=== PATIENT | female | born 1945 | race Caucasian/White ===

== ENCOUNTER 2020-07-30 07:53 | Outpatient (REF) | payer MEDICARE, SELFPAY ==
[2020-07-30 10:57] LABS: Alanine Aminotransferase 9 U/L (0-31); Anion Gap 10 (12-20); Aspartate Amino Transferase 19 U/L (5-31); Blood Urea Nitrogen 11 mg/dL (9-16); Calcium 9.3 mg/dL (8.4-10.2); Carbon Dioxide 31 mmol/L (22-29); Chloride 102 mmol/L (96-108); Cholesterol 159 mg/dL; Estimated Glomerular Filt Rate > 60; Glucose Fasting 93 mg/dL (60-99); HDL Cholesterol 47 mg/dL; LDL Cholesterol Calculated 91 mg/dl; Potassium 4.5 mmol/l (3.3-5.1); Sodium 138 mmol/L (135-145); Triglycerides 109 mg/dL
[2020-07-30 11:09] LABS: Vitamin D 25-OH Total 40.2 ng/mL (>30)
[2020-08-06 06:02] LABS: N-Telopeptide 32 (see note); NTXCreaRU 104 mg/dL (20-275)
== END 2020-07-30 07:54 | disposition home or self-care (01) ==
LOC: HO.10HDL 07:53
PROVIDERS: PCP Internal Medicine; Visit Provider Internal Medicine Endocrinology, Diabetes & Metabolism
DX: E78.5 Hyperlipidemia, unspecified (principal); M81.0 Age-related osteoporosis without current pathological fracture
CPT/HCPCS: 80048; 80061; 82306; 82523; 84450; 84460

== ENCOUNTER 2020-09-22 08:04 | Outpatient (REF) | payer MEDICARE, SELFPAY ==
--- NOTE | 2020-09-22 08:08 | MM_ITS ---
EXAMINATION: BONE DENSITOMETRY CLINICAL INDICATION: Age-related osteoporosis without current pathological fracture. COMPARISON: Previous BD dated 09/20/2018 and baseline BD dated 07/30/2004. TECHNIQUE: Using a [employer] DXA System (software version: 13.1) manufactured by [employer], dual-energy x-ray absorptiometry was performed of the lumbar spine and left hip. The images are of good technical quality. Summary results are attached. FINDINGS: AP SPINE L1-L4: Current: BMD 0.883 g/cm2, Z-score -0.4, T-score -2.5, osteopenia, 4.8% decrease from previous, 4.6% decrease from baseline (<5% change is not significant). Prior: BMD 0.928 g/cm2. Baseline: BMD 0.926 g/cm2. LEFT FEMUR, NECK: Current: BMD 0.608 g/cm2, Z-score -0.9, T-score -3.1, osteoporosis. Prior: BMD 0.617 g/cm2. Baseline: BMD 0.655 g/cm2. LEFT FEMUR, TOTAL: Current: BMD 0.764 g/cm2, Z-score 0.1, T-score -1.9, osteopenia, 0.4% decrease from previous, 3.4% decrease from baseline (<5% change is not significant). Prior: BMD 0.767 g/cm2. Baseline: BMD 0.791 g/cm2. IDENTIFIED RISK FACTORS: Osteoporosis. Menopause. HISTORY OF FRACTURE: None listed. MEDICATIONS: Calcium supplement and/or multivitamin. Vitamin D. Bisphosphonates. MM/XR DEXA axial skeleton IMPRESSION: 1. DIAGNOSIS: Osteoporosis based on the lowest T-score value of -3.1 in the femoral neck applying World Health Organization criteria. 2. 10-YEAR FRACTURE RISK PREDICTION, FRAX: Major osteoporotic fracture (clinical spine, forearm, hip or shoulder) 20.8%. Hip fracture 8.8%. 3. Treatment Recommendations: NOF guidelines recommend consideration for treatment in postmenopausal women and men age 50 and older presenting with the following: -A hip or vertebral (clinical or morphometric) fracture. -T-score less than or equal to -2.5 at the femoral neck or spine after appropriate evaluation to exclude secondary causes. -Low bone mass at the hip or spine and a 10-year fracture probability by FRAX of greater than or equal to 3% for hip fracture or greater than or equal to 20% for major osteoporotic fracture based on the [place] adapted WHO algorithm. 4. Other Recommendations: All treatment decisions require clinical judgment and consideration of individual patient factors, including patient preferences, comorbidities, previous drug use, risk factors not captured in the FRAX model (e.g. frailty, falls, vitamin D deficiency, increased bone turnover, interval significant decline in bone density) and possible under or overestimation of fracture risk by FRAX. Additional medical evaluation for secondary cause of low bone mineral density may be appropriate. FUTURE SCAN RECOMMENDATION: People with diagnosed cases of osteoporosis or at high risk for fracture should have regular bone mineral density tests. For patients eligible for Medicare, routine testing is allowed once every 2 years. The testing frequency can be increased to one year for patients who have rapidly progressing disease, those who are receiving or discontinuing medical therapy to restore bone mass, or have additional risk factors.
== END 2020-09-22 08:05 | disposition home or self-care (01) ==
LOC: HO.MAMMO 08:04
PROVIDERS: PCP Internal Medicine; Visit Provider Internal Medicine Endocrinology, Diabetes & Metabolism
DX: M81.0 Age-related osteoporosis without current pathological fracture (principal); Z78.0 Asymptomatic menopausal state
CPT/HCPCS: 77080

== ENCOUNTER → 2020-09-29 07:50 | Outpatient (BNVA) | payer MEDICARE, SELFPAY | PROVIDERS: PCP Internal Medicine; Visit Provider Internal Medicine Endocrinology, Diabetes & Metabolism | DX: M81.0 Age-related osteoporosis without current pathological fracture (principal); E78.5 Hyperlipidemia, unspecified; E55.9 Vitamin D deficiency, unspecified; Z87.891 Personal history of nicotine dependence; Z79.83 Long term (current) use of bisphosphonates | CPT/HCPCS: 99212 ==

== ENCOUNTER 2020-12-05 08:09 | Outpatient (REF) | payer MEDICARE, SELFPAY ==
--- NOTE | ~2020-12-05 | MM_ITS ---
EXAMINATION: MM SCREENING DIGITAL BREAST TOMOSYNTHESIS, BILATERAL CLINICAL INFORMATION: Screening. Asymptomatic. The lifetime risk of breast cancer based on the Tyrer-Cuzick Model is 2%. COMPARISON: Mammography: 11/08/2019, 09/20/2018, 09/18/2017 TECHNIQUE: Digital breast tomosynthesis is performed in both the craniocaudal and mediolateral oblique views along with computer-aided detection (CAD). Synthesized 2D images are generated from the tomosynthesis. FINDINGS: The breasts are heterogeneously dense, which may obscure small masses (ACR BI-RADS breast composition Category c). There are no significant masses, abnormal calcifications, or other abnormalities. Parenchymal pattern is similar to prior studies. No developing density. The axilla and skin contours are unremarkable. MM/MM tomosynthesis screening BI IMPRESSION: No mammographic evidence of malignancy. ASSESSMENT: BI-RADS 1: Negative RECOMMENDATION: Routine annual mammography screening. This patient's information was entered into a reminder system with a target due date for their next mammogram.
== END 2020-12-05 08:10 | disposition home or self-care (01) ==
LOC: HO.MAMMO 08:09
PROVIDERS: Visit Provider Internal Medicine
DX: Z12.31 Encounter for screening mammogram for malignant neoplasm of breast (principal)
CPT/HCPCS: 77063; 77067

== ENCOUNTER 2021-03-02 07:01 | Outpatient (REF) | payer MEDICARE, SELFPAY ==
[2021-03-02 11:51] LABS: Alanine Aminotransferase 8 U/L (0-31); Anion Gap 13 (12-20); Aspartate Amino Transferase 16 U/L (5-31); Blood Urea Nitrogen 14 mg/dL (9-16); Calcium 9.1 mg/dL (8.4-10.2); Carbon Dioxide 28 mmol/L (22-29); Chloride 104 mmol/L (96-108); Cholesterol 186 mg/dL; Estimated Glomerular Filt Rate > 60; Glucose Fasting 94 mg/dL (60-99); HDL Cholesterol 63 mg/dL; LDL Cholesterol Calculated 102 mg/dl; Potassium 4.2 mmol/L (3.3-5.1); Sodium 141 mmol/L (135-145); Triglycerides 109 mg/dL
== END 2021-03-02 07:02 | disposition home or self-care (01) ==
LOC: HO.HMGCLDS 07:01
PROVIDERS: PCP Internal Medicine; Visit Provider Internal Medicine
DX: I10 Essential (primary) hypertension (principal); E78.5 Hyperlipidemia, unspecified
CPT/HCPCS: 36415; 80048; 80061; 84450; 84460

== ENCOUNTER 2021-03-18 08:53 | Outpatient (REF) | payer MEDICARE, SELFPAY ==
[2021-03-18 11:00] LABS: Alanine Aminotransferase 9 U/L (0-31); Albumin Level 4.1 g/dL (3.5-5.0); Alkaline Phosphatase 66 U/L (39-117); Anion Gap 11 (12-20); Aspartate Amino Transferase 14 U/L (5-31); Bilirubin Total 0.8 mg/dL (0.0-1.0); Blood Urea Nitrogen 14 mg/dL (9-16); Calcium 9.5 mg/dL (8.4-10.2); Carbon Dioxide 31 mmol/L (22-29); Chloride 103 mmol/L (96-108); Estimated Glomerular Filt Rate > 60; Glucose Fasting 92 mg/dL (60-99); Potassium 4.2 mmol/L (3.3-5.1); Sodium 141 mmol/L (135-145); Total Protein 6.4 g/dL (6.5-8.0)
[2021-03-18 11:20] LABS: Vitamin D 25-OH Total 39.9 ng/mL (>30)
[2021-03-24 06:47] LABS: N-Telopeptide 22 (see note); NTXCreaRU 106 mg/dL (20-275)
== END 2021-03-18 08:54 | disposition home or self-care (01) ==
LOC: HO.10HDL 08:53
PROVIDERS: Visit Provider Internal Medicine Endocrinology, Diabetes & Metabolism
DX: M81.0 Age-related osteoporosis without current pathological fracture (principal)
CPT/HCPCS: 36415; 80053; 82306; 82523

== ENCOUNTER → 2021-03-30 07:17 | Outpatient (BNVA) | payer MEDICARE, SELFPAY | PROVIDERS: PCP Internal Medicine; Visit Provider Internal Medicine Endocrinology, Diabetes & Metabolism | DX: M81.0 Age-related osteoporosis without current pathological fracture (principal); E55.9 Vitamin D deficiency, unspecified | CPT/HCPCS: 99212 ==

== ENCOUNTER 2021-09-13 07:41 | Outpatient (REF) | payer MEDICARE, SELFPAY ==
[2021-09-13 11:04] LABS: Cholesterol 185 mg/dL; HDL Cholesterol 50 mg/dL; LDL Cholesterol Calculated 114 mg/dl; Triglycerides 106 mg/dL
== END 2021-09-13 07:42 | disposition home or self-care (01) ==
LOC: HO.10HDL 07:41
PROVIDERS: Visit Provider Internal Medicine
DX: E78.5 Hyperlipidemia, unspecified (principal); I10 Essential (primary) hypertension
CPT/HCPCS: 36415; 80061

== ENCOUNTER 2021-12-31 08:56 | Outpatient (REF) | payer MEDICARE, SELFPAY ==
--- NOTE | ~2021-12-31 | MM_ITS ---
EXAMINATION: MM SCREENING DIGITAL BREAST TOMOSYNTHESIS, BILATERAL CLINICAL INFORMATION: Screening. Asymptomatic. The lifetime risk of breast cancer based on the Tyrer-Cuzick Model is 2.0%. COMPARISON: Mammography: December 05, 2020 and studies dating back to September 09, 2014 TECHNIQUE: Digital breast tomosynthesis is performed in both the craniocaudal and mediolateral oblique views along with computer-aided detection (CAD). Synthesized 2D images are generated from the tomosynthesis. FINDINGS: The breasts are heterogeneously dense, which may obscure small masses (ACR BI-RADS breast composition Category c). There are no significant masses, abnormal calcifications, or other abnormalities. MM/MM tomosynthesis screening BI IMPRESSION: There are no significant changes from prior study. ASSESSMENT: BI-RADS 1: Negative RECOMMENDATION: Routine annual mammography screening. This patient's information was entered into a reminder system with a target due date for their next mammogram.
== END 2021-12-31 08:57 | disposition home or self-care (01) ==
LOC: HO.MAMMO 08:56
PROVIDERS: PCP Internal Medicine; Visit Provider Internal Medicine
DX: Z12.31 Encounter for screening mammogram for malignant neoplasm of breast (principal)
CPT/HCPCS: 77063; 77067

== ENCOUNTER 2022-03-22 07:44 | Outpatient (REF) | payer MEDICARE, SELFPAY ==
[2022-03-22 12:04] LABS: Alanine Aminotransferase 8 U/L (0-31); Anion Gap 13 (12-20); Aspartate Amino Transferase 17 U/L (5-31); Blood Urea Nitrogen 14 mg/dL (9-16); Calcium 9.6 mg/dL (8.4-10.2); Carbon Dioxide 29 mmol/L (22-29); Chloride 103 mmol/L (96-108); Cholesterol 198 mg/dL; Estimated Glomerular Filt Rate > 60; Glucose Fasting 99 mg/dL (60-99); HDL Cholesterol 65 mg/dL; LDL Cholesterol Calculated 116 mg/dl; Potassium 4.6 mmol/L (3.3-5.1); Sodium 140 mmol/L (135-145); Triglycerides 85 mg/dL
[2022-03-22 12:11] LABS: Vitamin D 25-OH Total 60.6 ng/mL (>30)
== END 2022-03-22 07:45 | disposition home or self-care (01) ==
LOC: HO.HMGCLDS 07:44
PROVIDERS: PCP Internal Medicine; Visit Provider Internal Medicine
DX: E78.5 Hyperlipidemia, unspecified (principal); I10 Essential (primary) hypertension; R73.01 Impaired fasting glucose; M81.0 Age-related osteoporosis without current pathological fracture; Z78.0 Asymptomatic menopausal state
CPT/HCPCS: 36415; 80048; 80061; 82306; 84450; 84460

== ENCOUNTER → 2022-04-12 08:32 | Outpatient (BNVA) | payer MEDICARE, SELFPAY | PROVIDERS: PCP Internal Medicine; Visit Provider Internal Medicine Endocrinology, Diabetes & Metabolism | DX: M81.0 Age-related osteoporosis without current pathological fracture (principal) | CPT/HCPCS: 99212 ==

== ENCOUNTER 2022-04-28 07:44 | Outpatient (REF) | payer MEDICARE, SELFPAY ==
[2022-04-30 11:21] LABS: Prot Elec - Albumin 3.9 g/dL (3.8-4.8); Prot Elec - Alpha1 0.3 g/dL (0.2-0.3); Prot Elec - Alpha2 0.8 g/dL (0.5-0.9); Prot Elec - Beta 1 0.4 g/dL (0.4-0.6); Prot Elec - Beta 2 0.3 g/dL (0.2-0.5); Prot Elec - Gamma 0.7 g/dL (0.8-1.7); Prot Elec - Total Protein 6.3 g/dL (6.1-8.1)
== END 2022-04-28 07:45 | disposition home or self-care (01) ==
LOC: HO.10HDL 07:44
PROVIDERS: Visit Provider Internal Medicine Endocrinology, Diabetes & Metabolism
DX: M81.0 Age-related osteoporosis without current pathological fracture (principal)
CPT/HCPCS: 84165; 86335

== ENCOUNTER 2022-05-02 08:23 | Outpatient (REF) | payer MEDICARE, SELFPAY ==
[2022-05-02 11:50] LABS: Total Volume 24 Hour Urine 1025 mL
[2022-05-02 12:18] LABS: Creatinine, 24Hr Urine 0.6 G/Day (1.0-2.0); Creatinine, mg/dL 62.39
[2022-05-04 20:47] LABS: Calcium, 24 Hr Urine 116 mg/24 h; Calcium/Creatinine Ratio 182 mg/g creat (30-275); Creatinine 24Hr Urine 0.64 g/24 h (0.50-2.15)
== END 2022-05-02 08:24 | disposition home or self-care (01) ==
LOC: HO.10HDLNP 08:23
PROVIDERS: Visit Provider Internal Medicine Endocrinology, Diabetes & Metabolism
DX: M81.0 Age-related osteoporosis without current pathological fracture (principal)
CPT/HCPCS: 82340; 82570

== ENCOUNTER 2022-09-21 07:54 | Outpatient (REF) | payer OTHER, SELFPAY ==
[2022-09-21 11:21] LABS: Alanine Aminotransferase 10 U/L (0-31); Anion Gap 11 (12-20); Aspartate Amino Transferase 16 U/L (5-31); Blood Urea Nitrogen 14 mg/dL (9-16); Calcium 9.7 mg/dL (8.4-10.2); Carbon Dioxide 31 mmol/L (22-29); Chloride 102 mmol/L (96-108); Cholesterol 192 mg/dL; Estimated Glomerular Filt Rate > 60; Glucose Fasting 92 mg/dL (60-99); HDL Cholesterol 58 mg/dL; LDL Cholesterol Calculated 112 mg/dl; Potassium 4.3 mmol/L (3.3-5.1); Sodium 140 mmol/L (135-145); Triglycerides 112 mg/dL
[2022-09-21 11:41] LABS: Vitamin D 25-OH Total 73.8 ng/mL (>30)
== END 2022-09-21 07:55 | disposition home or self-care (01) ==
LOC: HO.10HDL 07:54
PROVIDERS: Visit Provider Internal Medicine
DX: M81.0 Age-related osteoporosis without current pathological fracture (principal); E78.5 Hyperlipidemia, unspecified; R73.01 Impaired fasting glucose; N95.9 Unspecified menopausal and perimenopausal disorder
CPT/HCPCS: 36415; 80048; 80061; 82306; 84450; 84460

== ENCOUNTER 2022-09-28 09:57 | Outpatient (REF) | payer OTHER, SELFPAY ==
--- NOTE | ~2022-09-28 | MM_ITS ---
EXAMINATION: BONE DENSITOMETRY CLINICAL INDICATION: Age-related osteoporosis without current pathological fracture. COMPARISON: Previous BD dated 09/22/2020 and baseline BD dated 07/30/2004. TECHNIQUE: Using a [employer] DXA System (software version: 13.1) manufactured by [employer], dual-energy x-ray absorptiometry was performed of the lumbar spine and left hip. The images are of good technical quality. Summary results are attached. FINDINGS: AP SPINE L1-L4: Current: BMD 0.929 g/cm2, Z-score 0.1, T-score -2.1, osteopenia, 5.2% increase from previous, 0.3% increase from baseline (<5% change is not significant). Prior: BMD 0.883 g/cm2. Baseline: BMD 0.926 g/cm2. LEFT FEMUR, NECK: Current: BMD 0.623 g/cm2, Z-score -0.7, T-score -3.0, osteoporosis. Prior: BMD 0.608 g/cm2. Baseline: BMD 0.655 g/cm2. LEFT FEMUR, TOTAL: Current: BMD 0.735 g/cm2, Z-score 0.0, T-score -2.2, osteopenia, 3.8% decrease from previous, 7.1% decrease from baseline (<5% change is not significant). Prior: BMD 0.764 g/cm2. Baseline: BMD 0.791 g/cm2. IDENTIFIED RISK FACTORS: Osteoporosis, history of fracture (adult), menopause. HISTORY OF FRACTURE: Humerus. MEDICATIONS: Calcium supplements or multivitamin, vitamin D, bisphosphonates. MM/XR DEXA axial skeleton IMPRESSION: 1. DIAGNOSIS: Osteoporosis based on the lowest T-score value of -3.0 in the femoral neck applying World Health Organization criteria. 2. 10-YEAR FRACTURE RISK PREDICTION, FRAX: According to the guidelines, FRAX calculation should only be performed on patients in the osteopenia bone density category. Therefore, FRAX was not performed on this patient. 3. Treatment Recommendations: NOF guidelines recommend consideration for treatment in postmenopausal women and men age 50 and older presenting with the following: -A hip or vertebral (clinical or morphometric) fracture. -T-score less than or equal to -2.5 at the femoral neck or spine after appropriate evaluation to exclude secondary causes. -Low bone mass at the hip or spine and a 10-year fracture probability by FRAX of greater than or equal to 3% for hip fracture or greater than or equal to 20% for major osteoporotic fracture based on the [place] adapted WHO algorithm. 4. Other Recommendations: All treatment decisions require clinical judgment and consideration of individual patient factors, including patient preferences, comorbidities, previous drug use, risk factors not captured in the FRAX model (e.g. frailty, falls, vitamin D deficiency, increased bone turnover, interval significant decline in bone density) and possible under or overestimation of fracture risk by FRAX. Additional medical evaluation for secondary cause of low bone mineral density may be appropriate. FUTURE SCAN RECOMMENDATION: People with diagnosed cases of osteoporosis or at high risk for fracture should have regular bone mineral density tests. For patients eligible for Medicare, routine testing is allowed once every 2 years. The testing frequency can be increased to one year for patients who have rapidly progressing disease, those who are receiving or discontinuing medical therapy to restore bone mass, or have additional risk factors.
== END 2022-09-28 09:58 | disposition home or self-care (01) ==
LOC: HO.MAMMO 09:57
PROVIDERS: PCP Internal Medicine; Visit Provider Internal Medicine Endocrinology, Diabetes & Metabolism
DX: Z13.820 Encounter for screening for osteoporosis (principal); M81.0 Age-related osteoporosis without current pathological fracture; Z78.0 Asymptomatic menopausal state
CPT/HCPCS: 77080

== ENCOUNTER 2022-10-06 09:06 | Outpatient (REF) | payer OTHER, SELFPAY ==
--- NOTE | ~2022-10-06 | MM_ITS ---
EXAMINATION: DXA VERTEBRAL FRACTURE ASSESSMENT CLINICAL INFORMATION: Age-related osteoporosis COMPARISON: Bone densitometry 09/28/2022. TECHNIQUE: Your patient completed a vertebral fracture assessment using the [employer] DXA system (software version: 14.10) manufactured by [employer]. The following summarizes the results of our evaluation. LVA MORPHOMETRY RESULTS: Evaluation of the thoracolumbar spine from T4 through L4 was performed. Image quality is good. There is no focal vertebral compression. Borderline loss of height T7 likely present. There is mild accentuated endplate concavity at T11. The lowest Z scores are -1.2, at both T9 and T10. The highest Z score is +0.7 at T4 MM/XR DEXA vertrebral fracture IMPRESSION: -No focal gross vertebral compression. -Borderline loss of height T7. Mild accentuated endplate concavity T11. -Lowest Z-scores -1.2 at both T9 and T10. RECOMMENDATIONS: All patients should ensure an adequate intake of dietary calcium (1200 mg/d) and vitamin D (400-800 IU/d). Effective therapies are now available in the form of bisphosphonates, (alendronate, ibandronate, risedronate, zoledronic acid), antiresorptive agents (calcitonin, estrogen+progesterone and raloxifene) and anabolic agent (teriparatide). These therapies may reduce vertebral, hip and other fractures by up to 50%. FOLLOW-UP: People with diagnosed cases of osteoporosis, high risk for fracture, or current vertebral fractures should have regular bone mineral density tests. The frequency of follow-up vertebral fracture assessment tests should be determined based on clinical circumstances. Often times, testing frequency will be based on rapidly progressing disease, or the addition or elimination of therapy to treat the disease.
== END 2022-10-06 09:07 | disposition home or self-care (01) ==
LOC: HO.MAMMO 09:06
PROVIDERS: PCP Internal Medicine; Visit Provider Internal Medicine Endocrinology, Diabetes & Metabolism
DX: Z13.820 Encounter for screening for osteoporosis (principal); M81.0 Age-related osteoporosis without current pathological fracture; Z78.0 Asymptomatic menopausal state; S22.009D Unspecified fracture of unspecified thoracic vertebra, subsequent encounter for fracture with routine healing
CPT/HCPCS: 77086

== ENCOUNTER → 2022-11-08 07:48 | Outpatient (BNVA) | payer MEDICARE, SELFPAY | PROVIDERS: PCP Internal Medicine; Visit Provider Internal Medicine Endocrinology, Diabetes & Metabolism | DX: M81.0 Age-related osteoporosis without current pathological fracture (principal) | CPT/HCPCS: 99212 ==

== ENCOUNTER 2023-01-06 07:17 | Outpatient (REF) | payer MEDICARE, SELFPAY ==
--- NOTE | ~2023-01-06 | MM_ITS ---
EXAMINATION: MM SCREENING DIGITAL BREAST TOMOSYNTHESIS, BILATERAL CLINICAL INFORMATION: Screening. Asymptomatic. The lifetime risk of breast cancer based on the Tyrer-Cuzick Model is 2%. COMPARISON: Mammography: 12/31/2021, 12/05/2020, 11/08/2019 TECHNIQUE: Digital breast tomosynthesis is performed in both the craniocaudal and mediolateral oblique views along with computer-aided detection (CAD). Synthesized 2D images are generated from the tomosynthesis. FINDINGS: The breasts are heterogeneously dense, which may obscure small masses (ACR BI-RADS breast composition Category c). There are no significant masses, abnormal calcifications, or other abnormalities. Parenchymal pattern is similar to prior studies. There is no developing density or architectural abnormality. The axilla and skin contours are unremarkable. No significant changes. MM/MM tomosynthesis screening BI IMPRESSION: No mammographic evidence of malignancy. ASSESSMENT: BI-RADS 1: Negative RECOMMENDATION: Routine annual mammography screening. This patient's information was entered into a reminder system with a target due date for their next mammogram.
== END 2023-01-06 07:18 | disposition home or self-care (01) ==
LOC: HO.MAMMO 07:17
PROVIDERS: PCP Internal Medicine; Visit Provider Internal Medicine
DX: Z12.31 Encounter for screening mammogram for malignant neoplasm of breast (principal)
CPT/HCPCS: 77063; 77067

== ENCOUNTER 2023-01-25 07:42 | Outpatient (REF) | payer MEDICARE, SELFPAY ==
[2023-01-31 07:09] LABS: N-Telopeptide 23 (see note); NTXCreaRU 49 mg/dL (20-275)
== END 2023-01-25 07:43 | disposition home or self-care (01) ==
LOC: HO.10HDL 07:42
PROVIDERS: Visit Provider Internal Medicine Endocrinology, Diabetes & Metabolism
DX: M81.0 Age-related osteoporosis without current pathological fracture (principal)
CPT/HCPCS: 82523

== ENCOUNTER 2023-03-09 07:30 | Outpatient (REF) | payer MEDICARE, SELFPAY ==
[2023-03-09 11:18] LABS: Alanine Aminotransferase 7 U/L (0-31); Anion Gap 12 (12-20); Aspartate Amino Transferase 16 U/L (5-31); Blood Urea Nitrogen 15 mg/dL (9-16); Calcium 9.6 mg/dL (8.4-10.2); Carbon Dioxide 30 mmol/L (22-29); Chloride 105 mmol/L (96-108); Cholesterol 172 mg/dL; Estimated Glomerular Filt Rate > 60; Glucose Fasting 92 mg/dL (60-99); HDL Cholesterol 60 mg/dL; LDL Cholesterol Calculated 96 mg/dl; Potassium 4.3 mmol/L (3.3-5.1); Sodium 143 mmol/L (135-145); Triglycerides 80 mg/dL
== END 2023-03-09 07:31 | disposition home or self-care (01) ==
LOC: HO.10HDL 07:30
PROVIDERS: Visit Provider Internal Medicine
DX: I10 Essential (primary) hypertension (principal); E78.5 Hyperlipidemia, unspecified; R73.01 Impaired fasting glucose
CPT/HCPCS: 36415; 80048; 80061; 84450; 84460

== ENCOUNTER 2023-05-03 07:32 | Outpatient (AMB) | payer MEDICARE, SELFPAY ==
--- NOTE | 2023-05-03 07:34 | A.OFFVIS_ITS ---
Intake Vital Signs 05/03/23 07:36 Height 5 ft 4.49 in Weight 119 lb 0.794 oz BMI 20.1 BP 138/76 Blood Pressure Location Rt brachial Position Sitting Pulse 83 Pulse Source Pulse Oximeter Intake Visit Reasons: f/u Osteoporosis Intake Note: Patient present today for Osteoporosis follow up visit. 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 She is off Fosamax 70 mg weekly, she has a good method of administration. She is 100 % adherent. She has osteoporosis diagnosed on 2003, she was on Evista from 2003 to 10/2013 when was stopped by DR Ko because she had worsening BMD, she was started on Fosamax on 10/2013. She has PMH of hyperlipidemia, vitamin D deficiency. She had a fragility fracture Right shoulder on 02/2017 while she was on Fosamax . She denies GERD, negative FH of fractures or osteoporosis, no nephrolithiasis, no steroids used, ex smoker quit 7 years ago, no anti seizures medications, no SSRI, no PPI. He has negative History of head or neck irradiation. Calcium Citrate 500 mg BID Vitamin D: 1000 IU daily Herbal medications. none. 09/22/2020 DEXA FINDINGS: AP SPINE L1-L4: Current: BMD 0.883 g/cm2, Z-score -0.4, T-score -2.5, osteopenia, 4.8% decrease from previous, 4.6% decrease from baseline (<5% change is not significant). Prior: BMD 0.928 g/cm2. Baseline: BMD 0.926 g/cm2. LEFT FEMUR, NECK: Current: BMD 0.608 g/cm2, Z-score -0.9, T-score -3.1, osteoporosis. Prior: BMD 0.617 g/cm2. Baseline: BMD 0.655 g/cm2. LEFT FEMUR, TOTAL: Current: BMD 0.764 g/cm2, Z-score 0.1, T-score -1.9, osteopenia, 0.4% decrease from previous, 3.4% decrease from baseline (<5% change is not significant). Prior: BMD 0.767 g/cm2. Baseline: BMD 0.791 g/cm2. Complete secondary workup was negative Laboratory Tests FINDINGS: AP SPINE L1-L4: Current: BMD 0.929 g/cm2, Z-score 0.1, T-score -2.1, osteopenia, 5.2% increase from previous, 0.3% increase from baseline (<5% change is not significant). Prior: BMD 0.883 g/cm2. Baseline: BMD 0.926 g/cm2. LEFT FEMUR, NECK: Current: BMD 0.623 g/cm2, Z-score -0.7, T-score -3.0, osteoporosis. Prior: BMD 0.608 g/cm2. Baseline: BMD 0.655 g/cm2. LEFT FEMUR, TOTAL: Current: BMD 0.735 g/cm2, Z-score 0.0, T-score -2.2, osteopenia, 3.8% decrease from previous, 7.1% decrease from baseline (<5% change is not significant). Prior: BMD 0.764 g/cm2. Baseline: BMD 0.791 g/cm2. IDENTIFIED RISK FACTORS: Osteoporosis, history of fracture (adult), menopause. 03/18/21 03/18/21 08:59 08:59 Creatinine 0.75 Estimated GFR > 60 Calcium 9.5 Alkaline Phosphata se 66 Albumin 4.1 N-Telopeptide X-li nked 22 25-OH Vitamin D To terese 39.9 Urine Creatinine 106 Laboratory Tests 06/03/19 07/30/20 07/30/20 06:14 08:01 08:05 Creatinine 0.76 Estimated GFR > 60 Calcium 9.3 Albumin 4.3 N-Telopeptide X-li nked 32 25-OH Vitamin D To terese 40.2 Urine NTX was suppressed [facility] Medical History Dyslipidemia Impaired fasting glucose Osteoporosis White coat syndrome with hypertension Surgical History H/O colonoscopy No pertinent past surgical history Family History Father No problems noted. Mother Diabetes mellitus Sister No problems noted. Son No problems noted. Social History Household Members: Spouse Household Members Other:: Housing: House Alcohol intake: current Alcohol intake frequency: holidays/special occasions only Alcohol type: beer Patient Tobacco Use Status: Former Tobacco user e-Cigarette/Vaping Use: Never Used Second Hand Smoke Exposure: Yes Advance Directives Date on File: 07/30/20 service: No Current occupational status: disabled Cognitive needs: No Hearing needs: No Vision needs: Yes Physical Exam Vital Signs: BMI result Body Mass Index 20.1 Assessment & Plan Assessment & Plan (1) Osteoporosis: Code(s): M81.0 - Age-related osteoporosis without current pathological fracture Qualifiers: Osteoporosis type: age-related Presence of current pathological fracture: without current pathological fracture Qualified Code(s): M81.0 - Age- related osteoporosis without current pathological fracture Plan: This 77-year-old white female with a history of osteoporosis and fragility fracture of the right shoulder in 2017. Secondary workup was negative. She has been on alendronate for 8 years and Evista prior. Urine NTX was suppressed. Plan is to continue calcium and vitamin-D. Repeat bone density was stable. Will have patient hold alendronate. Will follow serial NTX Coding Level of Care Code Est Pt Level 3 (51466) Diagnoses Osteoporosis M81.0 Osteoporosis type: age-related Presence of current pathological fracture: without current pathological fracture
[2023-05-03 07:36] VITALS: BP 138/76; PULSE 83; BMI 20.1
== END 2023-05-03 07:47 | disposition home or self-care (01) ==
PROVIDERS: PCP Internal Medicine; Referring Provider Internal Medicine; Visit Provider Internal Medicine Endocrinology, Diabetes & Metabolism
DX: M81.0 Age-related osteoporosis without current pathological fracture (principal)
CPT/HCPCS: 99213

== ENCOUNTER → 2023-05-03 07:32 | Outpatient (BNVA) | payer MEDICARE, SELFPAY | PROVIDERS: Visit Provider Internal Medicine Endocrinology, Diabetes & Metabolism | DX: M81.0 Age-related osteoporosis without current pathological fracture (principal) | CPT/HCPCS: 99212 ==

== ENCOUNTER 2023-09-12 07:24 | Outpatient (REF) | payer MEDICARE, SELFPAY ==
[2023-09-12 11:08] LABS: Alanine Aminotransferase 10 U/L (0-31); Anion Gap 10 (12-20); Aspartate Amino Transferase 18 U/L (5-31); Blood Urea Nitrogen 16 mg/dL (9-16); Calcium 9.3 mg/dL (8.4-10.2); Carbon Dioxide 32 mmol/L (22-29); Chloride 102 mmol/L (96-108); Cholesterol 200 mg/dL (<200); Estimated Glomerular Filt Rate > 60; Glucose Fasting 91 mg/dL (60-99); HDL Cholesterol 70 mg/dL (>40); LDL Cholesterol Calculated 112 mg/dL (<100); Potassium 4.4 mmol/L (3.3-5.1); Sodium 140 mmol/L (135-145); Triglycerides 94 mg/dL (<150)
== END 2023-09-12 07:25 | disposition home or self-care (01) ==
LOC: HO.10HDL 07:24
PROVIDERS: Visit Provider Internal Medicine
DX: E78.5 Hyperlipidemia, unspecified (principal); R73.01 Impaired fasting glucose
CPT/HCPCS: 36415; 80048; 80061; 84450; 84460

== ENCOUNTER 2023-09-21 08:07 | Outpatient (AMB) | payer MEDICARE, SELFPAY ==
--- NOTE | 2023-09-21 08:24 | A.OFFPC_ITS ---
Vital Signs 09/21/23 08:25 Height 5 ft 4.9 in Weight 125 lb 8 oz BMI 20.9 BP 132/86 Blood Pressure Location Rt brachial Position Sitting Pulse 82 Pulse Source Pulse Oximeter Pulse Oximetry (%) 100 Oxygen Delivery Method Room Air Intake Visit Reasons: Annual PE Intake Note: Pt is here for her Annual PE Allergies No Known Allergies [No Known Allergies*] Allergy (Verified 09/21/23 08:58) Medication List - Last Reconciled 09/21/23 by Juanita Lakhani MD atorvastatin (Lipitor) 10 mg PO DAILY calcium carbonate 500 mg PO DAILY cholecalciferol (vitamin D3) (Vitamin D3) 25 mcg PO DAILY Tobacco use date assessed: 09/21/23 Fall risk assessment: No Falls in past year Last assessed Fall Risk: 09/21/23 Dental Screening Dental Screen Date: 09/21/23 Did you have a dental visit in the last 12 months?: No Did you have a dental problem in the last 6 months where you did not have access to dental care?: No Was dental information given to patient?: No HPI Annual PE HPI Details 78-year-old lady here today for her phys ical exam. She has dyslipidemia currently on atorvastatin. She is up-to-date with her screening mammogram, and had a colonoscopy in 2019 which did not show any polyps only sigmoid diverticulosis, no further colonoscopy is indicated per Dr. Alejo. Currently followed by Dr. Wilde her narcotics agent for her osteoporosis. Plan is to continue calcium and vitamin-D. Repeat bone density was stable, alendronate currently on hold. FORMERLY [facility], 1928–1983 Medical History White coat syndrome with hypertension Dyslipidemia Impaired fasting glucose Osteoporosis Surgical History H/O colonoscopy No pertinent past surgical history Family History Father No problems noted. Mother Diabetes mellitus Sister No problems noted. Son No problems noted. Social History Household Members: Spouse Household Members Other:: Housing: House Alcohol intake: current Alcohol intake frequency: holidays/special occasions only Alcohol type: beer Patient Tobacco Use Status: Former Tobacco user e-Cigarette/Vaping Use: Never Used Second Hand Smoke Exposure: Yes Advance Directives Date on File: 07/30/20 service: No Current occupational status: disabled Cognitive needs: No Hearing needs: No Vision needs: Yes Questionnaire PHQ-9 Over the last 2 weeks, how often have you been bothered by any of the following problems? 1. Little interest or pleasure in doing things: not at all 2. Feeling down, depressed, or hopeless: not at all 3. Trouble falling or staying asleep, or sleeping too much: not at all 4. Feeling tired or having little energy: not at all 5. Poor appetite or overeating: not at all 6. Feeling bad about yourself - or that you are a failure or have let yourself or your family down: not at all 7. Trouble concentrating on things, such as reading the newspaper or watching television: not at all 8. Moving or speaking so slowly that other people could have noticed. Or the opposite - being so fidgety or restless that you have been moving around a lot more than usual: not at all 9. Thoughts that you would be better off or of hurting yourself in some way: not at all Total score: 0 Depression Screening Interpretation: Negative Depression Screening Done: Yes 57670 - PHQ-9 Billing: Yes Source: Developed by Drs. Cisco Tierney, Vivi Benites, Mir Daniels and colleagues, with an educational tay from [employer]. Thrive Questionnaire Date Thrive assessed: 09/21/23 I am a: Patient What is your living situation today?: I have a steady place to live Within the past 12 months, did the food you bought not last and you didn't have the money to get more?: Never true Within the past 12 months, did you worry whether your food would run out before you got money to buy more?: Never true Do you have trouble paying for medicines?: No Do you have trouble getting transportation to medical appointments?: No Do you have trouble paying your heating and electricity bill?: No Do you have trouble taking care of your child, family member or friend?: No Do you have trouble with day-to-day activities such as bathing, preparing meals, shopping, managing finances, etc.?: No Are you currently unemployed and looking for a job?: No Are you interested in more education?: No AUDIT C Alcohol Use Questionnaire (AUDIT-C) 1. How often do you have a drink containing alcohol?: Monthly or less 2. How many drinks containing alcohol do you have on a typical day when you are drinking?: 1 or 2 3. How often do you have six or more drinks on one occasion?: Never Total Score: 1 MYA-7 AMB Questionnaire MYA-7 Date MYA - 7 assessed: 09/21/23 Feeling nervous, anxious, or on edge: 0 = Not at all Not being able to stop or control worryin = Not at all Worrying too much about different things: 0 = Not at all Trouble relaxin = Not at all Being so restless that it is hard to sit still: 0 = Not at all Becoming easily annoyed or irritable: 0 = Not at all Feeling afraid as if something awful might happen: 0 = Not at all Total MYA-7 score (0-4 normal; 5-9 mild; 10-14 moderate; 15-21 severe): 0 Source: Developed by Drs. Cisco Tierney, Vivi Benites, Mir Daniels and colleagues, with an educational tay from [employer]. MYA-7 Assessment Billing MYA-7 Assessment Tool: MYA-7 Assessment 79054 Review of Systems Const Denies excessive sweating, Denies fatigue, Denies frequent falls, Denies headache(s), Denies increased appetite and Denies weakness Eyes Reports blurry vision (sees Dr Celeste ), Denies diplopia, Denies dry eyes and Denies loss of peripheral vision ENT Reports Normal hearing present, Denies dysphagia and Denies headache(s) Card Denies leg edema, Denies palpitations and Denies dyspnea Resp Denies dyspnea GI Denies abdominal pain, Denies bloating, Denies change in bowel habits, Denies constipation, Denies dysphagia, Denies early satiety, Denies diarrhea, Denies nausea and Denies vomiting Denies urinary frequency Musc Denies back pain, Denies muscle cramps, Denies numbness and Denies tingling Skin/Breast Denies alopecia and Denies rash Neuro Reports Normal hearing present, Denies frequent falls, Denies headache(s), Denies memory loss, Denies numbness, Denies Sensory deficit (Neuro), Denies tingling and Denies weakness Psych Denies anxiety, Denies depression, Denies irritability and Denies memory loss Endo Denies cold intolerance, Denies deepening of the voice, Denies excessive sweatin g, Denies fatigue, Denies heat intolerance, Denies polyphagia, Denies polydipsia, Denies polyuria and Denies palpitations Benjamín/Lymph Denies easy bruising Aller/Immun Reports no additional complaints Physical exam (Primary Care) Vital Signs: Last Vital Signs Pulse 82 09/21/23 08:25 BP 132/86 09/21/23 08:25 Pulse Ox 100 09/21/23 08:25 Oxygen Delivery Method Room Air 09/21/23 08:25 BMI result Body Mass Index 20.9 Tobacco/Smoking Status: Tobacco use Status Tobacco use date assessed 09/21/23 09/21/23 08:29 Patient Tobacco Use Status Former Tobacco user 09/21/23 08:25 e-Cigarette/Vaping Use Never Used 09/21/23 08:25 PHQ-9: PHQ-9 Score PHQ-9: Total score 0 09/21/23 08:51 Depression Screening Interpretation: Negative Thrive Assessment: Date of Thrive Assessment Date Thrive assessed 09/21/23 09/21/23 08:51 Const General: cooperative, healthy appearing, no acute distress and alert Orientation/consciousness: patient oriented x3 Limitations: no limitations and No altered mental status [facility] Head: Yes normal to inspection, Yes normocephalic and Yes atraumatic Ears: hearing grossly normal bilaterally, external ears normal, TM's normal bilaterally and EAC's normal General nose exam: Normal external nose present and No nasal discharge present Face and sinus: Yes normal facial exam, Yes sinuses nontender and Yes face symmetric Mouth: oropharynx normal and moist mucous membranes Eyes Conjunctivae: conjunctivae normal Sclerae: sclerae normal Pupils: Equal, round and reactive pupils present EOM: EOMs intact bilaterally Neck Neck: Yes full ROM and Yes no lymphadenopathy Thyroid: Thyroid normal Carotids: normal carotid upstroke Lymphatic: no lymphadenopathy noted Chest Chest palpation & inspection: normal inspection of the chest Breast/axilla palpation: normal palpation of the breasts Resp Effort & Inspection: normal respiratory effort and able to speak in complete sentences Auscultation: clear to auscultation bilaterally Cardio Jugular venous distension: no JVD Rate: regular rate Rhythm: regular rhythm Heart sounds: S1 normal heart sound present and S2 normal heart sound present Bruits: no abdominal aortic bruits and no carotid bruits GI Inspection: Yes normal to inspection Palpation (GI): No Abdominal aortic bruit present, Soft to palpation, nontender, no guarding and no masses Auscultation: normal bowel sounds General: Yes no CVA tenderness Back/Spine/Pelvis Back: no CVA tenderness Skin General skin exam: no rashes or lesions noted Neuro General: patient oriented x3, gait normal, moves all extremities, no focal motor deficits and CN's II-XI intact bilaterally Cranial nerves: Yes Equal, round and reactive pupils present and Yes Normal hearing present Cognition (Neuro): normal cognition Gait exam (Neuro): Normal gait present Motor exam (neuro): 5/5 motor strength present throughout Sensory Exam: No Sensory deficit (Neuro) Extrem General: Yes normal to inspection, Yes full ROM, Yes no pedal edema and Yes normal gait Psych Appearance: grossly normal and well kempt Mental Status: mental status grossly normal Speech and movement: Normal speech and movement present Affect: normal affect Attitude: cooperative Thought process: Normal thought process present Results Reviewed Results Reviewed: ENTERED: 09/12/[address]: ORDERED: Met Prof Fast, AST, ALT, Lipid Panel Test Result Flag Reference Site Sodium 140 135-145 mmol/L Potassium 4.4 3.3-5.1 mmol/L CL 102 96-108 mmol/L CO2 32 H 22-29 mmol/L Gap 10 L 12-20 BUN 16 9-16 mg/dL Creat 0.76 0.5-1.4 mg/dL EGFR > 60 NOTE: For -[place] individuals, multiply the result by 1.210. Chronic Kidney Disease: Estimated GFR < 60 m L/min/1.73m2 Severe Kidney Disease: Estimated GFR < 15 mL/min/1.73m2 FBS 91 60-99 mg/dL CA 9.3 8.4-10.2 mg/dL AST (GOT) 18 5-31 U/L ALT (GPT) 10 0-31 U/L Triglyceride 94 <150 mg/dL Desirable Triglyceride: less than 150 mg/dL Borderline High Triglyceride 150-199 mg/dL High Triglyceride: 200-499 mg/dL Very High Triglyceride: greater than or equal to 5OO mg/dL Cholesterol 200 H <200 mg/dL Desirable Cholesterol: less than 200 mg/dL Borderline High Cholesterol: 200-239 mg/dL High Cholesterol: greater than 239 mg/dL LDL Calculated 112 H <100 mg/dL Desirable LDL: less than 100 mg/dL Near Optimal/Above Optimal LDL: 110-129 mg/dL Borderline High LDL: 130-159 mg/dL High LDL: 160-189 mg/dL Very High LDL: greater than or equal to 190 mg/dL HDL 70 >40 mg/dL Desirable HDL: greater than 40 mg/dL Laboratory Tests 09/21/22 01/25/23 08:01 07:45 N-Telopeptide X-linked 23 25-OH Vitamin D Total 73.8 Assessment and Plan Assessment & Plan (1) Annual visit for general adult medical examination with abnormal findings: Code(s): Z00.01 - Encounter for general adult medical examination with abnormal findings Plan: Reviewed recent fasting lab results with patient.. Continue with regular dental visit every 6 months and regular eye exams, at least every 2 years, sees Dr. Luong. Take adequate calcium in diet and vitamin-D 3 at 2000 IU per cap once a day, in addition to weight-bearing exercises to help maintain good muscle tone and weight control. Instructed to do self-breast exam, and continue to get yearly mammogram. She is currently up-to-date with all her vaccinations. No longer needs to get screening colonoscopies per Dr. Alejo (2) White coat syndrome with hypertension: Code(s): I10 - Essential (primary) hypertension Plan: Blood pressure within normal limit (3) Dyslipidemia: Code(s): E78.5 - Hyperlipidemia, unspecified Plan: Reviewed recent fasting lipid profile with patient with levels within normal limits but higher than last check . Continue with atorvastatin 10 mg daily , in addition to adherence to low-cholesterol diet and regular exercise, at leas t 30 minutes 3 to 4 times a week. Advised patient to make healthy food choices, eat more fruits, vegetables, whole grains, wild caught fish and low-fat dairy. Limit amount of meat and fried or fatty food products, as well as processed foods and fast foods. Follow-up scheduled with repeat fasting lipid panel in 6 months. (4) Impaired fasting glucose: Code(s): R73.01 - Impaired fasting glucose Plan: Your fasting blood sugars in the past or elevated above 100 mg/dL. Impaired glucose metabolism O2 at risk for developing diabetes mellitus type 2, as well as heart attack and stroke later on. Lifestyle changes at just weight loss, healthy eating habits, and regular exercise are important, and can prevent the progression to diabetes (5) Osteoporosis: Code(s): M81.0 - Age-related osteoporosis without current pathological fracture Qualifiers: Osteoporosis type: age-related Presence of current pathological fracture: without current pathological fracture Qualified Code(s): M81.0 - Age- related osteoporosis without current pathological fracture Plan: Patient has her alendronate currently on hold by her narcotics agent, to have another repeat bone density scan next year. In the meantime advised to continue with regular weight-bearing exercise continue taking vitamin-D 3 and calcium supplements as directed. Orders: Orders Lipid Panel 02/14/24 E78.5 - Hyperlipidemia, unspecified, M81.0 - Age-related osteoporosis without current pathological fracture, R73.01 - Impaired fasting glucose Alanine Aminotransferase 02/14/24 E78.5 - Hyperlipidemia, unspecified, M81.0 - Age-related osteoporosis without current pathological fracture, R73.01 - Impaired fasting glucose Aspartate Amino Transferase 02/14/24 E78.5 - Hyperlipidemia, unspecified, M81.0 - Age-related osteoporosis without current pathological fracture, R73.01 - Impaired fasting glucose Basic Metabolic Panel Fasting 02/14/24 E78.5 - Hyperlipidemia, unspecified, M81.0 - Age-related osteoporosis without current pathological fracture, R73.01 - Impaired fasting glucose Hemoglobin and Hematocrit 02/14/24 E78.5 - Hyperlipidemia, unspecified, M81.0 - Age-related osteoporosis without current pathological fracture, R73.01 - Impaired fasting glucose Vitamin D 25-OH Total 02/14/24 E78.5 - Hyperlipidemia, unspecified, M81.0 - Age- related osteoporosis without current pathological fracture, R73.01 - Impaired fasting glucose Medications: Refilled atorvastatin (Lipitor) 10 mg PO DAILY 90 caps 4RF Coding Level of Care Code Est Pt Prev Care >65y(72860) Diagnoses Annual visit for general adult medical examination with abnormal findings Z00.01 White coat syndrome with hypertension I10 Dyslipidemia E78.5 Impaired fasting glucose R73.01 Age-related osteoporosis without current pathological fracture M81.0 Osteoporosis type: age-related Presence of current pathological fracture: without current pathological fracture Additional Codes MYA-7 Assessment Billing - MYA-7 Assessment Tool: MYA-7 Assessment 19637 ([id number])
[2023-09-21 08:25] VITALS: BP 132/86; PULSE 82; O2SAT 100; BMI 20.9
== END 2023-09-21 09:32 | disposition home or self-care (01) ==
PROVIDERS: PCP Internal Medicine; Visit Provider Internal Medicine
DX: Z00.00 Encounter for general adult medical examination without abnormal findings (principal); I10 Essential (primary) hypertension; E78.5 Hyperlipidemia, unspecified; R73.01 Impaired fasting glucose; M81.0 Age-related osteoporosis without current pathological fracture
CPT/HCPCS: 99397

== ENCOUNTER 2024-01-10 07:08 | Outpatient (REF) | payer MEDICARE, SELFPAY | END 2024-01-10 07:09 | disposition home or self-care (01) | LOC: HO.MAMMO 07:08 | PROVIDERS: PCP Internal Medicine; Visit Provider Internal Medicine | DX: Z12.31 Encounter for screening mammogram for malignant neoplasm of breast (principal) | CPT/HCPCS: 77063; 77067 ==

== ENCOUNTER → 2024-01-10 07:30 | Outpatient (BNV) | payer MEDICARE, SELFPAY | PROVIDERS: PCP Internal Medicine; Visit Provider Radiology Diagnostic Radiology | DX: Z12.31 Encounter for screening mammogram for malignant neoplasm of breast (principal) | CPT/HCPCS: 77063; 77067 ==

== ENCOUNTER 2024-03-18 07:31 | Outpatient (REF) | payer MEDICARE, SELFPAY ==
[2024-03-18 09:54] LABS: Hematocrit 39.5 % (37.0-47.0); Hemoglobin 13.2 g/dl (12.0-16.0)
[2024-03-18 10:20] LABS: Alanine Aminotransferase 11 U/L (0-31); Anion Gap 11 (12-20); Aspartate Amino Transferase 18 U/L (5-31); Blood Urea Nitrogen 20 mg/dL (9-16); Calcium 9.6 mg/dL (8.4-10.2); Carbon Dioxide 29 mmol/L (22-29); Chloride 104 mmol/L (96-108); Cholesterol 188 mg/dL (<200); Estimated Glomerular Filt Rate > 60; Glucose Fasting 112 mg/dL (60-99); HDL Cholesterol 59 mg/dL (>40); LDL Cholesterol Calculated 107 mg/dL (<100); Potassium 4.1 mmol/L (3.3-5.1); Sodium 140 mmol/L (135-145); Triglycerides 113 mg/dL (<150)
[2024-03-18 10:38] LABS: Vitamin D 25-OH Total 83.5 ng/mL (>30)
== END 2024-03-18 07:32 | disposition home or self-care (01) ==
LOC: HO.10HDL 07:31
PROVIDERS: Visit Provider Internal Medicine
DX: Z00.01 Encounter for general adult medical examination with abnormal findings (principal); M81.0 Age-related osteoporosis without current pathological fracture; E78.5 Hyperlipidemia, unspecified; R73.01 Impaired fasting glucose
CPT/HCPCS: 36415; 80048; 80061; 82306; 84450; 84460; 85014; 85018

== ENCOUNTER 2024-03-26 10:29 | Outpatient (AMB) | payer MEDICARE, SELFPAY ==
--- NOTE | 2024-03-26 11:03 | MHC.PC.OV ---
Vital Signs 03/26/24 11:04 Height 5 ft 4.9 in Weight 121 lb BMI 20.2 BP 136/80 Blood Pressure Location Lt brachial Position Sitting Pulse 88 Pulse Source Pulse Oximeter Pulse Oximetry (%) 95 Oxygen Delivery Method Room Air Intake Visit Reasons: 6 Month follow up Intake Note: Pt is here today for 6 months follow up visit on labs. Allergies No Known Allergies [No Known Allergies*] Allergy (Verified 06/18/24 15:35) Medication List - Last Reconciled 03/26/24 by Juanita Lakhani MD atorvastatin (Lipitor) 10 mg PO DAILY calcium carbonate 500 mg PO DAILY cholecalciferol (vitamin D3) (Vitamin D3) 25 mcg PO DAILY Tobacco use date assessed: 03/26/24 Fall risk assessment: No Falls in past year Last assessed Fall Risk: 03/26/24 Dental Screening Dental Screen Date: 03/26/24 Did you have a dental visit in the last 12 months?: Yes Did you have a dental problem in the last 6 months where you did not have access to dental care?: No Was dental information given to patient?: Patient has dentist HPI 6 Month follow up HPI Details 79 year-old lady sit PMx for impaired fasting glucose, dyslipidemia currently on atorvastatin, osteoporosis, here today for her follow up. She had recent fasting labs done which showed normal electrolytes, fasting lipids, and fasting glucose however in the prediabetic range. She is a former heavy cigarette smoker, quit 4 years ago, interested in getting screening for lung cancer. Has been having intermittent episodes of shortness of breaths vision but denies any chest pain, no lightheadedness reported. Reports increasing hoarseness, which has been present now for the last 3 months. She denies any accompanying sore throat, or change in swallowing [facility] Medical History (Updated 03/26/24 @ 11:48 by Juanita Lakhani MD) Former heavy cigarette smoker (20-39 per day) Hoarseness or changing voice Shortness of breath on exertion White coat syndrome with hypertension Dyslipidemia Impaired fasting glucose Osteoporosis Surgical History H/O colonoscopy No pertinent past surgical history Family History Father No problems noted. Mother Diabetes mellitus Sister No problems noted. Son No problems noted. Social History Household Members: Spouse Household Members Other:: Housing: House Alcohol intake: current Alcohol intake frequency: holidays/special occasions only Alcohol type: beer Patient Tobacco Use Status: Former Tobacco user e-Cigarette/Vaping Use: Never Used Second Hand Smoke Exposure: Yes Advance Directives Date on File: 07/30/20 service: No Current occupational status: disabled Cognitive needs: No Hearing needs: No Vision needs: Yes Questionnaire PHQ-9 Over the last 2 weeks, how often have you been bothered by any of the following problems? 1. Little interest or pleasure in doing things: not at all 2. Feeling down, depressed, or hopeless: not at all 3. Trouble falling or staying asleep, or sleeping too much: not at all 4. Feeling tired or having little energy: not at all 5. Poor appetite or overeating: not at all 6. Feeling bad about yourself - or that you are a failure or have let yourself or your family down: not at all 7. Trouble concentrating on things, such as reading the newspaper or watching television: not at all 8. Moving or speaking so slowly that other people could have noticed. Or the opposite - being so fidgety or restless that you have been moving around a lot more than usual: not at all 9. Thoughts that you would be better off or of hurting yourself in some way: not at all Total score: 0 Depression Screening Interpretation: Negative Depression Screening Done: Yes Source: Developed by Drs. Cisco Tierney, Vivi Benites, Mir Daniels and colleagues, with an educational tay from [employer]. Thrive Questionnaire Date Thrive assessed: 03/26/24 I am a: Patient What is your living situation today?: I have a steady place to live Within the past 12 months, did the food you bought not last and you didn't have the money to get more?: Never true Within the past 12 months, did you worry whether your food would run out before you got money to buy more?: Never true Do you have trouble paying for medicines?: No Do you have trouble getting transportation to medical appointments?: No Do you have trouble paying your heating and electricity bill?: No Do you have trouble taking care of your child, family member or friend?: No Do you have trouble with day-to-day activities such as bathing, preparing meals, shopping, managing finances, etc.?: No Are you currently unemployed and looking for a job?: No Are you interested in more education?: No Please select the resources that you would like help with: None THRIVE Score: 0 AUDIT C Alcohol Use Questionnaire (AUDIT-C) 1. How often do you have a drink containing alcohol?: Monthly or less 2. How many drinks containing alcohol do you have on a typical day when you are drinking?: 1 or 2 3. How often do you have six or more drinks on one occasion?: Never Total Score: 1 MYA-7 AMB Questionnaire MYA-7 Date MYA - 7 assessed: 03/26/24 Feeling nervous, anxious, or on edge: 0 = Not at all Not being able to stop or control worryin = Not at all Worrying too much about different things: 0 = Not at all Trouble relaxin = Not at all Being so restless that it is hard to sit still: 0 = Not at all Becoming easily annoyed or irritable: 0 = Not at all Feeling afraid as if something awful might happen: 0 = Not at all Total MYA-7 score (0-4 normal; 5-9 mild; 10-14 moderate; 15-21 severe): 0 Source: Developed by Drs. Cisco Tierney, Vivi Benites, Mir Daniels and colleagues, with an educational tay from [employer]. Review of Systems Const Denies excessive sweating, Denies fatigue, Denies headache(s) and Denies weakness Eyes Reports blurry vision (sees Dr Celeste ) ENT Reports as per HPI, Denies dysphagia and Denies headache(s) Card Denies leg edema and Denies palpitations Resp Reports as per HPI GI Denies abdominal pain, Denies bloating, Denies change in bowel habits, Denies constipation, Denies dysphagia, Denies early satiety, Denies diarrhea, Denies nausea and Denies vomiting Denies urinary frequency Musc Denies back pain, Denies muscle cramps, Denies numbness and Denies tingling Skin/Breast Denies alopecia and Denies rash Neuro Denies headache(s), Denies numbness, Denies Sensory deficit (Neuro), Denies tingling and Denies weakness Psych Denies anxiety, Denies depression and Denies irritability Endo Denies cold intolerance, Denies deepening of the voice, Denies excessive sweating, Denies fatigue, Denies heat intolerance, Denies polyphagia, Denies polydipsia, Denies polyuria and Denies palpitations Benjamín/Lymph Denies easy bruising Aller/Immun Reports no additional complaints Physical exam (Primary Care) Vital Signs: Last Vital Signs Pulse 88 03/26/24 11:04 BP 136/80 03/26/24 11:04 Pulse Ox 95 03/26/24 11:04 Oxygen Delivery Method Room Air 03/26/24 11:04 BMI result Body Mass Index 20.2 Tobacco/Smoking Status: Tobacco use Status Tobacco use date assessed 03/26/24 03/26/24 11:04 Patient Tobacco Use Status Former Tobacco user 03/26/24 11:03 e-Cigarette/Vaping Use Never Used 03/26/24 11:03 PHQ-9: PHQ-9 Score PHQ-9: Total score 0 03/26/24 11:45 Depression Screening Interpretation: Negative Thrive Assessment: Date of Thrive Assessment Date Thrive assessed 03/26/24 03/26/24 11:14 Const General: cooperative, healthy appearing, no acute distress and alert Orientation/consciousness: patient oriented x3 HENMT Head: Yes normal to inspection and Yes normocephalic Ears: hearing grossly normal bilaterally, external ears normal, TM's normal bilaterally and EAC's normal General nose exam: Normal external nose present and No nasal discharge present Face and sinus: Yes normal facial exam, Yes sinuses nontender and Yes face symmetric Mouth: oropharynx normal and moist mucous membranes Eyes Conjunctivae: conjunctivae normal Sclerae: sclerae normal Pupils: Equal, round and reactive pupils present EOM: EOMs intact bilaterally Neck Neck: Yes full ROM and Yes no lymphadenopathy Thyroid: Thyroid normal Resp Effort & Inspection: normal respiratory effort and able to speak in complete sentences Auscultation: clear to auscultation bilaterally Cardio Jugular venous distension: no JVD Rate: regular rate Rhythm: regular rhythm Heart sounds: S1 normal heart sound present and S2 normal heart sound present Bruits: no abdominal aortic bruits and no carotid bruits GI Inspection: Yes normal to inspection Palpation (GI): No Abdominal aortic bruit present, Soft to palpation, nontender, no guarding and no masses Auscultation: normal bowel sounds General: Yes no CVA tenderness Back/Spine/Pelvis Back: no CVA tenderness Skin General skin exam: no rashes or lesions noted Neuro General: patient oriented x3, gait normal, moves all extremities, no focal motor deficits and CN's II-XI intact bilaterally Cranial nerves: Yes Equal, round and reactive pupils present Cognition (Neuro): normal cognition Gait exam (Neuro): Normal gait present Motor exam (neuro): 5/5 motor strength present throughout Sensory Exam: No Sensory deficit (Neuro) Extrem General: Yes normal to inspection, Yes full ROM, Yes no pedal edema and Yes normal gait Psych Appearance: grossly normal and well kempt Mental Status: mental status grossly normal Speech and movement: Normal speech and movement present Affect: normal affect Attitude: cooperative Thought process: Normal thought process present Results Reviewed Results Reviewed: Name: Argenis Fong Age/Sex: 79/F : 1945 Unit#: [id number] Attend Dr: Juanita Lakhani MD Re03/18/24 Status: DEP REF Location: [address] Disch: SPEC : [id number] [place]: 03/18/24 STATUS: COMP REQ : [id number] RECD: 03/18/[address]: Juanita Lakhani MD COMP: 03/18/24 ENTERED: 03/18/[address]: ORDERED: Met Prof Fast, AST, ALT, Lipid Panel, Vitamin D 25-OH Test Result Flag Reference Sodium 140 135-145 mmol/L Potassium 4.1 3.3-5.1 mmol/L CL 104 96-108 mmol/L CO2 29 22-29 mmol/L Gap 11 L 12-20 BUN 20 H 9-16 mg/dL Creat 0.80 0.5-1.4 mg/dL EGFR > 60 NOTE: For -Citizen Of [place] individuals, multiply the result by 1.210. Chronic Kidney Disease: Estimated GFR < 60 mL/min/1.73m2 Severe Kidney Disease: Estimated GFR < 15 mL/min/1.73m2 FBS 112 H 60-99 mg/dL A fasting glucose from 100-125 mg/dl is considered impaired (pre-diabetes). CA 9.6 8.4-10.2 mg/dL AST (GOT) 18 5-31 U/L ALT (GPT) 11 0-31 U/L Triglyceride 113 <150 mg/dL Desirable Triglyceride: less than 150 mg/dL Borderline High Triglyceride 150-199 mg/dL High Triglyceride: 200-499 mg/dL Very High Triglyceride: greater than or equal to 5OO mg/dL Cholesterol 188 <200 mg/dL Desirable Cholesterol: less than 200 mg/dL Borderline High Cholesterol: 200-239 mg/dL High Cholesterol: greater than 239 mg/dL LDL Calculated 107 H <100 mg/dL Desirable LDL: less than 100 mg/dL Near Optimal/Above Optimal LDL: 110-129 mg/dL Borderline High LDL: 130-159 mg/dL High LDL: 160-189 mg/dL Very High LDL: greater than or equal to 190 mg/dL HDL 59 >40 mg/dL Desirable HDL: greater than 40 mg/dL Note: This HDL assay may give artificially low results in patients with liver disease. Vit D 25-OH Tot 83.5 >30 ng/mL Health Based Reference Values* < 20 ng/mL Deficient 20-30 ng/mL Insufficient > 30 ng/mL Sufficient Assessment and Plan Assessment & Plan (1) Hoarseness or changing voice: Comment: started a month ago Code(s): R49.9 - Unspecified voice and resonance disorder Plan: Referred to ENT (2) Shortness of breath on exertion: Code(s): R06.02 - Shortness of breath Plan: Pulmonary function test ordered, ambulatory EKG done here showed normal sinus rhythm with biatrial enlargement, referred for complete transthoracic echocardiogram, referral to pulmonary clinic ordered (3) Former heavy cigarette smoker (20-39 per day): Comment: quit 4 years ago Code(s): Z87.891 - Personal history of nicotine dependence Plan: Will refer for lung cancer screening (4) Dyslipidemia: Code(s): E78.5 - Hyperlipidemia, unspecified Plan: Reviewed recent fasting lipid profile with patient with levels within normal limit . Continue atorvastatin 10 mg daily , in addition to adherence to low-cholesterol diet and regular exercise, at least 30 minutes 3 to 4 times a week. Advised patient to make healthy food choices, eat more fruits, vegetables, whole grains, wild caught fish and low-fat dairy. Limit amount of meat and fried or fatty food products, as well as processed foods and fast foods. (5) Impaired fasting glucose: Code(s): R73.01 - Impaired fasting glucose Plan: Your previous fasting blood sugars were elevated above 100 mg/dL. Impaired glucose metabolism increases the risk for developing diabetes mellitus type 2, as well as heart attack and stroke later on. Lifestyle changes that promotes weight loss, healthy eating habits, and regular exercise are important, and can prevent the progression to diabetes Orders: Orders PFT pulmonary function test 03/26/24 R06.02 - Shortness of breath, R49.9 - Unspecified voice and resonance disorder RT pft w methacholine 03/26/24 R06.02 - Shortness of breath, R49.9 - Unspecified voice and resonance disorder AMB EKG-In Office 03/26/24 R06.02 - Shortness of breath CA echo transthoracic complete 03/26/24 R06.02 - Shortness of breath CT lung screening 03/27/24 Z87.891 - Personal history of nicotine dependence Referrals Ear/Nose/Throat Referral R49.9 - Unspecified voice and resonance disorder Coding Level of Care Code Est Pt Level 4 (49638) Complex EM visit Add On G2211 Diagnoses Hoarseness or changing voice R49.9 Shortness of breath on exertion R06.02 Former heavy cigarette smoker (20-39 per day) Z87.891 Dyslipidemia E78.5 Impaired fasting glucose R73.01
[2024-03-26 11:04] VITALS: BP 136/80; PULSE 88; O2SAT 95; BMI 20.2
== END 2024-03-26 12:06 | disposition home or self-care (01) ==
PROVIDERS: PCP Internal Medicine; Visit Provider Internal Medicine
DX: R49.9 Unspecified voice and resonance disorder (principal); R06.02 Shortness of breath; Z87.891 Personal history of nicotine dependence; E78.5 Hyperlipidemia, unspecified; R73.01 Impaired fasting glucose
CPT/HCPCS: 99214; G2211

== ENCOUNTER → 2024-04-23 07:45 | Outpatient (REF) | payer MEDICARE, SELFPAY ==
--- NOTE | 2024-04-23 07:48 | CA_ITS ---
Transthoracic Echocardiogram Patient (Last, First, Middle): Argenis Fong W Gender: Female Date of : 1945 Age: 79 Procedure Date: 04/23/2024 Procedure Type: Transthoracic Echocardiogram Location: OP Height: 162.56 cm Weight: 54.89 kg BSA: 1.58 m2 Heart Rate: bpm BP: 128 / 80 mmHg Appliance Counselor: TO Referring MD: Juanita Lakhani MD Symptoms: R06.02 - Shortness of breath Study Quality: Fair/Contrast ECG Rhythm: Sinus Conclusions: - The left ventricular systolic function is normal. The calculated ejection fraction is 62% by biplane method. - The basal inferior and basal inferolateral segments are hypokinetic. - No obvious valvular pathology seen on this study. Findings Procedure Information Contrast agent, definity, is being given per protocol without apparent complications. Left Ventricle Normal left ventricular cavity size. There is normal left ventricular wall thickness. The left ventricular systolic function is normal. The calculated ejection fraction is 62% by biplane method. Evidence suggests grade I (mild) diastolic dysfunction. Wall Motion Rest Echo Findings The basal inferior and basal inferolateral segments are hypokinetic. Right Ventricle Normal right ventricular cavity size and systolic function. Atria Both atria are normal in size. Aortic Valve There is a normal trileaflet aortic valve. There is no aortic valve stenosis. There is no aortic valve regurgitation. Mitral Valve The mitral valve appears normal. There is trace mitral valve regurgitation. There is no mitral valve stenosis. Pulmonic Valve The pulmonic valve is likely normal. Tricuspid Valve Normal tricuspid valve structure. There is mild tricuspid valve regurgitation. There is no evidence of pulmonary hypertension. Great Vessels The asc aorta is normal in size. Venous The inferior vena cava is normal in size and collapses greater than 50% with inspiration. Pericardium/Pleural There is no evidence of pericardial effusion. Prior Study Comparison No prior study available for comparison. Recommendations, Care & Conclusions No obvious valvular pathology seen on this study. Measurements 2D Linear Measurements IVSd: 0.92 0.6-0.9/0.6-1.0 cm LVIDd: 3.74 3.9-5.3/4.2-5.9 cm LVIDd Index: 2.37 2.4-3.2/2.2-3.1 cm/m2 LVIDs: 2.84 2.0-3.6 cm LVPWd: 0.68 0.7-1.1 cm LA Diam: 2.00 2.7-3.8/3.0-4.0 cm LAIDs Index: 1.27 1.5-2.3 cm/m2 LV Mass: 103.60 67-162/88-224 g LV Mass Index: 65.57 43-95/49-115 g/m2 LVOT Diam: 2.00 3.0+(-)1.3 cm 2D Systolic Function EF 4C: 66.10 >55% EF 2C: 60.40 >55% EF BiP: 62.10 >55% Mitral Valve MV Pk E: 0.51 MV PK A: 0.74 MV Decel Time: 173.00 E/A: 0.70 E'Lateral: 8.81 E'Medial: 5.44 E/E' Med: 9.40 E/E' Lat: 5.80 PHT: 51.00 MVA PHT: 4.31 Decel [place]: 2.98 Aortic Valve AoV Pk Wu: 1.02 AoV Mn Wu: 0.63 AoV VTI: 0.17 AoV Pk Grad: 4.00 Aov Mn Grad: 2.00 YI Cont.VTI: 2.66 LVOT LVOT Pk Wu: 0.80 LVOT Mn Wu: 0.45 LVOT VTI: 0.14 LVOT Pk Grad: 3.00 LVOT Mn Grad: 1.00 LVOT Diam: 2.00 LVOT Area: 3.14 Diastolic Function MV Pk E: 0.51 MV Pk A: 0.74 E/A: 0.70 E'Medial: 5.44 E/E' Med: 9.40 E' Laterial: 8.81 E/E' Lat: 5.80 Right Ventricle TAPSE (mm): 21.00 TVS' Wu: 9.52 Tricuspid Valve TR Pk Wu: 2.29 TR Pk Grad: 21.00 RA Press: 3.00 RVSP: 24.00 Great Vessels Aorta Sinus of Valsalva: 3.35 2.0-3.5 cm Ao Asc: 2.80 2.1-3.4 cm Updated in Other Vendor System with Status of Final Adarsh Stoner MD electronically signed on 04/23/2024 12:32:16 PM with status of Final
== END ==
LOC: HO.CARD 07:45
PROVIDERS: PCP Internal Medicine; Visit Provider Internal Medicine
DX: R06.02 Shortness of breath (principal)
CPT/HCPCS: 93306; Q9957

== ENCOUNTER → 2024-04-23 07:48 | Outpatient (BNV) | payer MEDICARE, SELFPAY | PROVIDERS: PCP Internal Medicine; Visit Provider Internal Medicine | DX: I36.1 Nonrheumatic tricuspid (valve) insufficiency (principal) | CPT/HCPCS: 93306 ==

== ENCOUNTER 2024-04-25 07:27 | Outpatient (REF) | payer MEDICARE, SELFPAY ==
[2024-05-02 09:33] LABS: N-Telopeptide 19 (see note); NTXCreaRU 61 mg/dL (20-275)
== END 2024-04-25 07:28 | disposition home or self-care (01) ==
LOC: HO.10HDLNP 07:27
PROVIDERS: Visit Provider Internal Medicine Endocrinology, Diabetes & Metabolism
DX: M81.0 Age-related osteoporosis without current pathological fracture (principal)
CPT/HCPCS: 82523

== ENCOUNTER 2024-05-07 07:39 | Outpatient (AMB) | payer MEDICARE, SELFPAY ==
--- NOTE | 2024-05-07 07:45 | A.OFFVIS_ITS ---
Vital Signs 05/07/24 07:46 Height 5 ft 4.9 in Weight 120 lb 2.431 oz BMI 20.1 BP 166/88 H Blood Pressure Location Lt brachial Position Sitting Pulse 76 Pulse Source Pulse Oximeter Intake Visit Reasons: f/u osteoporosis-confirmed Intake Note: Patient present today for Osteoporosis follow up visit. Mri Technologist Required: No Accompanied by: Self / Same As Patient Allergies No Known Allergies [No Known Allergies*] Allergy (Verified 05/07/24 07:50) HPI Comments Details: 78 yo female today for fup visit, for osteoporosis She feels well, no complaints today. She is off Fosamax 70 mg weekly, she has a good method of administration. She is 100 % adherent. She has osteoporosis diagnosed on 2003, she was on Evista from 2003 to 10/2013 when was stopped by DR Ko because she had worsening BMD, she was started on Fosamax on 10/2013. She has PMH of hyperlipidemia, vitamin D deficiency. She had a fragility fracture Right shoulder on 02/2017 while she was on Fosamax . She denies GERD, negative FH of fractures or osteoporosis, no nephrolithiasis, no steroids used, ex smoker quit 7 years ago, no anti seizures medications, no SSRI, no PPI. He has negative History of head or neck irradiation. Calcium Citrate 500 mg BID Vitamin D: 1000 IU daily Herbal medications. none. 09/22/2020 DEXA FINDINGS: AP SPINE L1-L4: Current: BMD 0.883 g/cm2, Z-score -0.4, T-score -2.5, osteopenia, 4.8% decrease from previous, 4.6% decrease from baseline (<5% change is not significant). Prior: BMD 0.928 g/cm2. Baseline: BMD 0.926 g/cm2. LEFT FEMUR, NECK: Current: BMD 0.608 g/cm2, Z-score -0.9, T-score -3.1, osteoporosis. Prior: BMD 0.617 g/cm2. Baseline: BMD 0.655 g/cm2. LEFT FEMUR, TOTAL: Current: BMD 0.764 g/cm2, Z-score 0.1, T-score -1.9, osteopenia, 0.4% decrease from previous, 3.4% decrease from baseline (<5% change is not significant). Prior: BMD 0.767 g/cm2. Baseline: BMD 0.791 g/cm2. Complete secondary workup was negative Laboratory Tests FINDINGS: AP SPINE L1-L4: Current: BMD 0.929 g/cm2, Z-score 0.1, T-score -2.1, osteopenia, 5.2% increase from previous, 0.3% increase from baseline (<5% change is not significant). Prior: BMD 0.883 g/cm2. Baseline: BMD 0.926 g/cm2. LEFT FEMUR, NECK: Current: BMD 0.623 g/cm2, Z-score -0.7, T-score -3.0, osteoporosis. Prior: BMD 0.608 g/cm2. Baseline: BMD 0.655 g/cm2. LEFT FEMUR, TOTAL: Current: BMD 0.735 g/cm2, Z-score 0.0, T-score -2.2, osteopenia, 3.8% decrease from previous, 7.1% decrease from baseline (<5% change is not significant). Prior: BMD 0.764 g/cm2. Baseline: BMD 0.791 g/cm2. IDENTIFIED RISK FACTORS: Osteoporosis, history of fracture (adult), menopause. 03/18/21 03/18/21 08:59 08:59 Creatinine 0.75 Estimated GFR > 60 Calcium 9.5 Alkaline Phosphatase 66 Albumin 4.1 N-Telopeptide X-linked 22 25-OH Vitamin D Total 39.9 Urine Creatinine 106 Laboratory Tests 06/03/19 07/30/20 07/30/20 06:14 08:01 08:05 Creatinine 0.76 Estimated GFR > 60 Calcium 9.3 Albumin 4.3 N-Telopeptide X-linked 32 25-OH Vitamin D Total 40.2 Urine NTX was suppressed [facility] Medical History (Updated 03/26/24 @ 11:48 by Juanita Lakhani MD) Former heavy cigarette smoker (20-39 per day) Hoarseness or changing voice Shortness of breath on exertion White coat syndrome with hypertension Dyslipidemia Impaired fasting glucose Osteoporosis Surgical History H/O colonoscopy No pertinent past surgical history Family History Father No problems noted. Mother Diabetes mellitus Sister No problems noted. Son No problems noted. Social History Household Members: Spouse Household Members Other:: Housing: House Alcohol intake: current Alcohol intake frequency: holidays/special occasions only Alcohol type: beer Patient Tobacco Use Status: Former Tobacco user e-Cigarette/Vaping Use: Never Used Second Hand Smoke Exposure: Yes Advance Directives Date on File: 07/30/20 service: No Current occupational status: disabled Cognitive needs: No Hearing needs: No Vision needs: Yes Physical Exam Vital Signs: Last Vital Signs Pulse 76 05/07/24 07:46 BP 166/88 H 05/07/24 07:46 BMI result Body Mass Index 20.1 Assessment & Plan Assessment & Plan (1) Osteoporosis: Code(s): M81.0 - Age-related osteoporosis without current pathological fracture Category: Medical Qualifiers: Osteoporosis type: age-related Presence of current pathological fracture: without current pathological fracture Qualified Code(s): M81.0 - Age- related osteoporosis without current pathological fracture Plan: This 77-year-old white female with a history of osteoporosis and fragility fracture of the right shoulder in 2017. Secondary workup was negative. She has been on alendronate for 8 years and Evista prior. Urine NTX was suppressed. Plan is to continue calcium and vitamin-D. . Will have patient hold alendronate. Will follow serial NTX . Will recheck DEXA bone density in 6 months. Depending upon above may continue drug holiday or reinitiate pharmacologic therapy in the form of anti resorptive therapy or anabolic therapy if necessary Orders: Orders Collagen Crosslinks NTX 6 Months M81.0 - Age-related osteoporosis without current pathological fracture XR DEXA axial skeleton 6 Months M81.0 - Age-related osteoporosis without current pathological fracture Coding Level of Care Code Est Pt Level 3 (45073) Diagnoses Age-related osteoporosis without current pathological fracture M81.0 Osteoporosis type: age-related Presence of current pathological fracture: without current pathological fracture
[2024-05-07 07:46] VITALS: BP 166/88; PULSE 76; BMI 20.1
== END 2024-05-07 08:06 | disposition home or self-care (01) ==
PROVIDERS: PCP Internal Medicine; Visit Provider Internal Medicine Endocrinology, Diabetes & Metabolism
DX: M81.0 Age-related osteoporosis without current pathological fracture (principal)
CPT/HCPCS: 99213

== ENCOUNTER → 2024-05-07 07:39 | Outpatient (BNVA) | payer MEDICARE, SELFPAY | PROVIDERS: PCP Internal Medicine; Visit Provider Internal Medicine Endocrinology, Diabetes & Metabolism | DX: M81.0 Age-related osteoporosis without current pathological fracture (principal) | CPT/HCPCS: 99212 ==

== ENCOUNTER 2024-07-08 15:10 | Outpatient (AMB) | payer MEDICARE, SELFPAY ==
--- NOTE | 2024-07-08 15:13 | A.OFFVIS_ITS ---
Vital Signs 07/08/24 15:14 Height 5 ft 4.9 in Weight 116 lb 13.52 oz BMI 19.5 BP 160/102 H Blood Pressure Location Rt brachial Position Sitting Pulse 97 Pulse Source Pulse Oximeter Pulse Oximetry (%) 95 Oxygen Delivery Method Room Air Intake Visit Reasons: SOB/ Nicotine dependance Allergies No Known Allergies [No Known Allergies*] Allergy (Verified 07/08/24 15:17) HPI HPI SOB/ Nicotine dependance: Details: Argenis is a pleasant 79 year old female, former smoker, 60 pack year history, with underlying COPD and osteoporosis. She was referred by PCP for pulmonary evaluation. She reports worsening dyspnea on exertion since February. She denies any cough, chest tightness or wheezing. She reports diagnosis of moderate COPD in the past, however has not been maintained on any inhalers. Prior PFT from 2013. She denies any prior imaging or being part of any lung screening program. She denies any recent treatment for COPD exacerbation. She denies any prior history of asthma. She denies any seasonal allergies. She denies any occupational exposures. She denies any pertinent family history. She denies any cardiac history. [facility] Medical History (Updated 07/08/24 @ 19:51 by Kanika Gu NP) Former heavy cigarette smoker (20-39 per day) Hoarseness or changing voice Shortness of breath on exertion White coat syndrome with hypertension Dyslipidemia Impaired fasting glucose Osteoporosis Surgical History H/O colonoscopy No pertinent past surgical history Family History Father No problems noted. Mother Diabetes mellitus Sister No problems noted. Son No problems noted. Social History Household Members: Spouse Household Members Other:: Housing: House Alcohol intake: current Alcohol intake frequency: holidays/special occasions only Alcohol type: beer Patient Tobacco Use Status: Former Tobacco user e-Cigarette/Vaping Use: Never Used Second Hand Smoke Exposure: Yes Advance Directives Date on File: 07/30/20 service: No Current occupational status: disabled Cognitive needs: No Hearing needs: No Vision needs: Yes Review of Systems Const Denies chills, Denies excessive sweating, Denies fever(s), Denies headache(s) and Denies night sweats Eyes Denies dry eyes, Denies irritation and Denies itchy eyes ENT Reports Normal hearing present, Denies headache(s), Denies nasal congestion, Denies nasal discharge, Denies post nasal drip and Denies sore throat Card Denies chest pain, Denies chest pain at rest, Denies chest pain with activity, Denies claudication, Denies leg edema, Denies orthopnea and Denies paroxysmal nocturnal dyspnea Resp Denies chest congestion, Denies cough, Denies excessive phlegm production, Denies pain on inspiration, Denies pain with cough, Denies stridor and Denies wheezing Musc Denies myalgias Neuro Reports Normal hearing present and Denies headache(s) Endo Denies excessive sweating Benjamín/Lymph Denies lymphadenopathy Aller/Immun Denies itchy eyes, Denies seasonal rhinorrhea and Denies wheezing Physical Exam Vital Signs: Last Vital Signs Pulse 97 07/08/24 15:14 BP 160/102 H 07/08/24 15:14 Pulse Ox 95 07/08/24 15:14 Oxygen Delivery Method Room Air 07/08/24 15:14 BMI result Body Mass Index 19.5 Const General: cooperative, healthy appearing, comfortable, no acute distress, well developed and alert Orientation/consciousness: patient oriented x3 Limitations: no limitations HEENT Head: Yes normal to inspection, Yes normocephalic and Yes atraumatic Ears: hearing grossly normal bilaterally and external ears normal Eyes General: appearance normal, both eyes and all related structures Eyelids: Yes eyelids normal Sclerae: sclerae normal EOM: EOMs intact bilaterally Neck Neck: Yes normal visual inspection and Yes no lymphadenopathy Lymphatic: no lymphadenopathy noted Chest Chest palpation & inspection: normal inspection of the chest Resp Effort & Inspection: normal respiratory effort, able to speak in complete sentences, no audible wheezes, no cough, no stridor, not tachypneic, no tripod positioning and no use of accessory muscles Auscultation: diminished lung sounds Cardio Jugular venous distension: no JVD Rate: regular rate Rhythm: regular rhythm Skin Other: warm, dry General skin exam: no rashes or lesions noted Neuro General: patient oriented x3 Cranial nerves: Yes Normal hearing present Cognition (Neuro): normal cognition Gait exam (Neuro): Normal gait present Extrem General: Yes normal to inspection, Yes capillary refill normal, Yes no clubbing, cyanosis or edema and Yes no pedal edema Psych Appearance: grossly normal and well kempt Speech and movement: Normal speech and movement present and Clear speech present Affect: normal affect Attitude: cooperative Thought process: Normal thought process present Thought content: Normal thought content present Insight: Good insight present (Psych) Judgement: Good judgement present (Psych) Assessment & Plan Assessment & Plan (1) COPD (chronic obstructive pulmonary disease): Code(s): J44.9 - Chronic obstructive pulmonary disease, unspecified Category: Medical (2) Shortness of breath on exertion: Code(s): R06.02 - Shortness of breath Category: Medical (3) Former heavy cigarette smoker (20-39 per day): Comment: quit 4 years ago Code(s): Z87.891 - Personal history of nicotine dependence Category: Social Hx Plan Argenis's symptoms are likely related to underlying COPD. Will send for PFT to assess severity. Will also empirically trial ICS/LABA. Discussed importance of good oral hygiene to prevent thrush. Given significant smoking history will also send for a chest CT. All questions were answered and patient is in agreem ent of plan. Will follow-up to review response to inhaler and results of PFT/CT. Orders: Orders CT chest wo IV con Today J44.9 - Chronic obstructive pulmonary disease, unspecified, Z87.891 - Personal history of nicotine dependence PFT pulmonary function test Today J44.9 - Chronic obstructive pulmonary disease, unspecified Medications: New fluticasone propion-salmeterol 115-21 mcg/actuation (Advair HFA) 2 puffs inhalation Q12H 12 grams 6RF Coding Level of Care Code New Pt Level 4 (89248) Diagnoses COPD (chronic obstructive pulmonary disease) J44.9 Shortness of breath on exertion R06.02 Former heavy cigarette smoker (20-39 per day) Z87.891
[2024-07-08 15:14] VITALS: BP 160/102; PULSE 97; O2SAT 95; BMI 19.5
== END 2024-07-08 19:47 | disposition home or self-care (01) ==
PROVIDERS: PCP Internal Medicine; Referring Provider Internal Medicine; Visit Provider Nurse Practitioner Family
DX: J44.9 Chronic obstructive pulmonary disease, unspecified (principal); R06.02 Shortness of breath; Z87.891 Personal history of nicotine dependence
CPT/HCPCS: 99204

== ENCOUNTER → 2024-07-08 15:10 | Outpatient (BNVA) | payer MEDICARE, SELFPAY | PROVIDERS: PCP Internal Medicine; Referring Provider Internal Medicine; Visit Provider Nurse Practitioner Family | DX: J44.9 Chronic obstructive pulmonary disease, unspecified (principal); R06.02 Shortness of breath; Z87.891 Personal history of nicotine dependence | CPT/HCPCS: 99202 ==

== ENCOUNTER 2024-08-07 09:32 | Outpatient (REF) | payer MEDICARE, SELFPAY ==
--- NOTE | 2024-08-07 09:30 | PFT_ITS ---
Flows: FEV1: 47 % of predicted at 0.91 L FVC: 98 % of predicted at 2.50 L FEV1/FVC: 36 % Bronchodilator response: Absent Volumes: Total lung capacity: 105 % of predicted at 5.13 L Residual volume: 127 % of predicted at 2.76 L Slow vital capacity: 91 % of predicted at 2.37 L Expiratory reserve volume: 134 % of predicted at 0.86 L Diffusion capacity: Moderately decreased Impression: Severe obstructive ventilatory defect with no bronchodilator response. Increased residual volume suggests air trapping. Decreased diffusion capacity suggests emphysema. MTDD
[2024-08-07 11:06] VITALS: PULSE 96; RESP 16; O2SAT 96
== END 2024-08-07 09:33 | disposition home or self-care (01) ==
LOC: HO.RESP 09:32
PROVIDERS: PCP Internal Medicine; Visit Provider Nurse Practitioner Family
DX: J44.9 Chronic obstructive pulmonary disease, unspecified (principal)
CPT/HCPCS: 94010; 94640; 94727; 94729

== ENCOUNTER → 2024-08-07 10:38 | Outpatient (BNV) | payer MEDICARE, SELFPAY | PROVIDERS: PCP Internal Medicine; Visit Provider Internal Medicine Pulmonary Disease | DX: J44.9 Chronic obstructive pulmonary disease, unspecified (principal) | CPT/HCPCS: 94060; 94727; 94729 ==

== ENCOUNTER 2024-08-19 08:55 | Outpatient (AMB) | payer MEDICARE, SELFPAY ==
[2024-08-19 09:35] VITALS: BP 150/88; PULSE 82; O2SAT 95; BMI 19.7
--- NOTE | 2024-08-19 09:35 | A.OFFVIS_ITS ---
Vital Signs 08/19/24 09:35 Height 5 ft 4.9 in Weight 117 lb 15.157 oz BMI 19.7 BP 150/88 H Blood Pressure Location Rt brachial Position Sitting Pulse 82 Pulse Source Pulse Oximeter Pulse Oximetry (%) 95 Oxygen Delivery Method Room Air Intake Visit Reasons: Shortness of breath Allergies No Known Allergies [No Known Allergies*] Allergy (Verified 08/19/24 09:38) HPI HPI Shortness of breath: Details: Argenis is a pleasant 79 year old female, former smoker, 60 pack year history, with underlying COPD and osteoporosis. She reports worsening dyspnea on exertion since February without any associated cough, chest tightness or wheezing. She reports diagnosis of moderate COPD in the past, however has not been maintained on any inhalers. Her PCP attempted to send in Advair however not financially feasible. She reports using albuterol frequently. Today she presents to review PFT results. She has upcoming chest CT later this week. She denies any visits to urgent care or hospitalizations related to respiratory distress since the last visit. [facility] Medical History (Updated 07/08/24 @ 19:51 by Kanika Gu NP) Former heavy cigarette smoker (20-39 per day) Hoarseness or changing voice Shortness of breath on exertion White coat syndrome with hypertension Dyslipidemia Impaired fasting glucose Osteoporosis Surgical History H/O colonoscopy No pertinent past surgical history Family History Father No problems noted. Mother Diabetes mellitus Sister No problems noted. Son No problems noted. Social History Household Members: Spouse Household Members Other:: Housing: House Alcohol intake: current Alcohol intake frequency: holidays/special occasions only Alcohol type: beer Patient Tobacco Use Status: Former Tobacco user e-Cigarette/Vaping Use: Never Used Second Hand Smoke Exposure: Yes Advance Directives Date on File: 07/30/20 service: No Current occupational status: disabled Cognitive needs: No Hearing needs: No Vision needs: Yes Review of Systems Const Denies chills, Denies excessive sweating, Denies fever(s), Denies headache(s) and Denies night sweats Eyes Denies dry eyes, Denies irritation and Denies itchy eyes ENT Reports Normal hearing present, Denies headache(s), Denies nasal congestion, Denies nasal discharge, Denies post nasal drip and Denies sore throat Card Denies chest pain, Denies chest pain at rest, Denies chest pain with activity, Denies claudication, Denies leg edema, Denies orthopnea and Denies paroxysmal nocturnal dyspnea Resp Denies chest congestion, Denies cough, Denies excessive phlegm production, Denies pain on inspiration, Denies pain with cough, Denies stridor and Denies wheezing Musc Denies myalgias Neuro Reports Normal hearing present and Denies headache(s) Endo Denies excessive sweating Benjamín/Lymph Denies lymphadenopathy Aller/Immun Denies itchy eyes, Denies seasonal rhinorrhea and Denies wheezing Physical Exam Vital Signs: Last Vital Signs Pulse 82 08/19/24 09:35 BP 150/88 H 08/19/24 09:35 Pulse Ox 95 08/19/24 09:35 Oxygen Delivery Method Room Air 08/19/24 09:35 BMI result Body Mass Index 19.7 Const General: cooperative, healthy appearing, comfortable, no acute distress, well developed and alert Orientation/consciousness: patient oriented x3 Limitations: no limitations HEENT Head: Yes normal to inspection, Yes normocephalic and Yes atraumatic Ears: hearing grossly normal bilaterally and external ears normal Eyes General: appearance normal, both eyes and all related structures Eyelids: Yes eyelids normal Sclerae: sclerae normal EOM: EOMs intact bilaterally Neck Neck: Yes normal visual inspection and Yes no lymphadenopathy Lymphatic: no lymphadenopathy noted Chest Chest palpation & inspection: normal inspection of the chest Resp Effort & Inspection: normal respiratory effort, able to speak in complete sentences, no audible wheezes, no cough, no stridor, not tachypneic, no tripod positioning and no use of accessory muscles Auscultation: diminished lung sounds Cardio Jugular venous distension: no JVD Rate: regular rate Rhythm: regular rhythm Skin Other: warm, dry General skin exam: no rashes or lesions noted Neuro General: patient oriented x3 Cranial nerves: Yes Normal hearing present Cognition (Neuro): normal cognition Gait exam (Neuro): Normal gait present Extrem General: Yes normal to inspection, Yes capillary refill normal, Yes no clubbing, cyanosis or edema and Yes no pedal edema Psych Appearance: grossly normal and well kempt Speech and movement: Normal speech and movement present and Clear speech present Affect: normal affect Attitude: cooperative Thought process: Normal thought process present Thought content: Normal thought content present Insight: Good insight present (Psych) Judgement: Good judgement present (Psych) Assessment & Plan Assessment & Plan (1) COPD (chronic obstructive pulmonary disease): Code(s): J44.9 - Chronic obstructive pulmonary disease, unspecified Category: Medical (2) Shortness of breath on exertion: Code(s): R06.02 - Shortness of breath Category: Medical (3) Former heavy cigarette smoker (20-39 per day): Comment: quit 4 years ago Code(s): Z87.891 - Personal history of nicotine dependence Category: Social Hx Plan Reviewed PFT which revealed a severe obstructive ventilatory defect with no bronchodilator response. Increased residual volume suggests air trapping. Decreased diffusion capacity suggests emphysema. She has chest CT later this week to assess degree of emphysema. At this time she would like to hold off on any inhalers, agreeable to nebulizer. Will send order for nebulizer and DuoNeb to use QD-BID. All questions were answered and patient is in agreement of plan. Will follow-up to review response to nebulizer and CT. results. Medications: New ipratropium-albuterol 0.5 mg-3 mg(2.5 mg base)/3 mL 3 mL inhalation BID PRN 180 mL 3RF wheezing Coding Level of Care Code Est Pt Level 4 (59641) Diagnoses COPD (chronic obstructive pulmonary disease) J44.9 Shortness of breath on exertion R06.02 Former heavy cigarette smoker (20-39 per day) Z87.894
== END 2024-08-19 09:58 | disposition home or self-care (01) ==
LOC: HO.HPS 08:55
PROVIDERS: PCP Internal Medicine; Visit Provider Nurse Practitioner Family
DX: J44.9 Chronic obstructive pulmonary disease, unspecified (principal); R06.02 Shortness of breath; Z87.891 Personal history of nicotine dependence
CPT/HCPCS: 99214

== ENCOUNTER → 2024-08-19 08:55 | Outpatient (BNVA) | payer MEDICARE, SELFPAY | PROVIDERS: PCP Internal Medicine; Visit Provider Nurse Practitioner Family | DX: J44.9 Chronic obstructive pulmonary disease, unspecified (principal); R06.02 Shortness of breath; Z87.891 Personal history of nicotine dependence | CPT/HCPCS: 99212 ==

== ENCOUNTER 2024-08-23 08:34 | Outpatient (REF) | payer MEDICARE, SELFPAY ==
--- NOTE | ~2024-08-23 | CT_ITS ---
EXAMINATION: CT CHEST WITHOUT CONTRAST CLINICAL INFORMATION: Nicotine dependence. COMPARISON: None available. TECHNIQUE: Multidetector volumetric CT imaging of the chest was done. Axial MIP volume rendering provided. Sagittal and coronal reformatted images were obtained. This CT examination was performed using dose optimization techniques as appropriate, variously including the following: *Automated exposure control *Adjustment of mA and/or kV according to patient size (this includes techniques or standardized protocols for targeted exams where dose is matched to indication/reason for exam; i.e. extremities or head) *Use of iterative reconstruction technique DLP: 69 mGy-cm FINDINGS: Submitted for interpretation on September 16, 2024. LUNGS: There is a cluster of spiculated nodular lesion, right upper lung lobe with a 1.6 cm and a 1.4 cm components. There is a 2 mm noncalcified pulmonary nodule, left lower lung lobe. Nonspecific less than 1 cm lymph nodes in the mediastinum. No lymphadenopathy in the axilla. There is centrilobular emphysematous changes both lungs more conspicuous in the upper lung lobes. No bronchiectasis. No honeycombing. Respiratory airways patent. No pleural effusion. No pneumothorax. Calcified plaques throughout the thoracic aorta wall and the origin of the 2 main branches. Calcified plaques in the coronary arteries. No pericardial effusion. Multilevel thoracolumbar spondylosis without acute fracture. Grade 1 retrolisthesis, T12-L1. Osteopenia versus osteoporosis. No lytic or blastic lesions. CT/CT chest wo IV con IMPRESSION: Concerning malignancy, right upper lung lobe. Recommend PET/CT. Emphysema. Coronary artery disease and atherosclerosis disease. Fleischner guidelines were followed. Electronically signed by: Vikram Warner MD 09/16/2024 11:46 AM EST
== END 2024-08-23 08:35 | disposition home or self-care (01) ==
LOC: HO.CT 08:34
PROVIDERS: PCP Internal Medicine; Visit Provider Nurse Practitioner Family
DX: J44.9 Chronic obstructive pulmonary disease, unspecified (principal); Z87.891 Personal history of nicotine dependence
CPT/HCPCS: 71250

== ENCOUNTER → 2024-08-23 08:37 | Outpatient (BNV) | payer MEDICARE, SELFPAY | PROVIDERS: PCP Internal Medicine; Visit Provider Radiology Diagnostic Radiology | DX: J44.9 Chronic obstructive pulmonary disease, unspecified (principal) | CPT/HCPCS: 71250 ==

== ENCOUNTER 2024-09-16 08:57 | Outpatient (AMB) | payer MEDICARE, SELFPAY ==
--- NOTE | 2024-09-16 08:49 | A.OFFVIS_ITS ---
Vital Signs 09/16/24 09:04 Height 5 ft 4.9 in Weight 115 lb 11.883 oz BMI 19.3 BP 154/86 H Blood Pressure Location Rt brachial Position Sitting Pulse 89 Pulse Source Pulse Oximeter Pulse Oximetry (%) 93 Oxygen Delivery Method Room Air Intake Visit Reasons: Shortness of breath Allergies No Known Allergies [No Known Allergies*] Allergy (Verified 09/16/24 09:06) HPI HPI Shortness of breath: Details: Argenis is a pleasant 79 year old female, former smoker, 60 pack year history, with underlying severe COPD and osteoporosis. She has been suboptimally controlled on Duoneb, previously PCP attempted to send in Advair however not financially feasible. Over the last few weeks she has noticed a productive cough, unable to expectorate with chest congestion dyspnea and wheezing. She denies sick contacts, fevers or chills. Today she presents to review chest CT results. [facility] Medical History (Updated 09/16/24 @ 16:08 by Kanika Gu NP) Former heavy cigarette smoker (20-39 per day) Hoarseness or changing voice Shortness of breath on exertion White coat syndrome with hypertension Dyslipidemia Impaired fasting glucose Osteoporosis Surgical History H/O colonoscopy No pertinent past surgical history Family History Father No problems noted. Mother Diabetes mellitus Sister No problems noted. Son No problems noted. Social History Household Members: Spouse Household Members Other:: Housing: House Alcohol intake: current Alcohol intake frequency: holidays/special occasions only Alcohol type: beer Patient Tobacco Use Status: Former Tobacco user e-Cigarette/Vaping Use: Never Used Second Hand Smoke Exposure: Yes Advance Directives Date on File: 07/30/20 service: No Current occupational status: disabled Cognitive needs: No Hearing needs: No Vision needs: Yes Review of Systems Const Denies chills, Denies excessive sweating, Denies fever(s), Denies headache(s) and Denies night sweats Eyes Denies dry eyes, Denies irritation and Denies itchy eyes ENT Reports Normal hearing present, Denies headache(s), Denies nasal congestion, Denies nasal discharge, Denies post nasal drip and Denies sore throat Card Denies chest pain, Denies chest pain at rest, Denies chest pain with activity, Denies claudication, Denies leg edema, Reports dyspnea on exertion, Denies orthopnea and Denies paroxysmal nocturnal dyspnea Resp Reports chest congestion, Reports cough, Denies excessive phlegm production, Denies pain on inspiration, Reports dyspnea on exertion, Denies stridor and Reports wheezing Musc Denies myalgias Neuro Reports Normal hearing present and Denies headache(s) Endo Denies excessive sweating Benjamín/Lymph Denies lymphadenopathy Aller/Immun Denies itchy eyes, Denies seasonal rhinorrhea and Reports wheezing Physical Exam Vital Signs: Last Vital Signs Pulse 89 09/16/24 09:04 BP 154/86 H 09/16/24 09:04 Pulse Ox 93 09/16/24 09:04 Oxygen Delivery Method Room Air 09/16/24 09:04 BMI result Body Mass Index 19.3 Const General: cooperative, healthy appearing, comfortable, no acute distress, well developed and alert Orientation/consciousness: patient oriented x3 Limitations: no limitations HEENT Head: Yes normal to inspection, Yes normocephalic and Yes atraumatic Ears: hearing grossly normal bilaterally and external ears normal Eyes General: appearance normal, both eyes and all related structures Eyelids: Yes eyelids normal Sclerae: sclerae normal EOM: EOMs intact bilaterally Neck Neck: Yes normal visual inspection and Yes no lymphadenopathy Lymphatic: no lymphadenopathy noted Chest Chest palpation & inspection: normal inspection of the chest Resp Other: wet cough throughout visit Effort & Inspection: normal respiratory effort, able to speak in complete sentences, no audible wheezes, no stridor, not tachypneic, no tripod positioning and no use of accessory muscles Auscultation: diminished lung sounds Cardio Jugular venous distension: no JVD Rate: regular rate Rhythm: regular rhythm Skin Other: warm, dry General skin exam: no rashes or lesions noted Neuro General: patient oriented x3 Cranial nerves: Yes Normal hearing present Cognition (Neuro): normal cognition Gait exam (Neuro): Normal gait present Extrem General: Yes normal to inspection, Yes capillary refill normal, Yes no clubbing, cyanosis or edema and Yes no pedal edema Psych Appearance: grossly normal and well kempt Speech and movement: Normal speech and movement present and Clear speech present Affect: normal affect Attitude: cooperative Thought process: Normal thought process present Thought content: Normal thought content present Insight: Good insight present (Psych) Judgement: Good judgement present (Psych) Results Reviewed Results Reviewed: [address] [address] [address] Scan Report Signed Patient: Argenis Fong MR#: [id number] : 1945 Acct:[id number] Age/Sex: 79 / F ADM Date: 08/23/24 Loc: HO.CT Attending Dr: Kanika Gu NP Ordering Physician: Kanika Gu NP Date of Service: 08/23/24 Procedure(s): CT chest wo IV con Accession Number(s): [id number] cc: Juanita Lakhani MD; Kanika Gu NP~ EXAMINATION: CT CHEST WITHOUT CONTRAST CLINICAL INFORMATION: Nicotine dependence. COMPARISON: None available. TECHNIQUE: Multidetector volumetric CT imaging of the chest was done. Axial MIP volume rendering provided. Sagittal and coronal reformatted images were obtained. This CT examination was performed using dose optimization techniques as appropriate, variously including the following: *Automated exposure control *Adjustment of mA and/or kV according to patient size (this includes techniques or standardized protocols for targeted exams where dose is matched to indication/reason for exam; i.e. extremities or head) *Use of iterative reconstruction technique DLP: 69 mGy-cm FINDINGS: Submitted for interpretation on September 16, 2024. LUNGS: There is a cluster of spiculated nodular lesion, right upper lung lobe with a 1.6 cm and a 1.4 cm components. There is a 2 mm noncalcified pulmonary nodule, left lower lung lobe. Nonspecific less than 1 cm lymph nodes in the mediastinum. No lymphadenopathy in the axilla. There is centrilobular emphysematous changes both lungs more conspicuous in the upper lung lobes. No bronchiectasis. No honeycombing. Respiratory airways patent. No pleural effusion. No pneumothorax. Calcified plaques throughout the thoracic aorta wall and the origin of the 2 main branches. Calcified plaques in the coronary arteries. No pericardial effusion. Multilevel thoracolumbar spondylosis without acute fracture. Grade 1 retrolisthesis, T12-L1. Osteopenia versus osteoporosis. No lytic or blastic lesions. CT/CT chest wo IV con IMPRESSION: Concerning malignancy, right upper lung lobe. Recommend PET/CT. Emphysema. Coronary artery disease and atherosclerosis disease. Fleischner guidelines were followed. Electronically signed by: Vikram Warner MD 09/16/2024 11:46 AM EST Dictated By: Vikram Dwyer MD Signed By: <Electronically signed by Vikram Moncada MD in OV> 09/16/24 1146 DD/ TD/TT: 08/23/24 0902 Machine Sewer: Assessment & Plan Assessment & Plan (1) Pulmonary nodule 1 cm or greater in diameter: Code(s): R91.1 - Solitary pulmonary nodule Category: Medical (2) COPD (chronic obstructive pulmonary disease): Code(s): J44.9 - Chronic obstructive pulmonary disease, unspecified Category: Medical (3) Shortness of breath on exertion: Code(s): R06.02 - Shortness of breath Category: Medical (4) Former heavy cigarette smoker (20-39 per day): Comment: quit 4 years ago Code(s): Z87.891 - Personal history of nicotine dependence Category: Social Hx Plan Will treat bronchitic symptoms with doxycyline and trial symbicort with DuoNeb PRN. She is aware to call if unable to obtain inhaler and if symptoms unchanged with abx. Reviewed chest CT which revealed concerning 1.4 cm and 1.6 cm nodules of the RUL. Discussed the possibility of this being a malignant process and need for further evaluation. Will discuss at multidisciplinary conference on Monday and call patient with recommendations. All questions were answered and patient is in agreement of plan. Will follow-up in 4-6 weeks or sooner if needed. Medications: New doxycycline hyclate 100 mg PO BID 14 caps 0RF budesonide-formoterol 160-4.5 mcg/actuation (Symbicort) 2 puffs inhalation Q12H 10.2 grams 6RF Discontinued Advair HFA 115-21 mcg/actuation (fluticasone propion-salmeterol) Discontinued Reason: Insurance Denied 2 puffs inhalation Q12H 12 grams 6RF NS Coding Level of Care Code Est Pt Level 4 (80786) Complex EM visit Add On G2211 Diagnoses Pulmonary nodule 1 cm or greater in diameter R91.1 COPD (chronic obstructive pulmonary disease) J44.9 Shortness of breath on exertion R06.02 Former heavy cigarette smoker (20-39 per day) Z87.894
[2024-09-16 09:04] VITALS: BP 154/86; PULSE 89; O2SAT 93; BMI 19.3
== END 2024-09-16 10:22 | disposition home or self-care (01) ==
PROVIDERS: PCP Internal Medicine; Visit Provider Nurse Practitioner Family
DX: R91.1 Solitary pulmonary nodule (principal); J44.9 Chronic obstructive pulmonary disease, unspecified; R06.02 Shortness of breath; Z87.891 Personal history of nicotine dependence
CPT/HCPCS: 99214; G2211

== ENCOUNTER → 2024-09-16 08:57 | Outpatient (BNVA) | payer MEDICARE, SELFPAY | PROVIDERS: PCP Internal Medicine; Visit Provider Nurse Practitioner Family | DX: R06.02 Shortness of breath (principal); J43.9 Emphysema, unspecified; J44.9 Chronic obstructive pulmonary disease, unspecified; I25.10 Atherosclerotic heart disease of native coronary artery without angina pectoris; R91.1 Solitary pulmonary nodule; Z87.891 Personal history of nicotine dependence | CPT/HCPCS: 99212 ==

== ENCOUNTER 2024-09-23 08:37 | Outpatient (AMB) | payer MEDICARE, SELFPAY ==
--- NOTE | 2024-09-23 08:28 | A.OFFVIS_ITS ---
Vital Signs 09/23/24 08:43 Height 5 ft 4.9 in Weight 114 lb 10.246 oz BMI 19.1 BP 150/82 H Blood Pressure Location Rt brachial Position Sitting Pulse 102 H Pulse Source Pulse Oximeter Pulse Oximetry (%) 94 Oxygen Delivery Method Room Air Intake Visit Reasons: shortness of breath Allergies No Known Allergies [No Known Allergies*] Allergy (Verified 09/23/24 08:45) HPI HPI shortness of breath: Details: Argenis is a pleasant 79 year old female, former smoker, 60 pack year history, with underlying severe COPD and osteoporosis. She has been suboptimally controlled on Duoneb, previously PCP attempted to send in Advair however not financially feasible. At the last visit, symbicort was sent as well as doxycycline for bronchitic symptoms. 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 She continues to report difficulty expectorating with chest congestion dyspnea and wheezing. She denies sick contacts, fevers or chills. Of note, we reviewed chest CT results last week which were concerning for m alignancy and will be discussing at conference this coming Monday. [facility] Medical History (Updated 09/16/24 @ 16:08 by Kanika Gu NP) Former heavy cigarette smoker (20-39 per day) Hoarseness or changing voice Shortness of breath on exertion White coat syndrome with hypertension Dyslipidemia Impaired fasting glucose Osteoporosis Surgical History H/O colonoscopy No pertinent past surgical history Family History Father No problems noted. Mother Diabetes mellitus Sister No problems noted. Son No problems noted. Social History Household Members: Spouse Household Members Other:: Housing: House Alcohol intake: current Alcohol intake frequency: holidays/special occasions only Alcohol type: beer Patient Tobacco Use Status: Former Tobacco user e-Cigarette/Vaping Use: Never Used Second Hand Smoke Exposure: Yes Advance Directives Date on File: 07/30/20 service: No Current occupational status: disabled Cognitive needs: No Hearing needs: No Vision needs: Yes Review of Systems Const Denies chills, Denies excessive sweating, Denies fever(s), Denies headache(s) and Denies night sweats Eyes Denies dry eyes, Denies irritation and Denies itchy eyes ENT Reports Normal hearing present, Denies headache(s), Denies nasal congestion, Denies nasal discharge, Denies post nasal drip and Denies sore throat Card Denies chest pain, Denies chest pain at rest, Denies chest pain with activity, Denies claudication, Denies leg edema, Reports dyspnea on exertion, Denies orthopnea and Denies paroxysmal nocturnal dyspnea Resp Reports chest congestion, Reports cough, Denies excessive phlegm production, Denies pain on inspiration, Reports dyspnea on exertion, Denies stridor and Reports wheezing Musc Denies myalgias Neuro Reports Normal hearing present and Denies headache(s) Endo Denies excessive sweating Benjamín/Lymph Denies lymphadenopathy Aller/Immun Denies itchy eyes, Denies seasonal rhinorrhea and Reports wheezing Physical Exam Vital Signs: Last Vital Signs Pulse 102 H 09/23/24 08:43 BP 150/82 H 09/23/24 08:43 Pulse Ox 94 09/23/24 08:43 Oxygen Delivery Method Room Air 09/23/24 08:43 BMI result Body Mass Index 19.1 Const General: cooperative, healthy appearing, comfortable, no acute distress, well developed and alert Orientation/consciousness: patient oriented x3 Limitations: no limitations HEENT Head: Yes normal to inspection, Yes normocephalic and Yes atraumatic Ears: hearing grossly normal bilaterally and external ears normal Eyes General: appearance normal, both eyes and all related structures Eyelids: Yes eyelids normal Sclerae: sclerae normal EOM: EOMs intact bilaterally Neck Neck: Yes normal visual inspection and Yes no lymphadenopathy Lymphatic: no lymphadenopathy noted Chest Chest palpation & inspection: normal inspection of the chest Resp Other: wet cough throughout visit Effort & Inspection: normal respiratory effort, able to speak in complete sentences, no audible wheezes, no stridor, not tachypneic, no tripod positioning and no use of accessory muscles Auscultation: diminished lung sounds Cardio Jugular venous distension: no JVD Rate: regular rate Rhythm: regular rhythm Skin Other: warm, dry General skin exam: no rashes or lesions noted Neuro General: patient oriented x3 Cranial nerves: Yes Normal hearing present Cognition (Neuro): normal cognition Gait exam (Neuro): Normal gait present Extrem General: Yes normal to inspection, Yes capillary refill normal, Yes no clubbing, cyanosis or edema and Yes no pedal edema Psych Appearance: grossly normal and well kempt Speech and movement: Normal speech and movement present and Clear speech present Affect: normal affect Attitude: cooperative Thought process: Normal thought process present Thought content: Normal thought content present Insight: Good insight present (Psych) Judgement: Good judgement present (Psych) Assessment & Plan Assessment & Plan (1) Pulmonary nodule 1 cm or greater in diameter: Code(s): R91.1 - Solitary pulmonary nodule Category: Medical (2) COPD (chronic obstructive pulmonary disease): Code(s): J44.9 - Chronic obstructive pulmonary disease, unspecified Category: Medical (3) Shortness of breath on exertion: Code(s): R06.02 - Shortness of breath Category: Medical (4) Former heavy cigarette smoker (20-39 per day): Comment: quit 4 years ago Code(s): Z87.891 - Personal history of nicotine dependence Category: Social Hx Plan Will treat bronchitic symptoms with Vantin and prednisone as no improvement with doxycyline. Side effects reviewed of prednisone and abx. 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 If not able to pickling drum operator patient aware to call. If symptoms do not improve will call office and if worsen will seek emergent care. Again reviewed chest CT which revealed concerning 1.4 cm and 1.6 cm nodules of the RUL. Discussed the possibility of this being a malignant process and need for further evaluation. Will discuss at multidisciplinary conference on this Monday and call patient with recommendations. All questions were answered and patient is in agreement of plan. Will follow-up in 2 weeks or sooner if needed. Medications: New prednisone 20 mg PO BID 10 tabs 0RF cefpodoxime must administer with a meal/food 200 mg PO BID 20 tabs 0RF Discontinued doxycycline hyclate Discontinued Reason: Patient Completed Course 100 mg PO BID 14 caps 0RF Coding Level of Care Code Est Pt Level 4 (39210) Diagnoses Pulmonary nodule 1 cm or greater in diameter R91.1 COPD (chronic obstructive pulmonary disease) J44.9 Shortness of breath on exertion R06.02 Former heavy cigarette smoker (20-39 per day) Z87.895
[2024-09-23 08:43] VITALS: BP 150/82; PULSE 102; O2SAT 94; BMI 19.1
== END 2024-09-23 09:13 | disposition home or self-care (01) ==
PROVIDERS: PCP Internal Medicine; Visit Provider Nurse Practitioner Family
DX: R91.1 Solitary pulmonary nodule (principal); J44.9 Chronic obstructive pulmonary disease, unspecified; R06.02 Shortness of breath; Z87.891 Personal history of nicotine dependence
CPT/HCPCS: 99214

== ENCOUNTER → 2024-09-23 08:37 | Outpatient (BNVA) | payer MEDICARE, SELFPAY | PROVIDERS: PCP Internal Medicine; Visit Provider Nurse Practitioner Family | DX: R91.1 Solitary pulmonary nodule (principal); R06.02 Shortness of breath; J44.9 Chronic obstructive pulmonary disease, unspecified; Z87.891 Personal history of nicotine dependence | CPT/HCPCS: 99212 ==

== ENCOUNTER 2024-10-08 09:04 | Outpatient (AMB) | payer MEDICARE, SELFPAY ==
[2024-10-08 09:31] VITALS: BP 128/80; PULSE 85; O2SAT 98; BMI 19.2
--- NOTE | 2024-10-08 09:31 | A.OFFPC_ITS ---
Vital Signs 10/08/24 09:31 Height 5 ft 4.9 in Weight 115 lb BMI 19.2 BP 128/80 Blood Pressure Location Rt brachial Position Sitting Pulse 85 Pulse Source Pulse Oximeter Pulse Oximetry (%) 98 Oxygen Delivery Method Room Air Intake Visit Reasons: Annual PE Intake Note: Pt is here today for her PE: Last mammogram 01/10/24, bone density scan 10/06/22, colonoscopy 05/08/19 Allergies prednisone Adverse Reaction (Verified 10/08/24 09:54) Back Pain Medication List - Last Reconciled 10/08/24 by Juanita Lakhani MD atorvastatin (Lipitor) 10 mg PO DAILY calcium carbonate 500 mg PO DAILY cefpodoxime 200 mg PO BID cholecalciferol (vitamin D3) (Vitamin D3) 25 mcg PO DAILY fluticasone propion-salmeterol 500-50 mcg/dose (Wixela Inhub) 1 inh inhalation Q12H ipratropium-albuterol 0.5 mg-3 mg(2.5 mg base)/3 mL 3 mL inhalation BID PRN Tobacco use date assessed: 10/08/24 Fall risk assessment: No Falls in past year Last assessed Fall Risk: 10/08/24 Dental Screening Dental Screen Date: 10/08/24 Did you have a dental visit in the last 12 months?: No Did you have a dental problem in the last 6 months where you did not have access to dental care?: No Was dental information given to patient?: Patient has dentist HPI Annual PE HPI Details - The patient is a 79-year-old female pr esenting today for her physical exam. - Currently followed by Dr. Wilde for her osteoporosis, currently not on any medication except for calcium and vitamin-D 3 supplements, has an appointment already scheduled for repeat bone density scan next year - COPD followed by [facility] Pulmonary,: had r ecent PET scanning yesterday for evaluation of pulmonary nodules 1.6 cm and 1.4 cm on right upper lung. denies any shortness of breath, no cough, but has persistent hoarseness. Evaluated by Dr. Kwan with indirect laryngoscopy done twicewith no abnormality seen -Cataracts: Identified but not currently requiring surgery; no glaucoma. followed by Dr. Celeste - Diverticulosis: Last colonoscopy in showed diverticulosis, no polyps done by Dr. Alejo, no further colonoscopy screenings indicates. - Hyperlipidemia: Managed with atorvasta tin, one refill remaining. - Vaccinations: Up to date with all vacc debra, recommended to get her RSV vaccination - up-to-date with her screening mammogra [facility] Medical History Former heavy cigarette smoker (20-39 per day) Hoarseness or changing voice Shortness of breath on exertion White coat syndrome with hypertension Dyslipidemia Impaired fasting glucose Osteoporosis Surgical History H/O colonoscopy No pertinent past surgical history Family History Father No problems noted. Mother Diabetes mellitus Sister No problems noted. Son No problems noted. Social History Household Members: Spouse Household Members Other:: Housing: House Alcohol intake: current Alcohol intake frequency: holidays/special occasions only Alcohol type: beer Patient Tobacco Use Status: Former Tobacco user e-Cigarette/Vaping Use: Never Used Second Hand Smoke Exposure: Yes Advance Directives Date on File: 07/30/20 service: No Current occupational status: disabled Cognitive needs: No Hearing needs: No Vision needs: Yes Questionnaire PHQ-9 Over the last 2 weeks, how often have you been bothered by any of the following problems? 1. Little interest or pleasure in doing things: not at all 2. Feeling down, depressed, or hopeless: not at all 3. Trouble falling or staying asleep, or sleeping too much: not at all 4. Feeling tired or having little energy: not at all 5. Poor appetite or overeating: not at all 6. Feeling bad about yourself - or that you are a failure or have let yourself or your family down: not at all 7. Trouble concentrating on things, such as reading the newspaper or watching television: not at all 8. Moving or speaking so slowly that other people could have noticed. Or the opposite - being so fidgety or restless that you have been moving around a lot more than usual: not at all 9. Thoughts that you would be better off or of hurting yourself in some way: not at all Total score: 0 Depression Screening Interpretation: Negative Depression Screening Done: Yes 47155 - PHQ-9 Billing: Yes Source: Developed by Drs. Cisco Tierney, Vivi Benites, Mir Daniels and colleagues, with an educational tay from [employer]. Thrive Questionnaire Date Thrive assessed: 10/08/24 I am a: Patient What is your living situation today?: I have a steady place to live Within the past 12 months, did the food you bought not last and you didn't have the money to get more?: I choose not to answer this question Within the past 12 months, did you worry whether your food would run out before you got money to buy more?: I choose not to answer this question Do you have trouble paying for medicines?: No Do you have trouble getting transportation to medical appointments?: No Do you have trouble paying your heating and electricity bill?: No Do you have trouble taking care of your child, family member or friend?: No Do you have trouble with day-to-day activities such as bathing, preparing meals, shopping, managing finances, etc.?: No THRIVE Score: 0 MYA-7 AMB Questionnaire MYA-7 Date MYA - 7 assessed: 03/26/24 Source: Developed by Drs. Cisco Tierney, Vivi Benites, Mir Daniels and colleagues, with an educational tay from [employer]. Review of Systems Const Denies chills, Denies excessive sweating, Denies fever(s), Denies headache(s), Denies night sweats, Denies poor appetite, Denies snoring, Denies weakness, Denies weight gain and Denies weight loss Eyes Details: Followed by Dr. Celeste Denies dry eyes, Denies irritation and Denies itchy eyes ENT Reports Normal hearing present, Denies headache(s), Denies nasal congestion, Denies nasal discharge, Denies post nasal drip and Denies sore throat Card Denies chest pain, Denies chest pain at rest, Denies chest pain with activity, Denies claudication, Denies leg edema, Denies dyspnea, Denies orthopnea and Denies paroxysmal nocturnal dyspnea Resp Denies chest congestion, Denies cough, Denies excessive phlegm production, Denies pain on inspiration, Denies dyspnea, Denies snoring, Denies stridor and Reports wheezing GI Reports no additional complaints Reports no additional complaints Musc Denies myalgias Skin/Breast Denies breast pain, Denies breast mass, Denies change in breast shape and Denies rash Neuro Reports Normal hearing present, Denies headache(s), Denies Sensory deficit (Neuro) and Denies weakness Psych Reports no additional complaints Endo Denies excessive sweating Benjamín/Lymph Denies lymphadenopathy Aller/Immun Denies itchy eyes, Denies seasonal rhinorrhea and Reports wheezing Physical exam (Primary Care) Vital Signs: Last Vital Signs Pulse 85 10/08/24 09:31 BP 128/80 10/08/24 09:31 Pulse Ox 98 10/08/24 09:31 Oxygen Delivery Method Room Air 10/08/24 09:31 BMI result Body Mass Index 19.2 Tobacco/Smoking Status: Tobacco use Status Tobacco use date assessed 10/08/24 10/08/24 09:33 Patient Tobacco Use Status Former Tobacco user 10/08/24 09:33 e-Cigarette/Vaping Use Never Used 10/08/24 09:33 PHQ-9: PHQ-9 Score PHQ-9: Total score 0 10/08/24 09:54 Depression Screening Interpretation: Negative Thrive Assessment: Date of Thrive Assessment Date Thrive assessed 10/08/24 10/08/24 09:33 Const General: cooperative, healthy appearing, no acute distress and alert Orientation/consciousness: patient oriented x3 HENMT Head: Yes normal to inspection and Yes normocephalic Ears: hearing grossly normal bilaterally, external ears normal, TM's normal bilaterally and EAC's normal General nose exam: Normal external nose present and No nasal discharge present Face and sinus: Yes normal facial exam, Yes sinuses nontender and Yes face symme tric Mouth: oropharynx normal and moist mucous membranes Eyes Conjunctivae: conjunctivae normal Sclerae: sclerae normal Pupils: Equal, round and reactive pupils present EOM: EOMs intact bilaterally Neck Neck: Yes full ROM and Yes no lymphadenopathy Thyroid: Thyroid normal Resp Effort & Inspection: normal respiratory effort and able to speak in complete sentences Auscultation: clear to auscultation bilaterally Cardio Jugular venous distension: no JVD Rate: regular rate Rhythm: regular rhythm Heart sounds: S1 normal heart sound present and S2 normal heart sound present Bruits: no abdominal aortic bruits and no carotid bruits GI Inspection: Yes normal to inspection Palpation (GI): No Abdominal aortic bruit present, Soft to palpation, nontender, no guarding and no masses Auscultation: normal bowel sounds General: Yes no CVA tenderness Back/Spine/Pelvis Back: no CVA tenderness Skin General skin exam: no rashes or lesions noted Neuro General: patient oriented x3, gait normal, moves all extremities, no focal motor deficits and CN's II-XI intact bilaterally Cranial nerves: Yes Equal, round and reactive pupils present and Yes Normal hearing present Cognition (Neuro): normal cognition Gait exam (Neuro): Normal gait present Motor exam (neuro): 5/5 motor strength present throughout Sensory Exam: No Sensory deficit (Neuro) Extrem General: Yes normal to inspection, Yes full ROM, Yes no pedal edema and Yes normal gait Psych Appearance: grossly normal and well kempt Mental Status: mental status grossly normal Speech and movement: Normal speech and movement present Affect: normal affect Attitude: cooperative Thought process: Normal thought process present Results Reviewed Results Reviewed: Laboratory Tests 03/18/24 07:35 Hgb 13.2 Hct 39.5 Name: Argenis Fong Age/Sex: 79/F : 1945 Unit#: [id number] Attend Dr: Juanita Lakhani MD Re03/18/24 Status: DEP REF Location: [address] Disch: SPEC : [id number] ROBSON: 03/18/24 STATUS: COMP REQ : [id number] RECD: 03/18/[address]: Juanita Lakhani MD COMP: 03/18/24-1037 ENTERED: 03/18/24-[address]: ORDERED: Met Prof Fast, AST, ALT, Lipid Panel, Vitamin D 25-OH Test Result Flag Reference Sodium 140 135-145 mmol/L Potassium 4.1 3.3-5.1 mmol/L CL 104 96-108 mmol/L CO2 29 22-29 mmol/L Gap 11 L 12-20 BUN 20 H 9-16 mg/dL Creat 0.80 0.5-1.4 mg/dL EGFR > 60 NOTE: For -Dutch individuals, multiply the result by 1.210. Chronic Kidney Disease: Estimated GFR < 60 mL/min/1.73m2 Severe Kidney Disease: Estimated GFR < 15 mL/min/1.73m2 FBS 112 H 60-99 mg/dL A fasting glucose from 100-125 mg/dl is considered impa ired (pre-diabetes). CA 9.6 8.4-10.2 mg/dL AST (GOT) 18 5-31 U/L ALT (GPT) 11 0-31 U/L Triglyceride 113 <150 mg/dL Desirable Triglyceride: less than 150 mg/dL Borderline High Triglyceride 150-199 mg/dL High Triglyceride: 200-499 mg/dL Very High Triglyceride: greater than or equal to 5OO mg/dL Cholesterol 188 <200 mg/dL Desirable Cholesterol: less than 200 mg/dL Borderline High Cholesterol: 200-239 mg/dL High Cholesterol: greater than 239 mg/dL LDL Calculated 107 H <100 mg/dL Desirable LDL: less than 100 mg/dL Near Optimal/Above Optimal LDL: 110-129 mg/dL Borderline High LDL: 130-159 mg/dL High LDL: 160-189 mg/dL Very High LDL: greater than or equal to 190 mg/dL HDL 59 >40 mg/dL Desirable HDL: greater than 40 mg/dL Note: This HDL assay may give artificially low results in patients with liver disease. Vit D 25-OH Tot 83.5 >30 ng/mL Health Based Reference Values* < 20 ng/mL Deficient 20-30 ng/mL Insufficient > 30 ng/mL Sufficient Coding Level of Care Code Est Pt Prev Care >65y(21956) Diagnoses Annual visit for general adult medical examination with abnormal findings Z00. Age-related osteoporosis without current pathological fracture M81.0 Osteoporosis type: age-related Presence of current pathological fracture: without current pathological fracture Impaired fasting glucose R73.01 Dyslipidemia E78.5 Hoarseness or changing voice R49.9 Pulmonary nodule 1 cm or greater in diameter R91.1 COPD (chronic obstructive pulmonary disease) J44.9 Additional Codes PHQ-9 - 77669 - PHQ-9 Billing: Yes ([id number]) Assessment & Plan Assessment & Plan (1) Annual visit for general adult medical examination with abnormal findings: Code(s): Z00.01 - Encounter for general adult medical examination with abnormal findings (2) Osteoporosis: Code(s): M81.0 - Age-related osteoporosis without current pathological fracture Category: Medical Qualifiers: Osteoporosis type: age-related Presence of current pathological fracture: without current pathological fracture Qualified Code(s): M81.0 - Age- related osteoporosis without current pathological fracture (3) Impaired fasting glucose: Code(s): R73.01 - Impaired fasting glucose Category: Medical (4) Dyslipidemia: Code(s): E78.5 - Hyperlipidemia, unspecified Category: Medical (5) Hoarseness or changing voice: Comment: started a month ago Code(s): R49.9 - Unspecified voice and resonance disorder Category: Medical (6) Pulmonary nodule 1 cm or greater in diameter: Code(s): R91.1 - Solitary pulmonary nodule Category: Medical (7) COPD (chronic obstructive pulmonary disease): Code(s): J44.9 - Chronic obstructive pulmonary disease, unspecified Category: Medical Plan COPD followed by Pulmonary Clinic. Has right upper lobe pulmonary nodules seen on CT scan, with recent PET scan done yesterday for further evaluation.. --0steoporosis followed by Dr. Wilde, currently taking only vitamin D supplementation and calcium, has appointment for her repeat bone density scan scheduled next year - Continue hyperlipidemia treatment with atorvastatin, refill sent. Fasting labs ordered today to check lipids liver enzymes . Update vaccinations, recommended to get RSV vaccine . - Persistent hoarseness evaluated by Dr. Kwan with indirect laryngoscopy with no abnormalities seen no current therapeutic changes advised due to the absence of anatomical findings upon examination. -no longer getting colonoscopy screenings, up-to-date with her screening mammogram Patient was informed and verbally consented to the use of an ambient scribe for clinic note documentation during this visit. Orders: Orders Basic Metabolic Panel Fasting Today E78.5 - Hyperlipidemia, unspecified, M81.0 - Age-related osteoporosis without current pathological fracture, R49.9 - Unspecified voice and resonance disorder, R73.01 - Impaired fasting glucose, Z00.01 - Encounter for general adult medical examination with abnormal findings Aspartate Amino Transferase Today E78.5 - Hyperlipidemia, unspecified, M81.0 - Age-related osteoporosis without current pathological fracture, R49.9 - Unspecified voice and resonance disorder, R73.01 - Impaired fasting glucose, Z00.01 - Encounter for general adult medical examination with abnormal findings Lipid Panel Today E78.5 - Hyperlipidemia, unspecified, M81.0 - Age-related osteoporosis without current pathological fracture, R49.9 - Unspecified voice and resonance disorder, R73.01 - Impaired fasting glucose, Z00.01 - Encounter for general adult medical examination with abnormal findings Vitamin D 25-OH Total Today E78.5 - Hyperlipidemia, unspecified, M81.0 - Age- related osteoporosis without current pathological fracture, R49.9 - Unspecified voice and resonance disorder, R73.01 - Impaired fasting glucose, Z00.01 - Encounter for general adult medical examination with abnormal findings Hemoglobin A1c Today E78.5 - Hyperlipidemia, unspecified, M81.0 - Age-related osteoporosis without current pathological fracture, R49.9 - Unspecified voice and resonance disorder, R73.01 - Impaired fasting glucose, Z00.01 - Encounter for general adult medical examination with abnormal findings Alanine Aminotransferase Today E78.5 - Hyperlipidemia, unspecified, M81.0 - Age-related osteoporosis without current pathological fracture, R49.9 - Unspecified voice and resonance disorder, R73.01 - Impaired fasting glucose, Z00.01 - Encounter for general adult medical examination with abnormal findings Medications: Refilled cefpodoxime must administer with a meal/food 200 mg PO BID 20 tabs 0RF atorvastatin (Lipitor) 10 mg PO DAILY 90 caps 3RF
== END 2024-10-08 10:13 | disposition home or self-care (01) ==
PROVIDERS: PCP Internal Medicine; Visit Provider Internal Medicine
DX: Z00.00 Encounter for general adult medical examination without abnormal findings (principal); J44.9 Chronic obstructive pulmonary disease, unspecified; M81.0 Age-related osteoporosis without current pathological fracture; R73.01 Impaired fasting glucose; E78.5 Hyperlipidemia, unspecified; R49.9 Unspecified voice and resonance disorder; R91.1 Solitary pulmonary nodule

== ENCOUNTER → 2024-10-08 09:04 | Outpatient (BNVA) | payer MEDICARE, SELFPAY | PROVIDERS: PCP Internal Medicine; Visit Provider Internal Medicine | DX: Z00.01 Encounter for general adult medical examination with abnormal findings (principal); M81.0 Age-related osteoporosis without current pathological fracture; J44.9 Chronic obstructive pulmonary disease, unspecified; K57.90 Diverticulosis of intestine, part unspecified, without perforation or abscess without bleeding; E78.00 Pure hypercholesterolemia, unspecified; R73.01 Impaired fasting glucose; Z79.899 Other long term (current) drug therapy | CPT/HCPCS: 96127; 99397 ==

== ENCOUNTER 2024-10-15 07:55 | Outpatient (REF) | payer MEDICARE, SELFPAY ==
--- NOTE | ~2024-10-15 | MM_ITS ---
EXAMINATION: Dual-Energy X-ray Absorptiometry - Bone Density Study HISTORY: Estrogen deficiency TECHNIQUE: [facility] Dual energy absorptiometry (DEXA) of the lumbar spine, total left hip, and femoral neck was performed. COMPARISON: Comparison is made with the prior examination dated 09/28/2022. FINDINGS: The bone mineral density of the lumbar spine is 0.909 with a T-score of -2.3, and a Z-score of 0.0. This represents a BMD change of -2.2% compared to the prior exam. This is not statistically significant. The bone mineral density of the left total hip is 0.734 with a T-score of -2.2, and a Z-score of 0.1. This represents BMD change of -0.1% compared to the prior exam. This is not statistically significant. The bone mineral density of the left femoral neck is 0.572 with a T-score of -3.4, and a Z-score of 1.0. This represents BMD change of -8.2% compared to the prior exam. FRACTURE RISK: The FRAX index suggests a ten year probability of major osteoporotic fracture of 24.7%, and of hip fracture 11.7%. MM/XR DEXA axial skeleton IMPRESSION: Based on bone mineral density, and according to World Health Organization (WHO) criteria, the diagnosis is consistent with osteoporosis. All bone density values are in grams per centimeter squared. At this facility, the least significant change in BMD with 95% confidence is 0.022 at the lumbar spine, 0.027 at the hip, and 0.023 at the distal 1/3 radius. Electronically signed by: Cisco Gonzales MD 10/22/2024 02:24 PM [facility]
== END 2024-10-15 07:56 | disposition home or self-care (01) ==
LOC: HO.MAMMO 07:55
PROVIDERS: PCP Internal Medicine; Visit Provider Internal Medicine Endocrinology, Diabetes & Metabolism
DX: M81.0 Age-related osteoporosis without current pathological fracture (principal)
CPT/HCPCS: 77080

== ENCOUNTER → 2024-10-15 08:15 | Outpatient (BNV) | payer MEDICARE, SELFPAY | PROVIDERS: PCP Internal Medicine; Visit Provider Radiology Diagnostic Radiology | DX: E28.39 Other primary ovarian failure (principal) | CPT/HCPCS: 77080 ==

== ENCOUNTER 2024-10-15 08:24 | Outpatient (REF) | payer MEDICARE, SELFPAY ==
[2024-10-15 11:16] LABS: Estimated Average Glucose 108 mg/dL; Hemoglobin A1c % 5.4 % (<6.0)
[2024-10-15 11:22] LABS: Alanine Aminotransferase 16 U/L (0-31); Anion Gap 12 (12-20); Aspartate Amino Transferase 27 U/L (5-31); Blood Urea Nitrogen 19 mg/dL (9-16); Calcium 9.4 mg/dL (8.4-10.2); Carbon Dioxide 30 mmol/L (22-29); Chloride 104 mmol/L (96-108); Cholesterol 172 mg/dL (<200); Estimated Glomerular Filt Rate > 60; Glucose Fasting 95 mg/dL (60-99); HDL Cholesterol 69 mg/dL (>40); LDL Cholesterol Calculated 88 mg/dL (<100); Potassium 3.9 mmol/L (3.3-5.1); Sodium 142 mmol/L (135-145); Triglycerides 78 mg/dL (<150)
[2024-10-15 11:27] LABS: Vitamin D 25-OH Total 95.4 ng/mL (>30)
== END 2024-10-15 08:25 | disposition home or self-care (01) ==
LOC: HO.10HDL 08:24
PROVIDERS: Visit Provider Internal Medicine
DX: Z00.01 Encounter for general adult medical examination with abnormal findings (principal); R49.9 Unspecified voice and resonance disorder; E78.5 Hyperlipidemia, unspecified; R73.01 Impaired fasting glucose; M81.0 Age-related osteoporosis without current pathological fracture
CPT/HCPCS: 36415; 77080; 80048; 80061; 82306; 83036; 84450; 84460

== ENCOUNTER → 2024-11-21 12:30 | Outpatient (BNV) | payer MEDICARE, SELFPAY | PROVIDERS: Admitting Provider Student in an Organized Health Care Education/Training Program; PCP Internal Medicine; Visit Provider Radiology Diagnostic Radiology | DX: Z45.02 Encounter for adjustment and management of automatic implantable cardiac defibrillator (principal) | CPT/HCPCS: 71045 ==

== ENCOUNTER 2024-11-21 12:35 | Outpatient (BNV) | payer MEDICARE, SELFPAY | END 2024-11-22 06:00 | PROVIDERS: Admitting Provider Student in an Organized Health Care Education/Training Program; PCP Internal Medicine; Visit Provider Radiology Diagnostic Radiology | DX: J93.9 Pneumothorax, unspecified (principal) | CPT/HCPCS: 71045 ==

== ENCOUNTER 2024-11-21 12:35 | Outpatient (BNV) | payer MEDICARE, SELFPAY | END 2024-11-28 10:52 | PROVIDERS: Admitting Provider Student in an Organized Health Care Education/Training Program; PCP Internal Medicine | DX: R06.02 Shortness of breath (principal); I49.1 Atrial premature depolarization; Z01.810 Encounter for preprocedural cardiovascular examination | CPT/HCPCS: 78452; 93016; 93018 ==

== ENCOUNTER 2024-11-21 12:35 | Outpatient (BNV) | payer MEDICARE, SELFPAY | END 2024-11-24 10:42 | PROVIDERS: Admitting Provider Student in an Organized Health Care Education/Training Program; PCP Internal Medicine; Visit Provider Radiology Diagnostic Radiology | DX: J93.9 Pneumothorax, unspecified (principal) | CPT/HCPCS: 71045 ==

== ENCOUNTER 2024-11-21 12:35 | Outpatient (BNV) | payer MEDICARE, SELFPAY | END 2024-12-02 06:00 | PROVIDERS: Admitting Provider Student in an Organized Health Care Education/Training Program; PCP Internal Medicine; Visit Provider Radiology Diagnostic Radiology | DX: C34.11 Malignant neoplasm of upper lobe, right bronchus or lung (principal); Z97.8 Presence of other specified devices | CPT/HCPCS: 71045 ==

== ENCOUNTER 2024-11-21 12:35 | Outpatient (BNV) | payer MEDICARE, SELFPAY | END 2024-11-26 09:00 | PROVIDERS: Admitting Provider Student in an Organized Health Care Education/Training Program; PCP Internal Medicine; Visit Provider Radiology Diagnostic Radiology | DX: J93.9 Pneumothorax, unspecified (principal) | CPT/HCPCS: 71045 ==

== ENCOUNTER 2024-11-21 12:35 | Outpatient (BNV) | payer MEDICARE, SELFPAY | END 2024-11-29 06:00 | PROVIDERS: Admitting Provider Student in an Organized Health Care Education/Training Program; PCP Internal Medicine; Visit Provider Specialist | DX: J93.9 Pneumothorax, unspecified (principal) | CPT/HCPCS: 71045 ==

== ENCOUNTER 2024-11-21 12:35 | Outpatient (BNV) | payer MEDICARE, SELFPAY | END 2024-11-27 10:04 | PROVIDERS: Admitting Provider Student in an Organized Health Care Education/Training Program; PCP Internal Medicine; Visit Provider Internal Medicine Cardiovascular Disease | DX: I35.8 Other nonrheumatic aortic valve disorders (principal); I51.89 Other ill-defined heart diseases | CPT/HCPCS: 93306 ==

== ENCOUNTER 2024-11-21 12:35 | Outpatient (BNV) | payer MEDICARE, SELFPAY | END 2024-11-23 07:23 | PROVIDERS: Admitting Provider Student in an Organized Health Care Education/Training Program; PCP Internal Medicine; Visit Provider Specialist | DX: J93.9 Pneumothorax, unspecified (principal) | CPT/HCPCS: 71045 ==

== ENCOUNTER 2024-11-21 12:35 | Outpatient (BNV) | payer MEDICARE, SELFPAY | END 2024-11-25 09:10 | PROVIDERS: Admitting Provider Student in an Organized Health Care Education/Training Program; PCP Internal Medicine; Visit Provider Radiology Diagnostic Radiology | DX: J93.9 Pneumothorax, unspecified (principal) | CPT/HCPCS: 71045 ==

== ENCOUNTER 2024-11-21 12:35 | Outpatient (BNV) | payer MEDICARE, SELFPAY | END 2024-12-01 15:40 | PROVIDERS: Admitting Provider Student in an Organized Health Care Education/Training Program; PCP Internal Medicine; Visit Provider Radiology Diagnostic Radiology | DX: C34.11 Malignant neoplasm of upper lobe, right bronchus or lung (principal); Z97.8 Presence of other specified devices | CPT/HCPCS: 71045 ==

== ENCOUNTER 2024-11-21 12:35 | Inpatient (IN) | payer MEDICARE, SELFPAY ==
[2024-11-21] VITALS (34 sets, daily range): BP systolic 113–179; BP diastolic 57–83; PULSE 60–85; RESP 12–25; TEMP 36.1–36.7; O2SAT 94–100; BMI 19.2
--- NOTE | ~2024-11-21 | XR_ITS ---
EXAMINATION: XR CHEST CLINICAL INFORMATION: f/u R pneumo COMPARISON: November 22, 2024 at 6:11 AM. TECHNIQUE: Frontal view of the chest was obtained. FINDINGS: A right apical pneumothorax, moderate volume. A right-sided pigtail catheter placed from the right lower hemithorax tip ends in the right upper hemithorax. Bilateral pulmonary reticular pattern. Left lung is aerated. No gross pleural effusion. Subcutaneous emphysema within the right axillary and right lower hemithorax region. Cardiomediastinal silhouette size is normal with calcified plaque thoracic aorta. XR/XR chest 1V IMPRESSION: Positive exam. Right-sided pneumothorax, moderate volume. Larger since prior earlier exam. Electronically signed by: Vikram Warner MD 11/22/2024 12:54 PM [facility]
--- NOTE | ~2024-11-21 | XR_ITS ---
CLINICAL HISTORY: F U Pneumothorax 1 view chest x-ray Comparison: CR - XR CHEST 1V - 11/23/24 07:23 EST CR/SR - XR CHEST 1V - 11/22/24 12:32 EST CR - XR CHEST 1V - 11/22/24 06:11 EST CR/MN/SR - XR CHEST 1V - 11/21/24 12:22 EST Findings: Stable small bore right chest tube. Resolution of previous right pneumothorax. Similar overinflation and ill-defined parenchymal opacity in the right upper lung. No consolidation or effusion. Normal heart size and mediastinal contour. Old fracture deformity right humerus. Upper abdomen unremarkable. Similar subcutaneous emphysema right chest wall. Impression: Resolution of small right pneumothorax. This document has been electronically signed by: Andrea Choudhury MD on 11/24/2024 11:31:10
--- NOTE | ~2024-11-21 | CT_ITS ---
Right upper lobe lung nodule PROCEDURES: 1. Limited preprocedure CT of the chest. Permanent images saved in PACS. 2. CT-guided biopsy and fine-needle aspiration of the right upper lobe lung nodule. 3. CT-guided placement of right chest tube. 3. Limited postprocedure CT of the chest. Permanent images saved in PACS. CLINICIANS: Prieto Romero PA-C MEDICATIONS: -Versed 1.5 mg, Fentanyl 75 mcg, and lidocaine 1% 10 mL SQ -Antibiotics: None -For additional details, please see nursing flowsheet. COMPLICATIONS: None ESTIMATED BLOOD LOSS: < 5 ml CONTRAST: None SPECIMENS: 4 x 20 g cores were sent for pathology. 22-gauge aspiration sent for cytology. MODERATE SEDATION TIME: 71 min PROCEDURE NOTE: The procedure, risks, benefits, and alternatives were carefully explained to the patient and written informed consent was obtained. The patient was placed supine on the CT table. A timeout was performed. A limited CT of the chest was performed to localize the right upper lobe lung nodule and choose appropriate needle entry and trajectory. The patient was prepped and draped in usual sterile fashion. The skin and deeper soft tissues were anesthetized with lidocaine. Under CT guidance, a19 gauge trocar needle was advanced to the right upper lobe lung nodule. A 20 gauge biopsy device was inserted through the trocar needle and advanced into the lesion. A total of 4 cores were performed. The specimens were placed in formalin and sent to pathology. Next, a 22-gauge Chiba needle was inserted through the trocar needle and advanced into the lesion. An aspiration was performed and sent for cytology. A total of 10 mL of nonclotted blood was obtained from the patient's IV by the nursing staff. A blood patch was then administered through the trocar needle. The needle was removed. A dry dressing was applied and secured with Tegaderm. A limited postprocedure CT of the chest demonstrated a small, but evolving right pneumothorax. Under CT guidance, a trocar needle was advanced anteriorly into the right pleural space. A 0.035 J wire was inserted through the the trocar needle and coiled in the right pleural space. The trocar needle was then removed over the wire. The tract was then serially dilated. Over the wire, an 8 fr all-purpose drainage catheter was advanced and coiled into the right pleural space under CT guidance. The wire was then removed. The catheter was secured to the skin with a 2-0 nylon suture. The catheter was then connected to a closed drainage system. A limited postprocedure CT was then obtained, which demonstrated the drain well-positioned in the right apex of the right pleural cavity. The patient was stable after the procedure and was transferred to the post anesthesia care unit. The procedure was done under moderate sedation with a dedicated nurse for monitoring of vital signs. CT/CT chest tube placement Impression: 1. CT-guided biopsy and fine-needle aspiration of the right upper lobe lung nodule. 2. CT-guided placement of a right chest tube for pneumothorax. This procedure was performed by Prieto Romero PA-C and supervised by Dr. Murphy. Electronically signed by: Devin Murphy MD 12/09/2024 04:15 PM [facility]
--- NOTE | ~2024-11-21 | XR_ITS ---
CLINICAL HISTORY: Follow-up right pneumothorax 1 view chest x-ray Comparison: CR/KS/SR - XR CHEST 1V - 11/21/24 12:22 EST Findings: No consolidation or effusion. Right-sided chest tube in place. No visible pneumothorax. Heart size is normal. No acute fracture. IMPRESSION: 1. No visible pneumothorax. Right chest tube in place. This document has been electronically signed by: Gem Harrington MD on 11/22/2024 06:50:36
--- NOTE | ~2024-11-21 | XR_ITS ---
CLINICAL HISTORY: Follow-up right pneumothorax status post lung biop 1 view chest x-ray Comparison: CR - XR CHEST 1V - 12/01/24 15:39 EST Findings: Heart size is stable. Lungs are clear. Right-sided chest tube in place without visible pneumothorax. IMPRESSION: 1. Right-sided chest tube remains in good position. No pneumothorax appreciated. This document has been electronically signed by: Gem Harrington MD on 12/02/2024 06:35:23
--- NOTE | ~2024-11-21 | XR_ITS ---
CLINICAL HISTORY: Chest tube on water seal. Right ptx from lung bx 1 view chest x-ray Comparison: CR - XR CHEST 1V - 11/29/24 06:18 EST Findings: The lungs are well-aerated. No pneumothorax is identified. No consolidation or pleural effusion. Normal size heart. Age-indeterminate 8th and 9th left rib fractures. IMPRESSION: Redemonstration of a right chest tube. No pneumothorax identified. This document has been electronically signed by: Samantha Andre DO on 12/01/2024 16:58:43
--- NOTE | ~2024-11-21 | XR_ITS ---
EXAMINATION: XR CHEST 1 VIEW HISTORY: f/u right pneumothorax, on water seal COMPARISON: Comparison is made with the prior examination performed earlier in the day at 8:37 AM. FINDINGS: A single AP portable view of the chest performed at 10:51 AM is submitted. A right-sided chest tube is again noted. There is a new small pneumothorax. The lungs are clear. There is no pleural effusion, pneumothorax, or pulmonary vascular congestion. The heart is normal in size. The bones are intact. XR/XR chest 1V IMPRESSION: Right chest tube in place. New small pneumothorax. Electronically signed by: Cisco Gonzales MD 11/25/2024 11:27 AM [facility] [place]
--- NOTE | ~2024-11-21 | XR_ITS ---
EXAMINATION: XR CHEST CLINICAL INFORMATION: s/p right chest tube for pneumothorax after biopsy COMPARISON: CT right lung biopsy earlier same day. CT chest 08/23/2024. TECHNIQUE: Frontal view of the chest was obtained. FINDINGS: There is a pigtail catheter in the right apical lateral pleural space. There is a trace right apical pneumothorax. There is approximately 2 mm of pleural separation. Right upper lobe pulmonary nodule again noted, with probable postbiopsy mild hemorrhage. Emphysema. Lungs otherwise clear. There are no effusions. Cardiac, hilar, mediastinal contours are normal. There is calcification with mild tortuosity of the aorta. Old fracture deformity proximal right humerus. There are spinal degenerative changes. XR/XR chest 1V IMPRESSION: 1. Pigtail catheter positioned in the right apical lateral pleural space. 2. Trace right pneumothorax. 3. Nodule with small amount of postbiopsy hemorrhage right upper lobe. 4. Emphysema. Electronically signed by: Beltran Dominguez MD 11/21/2024 12:53 PM [facility] [place]
--- NOTE | ~2024-11-21 | XR_ITS ---
EXAMINATION: XR CHEST 1 VIEW HISTORY: Follow-up right pneumothorax COMPARISON: Comparison is made with the prior examination dated 11/24/2024. FINDINGS: A single AP portable view of the chest performed at 8:37 AM is submitted. A right-sided chest tube is unchanged in position. No pneumothorax. The lungs are clear. There is no pleural effusion or pulmonary vascular congestion. The heart is normal in size. The bones are intact. XR/XR chest 1V IMPRESSION: Right-sided chest tube in place. No pneumothorax. Electronically signed by: Cisco Gonzales MD 11/25/2024 09:33 AM [facility] [place]
--- NOTE | ~2024-11-21 | XR_ITS ---
CLINICAL HISTORY: follow up post chest tube removal 1 view chest x-ray Comparison: CR - XR CHEST 1V - 12/02/24 06:12 EST CR - XR CHEST 1V - 12/01/24 15:39 EST CR - XR CHEST 1V - 11/29/24 06:18 EST CR/SR - XR CHEST 1V - 11/26/24 08:37 EST Findings: Removal of the small bore right pigtail chest tube. No apparent pneumothorax. Stellate opacity in the right upper lobe more focal and/or conspicuous compared to priors. Could be small scar although appearance concerning, and if not recently performed, follow-up chest CT suggested. Overinflation similar to prior with similar mild asymmetric interstitial prominence right lung compared to left. No consolidation. No edema, or pleural effusion. Normal heart size and mediastinal contour. Old fracture deformity right humerus. Upper abdomen unremarkable. Impression: Removal of small bore right pigtail chest tube. No appreciable pneumothorax. Concerning stellate opacity in the right upper lobe. If not recently performed, follow-up chest CT suggested. Similar overinflation and asymmetric interstitial prominence right lung greater than left. No consolidation. This document has been electronically signed by: Andrea Choudhury MD on 12/02/2024 10:30:28
--- NOTE | ~2024-11-21 | XR_ITS ---
CLINICAL HISTORY: Iatrogenic pneumo from lung biopsy 1 view chest x-ray Comparison: 11/26/2024 Findings: Portions of the exam are obscured by overlying material. Right chest tube remains in position with slight increased size of the right apical pneumothorax. The exam is otherwise unchanged. IMPRESSION: 1. Slight increased size of right apical pneumothorax with right chest tube remaining in position. This document has been electronically signed by: Andrea Wilburn MD on 11/29/2024 07:18:47
--- NOTE | ~2024-11-21 | NM_ITS ---
Lexiscan Myocardial perfusion study Indication: Preoperative cardiovascular stratification Technique: The patient was brought in for a Lexiscan perfusion study on November 29, 2024 and was injected 0.4 mg of Lexiscan intravenously. Within a minute of this injection 25 mCi of sestamibi was given intravenously. Images were obtained using the SPECT gamma camera interlaced with the gating device. Images were obtained in supine position. Resting perfusion study was performed on November 28, 2024. Patient was administered 25 mCi of sestamibi intravenously at rest. Images were then obtained in supine position. Images of evident without CT attenuation. Total DLP 76 mGy-cm. Images were processed with the software and compared side to side in short axis, horizontal long axis and vertical long axis views. Findings: The stress perfusion study showed nonattenuated images show normal uptake of radiotracer in all segments of the LV myocardium. Attenuation corrected images show mildly reduced uptake in the basal and mid lateral wall of the LV myocardium.. The gated study shows normal LV systolic function with calculated LVEF of 55%. LV cavity is normal in size. The gated study shows normal systolic wall thickening and contraction of segments. Resting study shows nonattenuated images show normal uptake of radiotracer in all segments of the LV myocardium. Gating at rest reveals normal systolic wall motion with ejection fraction at greater than 55%. The findings are consistent with likely normal myocardial perfusion. NM/NM josé perf SPECT rest & str Impression: 1. Myocardial perfusion imaging study shows likely normal myocardial perfusion 2. Gated LVEF is 55% 3. Transient ischemic dilatation not present Nondiagnostic changes on EKG. Electronically signed by: Davon Long MD 11/29/2024 02:16 PM [facility]
--- NOTE | ~2024-11-21 | XR_ITS ---
EXAMINATION: XR CHEST CLINICAL INFORMATION: F U PNX COMPARISON: Chest 11/25/2024 at 10:51 AM TECHNIQUE: Frontal view of the chest was obtained. FINDINGS: Lungs are hyperinflated but clear. There is a right apical chest tube. The pneumothorax has resolved. The heart size and pulmonary vascularity is normal. No gross bony abnormality seen XR/XR chest 1V IMPRESSION: No change in the right apical chest tube. Right apical pneumothorax is resolved. Hyperinflated lungs but clear. Electronically signed by: Ward Corcoran MD 11/26/2024 09:51 AM EST
--- NOTE | ~2024-11-21 | XR_ITS ---
CLINICAL HISTORY: Pneumothorax follow up 1 view chest x-ray Comparison: 11/22/2024 Findings: Portions of the exam are obscured by overlying material. Right chest tube remains in position with marked decreased volume of right pneumothorax. The chest is otherwise unchanged. IMPRESSION: 1. Improved appearance of the chest. This document has been electronically signed by: Andrea Wilburn MD on 11/23/2024 07:52:16
[2024-11-21 08:06] LABS: MANUAL DIFF FLAG NO
[2024-11-21 08:08] LABS: Basophils Absolute Auto 0.1 X10*3/uL (0.0-0.2); Basophils Percent Auto 0.7 % (0-2); Eosinophils Absolute Auto 0.2 X10*3/uL (0.0-0.4); Eosinophils Percent Auto 2.3 % (0-4); Hemoglobin 12.5 g/dl (12.0-16.0); Imm Gran Abs Auto 0.03 X10*3/uL (0.00-0.03); Imm Gran Pct Auto 0.4 % (0.0-0.4); Lymphocytes Absolute Auto 1.7 X10*3/uL (1.2-4.9); Lymphocytes Percent Auto 24.4 % (20-40); Mean Corpuscular HGB Conc 33.8 g/dl (31.0-35.0); Mean Corpuscular Hemoglobin 29.9 pg (27.0-33.0); Mean Corpuscular Volume 88.5 fL (80.0-98.0); Mean Platelet Volume 10.1 fL (9.4-12.3); Monocytes Absolute Auto 0.5 X10*3/uL (0.1-1.2); Monocytes Percent Auto 7.5 % (2-11); Neutrophils Absolute Auto 4.4 x10*3/uL (2.0-8.3); Neutrophils Percent Auto 64.7 % (45-73); Platelet Count 259 X10*3/uL (160-400); Red Blood Count 4.18 X10*6/uL (4.20-5.50); Red Cell Distribution Width 14.1 % (11.0-16.0); White Blood Count 6.8 X10*3/uL (4.8-10.8)
[2024-11-21 08:15] LABS: Prothrombin Time 11.1 SEC (10.9-12.4)
[2024-11-21 08:17] LABS: Partial Thromboplastin Time 28.8 SEC (26.0-36.8)
--- NOTE | 2024-11-21 08:26 | MHC.SHP ---
Pre-Procedural Eval Section A - 24 Hr Update-Section A only Date of Service: 11/21/24 Section B - Complete if H&P > 30 days Chief Complaint: Lung Right-Pulmonary nodule 1cm or greater in diam Details of Present Illness: 79 y/o female with multiple RUL PET avid lung nodules Relevant Family History (Specify if Yes): No Relevant Social History: Tobacco Use (quit 5 years ago) Present Medications: see Short Stay Collaborative assessment Medical History: Significant History History of Previous Operations: No relevant previous surgery Allergies: Allergies Allergy/AdvReac Type Severity Reaction Status Date / Time prednisone AdvReac Back Pain Verified 10/08/24 09:54 Review of Systems Sugical H&P ROS: Negative: Constitution, Cardiovascular and Respiratory Exam Surgical H&P Exam: Normal: Heart, Normal: Lungs, Normal: Skin and Normal: Neurological Plan 79 y/o female with PET avid RUL lung nodules -CT right lung biopsy Time Spent With Patient Time: Total time managing care of this patient today ____ minutes.
[2024-11-21] MEDS: Midazolam HCl 5 MG/ML VIAL IVPUSH ×3 (08:54→09:36)
[2024-11-21] MEDS: fentaNYL citrate/PF 100 MCG/2 ML VIAL 25 MCG IVPUSH ×4 (08:54→09:56)
[2024-11-21] MEDS: Acetaminophen 325 MG TABLET 650 MG PO (11:47)
--- NOTE | 2024-11-21 11:48 | P.HPHOSP_ITS ---
History of Present Illness Date of Service: 11/21/24 Attending physician on admission: David Grimes Chief Complaint: Penumothorax Pt is a 79-year-old female with a PMH significant for COPD, HLD,?and osteoporosis who initially presented to short-stay surgery for elective outpatient lung nodule biopsy. Procedure was complicated by pneumothorax and small chest tube was inserted into lung biopsy site, and pt was placed on chest wall suction. Pt seen and evaluated in the PACU where she is resting comfortably in bed. Pt reports has expiratory pain at biopsy and chest tube site, otherwise has been no acute medical complaints. Denies shortness or breath or difficulty breathing. No cough. No chest pain/pressure, palpitations. No nausea, vomiting, abdominal pain. Pt will be admitted to the hospital for treatment and further evaluation of right lung pneumothorax. Review of Systems 2 Review of Systems: Negative except for that is stated in the [facility] Medical History Former heavy cigarette smoker (20-39 per day) Hoarseness or changing voice Shortness of breath on exertion White coat syndrome with hypertension Dyslipidemia Impaired fasting glucose Osteoporosis Family History Father No problems noted. Mother Diabetes mellitus Sister No problems noted. Son No problems noted. Surgical History H/O colonoscopy No pertinent past surgical history Social History Household Members: Spouse Household Members Other:: Housing: House Are you a primary animal care worker to a significant other at home: No Do you presently have visiting nurse or other home services: No Alcohol intake: current Alcohol intake frequency: holidays/special occasions only Alcohol type: beer Patient Tobacco Use Status: Former Tobacco user e-Cigarette/Vaping Use: Never Used Second Hand Smoke Exposure: Yes Have you been hit, kicked, punched, or otherwise hurt by someone within the past year? If so, by whom?: No Are you DNR?: No Advance Directives: No Advance Directives Information Provided: Yes Advance Directives Date on File: 07/30/20 Recently lost weight without trying: No Nutrition Risks: No Nutritional Risk service: No Current occupational status: disabled Cognitive needs: No Hearing needs: No Vision needs: Yes Meds Allergies Allergy/AdvReac Type Severity Reaction Status Date / Time prednisone AdvReac Back Pain Verified 11/21/24 08:39 Active Medications: Current Medications Acetaminophen (Acetaminophen 325 Mg Tablet) 650 mg PO Q6H PRN PRN Reason: Pain, Moderate(Pain Scale 4-6) Oxycodone HCl (Oxycodone Hcl Immed Release 5 Mg Tablet) 5 mg PO Q4H PRN PRN Reason: Pain, Severe (Pain Scale 7-10) Home Medications ?Medication ?Instructions ?Recorded ?Confirmed ?Last Taken ?Type calcium carbonate 500 mg PO DAILY 03/24/23 11/21/24 Unknown History Physical Exam 2 Vital Signs and Narrative: Vital Signs: Last Vital Signs Temp 97.7 F 11/21/24 10:20 Pulse 74 11/21/24 11:05 Resp 17 11/21/24 11:05 BP 154/70 H 11/21/24 11:05 Pulse Ox 95 11/21/24 11:05 O2 Del Method Room Air 11/21/24 11:05 O2 Flow Rate 2 11/21/24 10:50 BMI result Body Mass Index 19.2 General: AOx3, no acute distress Resp: CTA but diminished bilaterally. Chest tube in place on upper right anterior chest wall. CVS: S1, S2, RRR GI: +BS, NT, no distention Skin: Warm, dry Neuro: Cranial nerves II-XII grossly intact bilaterally. Motor grossly intact bilaterally Extremities: No edema Psych: Appropriate affect Results Labs 11/21/24 08:00 Labs: Laboratory Results - last 24 hr 11/21/24 08:00 MCV 88.5 MCH 29.9 MCHC 33.8 RDW 14.1 Plt Count 259 MPV 10.1 Immature Gran % (Auto) 0.4 Neut % (Auto) 64.7 Lymph % (Auto) 24.4 [place] % (Auto) 7.5 Eos % (Auto) 2.3 Baso % (Auto) 0.7 Lymph # (Auto) 1.7 [place] # (Auto) 0.5 Eos # (Auto) 0.2 Baso # (Auto) 0.1 Abs Immat Gran (auto) 0.03 Absolute Neuts (auto) 4.4 Absolute Nucleated RBC 0.000 Nucleated RBC % (auto) 0.0 PT 11.1 INR 1.0 APTT 28.8 Assessment and Plan (1) Pneumothorax of right lung after biopsy: Status: Acute Plan Pt is a 79-year-old female with a PMH significant for COPD, HLD,?and osteoporosis who initially presented to short-stay surgery for elective outpatient lung nodule biopsy. Procedure was complicated by pneumothorax and small chest tube was inserted into lung biopsy site, and pt was placed on chest wall suction. Pt will be admitted to the hospital for treatment and further evaluation of right lung pneumothorax. Right lung pneumothorax Complication of elective right lung biopsy 1.6 cm nodule Chest tube placed by IR at biopsy site, pt on lung wall suctioning Pt without SOB, difficulty breathing, cough, or hypoxia Analgesics for pain management Thoracic surgery consult COPD Not in acute exacerbation Continue home inhalers Hyperlipidemia Continue statin Full Code Attending:?Dr. Grimes DVT Prophylaxis: Pneumatic compression Pt will require a hospitalization of at least two nights for treatment of right lung pneumothorax secondary to elective lung biopsy requiring chest tube and long wall suctioning. Quality Stroke Does the patient have a stroke diagnosis?: No VTE Prior VTE?: No VTE Risk Level:: Medical - moderate - high VTE Device Contraindication: N/A - Device Ordered VTE Drug Contraindication: Treatment Not Indicated
--- NOTE | 2024-11-21 13:09 | HO.THORCON_ITS ---
History of Present Illness Consult details Consult date: 11/21/24 Narrative: Patient was a pleasant 79-year-old female who had an incidental finding of a right upper lobe lung mass and workup for her COPD. She underwent IR biopsy earlier today and developed an iatrogenic right pneumothorax. Chest tube was placed with minimal residual right pneumothorax. Patient was otherwise stable. She has no acute respiratory issues or complaints. Chest x-ray as noted above. Pleur-evac demonstrates no output with very small air leak. Chart was reviewed and patient evaluated PMF Past Medical History Medical History Former heavy cigarette smoker (20-39 per day) Hoarseness or changing voice Shortness of breath on exertion White coat syndrome with hypertension Dyslipidemia Impaired fasting glucose Osteoporosis Family History Family History Father No problems noted. Mother Diabetes mellitus Sister No problems noted. Son No problems noted. Surgical History Surgical History H/O colonoscopy No pertinent past surgical history Social History Social History Household Members: Spouse Household Members Other:: Housing: House Are you a primary career guidance technician to a significant other at home: No Do you presently have visiting nurse or other home services: No Alcohol intake: current Alcohol intake frequency: holidays/special occasions only Alcohol type: beer Patient Tobacco Use Status: Former Tobacco user e-Cigarette/Vaping Use: Never Used Second Hand Smoke Exposure: Yes Have you been hit, kicked, punched, or otherwise hurt by someone within the past year? If so, by whom?: No Are you DNR?: No Advance Directives: No Advance Directives Information Provided: Yes Advance Directives Date on File: 07/30/20 Recently lost weight without trying: No Nutrition Risks: No Nutritional Risk service: No Current occupational status: disabled Cognitive needs: No Hearing needs: No Vision needs: Yes Meds Allergies Allergy/AdvReac Type Severity Reaction Status Date / Time prednisone AdvReac Back Pain Verified 11/21/24 08:39 Active Medications: Current Medications Acetaminophen (Acetaminophen 325 Mg Tablet) 650 mg PO Q6H PRN PRN Reason: Pain, Moderate(Pain Scale 4-6) Last Admin: 11/21/24 11:47 Dose: 650 mg Calcium Carbonate (Calcium Carbonate 750 Mg Tab.Chew) 750 mg PO Q4H PRN PRN Reason: Heartburn Magnesium Hydroxide (Milk Of Magnesia 30 Ml Oral.Susp) 30 ml PO DAILY PRN PRN Reason: Constipation Melatonin (Melatonin 3 Mg Tablet) 6 mg PO BEDTIME PRN PRN Reason: Insomnia Morphine Sulfate (Morphine Sulfate 4 Mg/Ml Cartridge) 2 mg IVPUSH Q4H PRN; Protocol PRN Reason: Pain, Severe (Pain Scale 7-10) Ondansetron HCl (Ondansetron Hcl 4 Mg/2 Ml Vial) 4 mg IVPUSH Q8H PRN PRN Reason: Nausea and Vomiting Oxycodone HCl (Oxycodone Hcl Immed Release 5 Mg Tablet) 5 mg PO Q4H PRN PRN Reason: Pain, Severe (Pain Scale 7-10) Oxycodone HCl (Oxycodone Hcl Immed Release 5 Mg Tablet) 5 mg PO Q6H PRN PRN Reason: Pain, Moderate(Pain Scale 4-6) Sodium Chloride (0.9 % Sodium Chloride Flush 3 Ml Syringe) [facility] Medications ?Medication ?Instructions ?Recorded ?Confirmed ?Last Taken ?Type calcium carbonate 500 mg PO DAILY 03/24/23 11/21/24 Unknown History Physical Exam 2 Vital Signs: Vital Signs: Last Vital Signs Temp 98 F 11/21/24 13:05 Pulse 75 11/21/24 13:05 Resp 18 11/21/24 13:05 BP 135/79 11/21/24 13:05 Pulse Ox 98 11/21/24 13:05 O2 Del Method Nasal Cannula wit h Capnography 11/21/24 13:05 O2 Flow Rate 2 11/21/24 13:05 BMI result Body Mass Index 19.2 Chest: Other: Chest tube in place anterior mid chest. Dressing clean dry and intact. Results Labs 11/21/24 08:00 Labs: Abnormal lab results 11/21/24 Range/Units 08:00 RBC 4.18 L (4.20-5.50) X10*6/uL Short CBC 11/21/24 Range/Units 08:00 WBC 6.8 (4.8-10.8) X10*3/uL Hgb 12.5 (12.0-16.0) g/dl Hct 37.0 (37.0-47.0) % Plt Count 259 (160-400) X10*3/uL All other labs normal. Assessment and Plan (1) Pneumothorax of right lung after biopsy: Status: Acute (2) COPD (chronic obstructive pulmonary disease): Status: Acute (3) Pulmonary nodule 1 cm or greater in diameter: Status: Acute Plan Current plan is to keep chest tube to wall suction. Repeat x-ray in a.m. and consider water seal if x-ray looks good and no air leak. To follow with you. Procedures Date of Service Date of Service: 11/21/24
--- NOTE | 2024-11-21 13:32 | PM.PROC ---
Brief Operative Note Date of procedure: 11/21/24 Pre-op diagnosis: Right lung nodule Post-op diagnosis: same Procedure: CT right lung biopsy and placement of chest tube 5 x 20 g cores and 22 g fna performed. Patient developed a small pneumothorax. A 6 fr right chest tube was placed. Will arrange for admission. Order placed for suction.
--- NOTE | 2024-11-21 14:27 | PHA.MEDREC ---
Pharmacy Consult ? Medication Reconciliation Pharmacy has completed the medication reconciliation. Spoke with patient at bedside, she was able to confirm her home meds. Stopped taking cefpodoxime in September.
[2024-11-21] MEDS: oxyCODONE HCl Immed Release 5 MG TABLET PO ×2 (14:48→19:33)
[2024-11-21] MEDS: 0.9 % Sodium Chloride Flush 3 ML SYRINGE IVFLUSH (19:34)
[2024-11-22] VITALS (7 sets, daily range): BP systolic 129–160; BP diastolic 60–71; PULSE 68–88; RESP 14–18; TEMP 36.3–36.9; O2SAT 92–97
[2024-11-22] MEDS: oxyCODONE HCl Immed Release 5 MG TABLET PO ×3 (01:34→23:37)
[2024-11-22 06:11] LABS: MANUAL DIFF FLAG NO
[2024-11-22 06:16] LABS: Basophils Absolute Auto 0.1 X10*3/uL (0.0-0.2); Basophils Percent Auto 0.8 % (0-2); Eosinophils Absolute Auto 0.2 X10*3/uL (0.0-0.4); Eosinophils Percent Auto 3.1 % (0-4); Hematocrit 35.2 % (37.0-47.0); Hemoglobin 11.6 g/dl (12.0-16.0); Imm Gran Abs Auto 0.03 X10*3/uL (0.00-0.03); Imm Gran Pct Auto 0.4 % (0.0-0.4); Lymphocytes Absolute Auto 1.9 X10*3/uL (1.2-4.9); Mean Corpuscular Hemoglobin 29.6 pg (27.0-33.0); Mean Corpuscular Volume 89.8 fL (80.0-98.0); Mean Platelet Volume 10.4 fL (9.4-12.3); Monocytes Absolute Auto 0.7 X10*3/uL (0.1-1.2); Monocytes Percent Auto 8.5 % (2-11); Neutrophils Absolute Auto 4.9 x10*3/uL (2.0-8.3); Neutrophils Percent Auto 63.2 % (45-73); Platelet Count 243 X10*3/uL (160-400); Red Blood Count 3.92 X10*6/uL (4.20-5.50); White Blood Count 7.8 X10*3/uL (4.8-10.8)
[2024-11-22 06:42] LABS: Anion Gap 9 (12-20); Blood Urea Nitrogen 12 mg/dL (9-16); Carbon Dioxide 29 mmol/L (22-29); Chloride 104 mmol/L (96-108); Creatinine Clr Calc Pharmacy 59.6; Estimated Glomerular Filt Rate > 60; Glucose Random 96 mg/dL (60-115); Potassium 4.1 mmol/L (3.3-5.1); Sodium 138 mmol/L (135-145)
[2024-11-22] MEDS: Fluticasone/Vilanterol 200/25 BLST.W.DEV 1 PUFF INHALE (08:04)
--- NOTE | 2024-11-22 08:34 | PM.PNTS ---
Subjective Subjective Date of Service: 11/22/24 Interval history: Feels improved this morning. Denies shortness of breath. Remains on supplemental oxygen with sats in high 90s. Has not been OOB yet. Physical Exam Vital Signs: Vital Signs: Last Vital Signs Temp 98.0 F 11/22/24 07:46 Pulse 79 11/22/24 08:07 Resp 18 11/22/24 08:07 BP 160/70 H 11/22/24 07:46 Pulse Ox 97 11/22/24 07:46 O2 Del Method Nasal Cannula 11/22/24 07:46 O2 Flow Rate 1.0 11/22/24 07:46 BMI result Body Mass Index 19.2 Const: General: comfortable, no acute distress and alert Orientation/consciousness: patient oriented x3 Chest: Other: chest tube in place anterior right chest, mild surrounding crepitus pleurvac no significant output, no air leak Resp: Effort & Inspection: normal respiratory effort, able to speak in complete sentences, not tachypneic and no use of accessory muscles Skin: General skin exam: no rashes or lesions noted Neuro: General: patient oriented x3 Procedures Date of Service Date of Service: 11/22/24 Progress Note: A&P Assessment and plan (1) Pneumothorax of right lung after biopsy: Status: Acute (2) Pulmonary nodule 1 cm or greater in diameter: Status: Acute Plan CXR improved this AM, no residual PNA. Will place to water seal and repeat CXR later this afternoon. If lung remains up, will remove chest tube. Wean O2. Encouraged OOB/ambulation and incentive spirometer use. Patient comfortable with plan. Time Spent With Patient Time: Total time managing care of this patient today ____ minutes. Quality Stroke Does the patient have a stroke diagnosis?: No VTE Prior VTE?: No VTE Risk Level:: Medical - moderate - high VTE Device Contraindication: N/A - Device Ordered VTE Drug Contraindication: Treatment Not Indicated
--- NOTE | 2024-11-22 09:08 | MHC.CM.PN ---
IMM 11/22/24 S/P R Lung biopsy with R Chest Tube to water seal. Patient lives with her spouse. HCP on file. She is independent with all functional activity. NO DME NO SERVICES. [facility] HOME self-care. Patient's spouse will provide transportation home at discharge.
[2024-11-22] MEDS: 0.9 % Sodium Chloride Flush 3 ML SYRINGE IVFLUSH ×3 (09:09→19:34)
[2024-11-22] MEDS: ondansetron HCL 4 MG/2 ML VIAL IVPUSH (09:09)
--- NOTE | 2024-11-22 09:55 | P.PNIM_ITS ---
Subjective Subjective Date of Service: 11/22/24 Interval History: Seen and evaluated this morning denies any SOB or dyspnea Chest tube switched to water seal no other events Review of Systems Review of Systems: Yes all other systems are reviewed and are negative Physical Exam 2 Vital Signs: Vital Signs: Last Vital Signs Temp 98.0 F 11/22/24 07:46 Pulse 79 11/22/24 08:07 Resp 18 11/22/24 08:07 BP 160/70 H 11/22/24 07:46 Pulse Ox 97 11/22/24 07:46 O2 Del Method Nasal Cannula 11/22/24 07:46 O2 Flow Rate 1.0 11/22/24 07:46 BMI result Body Mass Index 19.2 Const: Other: Constitutional : Awake, interactive, not in distress Neck : Normal inspection, Supple Cardiovascular : RRR, no JVP, no lower extremity edema Respiratory : good bilateral air entry, no crackles, wheezes or rhonchi, chest tube in place right chest anteriorly , less crepitus, no significant output, no air leak Gastrointestinal: soft, lax, Normal bowel sounds, Non tender Skin : Warm, Dry Neurological : Alert & oriented x3, No focal deficit Objective Data Active Medications Acetaminophen (Acetaminophen 325 Mg Tablet) 650 mg PO Q6H PRN PRN Reason: Pain, Moderate(Pain Scale 4-6) Last Admin: 11/21/24 11:47 Dose: 650 mg Documented By: MIO Albuterol/Ipratropium (Albuterol/Iprat 2.5/0.5mg 3 Ml Ampul.Neb) 3 ml INHALE BID PRN PRN Reason: wheezing Atorvastatin Calcium (Atorvastatin Calcium 10 Mg Tablet) 10 mg PO DAILY [facility] Calcium Carbonate (Calcium Carbonate 750 Mg Tab.Chew) 750 mg PO Q4H PRN PRN Reason: Heartburn Fluticasone/Vilanterol (Fluticasone/Vilanterol 200/25 Blst.W.Dev) 1 puff INHALE RDAILY [facility] Last Admin: 11/22/24 08:04 Dose: 1 puff Documented By: SHELBY Magnesium Hydroxide (Milk Of Magnesia 30 Ml Oral.Susp) 30 ml PO DAILY PRN PRN Reason: Constipation Melatonin (Melatonin 3 Mg Tablet) 6 mg PO BEDTIME PRN PRN Reason: Insomnia Morphine Sulfate (Morphine Sulfate 4 Mg/Ml Cartridge) 2 mg IVPUSH Q4H PRN; Protocol PRN Reason: Pain, Severe (Pain Scale 7-10) Ondansetron HCl (Ondansetron Hcl 4 Mg/2 Ml Vial) 4 mg IVPUSH Q8H PRN PRN Reason: Nausea and Vomiting Last Admin: 11/22/24 09:09 Dose: 4 mg Documented By: JUAN A Oxycodone HCl (Oxycodone Hcl Immed Release 5 Mg Tablet) 5 mg PO Q4H PRN PRN Reason: Pain, Severe (Pain Scale 7-10) Last Admin: 11/22/24 01:34 Dose: 5 mg Documented By: LUCA Oxycodone HCl (Oxycodone Hcl Immed Release 5 Mg Tablet) 5 mg PO Q6H PRN PRN Reason: Pain, Moderate(Pain Scale 4-6) Sodium Chloride (0.9 % Sodium Chloride Flush 3 Ml Syringe) [facility] Last Admin: 11/22/24 09:09 Dose: 3 ml Documented By: JUAN A Vitamin D (Cholecalciferol (Vitamin D3) 25 Mcg Tablet) 25 mcg PO DAILY [facility] Labs 11/22/24 05:29 11/22/24 05:29 Labs: Laboratory Results - last 24 hr 11/22/24 05:29 MCV 89.8 MCH 29.6 MCHC 33.0 RDW 14.0 Plt Count 243 MPV 10.4 Immature Gran % (Auto) 0.4 Neut % (Auto) 63.2 Lymph % (Auto) 24.0 [place] % (Auto) 8.5 Eos % (Auto) 3.1 Baso % (Auto) 0.8 Lymph # (Auto) 1.9 [place] # (Auto) 0.7 Eos # (Auto) 0.2 Baso # (Auto) 0.1 Abs Immat Gran (auto) 0.03 Absolute Neuts (auto) 4.9 Absolute Nucleated RBC 0.000 Nucleated RBC % (auto) 0.0 Anion Gap 9 L Estim Creat Clear Calc 59.6 Estimated GFR > 60 Random Glucose 96 Calcium 9.0 Assessment and Plan (1) Pneumothorax of right lung after biopsy: Status: Acute Plan Pt is a 79-year-old female with a PMH significant for COPD, HLD,?and osteoporosis who initially presented to short-stay surgery for elective outpatient lung nodule biopsy. Procedure was complicated by pneumothorax and small chest tube was inserted into lung biopsy site, and pt was placed on chest wall suction. Pt will be admitted to the hospital for treatment and further evaluation of right lung pneumothorax. Right lung pneumothorax CXR this morning showing resolution of PNX Chest tube on Rt upper chest switched to under waterseal repeat CXR this afternoon Analgesics for pain management Thoracic surgery following Monitor COPD Not in acute exacerbation Continue home inhalers Hyperlipidemia Continue statin Full Code DVT Prophylaxis: Pneumatic compression Pt will require a hospitalization overnight for treatment of right lung pneumothorax secondary to elective lung biopsy requiring chest tube and long wall suctioning. Quality Stroke Does the patient have a stroke diagnosis?: No VTE Prior VTE?: No VTE Risk Level:: Medical - moderate - high VTE Device Contraindication: N/A - Device Ordered VTE Drug Contraindication: Treatment Not Indicated
[2024-11-22] MEDS: Atorvastatin Calcium 10 MG TABLET PO (10:42)
[2024-11-22] MEDS: Cholecalciferol (Vitamin D3) 25 MCG TABLET PO (10:42)
[2024-11-22] MEDS: Acetaminophen 325 MG TABLET 650 MG PO (14:49)
[2024-11-23] VITALS (9 sets, daily range): BP systolic 119–155; BP diastolic 59–76; PULSE 73–100; RESP 16–19; TEMP 36.4–36.9; O2SAT 90–97
[2024-11-23 06:27] LABS: MANUAL DIFF FLAG NO
[2024-11-23 06:31] LABS: Basophils Percent Auto 0.5 % (0-2); Eosinophils Absolute Auto 0.2 X10*3/uL (0.0-0.4); Eosinophils Percent Auto 2.3 % (0-4); Hematocrit 36.8 % (37.0-47.0); Hemoglobin 12.4 g/dl (12.0-16.0); Imm Gran Abs Auto 0.04 X10*3/uL (0.00-0.03); Imm Gran Pct Auto 0.5 % (0.0-0.4); Lymphocytes Absolute Auto 1.2 X10*3/uL (1.2-4.9); Lymphocytes Percent Auto 14.6 % (20-40); Mean Corpuscular HGB Conc 33.7 g/dl (31.0-35.0); Mean Corpuscular Volume 88.9 fL (80.0-98.0); Mean Platelet Volume 10.7 fL (9.4-12.3); Monocytes Absolute Auto 0.6 X10*3/uL (0.1-1.2); Monocytes Percent Auto 6.6 % (2-11); Neutrophils Absolute Auto 6.3 x10*3/uL (2.0-8.3); Neutrophils Percent Auto 75.5 % (45-73); Platelet Count 246 X10*3/uL (160-400); Red Blood Count 4.14 X10*6/uL (4.20-5.50); Red Cell Distribution Width 13.9 % (11.0-16.0); White Blood Count 8.3 X10*3/uL (4.8-10.8)
[2024-11-23 06:50] LABS: Anion Gap 12 (12-20); Blood Urea Nitrogen 11 mg/dL (9-16); Calcium 9.3 mg/dL (8.4-10.2); Carbon Dioxide 30 mmol/L (22-29); Chloride 102 mmol/L (96-108); Creatinine Clr Calc Pharmacy 56.9; Estimated Glomerular Filt Rate > 60; Glucose Random 91 mg/dL (60-115); Sodium 140 mmol/L (135-145)
--- NOTE | 2024-11-23 07:41 | PC.NURSE ---
Patient chest tube found to be to suction this am. Chest x ray done while on suction.
[2024-11-23] MEDS: Fluticasone/Vilanterol 200/25 BLST.W.DEV 1 PUFF INHALE (08:18)
[2024-11-23] MEDS: Cholecalciferol (Vitamin D3) 25 MCG TABLET PO (08:29)
[2024-11-23] MEDS: oxyCODONE HCl Immed Release 5 MG TABLET PO (08:29)
[2024-11-23] MEDS: Atorvastatin Calcium 10 MG TABLET PO (08:29)
[2024-11-23] MEDS: 0.9 % Sodium Chloride Flush 3 ML SYRINGE IVFLUSH ×2 (08:31→15:20)
[2024-11-23] MEDS: Morphine Sulfate 4 MG/ML CARTRIDGE 2 MG IVPUSH (11:04)
[2024-11-23] MEDS: Calcium Carbonate 750 MG TAB.CHEW PO (11:05)
--- NOTE | 2024-11-23 12:02 | HO.PM.IMPN ---
Subjective Subjective Date of Service: 11/23/24 Interval History: Seen and evaluated this morning denies any SOB or dyspnea Chest tube on suction LLQ pain no other events Review of Systems Review of Systems: Yes all other systems are reviewed and are negative Physical Exam Vital Signs: Vital Signs: Last Vital Signs Temp 97.9 F 11/23/24 11:49 Pulse 86 11/23/24 11:49 Resp 16 11/23/24 11:49 BP 119/73 11/23/24 11:49 Pulse Ox 93 11/23/24 11:49 O2 Del Method Room Air 11/23/24 11:49 O2 Flow Rate 1 11/23/24 07:04 BMI result Body Mass Index 19.2 Const: Other: Constitutional : Awake, interactive, not in distress Neck : Normal inspection, Supple Cardiovascular : RRR, no JVP, no lower extremity edema Respiratory : good bilateral air entry, no crackles, wheezes or rhonchi, chest tube in place right chest anteriorly , less crepitus, no significant output, no air leak Gastrointestinal: soft, lax, Normal bowel sounds, Non tender or surgical signs Skin : Warm, Dry Neurological : Alert & oriented x3, No focal deficit Objective Data Active Medications Acetaminophen (Acetaminophen 325 Mg Tablet) 650 mg PO Q6H PRN PRN Reason: Pain, Moderate(Pain Scale 4-6) Last Admin: 11/22/24 14:49 Dose: 650 mg Documented By: JUAN A Albuterol/Ipratropium (Albuterol/Iprat 2.5/0.5mg 3 Ml Ampul.Neb) 3 ml INHALE BID PRN PRN Reason: wheezing Atorvastatin Calcium (Atorvastatin Calcium 10 Mg Tablet) 10 mg PO DAILY [facility] Last Admin: 11/23/24 08:29 Dose: 10 mg Documented By: CELINA Calcium Carbonate (Calcium Carbonate 750 Mg Tab.Chew) 750 mg PO Q4H PRN PRN Reason: Heartburn Last Admin: 11/23/24 11:05 Dose: 750 mg Documented By: CELINA Fluticasone/Vilanterol (Fluticasone/Vilanterol 200/25 Blst.W.Dev) 1 puff INHALE RDAILY [facility] Last Admin: 11/23/24 08:18 Dose: 1 puff Documented By: SHELBY Magnesium Hydroxide (Milk Of Magnesia 30 Ml Oral.Susp) 30 ml PO DAILY PRN PRN Reason: Constipation Melatonin (Melatonin 3 Mg Tablet) 6 mg PO BEDTIME PRN PRN Reason: Insomnia Morphine Sulfate (Morphine Sulfate 4 Mg/Ml Cartridge) 2 mg IVPUSH Q4H PRN; Protocol PRN Reason: Pain, Severe (Pain Scale 7-10) Last Admin: 11/23/24 11:04 Dose: 2 mg Documented By: CELINA Ondansetron HCl (Ondansetron Hcl 4 Mg/2 Ml Vial) 4 mg IVPUSH Q8H PRN PRN Reason: Nausea and Vomiting Last Admin: 11/22/24 09:09 Dose: 4 mg Documented By: JUAN A Oxycodone HCl (Oxycodone Hcl Immed Release 5 Mg Tablet) 5 mg PO Q4H PRN PRN Reason: Pain, Severe (Pain Scale 7-10) Last Admin: 11/23/24 08:29 Dose: 5 mg Documented By: CELINA Oxycodone HCl (Oxycodone Hcl Immed Release 5 Mg Tablet) 5 mg PO Q6H PRN PRN Reason: Pain, Moderate(Pain Scale 4-6) Polyethylene Glycol (Polyethylene Glycol 3350 17 Gm Powd.Pack) 17 gm PO DAILY [facility] Simethicone (Simethicone 80 Mg Tab.Chew) 80 mg PO QIDWMHS PRN PRN Reason: Gas Sodium Chloride (0.9 % Sodium Chloride Flush 3 Ml Syringe) 3 ml IVFLUSH QSHIFT [facility] Last Admin: 11/23/24 08:31 Dose: 3 ml Documented By: CELINA Vitamin D (Cholecalciferol (Vitamin D3) 25 Mcg Tablet) 25 mcg PO DAILY [facility] Last Admin: 11/23/24 08:29 Dose: 25 mcg Documented By: CELINA Labs 11/23/24 05:13 11/23/24 05:13 Labs: Laboratory Results - last 24 hr 11/23/24 05:13 MCV 88.9 MCH 30.0 MCHC 33.7 RDW 13.9 Plt Count 246 MPV 10.7 Immature Gran % (Auto) 0.5 H Neut % (Auto) 75.5 H Lymph % (Auto) 14.6 L [place] % (Auto) 6.6 Eos % (Auto) 2.3 Baso % (Auto) 0.5 Lymph # (Auto) 1.2 [place] # (Auto) 0.6 Eos # (Auto) 0.2 Baso # (Auto) 0.0 Abs Immat Gran (auto) 0.04 H Absolute Neuts (auto) 6.3 Absolute Nucleated RBC 0.000 Nucleated RBC % (auto) 0.0 Anion Gap 12 Estim Creat Clear Calc 56.9 Estimated GFR > 60 Random Glucose 91 Calcium 9.3 Assessment and Plan (1) Pneumothorax of right lung after biopsy: Status: Acute Plan Pt is a 79-year-old female with a PMH significant for COPD, HLD,?and osteoporosis who initially presented to short-stay surgery for elective outpatient lung nodule biopsy. Procedure was complicated by pneumothorax and small chest tube was inserted into lung biopsy site, and pt was placed on chest wall suction. Pt will be admitted to the hospital for treatment and further evaluation of right lung pneumothorax. Right lung pneumothorax failed trial of Waterseal 2/7 CXR this morning showing improvement of PNX keep Chest tube on Rt upper chest on suction switched to under waterseal after surgical eval if ok repeat CXR this afternoon Analgesics for pain management surgery following Monitor LLQ pain constipation or gas Simethicone PRN, Laxatives monitor COPD Not in acute exacerbation Continue home inhalers Hyperlipidemia Continue statin Full Code DVT Prophylaxis: Pneumatic compression Pt will require a hospitalization overnight for treatment of right lung pneumothorax secondary to elective lung biopsy requiring chest tube and long wall suctioning. Quality Stroke Does the patient have a stroke diagnosis?: No VTE Prior VTE?: No VTE Risk Level:: Medical - moderate - high VTE Device Contraindication: N/A - Device Ordered VTE Drug Contraindication: Treatment Not Indicated
[2024-11-23] MEDS: polyethylene glycoL 3350 17 GM POWD.PACK PO (12:05)
[2024-11-23] MEDS: ondansetron HCL 4 MG/2 ML VIAL IVPUSH (12:40)
--- NOTE | 2024-11-23 14:25 | P.PNGS_ITS ---
Subjective Subjective Date of Service: 11/23/24 Interval history: pt feeling ok sats good on room air Physical Exam 2 Vital Signs: Vital Signs: Last Vital Signs Temp 97.9 F 11/23/24 11:49 Pulse 86 11/23/24 11:49 Resp 16 11/23/24 11:49 BP 119/73 11/23/24 11:49 Pulse Ox 93 11/23/24 11:49 O2 Del Method Room Air 11/23/24 11:49 O2 Flow Rate 1 11/23/24 07:04 BMI result Body Mass Index 19.2 Resp: Other: lungs clear to ausculatation good breath sounds bilaterally -- pt with small air leak with cough and deep respiration Objective Data Active Medications Acetaminophen (Acetaminophen 325 Mg Tablet) 650 mg PO Q6H PRN PRN Reason: Pain, Moderate(Pain Scale 4-6) Last Admin: 11/22/24 14:49 Dose: 650 mg Documented By: JUAN A Albuterol/Ipratropium (Albuterol/Iprat 2.5/0.5mg 3 Ml Ampul.Neb) 3 ml INHALE BID PRN PRN Reason: wheezing Atorvastatin Calcium (Atorvastatin Calcium 10 Mg Tablet) 10 mg PO DAILY [facility] Last Admin: 11/23/24 08:29 Dose: 10 mg Documented By: CELINA Calcium Carbonate (Calcium Carbonate 750 Mg Tab.Chew) 750 mg PO Q4H PRN PRN Reason: Heartburn Last Admin: 11/23/24 11:05 Dose: 750 mg Documented By: CELINA Fluticasone/Vilanterol (Fluticasone/Vilanterol 200/25 Blst.W.Dev) 1 puff INHALE RDAILY [facility] Last Admin: 11/23/24 08:18 Dose: 1 puff Documented By: SHELBY Magnesium Hydroxide (Milk Of Magnesia 30 Ml Oral.Susp) 30 ml PO DAILY PRN PRN Reason: Constipation Melatonin (Melatonin 3 Mg Tablet) 6 mg PO BEDTIME PRN PRN Reason: Insomnia Morphine Sulfate (Morphine Sulfate 4 Mg/Ml Cartridge) 2 mg IVPUSH Q4H PRN; Protocol PRN Reason: Pain, Severe (Pain Scale 7-10) Last Admin: 11/23/24 11:04 Dose: 2 mg Documented By: CELINA Ondansetron HCl (Ondansetron Hcl 4 Mg/2 Ml Vial) 4 mg IVPUSH Q8H PRN PRN Reason: Nausea and Vomiting Last Admin: 11/23/24 12:40 Dose: 4 mg Documented By: CELINA Oxycodone HCl (Oxycodone Hcl Immed Release 5 Mg Tablet) 5 mg PO Q4H PRN PRN Reason: Pain, Severe (Pain Scale 7-10) Last Admin: 11/23/24 08:29 Dose: 5 mg Documented By: CELINA Oxycodone HCl (Oxycodone Hcl Immed Release 5 Mg Tablet) 5 mg PO Q6H PRN PRN Reason: Pain, Moderate(Pain Scale 4-6) Polyethylene Glycol (Polyethylene Glycol 3350 17 Gm Powd.Pack) 17 gm PO DAILY [facility] Last Admin: 11/23/24 12:05 Dose: 17 gm Documented By: CELINA Simethicone (Simethicone 80 Mg Tab.Chew) 80 mg PO QIDWMHS PRN PRN Reason: Gas Sodium Chloride (0.9 % Sodium Chloride Flush 3 Ml Syringe) 3 ml IVFLUSH QSHIFT [facility] Last Admin: 11/23/24 08:31 Dose: 3 ml Documented By: CELINA Vitamin D (Cholecalciferol (Vitamin D3) 25 Mcg Tablet) 25 mcg PO DAILY [facility] Last Admin: 11/23/24 08:29 Dose: 25 mcg Documented By: CELINA Labs 11/23/24 05:13 11/23/24 05:13 Labs: Laboratory Results - last 24 hr 11/23/24 05:13 MCV 88.9 MCH 30.0 MCHC 33.7 RDW 13.9 Plt Count 246 MPV 10.7 Immature Gran % (Auto) 0.5 H Neut % (Auto) 75.5 H Lymph % (Auto) 14.6 L [place] % (Auto) 6.6 Eos % (Auto) 2.3 Baso % (Auto) 0.5 Lymph # (Auto) 1.2 [place] # (Auto) 0.6 Eos # (Auto) 0.2 Baso # (Auto) 0.0 Abs Immat Gran (auto) 0.04 H Absolute Neuts (auto) 6.3 Absolute Nucleated RBC 0.000 Nucleated RBC % (auto) 0.0 Anion Gap 12 Estim Creat Clear Calc 56.9 Estimated GFR > 60 Random Glucose 91 Calcium 9.3 Echocardiogram Interpretation: MR#: [id number] : 1945 Acct:[id number] Age/Sex: 79 / F ADM Date: 11/21/24 Loc: .S3 367-[address]: David Grimes MD Ordering Physician: David Grimes MD Date of Service: 11/23/24 Procedure(s): XR chest 1V Accession Number(s): [id number] cc: David Grimes MD; Juanita Lakhani MD~ CLINICAL HISTORY: Pneumothorax follow up 1 view chest x-ray Comparison: 11/22/2024 Findings: Portions of the exam are obscured by overlying material. Right chest tube remains in position with marked decreased volume of right pneumothorax. The chest is otherwise unchanged. IMPRESSION: 1. Improved appearance of the chest. This document has been electronically signed by: Andrea Wilburn MD on 11/23/2024 07:52:16 Dictated By: Andrea Wliburn MD Signed By: <Electronically signed by Andrea Wilburn MD in [place]> 11/23/24 075 DD/ 1 TD/TT: 11/23/24751 Tool Drawing Checker: Procedures Date of Service Date of Service: 11/23/24 Progress Note: A&P Assessment and plan (1) Pneumothorax of right lung after biopsy: Status: Acute Assessment and Plan: pt with persisting small air leak while on suction - xray shows lung up on suction this am - recommend keep suction going to try to keep lung up and seal injured area - no need to repeat cxr at this time - will check tomorrow to see if air leak - if no air leak with cough and deep breathing then take off suction and get cxr in one hr to look for ptx. pt and understand and agree with the plan Time Spent With Patient Time: Total time managing care of this patient today ____ minutes. Quality Stroke Does the patient have a stroke diagnosis?: No VTE Prior VTE?: No VTE Risk Level:: Medical - moderate - high VTE Device Contraindication: N/A - Device Ordered VTE Drug Contraindication: Treatment Not Indicated
[2024-11-24] VITALS (7 sets, daily range): BP systolic 122–158; BP diastolic 63–82; PULSE 78–107; RESP 14–23; TEMP 36.2–37.1; O2SAT 90–94
[2024-11-24] MEDS: 0.9 % Sodium Chloride Flush 3 ML SYRINGE IVFLUSH ×4 (00:21→23:41)
[2024-11-24 06:42] LABS: MANUAL DIFF FLAG NO
[2024-11-24 06:45] LABS: Basophils Absolute Auto 0.1 X10*3/uL (0.0-0.2); Basophils Percent Auto 0.7 % (0-2); Eosinophils Absolute Auto 0.3 X10*3/uL (0.0-0.4); Eosinophils Percent Auto 3.3 % (0-4); Hematocrit 37.2 % (37.0-47.0); Hemoglobin 12.4 g/dl (12.0-16.0); Imm Gran Abs Auto 0.04 X10*3/uL (0.00-0.03); Imm Gran Pct Auto 0.5 % (0.0-0.4); Lymphocytes Absolute Auto 1.6 X10*3/uL (1.2-4.9); Mean Corpuscular HGB Conc 33.3 g/dl (31.0-35.0); Mean Corpuscular Hemoglobin 29.7 pg (27.0-33.0); Mean Platelet Volume 10.5 fL (9.4-12.3); Monocytes Absolute Auto 0.7 X10*3/uL (0.1-1.2); Monocytes Percent Auto 8.8 % (2-11); Neutrophils Absolute Auto 5.6 x10*3/uL (2.0-8.3); Neutrophils Percent Auto 67.7 % (45-73); Platelet Count 243 X10*3/uL (160-400); Red Blood Count 4.18 X10*6/uL (4.20-5.50); Red Cell Distribution Width 13.7 % (11.0-16.0); White Blood Count 8.3 X10*3/uL (4.8-10.8)
[2024-11-24 07:06] LABS: Anion Gap 13 (12-20); Blood Urea Nitrogen 16 mg/dL (9-16); Calcium 9.5 mg/dL (8.4-10.2); Carbon Dioxide 27 mmol/L (22-29); Chloride 103 mmol/L (96-108); Creatinine Clr Calc Pharmacy 44.1; Estimated Glomerular Filt Rate > 60; Glucose Random 110 mg/dL (60-115); Potassium 4.4 mmol/L (3.3-5.1); Sodium 139 mmol/L (135-145)
[2024-11-24] MEDS: polyethylene glycoL 3350 17 GM POWD.PACK PO (07:36)
[2024-11-24] MEDS: Atorvastatin Calcium 10 MG TABLET PO (07:36)
[2024-11-24] MEDS: Cholecalciferol (Vitamin D3) 25 MCG TABLET PO (07:36)
[2024-11-24] MEDS: Fluticasone/Vilanterol 200/25 BLST.W.DEV 1 PUFF INHALE (08:10)
[2024-11-24] MEDS: Calcium Carbonate 750 MG TAB.CHEW PO (10:26)
--- NOTE | 2024-11-24 11:15 | P.PNIM_ITS ---
Subjective Subjective Date of Service: 11/24/24 Interval History: Seen and evaluated this morning denies any SOB or dyspnea Chest tube on suction, still having air leak on suction constipated no other events Review of Systems Review of Systems: Yes all other systems are reviewed and are negative Physical Exam 2 Vital Signs: Vital Signs: Last Vital Signs Temp 97.7 F 11/24/24 08:00 Pulse 86 11/24/24 08:11 Resp 16 11/24/24 08:11 BP 122/63 11/24/24 08:00 Pulse Ox 92 11/24/24 08:00 O2 Del Method Room Air 11/24/24 08:00 O2 Flow Rate 1 11/24/24 03:47 BMI result Body Mass Index 19.2 Const: Other: Constitutional : Awake, interactive, not in distress Neck : Normal inspection, Supple Cardiovascular : RRR, no JVP, no lower extremity edema Respiratory : good bilateral air entry, no crackles, wheezes or rhonchi, chest tube in place right chest anteriorly , less crepitus, has air leak Gastrointestinal: soft, lax, Normal bowel sounds, Non tender or surgical signs Skin : Warm, Dry Neurological : Alert & oriented x3, No focal deficit Objective Data Active Medications Acetaminophen (Acetaminophen 325 Mg Tablet) 650 mg PO Q6H PRN PRN Reason: Pain, Moderate(Pain Scale 4-6) Last Admin: 11/22/24 14:49 Dose: 650 mg Documented By: JUAN A Albuterol/Ipratropium (Albuterol/Iprat 2.5/0.5mg 3 Ml Ampul.Neb) 3 ml INHALE BID PRN PRN Reason: wheezing Atorvastatin Calcium (Atorvastatin Calcium 10 Mg Tablet) 10 mg PO DAILY [facility] Last Admin: 11/24/24 07:36 Dose: 10 mg Documented By: ARSLAN Calcium Carbonate (Calcium Carbonate 750 Mg Tab.Chew) 750 mg PO Q4H PRN PRN Reason: Heartburn Last Admin: 11/24/24 10:26 Dose: 750 mg Documented By: ARSLAN Fluticasone/Vilanterol (Fluticasone/Vilanterol 200/25 Blst.W.Dev) 1 puff INHALE RDAILY [facility] Last Admin: 11/24/24 08:10 Dose: 1 puff Documented By: SHELBY Magnesium Hydroxide (Milk Of Magnesia 30 Ml Oral.Susp) 30 ml PO DAILY PRN PRN Reason: Constipation Melatonin (Melatonin 3 Mg Tablet) 6 mg PO BEDTIME PRN PRN Reason: Insomnia Morphine Sulfate (Morphine Sulfate 4 Mg/Ml Cartridge) 2 mg IVPUSH Q4H PRN; Protocol PRN Reason: Pain, Severe (Pain Scale 7-10) Last Admin: 11/23/24 11:04 Dose: 2 mg Documented By: CELINA Ondansetron HCl (Ondansetron Hcl 4 Mg/2 Ml Vial) 4 mg IVPUSH Q8H PRN PRN Reason: Nausea and Vomiting Last Admin: 11/23/24 12:40 Dose: 4 mg Documented By: CELINA Oxycodone HCl (Oxycodone Hcl Immed Release 5 Mg Tablet) 5 mg PO Q4H PRN PRN Reason: Pain, Severe (Pain Scale 7-10) Last Admin: 11/23/24 08:29 Dose: 5 mg Documented By: CELINA Oxycodone HCl (Oxycodone Hcl Immed Release 5 Mg Tablet) 5 mg PO Q6H PRN PRN Reason: Pain, Moderate(Pain Scale 4-6) Polyethylene Glycol (Polyethylene Glycol 3350 17 Gm Powd.Pack) 17 gm PO DAILY [facility] Last Admin: 11/24/24 07:36 Dose: 17 gm Documented By: ARSLAN Simethicone (Simethicone 80 Mg Tab.Chew) 80 mg PO QIDWMHS PRN PRN Reason: Gas Sodium Chloride (0.9 % Sodium Chloride Flush 3 Ml Syringe) 3 ml IVFLUSH QSHIFT [facility] Last Admin: 11/24/24 07:36 Dose: 3 ml Documented By: ARSLAN Vitamin D (Cholecalciferol (Vitamin D3) 25 Mcg Tablet) 25 mcg PO DAILY [facility] Last Admin: 11/24/24 07:36 Dose: 25 mcg Documented By: ARSLAN Labs 11/24/24 06:13 11/24/24 06:13 Labs: Laboratory Results - last 24 hr 11/24/24 06:13 MCV 89.0 MCH 29.7 MCHC 33.3 RDW 13.7 Plt Count 243 MPV 10.5 Immature Gran % (Auto) 0.5 H Neut % (Auto) 67.7 Lymph % (Auto) 19.0 L [place] % (Auto) 8.8 Eos % (Auto) 3.3 Baso % (Auto) 0.7 Lymph # (Auto) 1.6 [place] # (Auto) 0.7 Eos # (Auto) 0.3 Baso # (Auto) 0.1 Abs Immat Gran (auto) 0.04 H Absolute Neuts (auto) 5.6 Absolute Nucleated RBC 0.000 Nucleated RBC % (auto) 0.0 Anion Gap 13 Estim Creat Clear Calc 44.1 Estimated GFR > 60 Random Glucose 110 Calcium 9.5 Assessment and Plan (1) Pneumothorax of right lung after biopsy: Status: Acute Plan Pt is a 79-year-old female with a PMH significant for COPD, HLD,?and osteoporosis who initially presented to short-stay surgery for elective outpatient lung nodule biopsy. Procedure was complicated by pneumothorax and small chest tube was inserted into lung biopsy site, and pt was placed on chest wall suction. Pt will be admitted to the hospital for treatment and further evaluation of right lung pneumothorax. Right lung pneumothorax failed trial of Waterseal 2/7 CXR this morning pending keep Chest tube on Rt upper chest on suction as she still has airleak switched to under waterseal when no air leak with cough and deep breath repeat CXR as need Analgesics for pain management surgery following Monitor LLQ pain constipation or gas Simethicone PRN, Laxatives monitor COPD Not in acute exacerbation Continue home inhalers Hyperlipidemia Continue statin Full Code DVT Prophylaxis: Pneumatic compression Pt will require a hospitalization overnight for treatment of right lung pneumothorax secondary to elective lung biopsy requiring chest tube and long wall suctioning. Quality Stroke Does the patient have a stroke diagnosis?: No VTE Prior VTE?: No VTE Risk Level:: Medical - moderate - high VTE Device Contraindication: N/A - Device Ordered VTE Drug Contraindication: Treatment Not Indicated
--- NOTE | 2024-11-24 15:28 | P.PNGS_ITS ---
Subjective Subjective Date of Service: 11/24/24 Interval history: Patient feels well no shortness a breath no chest pain. Chest x-ray shows lung to be up no pneumothorax but with coughing there is still small but present air leak noted Physical Exam 2 Vital Signs: Vital Signs: Last Vital Signs Temp 98.4 F 11/24/24 11:46 Pulse 83 11/24/24 11:46 Resp 16 11/24/24 11:46 BP 143/72 H 11/24/24 11:46 Pulse Ox 94 11/24/24 11:46 O2 Del Method Room Air 11/24/24 11:46 O2 Flow Rate 1 11/24/24 03:47 BMI result Body Mass Index 19.2 Const: General: cooperative, healthy appearing, comfortable and no acute distress Chest: Other: Good air entry bilaterally Objective Data Active Medications Acetaminophen (Acetaminophen 325 Mg Tablet) 650 mg PO Q6H PRN PRN Reason: Pain, Moderate(Pain Scale 4-6) Last Admin: 11/22/24 14:49 Dose: 650 mg Documented By: JUAN A Albuterol/Ipratropium (Albuterol/Iprat 2.5/0.5mg 3 Ml Ampul.Neb) 3 ml INHALE BID PRN PRN Reason: wheezing Atorvastatin Calcium (Atorvastatin Calcium 10 Mg Tablet) 10 mg PO DAILY [facility] Last Admin: 11/24/24 07:36 Dose: 10 mg Documented By: ARSLAN Calcium Carbonate (Calcium Carbonate 750 Mg Tab.Chew) 750 mg PO Q4H PRN PRN Reason: Heartburn Last Admin: 11/24/24 10:26 Dose: 750 mg Documented By: ARSLAN Fluticasone/Vilanterol (Fluticasone/Vilanterol 200/25 Blst.W.Dev) 1 puff INHALE RDAILY [facility] Last Admin: 11/24/24 08:10 Dose: 1 puff Documented By: SHELBY Magnesium Hydroxide (Milk Of Magnesia 30 Ml Oral.Susp) 30 ml PO DAILY PRN PRN Reason: Constipation Melatonin (Melatonin 3 Mg Tablet) 6 mg PO BEDTIME PRN PRN Reason: Insomnia Morphine Sulfate (Morphine Sulfate 4 Mg/Ml Cartridge) 2 mg IVPUSH Q4H PRN; Protocol PRN Reason: Pain, Severe (Pain Scale 7-10) Last Admin: 11/23/24 11:04 Dose: 2 mg Documented By: CELINA Ondansetron HCl (Ondansetron Hcl 4 Mg/2 Ml Vial) 4 mg IVPUSH Q8H PRN PRN Reason: Nausea and Vomiting Last Admin: 11/23/24 12:40 Dose: 4 mg Documented By: CELINA Oxycodone HCl (Oxycodone Hcl Immed Release 5 Mg Tablet) 5 mg PO Q4H PRN PRN Reason: Pain, Severe (Pain Scale 7-10) Last Admin: 11/23/24 08:29 Dose: 5 mg Documented By: CELINA Oxycodone HCl (Oxycodone Hcl Immed Release 5 Mg Tablet) 5 mg PO Q6H PRN PRN Reason: Pain, Moderate(Pain Scale 4-6) Polyethylene Glycol (Polyethylene Glycol 3350 17 Gm Powd.Pack) 17 gm PO DAILY [facility] Last Admin: 11/24/24 07:36 Dose: 17 gm Documented By: ARSLAN Simethicone (Simethicone 80 Mg Tab.Chew) 80 mg PO QIDWMHS PRN PRN Reason: Gas Sodium Chloride (0.9 % Sodium Chloride Flush 3 Ml Syringe) 3 ml IVFLUSH QSHIFT [facility] Last Admin: 11/24/24 07:36 Dose: 3 ml Documented By: ARSLAN Vitamin D (Cholecalciferol (Vitamin D3) 25 Mcg Tablet) 25 mcg PO DAILY [facility] Last Admin: 11/24/24 07:36 Dose: 25 mcg Documented By: ARSLAN Labs 11/24/24 06:13 11/24/24 06:13 Labs: Laboratory Results - last 24 hr 11/24/24 06:13 MCV 89.0 MCH 29.7 MCHC 33.3 RDW 13.7 Plt Count 243 MPV 10.5 Immature Gran % (Auto) 0.5 H Neut % (Auto) 67.7 Lymph % (Auto) 19.0 L [place] % (Auto) 8.8 Eos % (Auto) 3.3 Baso % (Auto) 0.7 Lymph # (Auto) 1.6 [place] # (Auto) 0.7 Eos # (Auto) 0.3 Baso # (Auto) 0.1 Abs Immat Gran (auto) 0.04 H Absolute Neuts (auto) 5.6 Absolute Nucleated RBC 0.000 Nucleated RBC % (auto) 0.0 Anion Gap 13 Estim Creat Clear Calc 44.1 Estimated GFR > 60 Random Glucose 110 Calcium 9.5 Procedures Date of Service Date of Service: 11/24/24 Progress Note: A&P Assessment and plan (1) Pneumothorax of right lung after biopsy: Status: Acute Assessment and Plan: 79-year-old female with right pneumothorax status post right lung biopsy 3 days ago pigtail catheter placed and long came back up but with persistent air leak. Plan to continue pigtail to suction and re-evaluate tomorrow. Time Spent With Patient Time: Total time managing care of this patient today ____ minutes. Quality Stroke Does the patient have a stroke diagnosis?: No VTE Prior VTE?: No VTE Risk Level:: Medical - moderate - high VTE Device Contraindication: N/A - Device Ordered VTE Drug Contraindication: Treatment Not Indicated
[2024-11-24] MEDS: bisacodyL 10 MG SUPP.RECT PR (16:47)
--- NOTE | 2024-11-24 17:19 | PC.NURSE ---
Pt right chest tube intact, connected to wall suction set at -20, gentle bubbling observed in air leak monitor. Minimal serosanguineous drainage noted. Dressing dry and intact.
[2024-11-24] MEDS: oxyCODONE HCl Immed Release 5 MG TABLET PO (22:06)
[2024-11-25] VITALS (7 sets, daily range): BP systolic 108–145; BP diastolic 54–80; PULSE 73–87; RESP 14–20; TEMP 36–36.8; O2SAT 92–100
[2024-11-25] MEDS: Fluticasone/Vilanterol 200/25 BLST.W.DEV 1 PUFF INHALE (08:32)
--- NOTE | 2024-11-25 08:52 | PM.PNTS ---
Subjective Subjective Date of Service: 11/25/24 Interval history: Denies SOB. Some mild pain at chest tube site. Physical Exam Vital Signs: Vital Signs: Last Vital Signs Temp 98.2 F 11/25/24 07:43 Pulse 83 11/25/24 08:33 Resp 16 11/25/24 08:33 BP 135/72 11/25/24 07:43 Pulse Ox 94 11/25/24 07:43 O2 Del Method Room Air 11/25/24 07:43 O2 Flow Rate 1 11/24/24 03:47 BMI result Body Mass Index 19.2 Const: General: comfortable, no acute distress and alert Chest: Other: chest tube in place anterior right chest pleurvac with small air leak Resp: Effort & Inspection: normal respiratory effort, not tachypneic and no use of accessory muscles Skin: General skin exam: no rashes or lesions noted Procedures Date of Service Date of Service: 11/25/24 Progress Note: A&P Assessment and plan (1) Pneumothorax of right lung after biopsy: Status: Acute (2) Pulmonary nodule 1 cm or greater in diameter: Status: Acute Plan Unfortunately has small persistent air leak. Await AM CXR. If lung up can reattempt placement to water seal today. Time Spent With Patient Time: Total time managing care of this patient today ____ minutes. Quality Stroke Does the patient have a stroke diagnosis?: No VTE Prior VTE?: No VTE Risk Level:: Medical - moderate - high VTE Device Contraindication: N/A - Device Ordered VTE Drug Contraindication: Treatment Not Indicated
[2024-11-25] MEDS: Atorvastatin Calcium 10 MG TABLET PO (09:00)
[2024-11-25] MEDS: polyethylene glycoL 3350 17 GM POWD.PACK PO (09:00)
[2024-11-25] MEDS: Cholecalciferol (Vitamin D3) 25 MCG TABLET PO (09:00)
[2024-11-25] MEDS: 0.9 % Sodium Chloride Flush 3 ML SYRINGE IVFLUSH ×2 (09:01→23:32)
--- NOTE | 2024-11-25 10:39 | P.PNIM_ITS ---
Subjective Subjective Date of Service: 11/25/24 Interval History: Seen and evaluated this morning denies any SOB or dyspnea Chest tube switched to Water-seal then she developed SOB with evolving Rt PNX so placed back on suction no other events Review of Systems Review of Systems: Yes all other systems are reviewed and are negative Physical Exam 2 Vital Signs: Vital Signs: Last Vital Signs Temp 98.2 F 11/25/24 07:43 Pulse 83 11/25/24 08:33 Resp 16 11/25/24 08:33 BP 135/72 11/25/24 07:43 Pulse Ox 94 11/25/24 07:43 O2 Del Method Room Air 11/25/24 07:43 O2 Flow Rate 1 11/24/24 03:47 BMI result Body Mass Index 19.2 Const: Other: Constitutional : Awake, interactive, not in distress Neck : Normal inspection, Supple Cardiovascular : RRR, no JVP, no lower extremity edema Respiratory : good bilateral air entry, no crackles, wheezes or rhonchi, chest tube in place right chest anteriorly , less crepitus, has air leak Gastrointestinal: soft, lax, Normal bowel sounds, Non tender or surgical signs Skin : Warm, Dry Neurological : Alert & oriented x3, No focal deficit Objective Data Active Medications Acetaminophen (Acetaminophen 325 Mg Tablet) 650 mg PO Q6H PRN PRN Reason: Pain, Moderate(Pain Scale 4-6) Last Admin: 11/22/24 14:49 Dose: 650 mg Documented By: JUAN A Albuterol/Ipratropium (Albuterol/Iprat 2.5/0.5mg 3 Ml Ampul.Neb) 3 ml INHALE BID PRN PRN Reason: wheezing Atorvastatin Calcium (Atorvastatin Calcium 10 Mg Tablet) 10 mg PO DAILY [facility] Last Admin: 11/25/24 09:00 Dose: 10 mg Documented By: RANDOLPH Calcium Carbonate (Calcium Carbonate 750 Mg Tab.Chew) 750 mg PO Q4H PRN PRN Reason: Heartburn Last Admin: 11/24/24 10:26 Dose: 750 mg Documented By: ARSLAN Fluticasone/Vilanterol (Fluticasone/Vilanterol 200/25 Blst.W.Dev) 1 puff INHALE RDAILY [facility] Last Admin: 11/25/24 08:32 Dose: 1 puff Documented By: ZO Magnesium Hydroxide (Milk Of Magnesia 30 Ml Oral.Susp) 30 ml PO DAILY PRN PRN Reason: Constipation Melatonin (Melatonin 3 Mg Tablet) 6 mg PO BEDTIME PRN PRN Reason: Insomnia Morphine Sulfate (Morphine Sulfate 4 Mg/Ml Cartridge) 2 mg IVPUSH Q4H PRN; Protocol PRN Reason: Pain, Severe (Pain Scale 7-10) Last Admin: 11/23/24 11:04 Dose: 2 mg Documented By: CELINA Ondansetron HCl (Ondansetron Hcl 4 Mg/2 Ml Vial) 4 mg IVPUSH Q8H PRN PRN Reason: Nausea and Vomiting Last Admin: 11/23/24 12:40 Dose: 4 mg Documented By: CELINA Oxycodone HCl (Oxycodone Hcl Immed Release 5 Mg Tablet) 5 mg PO Q4H PRN PRN Reason: Pain, Severe (Pain Scale 7-10) Last Admin: 11/24/24 22:06 Dose: 5 mg Documented By: LUIS Oxycodone HCl (Oxycodone Hcl Immed Release 5 Mg Tablet) 5 mg PO Q6H PRN PRN Reason: Pain, Moderate(Pain Scale 4-6) Polyethylene Glycol (Polyethylene Glycol 3350 17 Gm Powd.Pack) 17 gm PO DAILY [facility] Last Admin: 11/25/24 09:00 Dose: 17 gm Documented By: RANDOLPH Simethicone (Simethicone 80 Mg Tab.Chew) 80 mg PO QIDWMHS PRN PRN Reason: Gas Sodium Chloride (0.9 % Sodium Chloride Flush 3 Ml Syringe) 3 ml IVFLUSH QSHIFT [facility] Last Admin: 11/25/24 09:01 Dose: 3 ml Documented By: RANDOLPH Vitamin D (Cholecalciferol (Vitamin D3) 25 Mcg Tablet) 25 mcg PO DAILY [facility] Last Admin: 11/25/24 09:00 Dose: 25 mcg Documented By: RANDOLPH Labs 11/24/24 06:13 11/24/24 06:13 Assessment and Plan (1) Pneumothorax of right lung after biopsy: Status: Acute Plan Pt is a 79-year-old female with a PMH significant for COPD, HLD,?and osteoporosis who initially presented to short-stay surgery for elective outpatient lung nodule biopsy. Procedure was complicated by pneumothorax and small chest tube was inserted into lung biopsy site, and pt was placed on chest wall suction. Pt will be admitted to the hospital for treatment and further evaluation of right lung pneumothorax. Right lung pneumothorax failed trial of Waterseal 11/22 and 11/25 CXR this morning showing no evidence of PNX but repeat showed PNX switch Chest tube on Rt upper chest to water-seal this morning then back to suction repeat CXR as need Analgesics for pain management surgery following, if no PNX on repeat CXR can go home with heimlich valve and outpatient follow up Monitor LLQ pain constipation or gas, improved Simethicone PRN, Laxatives monitor COPD Not in acute exacerbation Continue home inhalers Hyperlipidemia Continue statin Full Code DVT Prophylaxis: Pneumatic compression Pt will require a hospitalization overnight for treatment of right lung pneumothorax secondary to elective lung biopsy requiring chest tube and long wall suctioning. Quality Stroke Does the patient have a stroke diagnosis?: No VTE Prior VTE?: No VTE Risk Level:: Medical - moderate - high VTE Device Contraindication: N/A - Device Ordered VTE Drug Contraindication: Treatment Not Indicated
--- NOTE | 2024-11-25 15:36 | MHC.CM.PN ---
Per MD rounds no discharge today. Patient continues with Chest tube. Air Leak is present. DP Home self care family transport.
[2024-11-26] VITALS (9 sets, daily range): BP systolic 120–156; BP diastolic 57–74; PULSE 77–107; RESP 14–20; TEMP 36–37.1; O2SAT 95–99
--- NOTE | 2024-11-26 07:56 | PM.PNTS ---
Subjective Subjective Date of Service: 11/26/24 Interval history: No acute respiratory issues or complaints last night. Chest tube demonstrates minimal output and no air leak this morning. A.m. chest x-ray pending Physical Exam Vital Signs: Vital Signs: Last Vital Signs Temp 97.1 F 11/26/24 07:30 Pulse 88 11/26/24 07:30 Resp 16 11/26/24 07:30 BP 141/70 H 11/26/24 07:30 Pulse Ox 96 11/26/24 07:30 O2 Del Method Nasal Cannula 11/26/24 07:30 O2 Flow Rate 2 11/26/24 07:30 BMI result Body Mass Index 19.2 Chest: Other: Breath sounds bilaterally. Chest tube as noted above Procedures Date of Service Date of Service: 11/26/24 Progress Note: A&P Assessment and plan (1) Pulmonary nodule 1 cm or greater in diameter: Status: Acute (2) COPD (chronic obstructive pulmonary disease): Status: Acute (3) Pneumothorax of right lung after biopsy: Status: Acute Plan Continue current plan; if chest x-ray is good, and no air leak, while on water seal can consider removing chest tube Time Spent With Patient Time: Total time managing care of this patient today ____ minutes. Quality Stroke Does the patient have a stroke diagnosis?: No VTE Prior VTE?: No VTE Risk Level:: Medical - moderate - high VTE Device Contraindication: N/A - Device Ordered VTE Drug Contraindication: Treatment Not Indicated
[2024-11-26] MEDS: Fluticasone/Vilanterol 200/25 BLST.W.DEV 1 PUFF INHALE (08:34)
[2024-11-26] MEDS: Cholecalciferol (Vitamin D3) 25 MCG TABLET PO (09:00)
[2024-11-26] MEDS: Atorvastatin Calcium 10 MG TABLET PO (09:00)
[2024-11-26] MEDS: polyethylene glycoL 3350 17 GM POWD.PACK PO (09:00)
[2024-11-26] MEDS: 0.9 % Sodium Chloride Flush 3 ML SYRINGE IVFLUSH ×2 (09:02→16:14)
--- NOTE | 2024-11-26 10:25 | HO.PM.IMPN ---
Subjective Subjective Date of Service: 11/26/24 Interval History: Seen and evaluated this morning denies any SOB or dyspnea still having leak on chest tube , on suction Pathology positive for Squamous cell carcinoma no other events Review of Systems Review of Systems: Yes all other systems are reviewed and are negative Physical Exam Vital Signs: Vital Signs: Last Vital Signs Temp 97.1 F 11/26/24 07:30 Pulse 99 11/26/24 08:35 Resp 16 11/26/24 08:35 BP 141/70 H 11/26/24 07:30 Pulse Ox 96 11/26/24 07:30 O2 Del Method Nasal Cannula 11/26/24 07:30 O2 Flow Rate 2 11/26/24 07:30 BMI result Body Mass Index 19.2 Const: Other: Constitutional : Awake, interactive, not in distress Neck : Normal inspection, Supple Cardiovascular : RRR, no JVP, no lower extremity edema Respiratory : good bilateral air entry, no crackles, wheezes or rhonchi, chest tube in place right chest anteriorly , less crepitus, has air leak Gastrointestinal: soft, lax, Normal bowel sounds, Non tender or surgical signs Skin : Warm, Dry Neurological : Alert & oriented x3, No focal deficit Objective Data Active Medications Acetaminophen (Acetaminophen 325 Mg Tablet) 650 mg PO Q6H PRN PRN Reason: Pain, Moderate(Pain Scale 4-6) Last Admin: 11/22/24 14:49 Dose: 650 mg Documented By: JUAN A Albuterol/Ipratropium (Albuterol/Iprat 2.5/0.5mg 3 Ml Ampul.Neb) 3 ml INHALE BID PRN PRN Reason: wheezing Atorvastatin Calcium (Atorvastatin Calcium 10 Mg Tablet) 10 mg PO DAILY [facility] Last Admin: 11/26/24 09:00 Dose: 10 mg Documented By: ISAIAS Calcium Carbonate (Calcium Carbonate 750 Mg Tab.Chew) 750 mg PO Q4H PRN PRN Reason: Heartburn Last Admin: 11/24/24 10:26 Dose: 750 mg Documented By: ARSLAN Fluticasone/Vilanterol (Fluticasone/Vilanterol 200/25 Blst.W.Dev) 1 puff INHALE RDAILY [facility] Last Admin: 11/26/24 08:34 Dose: 1 puff Documented By: ZO Magnesium Hydroxide (Milk Of Magnesia 30 Ml Oral.Susp) 30 ml PO DAILY PRN PRN Reason: Constipation Melatonin (Melatonin 3 Mg Tablet) 6 mg PO BEDTIME PRN PRN Reason: Insomnia Morphine Sulfate (Morphine Sulfate 4 Mg/Ml Cartridge) 2 mg IVPUSH Q4H PRN; Protocol PRN Reason: Pain, Severe (Pain Scale 7-10) Last Admin: 11/23/24 11:04 Dose: 2 mg Documented By: CELINA Ondansetron HCl (Ondansetron Hcl 4 Mg/2 Ml Vial) 4 mg IVPUSH Q8H PRN PRN Reason: Nausea and Vomiting Last Admin: 11/23/24 12:40 Dose: 4 mg Documented By: CELINA Oxycodone HCl (Oxycodone Hcl Immed Release 5 Mg Tablet) 5 mg PO Q4H PRN PRN Reason: Pain, Severe (Pain Scale 7-10) Last Admin: 11/24/24 22:06 Dose: 5 mg Documented By: LUIS Oxycodone HCl (Oxycodone Hcl Immed Release 5 Mg Tablet) 5 mg PO Q6H PRN PRN Reason: Pain, Moderate(Pain Scale 4-6) Polyethylene Glycol (Polyethylene Glycol 3350 17 Gm Powd.Pack) 17 gm PO DAILY [facility] Last Admin: 11/26/24 09:00 Dose: 17 gm Documented By: ISAIAS Simethicone (Simethicone 80 Mg Tab.Chew) 80 mg PO QIDWMHS PRN PRN Reason: Gas Sodium Chloride (0.9 % Sodium Chloride Flush 3 Ml Syringe) 3 ml IVFLUSH QSHIFT [facility] Last Admin: 11/26/24 09:02 Dose: 3 ml Documented By: ISAIAS Vitamin D (Cholecalciferol (Vitamin D3) 25 Mcg Tablet) 25 mcg PO DAILY [facility] Last Admin: 11/26/24 09:00 Dose: 25 mcg Documented By: ISAIAS Labs 11/24/24 06:13 11/24/24 06:13 Labs: Laboratory Results - last 24 hr 11/21/24 11/22/24 08:00 05:29 MCV 88.5 89.8 MCH 29.9 29.6 MCHC 33.8 33.0 RDW 14.1 14.0 Plt Count 259 243 MPV 10.1 10.4 Immature Gran % (Auto) 0.4 0.4 Neut % (Auto) 64.7 63.2 Lymph % (Auto) 24.4 24.0 [place] % (Auto) 7.5 8.5 Eos % (Auto) 2.3 3.1 Baso % (Auto) 0.7 0.8 Lymph # (Auto) 1.7 1.9 [place] # (Auto) 0.5 0.7 Eos # (Auto) 0.2 0.2 Baso # (Auto) 0.1 0.1 Abs Immat Gran (auto) 0.03 0.03 Absolute Neuts (auto) 4.4 4.9 Absolute Nucleated RBC 0.000 0.000 Nucleated RBC % (auto) 0.0 0.0 PT 11.1 INR 1.0 APTT 28.8 Anion Gap 9 L Estim Creat Clear Calc 59.6 Estimated GFR > 60 Random Glucose 96 Calcium 9.0 Assessment and Plan (1) Pneumothorax of right lung after biopsy: Status: Acute (2) Squamous cell lung cancer: Status: Acute Plan Pt is a 79-year-old female with a PMH significant for COPD, HLD,?and osteoporosis who initially presented to short-stay surgery for elective outpatient lung nodule biopsy. Procedure was complicated by pneumothorax and small chest tube was inserted into lung biopsy site, and pt was placed on chest wall suction. Pt will be admitted to the hospital for treatment and further evaluation of right lung pneumothorax. Right lung pneumothorax post lung biopsy positive for Squamous cell cancer failed trial of Waterseal / and 11/25 switch Chest tube on Rt upper chest to water-seal then back to suction as she became symptomatic CXR this morning showing no evidence of apical PNX after placing her back on suction again yesterday repeat CXR as need Analgesics for pain management Pathology report positive for squamous cell carcinoma Get Oncology eval surgery following, if no PNX on repeat CXR can go home with heimlich valve and outpatient follow up or consider lobectomy given +ve pathology (waiting Oncology rec.) Monitor LLQ pain, resolved constipation or gas Simethicone PRN, Laxatives monitor COPD Not in acute exacerbation Continue home inhalers Hyperlipidemia Continue statin Full Code DVT Prophylaxis: Pneumatic compression + Heparin SC given high risk of DVT pending any possible surgical intervention Pt will require a hospitalization overnight for treatment of right lung pneumothorax secondary to elective lung biopsy requiring chest tube and long wall suctioning. Quality Stroke Does the patient have a stroke diagnosis?: No VTE Prior VTE?: No VTE Risk Level:: Medical - moderate - high VTE Device Contraindication: N/A - Device Ordered VTE Drug Contraindication: Treatment Not Indicated
[2024-11-26] MEDS: oxyCODONE HCl Immed Release 5 MG TABLET PO (10:55)
[2024-11-26] MEDS: Heparin Sodium,Porcine 5,000 UNIT/ML VIAL 5000 UNIT SUBCUT ×2 (10:55→18:14)
--- NOTE | 2024-11-26 12:34 | PM.HEMONCCN ---
Subjective - Subjective Chief complaint: Consult for: Squamous-cell carcinoma of the lung. Patient: new to practice Consult date: 11/26/24 Requesting Physician: Dr. Grimes. Primary Care Provider: Juanita Lakhani MD Family Provider: Juanita Lakhani MD Medical Summary: DIAGNOSIS: SQUAMOUS CELL CARCINOMA OF THE LUNG. PNEUMOTHORAX. Certified Maintenance Welder Utilized?: No - [place] Speaking HPI - Consult Narrative Reason for consult: Consult for: Squamous cell carcinoma of the lung. Narrative: Argenis Fong is a 79 year old lady, with a PMH significant for COPD, HLD,?and osteoporosis who initially presented to short-stay surgery for elective outpatient lung nodule biopsy. Procedure was complicated by pneumothorax and small chest tube was inserted into lung biopsy site, and pt was placed on chest wall suction. Pt seen and evaluated in the PACU where she is resting comfortably in bed. Pt reports has expiratory pain at biopsy and chest tube site, otherwise has been no acute medical complaints. Denies shortness or breath or difficulty breathing. No cough. No chest pain/pressure, palpitations. No nausea, vomiting, abdominal pain. Pt will be admitted to the hospital for treatment and further evaluation of right lung pneumothorax. Review of Systems Review of Systems: Negative except for that is stated in the [facility] Medical History:) Former heavy cigarette smoker (20-39 per day) Hoarseness or changing voice Shortness of breath on exertion White coat syndrome with hypertension Dyslipidemia Impaired fasting glucose Osteoporosis. Surgical History:) H/O colonoscopy No pertinent past surgical history Family History: Sister of brain tumor. Father No problems noted. Mother Diabetes mellitus Sister No problems noted. Son No problems noted. 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 She is . Has 1 son. Household Members: Spouse Household Members Other:: Housing: House Are you a primary care team assistant to a significant other at home: No Do you presently have visiting nurse or other home services: No Alcohol intake: current Alcohol intake frequency: holidays/special occasions only Alcohol type: beer Patient Tobacco Use Status: Former Tobacco user. She smoked a pack good day, quit 6 years ago. e-Cigarette/Vaping Use: Never Used Second Hand Smoke Exposure: Yes Review of Systems Review of Systems: She does feel rather fatigued. No fever nor chills but she feels cold. Appetite is okay. Weight is stable. Denies headache. Sometimes feels dizzy. She denies cough. She has right upper chest pain and shortness of breath. She has pain across the belly. Bowels are working without any gross blood in it. Denies arthralgia myalgia. Denies depression. Negative except for that is stated in the HPI. Review of Systems - Constitutional Reports system reviewed and no additional complaints, except as documented, Reports difficulty sleeping, Reports weight loss - Eyes Reports system reviewed and no additional complaints, except as documented - ENT Reports system reviewed and no additional complaints, except as documented - Cardiovascular Reports system reviewed and no additional complaints, except as documented - Respiratory Reports no additional respiratory complaints - Gastrointestinal Reports system reviewed and no additional complaints, except as documented - Genitourinary Reports no additional female genitourinary complaints - Musculoskeletal Reports system reviewed and no additional complaints, except as documented - Integumentary/Breasts Skin/Breast: Reports no additional skin complaints - Neurologic Reports system reviewed and no additional complaints, except as documented - Psychiatric Reports system reviewed and no additional complaints, except as documented - Endocrine Reports no additional endocrine complaints - Hematologic/Lymphatic Reports system reviewed and no additional complaints, except as documented - Allergic/Immunologic Reports system reviewed and no additional complaints, except as documented Oncology Screenings - ECOG Performance Status ECOG Performance Status: 1 [facility] Medical History: Medical History (Last Reviewed 11/28/24 @ 11:32 by Davon Long MD) Dyslipidemia Former heavy cigarette smoker (20-39 per day) Hoarseness or changing voice Impaired fasting glucose Osteoporosis Pneumothorax of right lung after biopsy Shortness of breath on exertion White coat syndrome with hypertension Functional capacity: uses cane/walker Patient : No Family History: Family History (Last Reviewed 11/28/24 @ 11:32 by Davon Long MD) Father No problems noted. Mother Diabetes mellitus Sister No problems noted. Son No problems noted. Surgical History: Surgical History (Last Reviewed 11/28/24 @ 11:32 by Davon Long MD) H/O colonoscopy No pertinent past surgical history Social History: Social History (Last Reviewed 11/28/24 @ 11:32 by Davon Long MD) Living Situation History: Household Members: Spouse Household Members Other:: Housing: House Are you a primary care team assistant to a significant other at home: No Do you presently have visiting nurse or other home services: No Alcohol History Details: 1. How often do you have a drink containing alcohol?: a. Never AUDIT-C Alcohol total score: 0 Currently Displaying Signs/Symptoms of Alcohol Withdrawal: No Tobacco History: Patient Tobacco Use Status: Former Tobacco user e-Cigarette/Vaping Use: Never Used Second Hand Smoke Exposure: Yes Substance Use History: Use of substances other than those prescribed or required for medical reasons: No Currently Displaying Signs/Symptoms of Drug Intoxication Withdrawal: No Domestic Abuse History: Have you been hit, kicked, punched, or otherwise hurt by someone within the past year? If so, by whom?: No Do you feel safe in your current relationship?: Yes Is there a partner from a previous relationship who is making you feel unsafe now?: No Are you made to feel afraid or neglected: No Advance Directives: Advance Directives: No Advance Directives Information Provided: Yes Advance Directives Date on File: 07/30/20 Homicidal Assessment: Do you have a plan to hurt others: No Plan Nutrition Assessment: Recently lost weight without trying: No How much weight loss: Not applicable Eating poorly because of decreased appetite: No Nutrition screen score: 0 Nutrition Risks: No Nutritional Risk Patient : No : No Poor oral hygiene: No Occupation Assessmet: service: No Current occupational status: disabled Home Medications and Allergies Current Medications: Current Medications Acetaminophen (Acetaminophen 325 Mg Tablet) 650 mg PO Q6H PRN PRN Reason: Pain, Moderate(Pain Scale 4-6) Last Admin: 11/22/24 14:49 Dose: 650 mg Albuterol/Ipratropium (Albuterol/Iprat 2.5/0.5mg 3 Ml Ampul.Neb) 3 ml INHALE BID PRN PRN Reason: wheezing Atorvastatin Calcium (Atorvastatin Calcium 10 Mg Tablet) 10 mg PO DAILY [facility] Last Admin: 11/26/24 09:00 Dose: 10 mg Calcium Carbonate (Calcium Carbonate 750 Mg Tab.Chew) 750 mg PO Q4H PRN PRN Reason: Heartburn Last Admin: 11/24/24 10:26 Dose: 750 mg Fluticasone/Vilanterol (Fluticasone/Vilanterol 200/25 Blst.W.Dev) 1 puff INHALE RDAILY [facility] Last Admin: 11/26/24 08:34 Dose: 1 puff Heparin Sodium (Porcine) (Heparin Sodium,Porcine 5,000 Unit/Ml Vial) 5,000 unit SUBCUT Q8H [facility] Last Admin: 11/26/24 10:55 Dose: 5,000 unit Magnesium Hydroxide (Milk Of Magnesia 30 Ml Oral.Susp) 30 ml PO DAILY PRN PRN Reason: Constipation Melatonin (Melatonin 3 Mg Tablet) 6 mg PO BEDTIME PRN PRN Reason: Insomnia Morphine Sulfate (Morphine Sulfate 4 Mg/Ml Cartridge) 2 mg IVPUSH Q4H PRN; Protocol PRN Reason: Pain, Severe (Pain Scale 7-10) Last Admin: 11/23/24 11:04 Dose: 2 mg Ondansetron HCl (Ondansetron Hcl 4 Mg/2 Ml Vial) 4 mg IVPUSH Q8H PRN PRN Reason: Nausea and Vomiting Last Admin: 11/23/24 12:40 Dose: 4 mg Oxycodone HCl (Oxycodone Hcl Immed Release 5 Mg Tablet) 5 mg PO Q4H PRN PRN Reason: Pain, Severe (Pain Scale 7-10) Last Admin: 11/24/24 22:06 Dose: 5 mg Oxycodone HCl (Oxycodone Hcl Immed Release 5 Mg Tablet) 5 mg PO Q6H PRN PRN Reason: Pain, Moderate(Pain Scale 4-6) Last Admin: 11/26/24 10:55 Dose: 5 mg Polyethylene Glycol (Polyethylene Glycol 3350 17 Gm Powd.Pack) 17 gm PO DAILY [facility] Last Admin: 11/26/24 09:00 Dose: 17 gm Simethicone (Simethicone 80 Mg Tab.Chew) 80 mg PO QIDWMHS PRN PRN Reason: Gas Sodium Chloride (0.9 % Sodium Chloride Flush 3 Ml Syringe) 3 ml IVFLUSH QSHIFT [facility] Last Admin: 11/26/24 09:02 Dose: 3 ml Vitamin D (Cholecalciferol (Vitamin D3) 25 Mcg Tablet) 25 mcg PO DAILY [facility] Last Admin: 11/26/24 09:00 Dose: 25 mcg Home Medications ?Medication ?Instructions ?Recorded ?Confirmed ?Type calcium carbonate 1,000 mg PO DAILY 03/24/23 11/21/24 History Allergies Allergy/AdvReac Type Severity Reaction Status Date / Time prednisone AdvReac Back Pain Verified 11/21/24 08:39 Physical Exam Vital signs: Vital Signs Temp 97 F 11/26/24 11:44 Pulse 85 11/26/24 11:44 Resp 18 11/26/24 11:44 BP 136/63 11/26/24 11:44 Pulse Ox 96 11/26/24 11:44 O2 Del Method Nasal Cannula 11/26/24 11:44 O2 Flow Rate 2 11/26/24 11:44 Intake & Output 11/25/24 11/26/24 11/26/24 18:59 06:59 18:59 Intake Total 480 / 1560 1080 / 1560 Output Total 600 / 615 15 / 615 Balance -120 / 945 1065 / 945 Urine Output (Average ml/kg/hr) 0.96 0.96 Intake: Intake, Oral Amount 480 / 1560 1080 / 1560 Output: Output, Urine Amount 600 / 600 Output, Chest Tube Drainage Amount Right Anterior Chest Other: Meal Refused No NPO No Breakfast % Eaten 100% Lunch % Eaten 100% Dinner % Eaten 100% Eating (Feeding) Ability Independent Independent Number of Unmeasured Voids 1 Number of Bowel Movements 0 Urine Bedside Commode Bedside Commode Urine Color Tea Yellow Weight 52.163 kg - Constitutional Present: moderate distress - Routine HEENT Exam Head: Present: normocephalic Eye: Present: normal appearance ENT: Present: mucous membranes moist - Routine Neck Exam Present: supple - Routine Respiratory Exam Present: decreased breath sounds - Routine Cardiovascular Exam Cardiovascular: Present: RRR, S1, S2 - Routine Extremities Exam Present: nontender - Routine Skin Exam Present: intact, normal turgor Hem/Onc Consult Result - Labs CBC & Chem 7: 11/27/24 06:12 11/27/24 06:12 Labs: Short CBC 11/22/24 Range/Units 05:29 WBC 7.8 (4.8-10.8) X10*3/uL Hgb 11.6 L (12.0-16.0) g/dl Hct 35.2 L (37.0-47.0) % Plt Count 243 (160-400) X10*3/uL BMP 11/22/24 05:29 Sodium 138 Potassium 4.1 Chloride 104 Carbon Dioxide 29 BUN 12 Creatinine 0.63 Calcium 9.0 Assessment and Plan Patient Active problem list reviewed?: Yes (1) Squamous cell lung cancer Status: Acute Assessment and plan: 79-year-old lady with admitted with chest pain and shortness of breath. CT chest revealed: Concerning malignancy, right upper lung lobe. Recommend PET/CT. Emphysema. Coronary artery disease and atherosclerosis disease. 11/21/24: Core biopsy of the right lung nodule by IR revealed: Squamous cell carcinoma, moderate to poorly differentiated, involving fibrovascular tissue. She has a recent diagnosis of squamous cell carcinoma, moderate to poorly-differentiated, involving fibrovascular tissue. Volume of tumor is small, molecular and PD-L1 testing will be attempted. She had a chest tube placed. Hopefully that will come out once drainage is minimal. (thoracic surgery managing.) PLAN: A PET scan will be scheduled for initial staging as an outpatient. Will wait for the PD-L1 and other molecular testing to decide about the treatment plan. Meanwhile continue supportive care. Thank you for the consult, Will follow. CC: Dr. Aminata Lakhani. - Time Spent With Patient Time Spent with Patient (in minutes): 30
--- NOTE | 2024-11-26 12:54 | PC.NURSE ---
Approximately 1220- Dr. Rosales and Shira Mijares rounded on patient and changed chest tube to water seal, and removed supplemental oxygen. Rapid response called at 1230 due to patient complaining of difficulty breathing. Supplemental oxygen replaced. Shira Mijares and Dr. Grimes arrived to bedside. Chest tube reconnected to wall suction by Thoracic surgery team. Vital signs obtained- see flowsheet for documentation. SpO2 WNL on 2L via NC. Respiratory effort improved. Patient reports feeling relief. Chest tube dressing remains intact, tubing secured, no crepitus. Orders to be placed for transfer to [email or web address].
[2024-11-27] VITALS (8 sets, daily range): BP systolic 102–148; BP diastolic 64–77; PULSE 74–96; RESP 16–20; TEMP 36.2–36.8; O2SAT 94–98
--- NOTE | 2024-11-27 | ECG_ITS ---
Test Reason : hypokinesis on echo Blood Pressure : */* mmHG Vent. Rate : 95 BPM Atrial Rate : 95 BPM P-R Int : 150 ms QRS Dur : 88 ms QT Int : 368 ms P-R-T Axes : 81 9 69 degrees QTcB Int : 462 ms Normal sinus rhythm Normal ECG No previous ECGs available Referred By: Phi Pastrana Electronically Signed By: ERNESTO CAMERON MD
[2024-11-27] MEDS: 0.9 % Sodium Chloride Flush 3 ML SYRINGE IVFLUSH ×3 (01:14→16:37)
[2024-11-27] MEDS: Heparin Sodium,Porcine 5,000 UNIT/ML VIAL 5000 UNIT SUBCUT ×3 (01:14→17:46)
[2024-11-27 06:53] LABS: MANUAL DIFF FLAG NO
--- NOTE | 2024-11-27 07:00 | CA_ITS ---
Transthoracic Echocardiogram Patient (Last, First, Middle): Argenis Fong W Gender: Female Date of : 1945 Age: 79 Procedure Date: 11/27/2024 Procedure Type: Transthoracic Echocardiogram Location: [facility] [place] Height: 162.56 cm Weight: 52.16 kg BSA: 1.55 m2 Heart Rate: 90 bpm BP: 142 / 75 mmHg Scalper Operator: SB Referring MD: Phi Pastrana MD Hospital Administrative Assistant: Davon Long MD Symptoms: preop, previous hypokinesis Study Quality: Adequate ECG Rhythm: Sinus Conclusions: - 1. Normal LV ejection fraction of 60 65% with impaired relaxation filling pattern with underlying regional wall motion abnormality suggestive of coronary artery disease 2. Cardiac valvular Dopplers within normal limits 3. Normal RV systolic pressure 4. No gross pericardial effusion Findings Left Ventricle Normal left ventricular size, thickness, and systolic function. There is evidence of regional wall motion abnormalities. Spectral Doppler is indicative of an impaired relaxation filling pattern. E/E prime ratio is between 8 and 15 consistent with indeterminate filling pressures. Wall Motion Rest Echo Findings The inferoseptal wall, the basal inferior, and basal inferolateral segments are hypokinetic. All other scored wall segments showed normal motion. Right Ventricle Normal right ventricular cavity size and systolic function. Atria Both atria are normal in size. There is lipomatous hypertrophy of the interatrial septum. There is no evidence of interatrial shunt. Aortic Valve There is mild calcification of the aortic valve. There is no aortic valve stenosis. There is no aortic valve regurgitation. Mitral Valve Normal mitral valve structure and function. There is trace mitral valve regurgitation. There is no mitral valve stenosis. Pulmonic Valve The pulmonic valve was not well visualized. Tricuspid Valve Likely normal tricuspid valve structure and function. There is trace tricuspid valve regurgitation. The right ventricular systolic pressure is normal. The right ventricular systolic pressure is 20 mmHg. Normal right atrial pressure. There is no evidence of pulmonary hypertension. Great Vessels All visible segments of the aorta are normal in size. The pulmonary artery was not well visualized. Venous The inferior vena cava is normal in size and collapses greater than 50% with inspiration. Pericardium/Pleural Prominent epicardial adipose tissue noted. There is no evidence of pericardial effusion. Prior Study Comparison No significant change compared to prior study dated: 04/23/2024. Measurements 2D Linear Measurements IVSd: 0.87 0.6-0.9/0.6-1.0 cm LVIDd: 3.20 3.9-5.3/4.2-5.9 cm LVIDd Index: 2.06 2.4-3.2/2.2-3.1 cm/m2 LVIDs: 2.72 2.0-3.6 cm LVPWd: 0.49 0.7-1.1 cm LA Diam: 2.40 2.7-3.8/3.0-4.0 cm LAIDs Index: 1.55 1.5-2.3 cm/m2 LV Mass: 64.47 67-162/88-224 g LV Mass Index: 41.59 43-95/49-115 g/m2 LVOT Diam: 2.00 3.0+(-)1.3 cm 2D Systolic Function EF 4C: 49.10 >55% EF 2C: 70.60 >55% EF BiP: 63.20 >55% Mitral Valve MV Pk E: 0.49 MV PK A: 0.80 MV Decel Time: 263.00 E/A: 0.60 E'Lateral: 5.03 E'Medial: 5.26 E/E' Med: 9.30 E/E' Lat: 9.80 PHT: 77.00 MVA PHT: 2.86 Decel Harney: 1.87 Aortic Valve AoV Pk Wu: 0.87 AoV Pk Grad: 3.00 YI: 2.90 LVOT LVOT Pk Wu: 0.74 LVOT Mn Wu: 0.52 LVOT VTI: 0.12 LVOT Pk Grad: 2.00 LVOT Mn Grad: 1.00 LVOT Diam: 2.00 LVOT Area: 3.14 Diastolic Function MV Pk E: 0.49 MV Pk A: 0.80 E/A: 0.60 E'Medial: 5.26 E/E' Med: 9.30 E' Laterial: 5.03 E/E' Lat: 9.80 Right Ventricle TAPSE (mm): 15.70 TVS' Wu: 8.16 Tricuspid Valve TR Pk Wu: 2.05 TR Pk Grad: 17.00 RA Press: 3.00 RVSP: 20.00 Great Vessels Aorta Sinus of Valsalva: 3.20 2.0-3.5 cm Pulmonary Valve PV Pk Wu: 0.58 Peak PV Grad: 1.00 Updated in Other Vendor System with Status of Final Davon Long MD electronically signed on 11/27/2024 1:52:54 PM with status of Final
[2024-11-27 07:03] LABS: Basophils Absolute Auto 0.1 X10*3/uL (0.0-0.2); Basophils Percent Auto 0.9 % (0-2); Eosinophils Absolute Auto 0.3 X10*3/uL (0.0-0.4); Eosinophils Percent Auto 3.8 % (0-4); Hematocrit 36.8 % (37.0-47.0); Hemoglobin 12.1 g/dl (12.0-16.0); Imm Gran Abs Auto 0.04 X10*3/uL (0.00-0.03); Imm Gran Pct Auto 0.6 % (0.0-0.4); Lymphocytes Absolute Auto 1.6 X10*3/uL (1.2-4.9); Lymphocytes Percent Auto 23.5 % (20-40); Mean Corpuscular HGB Conc 32.9 g/dl (31.0-35.0); Mean Corpuscular Hemoglobin 29.4 pg (27.0-33.0); Mean Corpuscular Volume 89.3 fL (80.0-98.0); Mean Platelet Volume 10.8 fL (9.4-12.3); Monocytes Absolute Auto 0.5 X10*3/uL (0.1-1.2); Monocytes Percent Auto 7.9 % (2-11); Neutrophils Absolute Auto 4.4 x10*3/uL (2.0-8.3); Neutrophils Percent Auto 63.3 % (45-73); Platelet Count 262 X10*3/uL (160-400); Red Blood Count 4.12 X10*6/uL (4.20-5.50); Red Cell Distribution Width 13.6 % (11.0-16.0); White Blood Count 6.9 X10*3/uL (4.8-10.8)
[2024-11-27 07:16] LABS: Anion Gap 10 (12-20); Blood Urea Nitrogen 19 mg/dL (9-16); Calcium 9.3 mg/dL (8.4-10.2); Carbon Dioxide 31 mmol/L (22-29); Chloride 102 mmol/L (96-108); Creatinine Clr Calc Pharmacy 51.4; Estimated Glomerular Filt Rate > 60; Glucose Random 103 mg/dL (60-115); Sodium 139 mmol/L (135-145)
[2024-11-27] MEDS: Fluticasone/Vilanterol 200/25 BLST.W.DEV 1 PUFF INHALE (08:16)
--- NOTE | 2024-11-27 09:13 | PM.CNPUL ---
History of Present Illness History of Present Illness Consult date: 11/27/24 Chief complaint: Right lung Narrative: This is a pulmonary consultation for preoperative pulmonary evaluation. The patient is a 79 year woman with known extensive COPD and emphysema and a right upper lobe pulmonary nodule. She did undergo a PET scan demonstrating FDG activity isolated to the pulmonary nodule. She did undergo pulmonary function studies demonstrating severe COPD also with severe diffusion impairment. She is not oxygen dependent. She did come in for a biopsy in underwent a CT-guided biopsy on November 21 which gave a diagnosis of [id number] lung cancer and ended up with iatrogenic pneumothorax. She had a chest tube placement and is on suction. She can not tolerate any water seal because the lung collapses again. Therefore thoracic surgery has been contemplating different options. In view of her extensive emphysema in the right upper lobe where the nodules located the patient should be able to tolerate a resection of that nodule. It would be in an essence a lung volume reduction surgery. Review of Systems Constitutional: Constitutional: Denies fever(s) Eyes: Eyes: Denies change in vision ENT: Reports Normal hearing present and Denies epistaxis Cardiovascular: Cardiovascular: Denies chest pain and Reports dyspnea on exertion Respiratory: Respiratory: Reports cough, Denies hemoptysis, Reports dyspnea on exertion and Denies wheezing Gastrointestinal: Gastrointestinal: Reports no additional gastrointestinal complaints Musculoskeletal: Musculoskeletal: Reports no additional musculoskeletal complaints Neurologic: Reports Normal hearing present Psychiatric: Psychiatric: Reports no additional psychiatric complaints Hematologic/Lymphatic: Hematologic/Lymphatic: Denies easy bleeding, Denies easy bruising and Denies lymphadenopathy Allergic/Immunologic: Allergic/Immunologic: Denies wheezing PMF Past Medical History Medical History (Updated 11/27/24 @ 09:42 by Denny Gallego MD) Pneumothorax of right lung after biopsy Former heavy cigarette smoker (20-39 per day) Hoarseness or changing voice Shortness of breath on exertion White coat syndrome with hypertension Dyslipidemia Impaired fasting glucose Osteoporosis Family History Family History Father No problems noted. Mother Diabetes mellitus Sister No problems noted. Son No problems noted. Surgical History Surgical History (Updated 11/26/24 @ 12:44 by Nighat Curran MD) H/O colonoscopy No pertinent past surgical history Social History Social History Household Members: Spouse Household Members Other:: Housing: House Are you a primary medicare compliance auditor to a significant other at home: No Do you presently have visiting nurse or other home services: No Alcohol intake: current Alcohol intake frequency: holidays/special occasions only Alcohol type: beer Patient Tobacco Use Status: Former Tobacco user e-Cigarette/Vaping Use: Never Used Second Hand Smoke Exposure: Yes Use of substances other than those prescribed or required for medical reasons: No Currently Displaying Signs/Symptoms of Drug Intoxication Withdrawal: No Have you been hit, kicked, punched, or otherwise hurt by someone within the past year? If so, by whom?: No Do you feel safe in your current relationship?: Yes Is there a partner from a previous relationship who is making you feel unsafe now?: No Are you made to feel afraid or neglected: No Are you DNR?: No Advance Directives: No Advance Directives Information Provided: Yes Advance Directives Date on File: 07/30/20 Do you have a plan to hurt others: No Plan Recently lost weight without trying: No How much weight loss: Not applicable Eating poorly because of decreased appetite: No Nutrition screen score: 0 Nutrition Risks: No Nutritional Risk Patient : No : No Poor oral hygiene: No service: No Current occupational status: disabled Cognitive needs: No Hearing needs: No Vision needs: Yes Meds Allergies Allergy/AdvReac Type Severity Reaction Status Date / Time prednisone AdvReac Back Pain Verified 11/21/24 08:39 Active Medications: Current Medications Acetaminophen (Acetaminophen 325 Mg Tablet) 650 mg PO Q6H PRN PRN Reason: Pain, Moderate(Pain Scale 4-6) Last Admin: 11/22/24 14:49 Dose: 650 mg Albuterol/Ipratropium (Albuterol/Iprat 2.5/0.5mg 3 Ml Ampul.Neb) 3 ml INHALE BID PRN PRN Reason: wheezing Atorvastatin Calcium (Atorvastatin Calcium 10 Mg Tablet) 10 mg PO DAILY [facility] Last Admin: 11/26/24 09:00 Dose: 10 mg Calcium Carbonate (Calcium Carbonate 750 Mg Tab.Chew) 750 mg PO Q4H PRN PRN Reason: Heartburn Last Admin: 11/24/24 10:26 Dose: 750 mg Fluticasone/Vilanterol (Fluticasone/Vilanterol 200/25 Blst.W.Dev) 1 puff INHALE RDAILY COUNTS [facility]CLUDE 234 BEDS AT THE [facility] Last Admin: 11/27/24 08:16 Dose: 1 puff Heparin Sodium (Porcine) (Heparin Sodium,Porcine 5,000 Unit/Ml Vial) 5,000 unit SUBCUT Q8H COUNTS INCLUDE 234 BEDS AT THE [facility] Last Admin: 11/27/24 01:14 Dose: 5,000 unit Magnesium Hydroxide (Milk Of Magnesia 30 Ml Oral.Susp) 30 ml PO DAILY PRN PRN Reason: Constipation Melatonin (Melatonin 3 Mg Tablet) 6 mg PO BEDTIME PRN PRN Reason: Insomnia Morphine Sulfate (Morphine Sulfate 4 Mg/Ml Cartridge) 2 mg IVPUSH Q4H PRN; Protocol PRN Reason: Pain, Severe (Pain Scale 7-10) Last Admin: 11/23/24 11:04 Dose: 2 mg Ondansetron HCl (Ondansetron Hcl 4 Mg/2 Ml Vial) 4 mg IVPUSH Q8H PRN PRN Reason: Nausea and Vomiting Last Admin: 11/23/24 12:40 Dose: 4 mg Oxycodone HCl (Oxycodone Hcl Immed Release 5 Mg Tablet) 5 mg PO Q4H PRN PRN Reason: Pain, Severe (Pain Scale 7-10) Last Admin: 11/24/24 22:06 Dose: 5 mg Oxycodone HCl (Oxycodone Hcl Immed Release 5 Mg Tablet) 5 mg PO Q6H PRN PRN Reason: Pain, Moderate(Pain Scale 4-6) Last Admin: 11/26/24 10:55 Dose: 5 mg Polyethylene Glycol (Polyethylene Glycol 3350 17 Gm Powd.Pack) 17 gm PO DAILY COUNTS INCLUDE 234 BEDS AT THE [facility] Last Admin: 11/26/24 09:00 Dose: 17 gm Simethicone (Simethicone 80 Mg Tab.Chew) 80 mg PO QIDWMHS PRN PRN Reason: Gas Sodium Chloride (0.9 % Sodium Chloride Flush 3 Ml Syringe) 3 ml IVFLUSH QSHIFT COUNTS INCLUDE 234 BEDS AT THE [facility] Last Admin: 11/27/24 01:14 Dose: 3 ml Vitamin D (Cholecalciferol (Vitamin D3) 25 Mcg Tablet) 25 mcg PO DAILY COUNTS INCLUDE 234 BEDS AT THE [facility] Last Admin: 11/26/24 09:00 Dose: 25 mcg Home Medications ?Medication ?Instructions ?Recorded ?Confirmed ?Last Taken ?Type calcium carbonate 1,000 mg PO DAILY 03/24/23 11/21/24 11/20/24 History Physical Exam Vital Signs: Vital Signs: Last Vital Signs Temp 97.3 F 11/27/24 07:06 Pulse 74 11/27/24 08:19 Resp 16 11/27/24 08:19 BP 122/72 11/27/24 07:06 Pulse Ox 97 11/27/24 07:06 O2 Del Method Nasal Cannula 11/27/24 07:06 O2 Flow Rate 2 11/27/24 07:06 BMI result Body Mass Index 19.2 Const: General: cooperative, comfortable, no acute distress and alert Orientation/consciousness: patient oriented x3 HEENT: Head: Yes normocephalic Eyes: General: appearance normal, both eyes and all related structures Neck: Neck: Yes normal visual inspection and Yes no lymphadenopathy Chest: Chest palpation & inspection: normal inspection of the chest and other (chest tube in place, no crepitus, +air leak when coughing) Resp: Effort & Inspection: normal respiratory effort and able to speak in complete sentences Auscultation: diminished lung sounds Cardio: Rate: regular rate Rhythm: regular rhythm Skin: Other: warm, dry General skin exam: no rashes or lesions noted Neuro: General: patient oriented x3 Cranial nerves: Yes Normal hearing present Cognition (Neuro): normal cognition Extrem: General: Yes normal to inspection, Yes capillary refill normal and Yes no clubbing, cyanosis or edema Psych: Appearance: grossly normal Insight: Good insight present (Psych) Judgement: Good judgement present (Psych) Results Laboratory Findings 11/27/24 06:12 11/27/24 06:12 ABG, PT/INR, D-dimer: PT/INR, D-dimer PT 11.1 SEC (10.9-12.4) 11/21/24 08:00 INR 1.0 (0.9-1.1) 11/21/24 08:00 Abnormal lab findings: Abnormal Labs 11/21/24 11/22/24 11/23/24 08:00 05:29 05:13 RBC 4.18 L 3.92 L 4.14 L Hgb 11.6 L Hct 35.2 L 36.8 L Immature Gran % (Auto) 0.5 H Neut % (Auto) 75.5 H Lymph % (Auto) 14.6 L Abs Immat Gran (auto) 0.04 H Carbon Dioxide 30 H Anion Gap 9 L BUN 11/24/24 11/27/24 06:13 06:12 RBC 4.18 L 4.12 L Hgb Hct 36.8 L Immature Gran % (Auto) 0.5 H 0.6 H Neut % (Auto) Lymph % (Auto) 19.0 L Abs Immat Gran (auto) 0.04 H 0.04 H Carbon Dioxide 31 H Anion Gap 10 L BUN 19 H Assessment and Plan (1) Squamous cell lung cancer: Status: Acute (2) Pneumothorax of right lung after biopsy: Status: Acute (3) Pre-op chest exam: Status: Acute Plan ABG Continue oxygen to maintain a pulse ox between 90-95% Keep chest tube to suction in view of the persistent pneumothorax and persistent air leak. In view of the significant emphysema is unlikely to heal on its own and will likely need a surgical intervention. The patient does have severe COPD. Now being evaluated for a lung resection for lung cancer and persistent pneumothorax. The patient is high risk for perioperative pulmonary complications which include; atelectasis, hypoxia, pneumonia, prolonged mechanical ventilation. Based on the location of the nodule worse primarily in an area was significant emphysema removing this nodular density will not necessarily worsen the patient's lung capacity. Therefore, undergoing a segmentectomy for removal of the nodule or little broader area should be tolerated by the patient. As far as gas exchange will request a venous blood gas this time to assess the CO2 and she is aware that she will likely need oxygen upon postoperatively. From a pulmonary standpoint the patient is considered high risk but she is optimize and still will need a surgical intervention for the persistent pneumothorax anyway. This will provide a curative intent for the pneumothorax and a curative intent for the lung cancer. Procedures Date of Service Date of Service: 11/27/24
[2024-11-27] MEDS: Atorvastatin Calcium 10 MG TABLET PO (09:18)
[2024-11-27] MEDS: Cholecalciferol (Vitamin D3) 25 MCG TABLET PO (09:18)
[2024-11-27] MEDS: polyethylene glycoL 3350 17 GM POWD.PACK PO (09:18)
[2024-11-27 09:48] LABS: Venous Blood Gas Refer to POC result
[2024-11-27 09:49] LABS: VBG Base Excess 8.7 mmol/L; VBG HCO3 35 mmol/L (22-26); VBG pCO2 56 mmHg; VBG pO2 37 mmHg
--- NOTE | 2024-11-27 10:25 | PM.PNTS ---
Subjective Subjective Date of Service: 11/27/24 Interval history: Feels a little better this morning, denies SOB. Physical Exam Vital Signs: Vital Signs: Last Vital Signs Temp 97.3 F 11/27/24 07:06 Pulse 74 11/27/24 08:19 Resp 16 11/27/24 08:19 BP 122/72 11/27/24 07:06 Pulse Ox 97 11/27/24 07:06 O2 Del Method Nasal Cannula 11/27/24 07:06 O2 Flow Rate 2 11/27/24 07:06 BMI result Body Mass Index 19.2 Const: General: comfortable, no acute distress and alert Nutritional Appearance: thin Orientation/consciousness: patient oriented x3 Chest: Other: chest tube in place right anterior chest small air leak persists Resp: Effort & Inspection: normal respiratory effort, no respiratory distress, not tachypneic and no use of accessory muscles Skin: General skin exam: no rashes or lesions noted Neuro: General: patient oriented x3 Procedures Date of Service Date of Service: 11/27/24 Progress Note: A&P Assessment and plan (1) Squamous cell lung cancer: Status: Acute (2) Pneumothorax of right lung after biopsy: Status: Acute Plan Developed right pneumothorax following biopsy of right upper lobe lesion. She unfortunately has small persistent air leak and has been unable to tolerate placement to water seal without desaturating, developing dyspnea. Path does reveal non small cell lung CA. Options would be attempting large bore chest tube to see if more suction allows lung parenchyma and pleura to achieve symphysis or alternative would be to expedite possible RU lobectomy during the stay. Will ask pulm, oncology to input. Time Spent With Patient Time: Total time managing care of this patient today ____ minutes. Quality Stroke Does the patient have a stroke diagnosis?: No VTE Prior VTE?: No VTE Risk Level:: Medical - moderate - high VTE Device Contraindication: N/A - Device Ordered VTE Drug Contraindication: Treatment Not Indicated
--- NOTE | 2024-11-27 11:05 | P.PNIM_ITS ---
Subjective Subjective Date of Service: 11/27/24 Interval History: no complaints Physical Exam 2 Vital Signs: Vital Signs: Last Vital Signs Temp 97.3 F 11/27/24 07:06 Pulse 74 11/27/24 08:19 Resp 16 11/27/24 08:19 BP 122/72 11/27/24 07:06 Pulse Ox 98 11/27/24 11:01 O2 Del Method Room Air 11/27/24 11:01 O2 Flow Rate 1 11/27/24 08:30 BMI result Body Mass Index 19.2 Const: General: comfortable, no acute distress and alert Nutritional Appearance: thin Orientation/consciousness: patient oriented x3 Chest: Other: chest tube in place right anterior chest small air leak persists Resp: Effort & Inspection: normal respiratory effort, no respiratory distress, not tachypneic and no use of accessory muscles Skin: General skin exam: no rashes or lesions noted Neuro: General: patient oriented x3 Objective Data Active Medications Acetaminophen (Acetaminophen 325 Mg Tablet) 650 mg PO Q6H PRN PRN Reason: Pain, Moderate(Pain Scale 4-6) Last Admin: 11/22/24 14:49 Dose: 650 mg Documented By: JUAN A Albuterol/Ipratropium (Albuterol/Iprat 2.5/0.5mg 3 Ml Ampul.Neb) 3 ml INHALE BID PRN PRN Reason: wheezing Atorvastatin Calcium (Atorvastatin Calcium 10 Mg Tablet) 10 mg PO DAILY [facility] Last Admin: 11/27/24 09:18 Dose: 10 mg Documented By: LEATHA Calcium Carbonate (Calcium Carbonate 750 Mg Tab.Chew) 750 mg PO Q4H PRN PRN Reason: Heartburn Last Admin: 11/24/24 10:26 Dose: 750 mg Documented By: ARSLAN Fluticasone/Vilanterol (Fluticasone/Vilanterol 200/25 Blst.W.Dev) 1 puff INHALE RDAILY [facility] Last Admin: 11/27/24 08:16 Dose: 1 puff Documented By: ZO Heparin Sodium (Porcine) (Heparin Sodium,Porcine 5,000 Unit/Ml Vial) 5,000 unit SUBCUT Q8H [facility] Last Admin: 11/27/24 09:18 Dose: 5,000 unit Documented By: LEATHA Magnesium Hydroxide (Milk Of Magnesia 30 Ml Oral.Susp) 30 ml PO DAILY PRN PRN Reason: Constipation Melatonin (Melatonin 3 Mg Tablet) 6 mg PO BEDTIME PRN PRN Reason: Insomnia Morphine Sulfate (Morphine Sulfate 4 Mg/Ml Cartridge) 2 mg IVPUSH Q4H PRN; Protocol PRN Reason: Pain, Severe (Pain Scale 7-10) Last Admin: 11/23/24 11:04 Dose: 2 mg Documented By: CELINA Ondansetron HCl (Ondansetron Hcl 4 Mg/2 Ml Vial) 4 mg IVPUSH Q8H PRN PRN Reason: Nausea and Vomiting Last Admin: 11/23/24 12:40 Dose: 4 mg Documented By: CELINA Oxycodone HCl (Oxycodone Hcl Immed Release 5 Mg Tablet) 5 mg PO Q4H PRN PRN Reason: Pain, Severe (Pain Scale 7-10) Last Admin: 11/24/24 22:06 Dose: 5 mg Documented By: LUIS Oxycodone HCl (Oxycodone Hcl Immed Release 5 Mg Tablet) 5 mg PO Q6H PRN PRN Reason: Pain, Moderate(Pain Scale 4-6) Last Admin: 11/26/24 10:55 Dose: 5 mg Documented By: RANDOLPH Polyethylene Glycol (Polyethylene Glycol 3350 17 Gm Powd.Pack) 17 gm PO DAILY [facility] Last Admin: 11/27/24 09:18 Dose: 17 gm Documented By: LEATHA Simethicone (Simethicone 80 Mg Tab.Chew) 80 mg PO QIDWMHS PRN PRN Reason: Gas Sodium Chloride (0.9 % Sodium Chloride Flush 3 Ml Syringe) 3 ml IVFLUSH QSHIFT [facility] Last Admin: 11/27/24 09:18 Dose: 3 ml Documented By: LEATHA Vitamin D (Cholecalciferol (Vitamin D3) 25 Mcg Tablet) 25 mcg PO DAILY [facility] Last Admin: 11/27/24 09:18 Dose: 25 mcg Documented By: LEATHA Labs 11/27/24 06:12 11/27/24 06:12 Labs: Laboratory Results - last 24 hr 11/27/24 11/27/24 06:12 09:40 MCV 89.3 MCH 29.4 MCHC 32.9 RDW 13.6 Plt Count 262 MPV 10.8 Immature Gran % (Auto) 0.6 H Neut % (Auto) 63.3 Lymph % (Auto) 23.5 [place] % (Auto) 7.9 Eos % (Auto) 3.8 Baso % (Auto) 0.9 Lymph # (Auto) 1.6 [place] # (Auto) 0.5 Eos # (Auto) 0.3 Baso # (Auto) 0.1 Abs Immat Gran (auto) 0.04 H Absolute Neuts (auto) 4.4 Absolute Nucleated RBC 0.000 Nucleated RBC % (auto) 0.0 VBG pH 7.40 VBG pCO2 56 VBG pO2 37 VBG HCO3 35 H VBG O2 Saturation 61.0 VBG Base Excess 8.7 Anion Gap 10 L Estim Creat Clear Calc 51.4 Estimated GFR > 60 Random Glucose 103 Calcium 9.3 Assessment and Plan (1) Pneumothorax of right lung after biopsy: Status: Acute (2) Squamous cell lung cancer: Status: Acute Plan 79F PMH significant for COPD, HLD,?and osteoporosis who initially presented to short-stay surgery for elective outpatient lung nodule biopsy. Procedure was complicated by pneumothorax Right lung pneumothorax post lung biopsy positive for Squamous cell cancer failed trial of Waterseal possible RUL lobectomy inpatient ekg unremarkable previous echo with basilar hypokinesis, check repeat LLQ pain, resolved constipation or gas Simethicone PRN, Laxatives monitor COPD Not in acute exacerbation Continue home inhalers Hyperlipidemia Continue statin Full Code DVT Prophylaxis: Pneumatic compression + Heparin SC given high risk of DVT pending any possible surgical intervention reason for continued hospitalization:chest tube, possible lobectomy Quality Stroke Does the patient have a stroke diagnosis?: No VTE Prior VTE?: No VTE Risk Level:: Medical - moderate - high VTE Device Contraindication: N/A - Device Ordered VTE Drug Contraindication: Treatment Not Indicated
--- NOTE | 2024-11-27 15:43 | MHC.CM.PN ---
EMR reviewed and per MD rounds, pt is not medically cleared for discharge due to management of right lung pneumothorax, with chest tube in place.
[2024-11-28] VITALS (8 sets, daily range): BP systolic 112–135; BP diastolic 57–88; PULSE 64–104; RESP 16–21; TEMP 36.1–36.7; O2SAT 95–97
[2024-11-28] MEDS: Heparin Sodium,Porcine 5,000 UNIT/ML VIAL 5000 UNIT SUBCUT ×3 (01:36→19:14)
[2024-11-28] MEDS: 0.9 % Sodium Chloride Flush 3 ML SYRINGE IVFLUSH ×3 (01:37→19:17)
[2024-11-28] MEDS: Fluticasone/Vilanterol 200/25 BLST.W.DEV 1 PUFF INHALE (07:47)
[2024-11-28] MEDS: polyethylene glycoL 3350 17 GM POWD.PACK PO (08:29)
[2024-11-28] MEDS: Cholecalciferol (Vitamin D3) 25 MCG TABLET PO (08:29)
[2024-11-28] MEDS: Atorvastatin Calcium 10 MG TABLET PO (08:29)
--- NOTE | 2024-11-28 09:10 | HO.PM.IMPN ---
Subjective Subjective Date of Service: 11/28/24 Interval History: no complaints Physical Exam Vital Signs: Vital Signs: Last Vital Signs Temp 97.4 F 11/28/24 07:18 Pulse 64 11/28/24 07:48 Resp 18 11/28/24 07:48 BP 135/76 11/28/24 07:18 Pulse Ox 96 11/28/24 07:18 O2 Del Method Room Air 11/28/24 07:18 O2 Flow Rate 1 11/27/24 08:30 BMI result Body Mass Index 19.2 Const: General: comfortable, no acute distress and alert Nutritional Appearance: thin Orientation/consciousness: patient oriented x3 Chest: Other: chest tube in place right anterior chest small air leak persists Resp: Effort & Inspection: normal respiratory effort, no respiratory distress, not tachypneic and no use of accessory muscles Skin: General skin exam: no rashes or lesions noted Neuro: General: patient oriented x3 Objective Data Active Medications Acetaminophen (Acetaminophen 325 Mg Tablet) 650 mg PO Q6H PRN PRN Reason: Pain, Moderate(Pain Scale 4-6) Last Admin: 11/22/24 14:49 Dose: 650 mg Documented By: JUAN A Albuterol/Ipratropium (Albuterol/Iprat 2.5/0.5mg 3 Ml Ampul.Neb) 3 ml INHALE BID PRN PRN Reason: wheezing Atorvastatin Calcium (Atorvastatin Calcium 10 Mg Tablet) 10 mg PO DAILY [facility] Last Admin: 11/28/24 08:29 Dose: 10 mg Documented By: JACQUELINE Calcium Carbonate (Calcium Carbonate 750 Mg Tab.Chew) 750 mg PO Q4H PRN PRN Reason: Heartburn Last Admin: 11/24/24 10:26 Dose: 750 mg Documented By: ARSLAN Fluticasone/Vilanterol (Fluticasone/Vilanterol 200/25 Blst.W.Dev) 1 puff INHALE RDAILY [facility] Last Admin: 11/28/24 07:47 Dose: 1 puff Documented By: SHELBY Heparin Sodium (Porcine) (Heparin Sodium,Porcine 5,000 Unit/Ml Vial) 5,000 unit SUBCUT Q8H [facility] Last Admin: 11/28/24 01:36 Dose: 5,000 unit Documented By: JUAN JOSE Magnesium Hydroxide (Milk Of Magnesia 30 Ml Oral.Susp) 30 ml PO DAILY PRN PRN Reason: Constipation Melatonin (Melatonin 3 Mg Tablet) 6 mg PO BEDTIME PRN PRN Reason: Insomnia Morphine Sulfate (Morphine Sulfate 4 Mg/Ml Cartridge) 2 mg IVPUSH Q4H PRN; Protocol PRN Reason: Pain, Severe (Pain Scale 7-10) Last Admin: 11/23/24 11:04 Dose: 2 mg Documented By: CELINA Ondansetron HCl (Ondansetron Hcl 4 Mg/2 Ml Vial) 4 mg IVPUSH Q8H PRN PRN Reason: Nausea and Vomiting Last Admin: 11/23/24 12:40 Dose: 4 mg Documented By: CELINA Oxycodone HCl (Oxycodone Hcl Immed Release 5 Mg Tablet) 5 mg PO Q4H PRN PRN Reason: Pain, Severe (Pain Scale 7-10) Last Admin: 11/24/24 22:06 Dose: 5 mg Documented By: LUIS Oxycodone HCl (Oxycodone Hcl Immed Release 5 Mg Tablet) 5 mg PO Q6H PRN PRN Reason: Pain, Moderate(Pain Scale 4-6) Last Admin: 11/26/24 10:55 Dose: 5 mg Documented By: RANDOLPH Polyethylene Glycol (Polyethylene Glycol 3350 17 Gm Powd.Pack) 17 gm PO DAILY [facility] Last Admin: 11/28/24 08:29 Dose: 17 gm Documented By: JACQUELINE Simethicone (Simethicone 80 Mg Tab.Chew) 80 mg PO QIDWMHS PRN PRN Reason: Gas Sodium Chloride (0.9 % Sodium Chloride Flush 3 Ml Syringe) 3 ml IVFLUSH QSHIFT [facility] Last Admin: 11/28/24 08:29 Dose: 3 ml Documented By: JACQUELINE Vitamin D (Cholecalciferol (Vitamin D3) 25 Mcg Tablet) 25 mcg PO DAILY [facility] Last Admin: 11/28/24 08:29 Dose: 25 mcg Documented By: JACQUELINE Labs 11/27/24 06:12 11/27/24 06:12 Labs: Laboratory Results - last 24 hr 11/27/24 09:40 VBG pH 7.40 VBG pCO2 56 VBG pO2 37 VBG HCO3 35 H VBG O2 Saturation 61.0 VBG Base Excess 8.7 Assessment and Plan (1) Pneumothorax of right lung after biopsy: Status: Acute (2) Squamous cell lung cancer: Status: Acute Plan 79F PMH significant for COPD, HLD,?and osteoporosis who initially presented to short-stay surgery for elective outpatient lung nodule biopsy. Procedure was complicated by pneumothorax Right lung pneumothorax post lung biopsy positive for Squamous cell cancer failed trial of Waterseal possible RUL lobectomy inpatient ekg unremarkable echo with normal EF, basilar hypokinesis, cardio eval for preop risk assessment/optimization LLQ pain, resolved constipation or gas Simethicone PRN, Laxatives monitor COPD Not in acute exacerbation Continue home inhalers Hyperlipidemia Continue statin Full Code DVT Prophylaxis: Pneumatic compression + Heparin SC given high risk of DVT pending any possible surgical intervention reason for continued hospitalization:chest tube, possible lobectomy Quality Stroke Does the patient have a stroke diagnosis?: No VTE Prior VTE?: No VTE Risk Level:: Medical - moderate - high VTE Device Contraindication: N/A - Device Ordered VTE Drug Contraindication: Treatment Not Indicated
--- NOTE | 2024-11-28 09:27 | PM.PNTS ---
Subjective Subjective Date of Service: 11/28/24 Interval history: Pulmonary consult note much appreciated. Patient having no acute respiratory symptoms, provided her chest tube is on wall suction. Chest tube demonstrates persistent small air leak with cough. Minimal output. Physical Exam Vital Signs: Vital Signs: Last Vital Signs Temp 97.4 F 11/28/24 07:18 Pulse 64 11/28/24 07:48 Resp 18 11/28/24 07:48 BP 135/76 11/28/24 07:18 Pulse Ox 96 11/28/24 07:18 O2 Del Method Room Air 11/28/24 07:18 O2 Flow Rate 1 11/27/24 08:30 BMI result Body Mass Index 19.2 Chest: Other: Breath sounds bilaterally. Consistent with COPD. Chest tube site clean dry and intact Procedures Date of Service Date of Service: 11/28/24 Progress Note: A&P Assessment and plan (1) Primary cancer of right upper lobe of lung: Status: Acute (2) Pneumothorax of right lung after biopsy: Status: Acute (3) Former heavy cigarette smoker (20-39 per day): Status: Acute Plan A very lengthy discussion was had with the patient echoing what was discussed with the patient by me the other day with her sister present, as well as discussed with her yesterday by pulmonology (Dr. Gallego). She has a persistent air leak from iatrogenic lung biopsy. She has a confirmed right upper lobe lung cancer. Therapeutic options are somewhat limited here because every time the patient was placed on water seal, her lung drops, and she becomes acutely short of breath with follow-up chest x-ray demonstrated pneumothorax. Patient had an outpatient PET scan which demonstrated only localized disease of the right upper lobe consistent with [id number] lung cancer (tissue diagnosis status post lung biopsy). Because the patient has an early stage lung cancer, and with confirmatory input from pulmonology, patient would benefit from resection of this right upper lobe tumor. Ris ks, benefits, and alternatives of vats possible open right upper lobe wedge possible right upper lobectomy were reviewed with the patient and included but not limited to bleeding, infection, recurrence, numbness, pain, scarring, prolonged air leak, possible ventilatory dependence, even very unlikely but possibly were reviewed with the patient. She wishes to proceed. All questions answered. Arrangements will be made for this for tomorrow morning. Addendum; Cardiology consult has been obtained. They would like to obtain a MIBI for risk stratification. Case will be unable to go tomorrow because according to Cardiology, this is a two-day test. This is a holiday weekend. Anesthesia short staffed next week and I have been told that it will be difficult to put this as an add on for next week as well. This was discussed with the patient, and her sister,who was also present. The patient is disappointed but understands. Time Spent With Patient Time: Total time managing care of this patient today ____ minutes. Quality Stroke Does the patient have a stroke diagnosis?: No VTE Prior VTE?: No VTE Risk Level:: Medical - moderate - high VTE Device Contraindication: N/A - Device Ordered VTE Drug Contraindication: Treatment Not Indicated
--- NOTE | 2024-11-28 10:52 | CA_ITS ---
Acquisition Time: 2024-11-29 10:13:43 Total Exercise Time: 00:02:00 Test Indications: Pre-Op Evaluation,Screening for CAD Medications: SEE EMAR Protocol: LEXISCAN Max HR: 131 BPM 92% of Pred: 141 BPM Max BP: 132/70 mmHG Max Work Load: 1.0 METS Pharmacologic Stress Test with Lexiscan while pt marched in her chair, with reports of feeling weak and SOB, with isolated PACs, with normotensive response to injection. Nondiagnostic EKG for ischemia. In recovery, pt treated with IVP Aminophylline 75 mg to reverse Lexiscan, after which pt feeling back to baseline. Nuclear images pending. Test reviewed with Dr. Long. Referred By: Davon Long Electronically Signed By: Dayton Iglesias
--- NOTE | 2024-11-28 11:30 | P.CONCA_ITS ---
History of Present Illness History of Present Illness Date of Service: 11/28/24 Requesting physician: Phi Pastrana Consult reason: pre-op evaluation Chief complaint: Right lung Narrative: I was consulted to see Argenis in cardiology consultation today for preoperative cardiovascular risk stratification. She is to undergo lobectomy further right upper lobe under general anesthesia along with pleurodesis for persistent pneumothorax after a lung biopsy, present for a week. The chest tube is not able to be removed as patient continues to have persistent air leak. Patient was an echocardiogram couple days ago which showed normal LV ejection fraction but with underlying regional wall motion abnormality which is not new. Has been present in the past. She was limited exercise activity due to her underlying COPD in his prior heavy smoker. She has never had any diagnose of coronary artery disease as per her. She does have history of white coat hypertension as well as hyperlipidemia. She denies any exertional chest pain. There are no recent heart failure symptoms. Review of Systems 2 Constitutional: Constitutional: Reports fatigue Eyes: Eyes: Reports no additional eye complaints Cardiovascular: Cardiovascular: Denies chest pain with activity, Denies syncope, Denies rapid heart rate, Denies lightheadedness, Denies Loss of Consciousness, Denies palpitations and Reports dyspnea on exertion Respiratory: Respiratory: Reports dyspnea on exertion and Reports wheezing Gastrointestinal: Gastrointestinal: Reports no additional gastrointestinal complaints Integumentary/Breasts: Skin/Breast: Reports system reviewed and no additional complaints, except as docu Neurologic: Reports system reviewed and no additional complaints, except as documented and Denies syncope Endocrine: Endocrine: Reports fatigue and Denies palpitations Allergic/Immunologic: Allergic/Immunologic: Reports wheezing PMFSH Past Medical History Medical History Pneumothorax of right lung after biopsy Former heavy cigarette smoker (20-39 per day) Hoarseness or changing voice Shortness of breath on exertion White coat syndrome with hypertension Dyslipidemia Impaired fasting glucose Osteoporosis Family History Family History Father No problems noted. Mother Diabetes mellitus Sister No problems noted. Son No problems noted. Surgical History Surgical History H/O colonoscopy No pertinent past surgical history Social History Social History Household Members: Spouse Household Members Other:: Housing: House Are you a primary manager critical care unit to a significant other at home: No Do you presently have visiting nurse or other home services: No Alcohol intake: current Alcohol intake frequency: holidays/special occasions only Alcohol type: beer Patient Tobacco Use Status: Former Tobacco user e-Cigarette/Vaping Use: Never Used Second Hand Smoke Exposure: Yes Use of substances other than those prescribed or required for medical reasons: No Currently Displaying Signs/Symptoms of Drug Intoxication Withdrawal: No Have you been hit, kicked, punched, or otherwise hurt by someone within the past year? If so, by whom?: No Do you feel safe in your current relationship?: Yes Is there a partner from a previous relationship who is making you feel unsafe now?: No Are you made to feel afraid or neglected: No Are you DNR?: No Advance Directives: No Advance Directives Information Provided: Yes Advance Directives Date on File: 07/30/20 Do you have a plan to hurt others: No Plan Recently lost weight without trying: No How much weight loss: Not applicable Eating poorly because of decreased appetite: No Nutrition screen score: 0 Nutrition Risks: No Nutritional Risk Patient : No : No Poor oral hygiene: No service: No Current occupational status: disabled Cognitive needs: No Hearing needs: No Vision needs: Yes Meds Allergies Allergy/AdvReac Type Severity Reaction Status Date / Time prednisone AdvReac Back Pain Verified 11/21/24 08:39 Active Medications: Current Medications Acetaminophen (Acetaminophen 325 Mg Tablet) 650 mg PO Q6H PRN PRN Reason: Pain, Moderate(Pain Scale 4-6) Last Admin: 11/22/24 14:49 Dose: 650 mg Albuterol/Ipratropium (Albuterol/Iprat 2.5/0.5mg 3 Ml Ampul.Neb) 3 ml INHALE BID PRN PRN Reason: wheezing Atorvastatin Calcium (Atorvastatin Calcium 10 Mg Tablet) 10 mg PO DAILY [facility] Last Admin: 11/28/24 08:29 Dose: 10 mg Calcium Carbonate (Calcium Carbonate 750 Mg Tab.Chew) 750 mg PO Q4H PRN PRN Reason: Heartburn Last Admin: 11/24/24 10:26 Dose: 750 mg Fluticasone/Vilanterol (Fluticasone/Vilanterol 200/25 Blst.W.Dev) 1 puff INHALE RDAILY [facility] Last Admin: 11/28/24 07:47 Dose: 1 puff Heparin Sodium (Porcine) (Heparin Sodium,Porcine 5,000 Unit/Ml Vial) 5,000 unit SUBCUT Q8H [facility] Last Admin: 11/28/24 11:20 Dose: 5,000 unit Magnesium Hydroxide (Milk Of Magnesia 30 Ml Oral.Susp) 30 ml PO DAILY PRN PRN Reason: Constipation Melatonin (Melatonin 3 Mg Tablet) 6 mg PO BEDTIME PRN PRN Reason: Insomnia Morphine Sulfate (Morphine Sulfate 4 Mg/Ml Cartridge) 2 mg IVPUSH Q4H PRN; Protocol PRN Reason: Pain, Severe (Pain Scale 7-10) Last Admin: 11/23/24 11:04 Dose: 2 mg Ondansetron HCl (Ondansetron Hcl 4 Mg/2 Ml Vial) 4 mg IVPUSH Q8H PRN PRN Reason: Nausea and Vomiting Last Admin: 11/23/24 12:40 Dose: 4 mg Oxycodone HCl (Oxycodone Hcl Immed Release 5 Mg Tablet) 5 mg PO Q4H PRN PRN Reason: Pain, Severe (Pain Scale 7-10) Last Admin: 11/24/24 22:06 Dose: 5 mg Oxycodone HCl (Oxycodone Hcl Immed Release 5 Mg Tablet) 5 mg PO Q6H PRN PRN Reason: Pain, Moderate(Pain Scale 4-6) Last Admin: 11/26/24 10:55 Dose: 5 mg Polyethylene Glycol (Polyethylene Glycol 3350 17 Gm Powd.Pack) 17 gm PO DAILY [facility] Last Admin: 11/28/24 08:29 Dose: 17 gm Simethicone (Simethicone 80 Mg Tab.Chew) 80 mg PO QIDWMHS PRN PRN Reason: Gas Sodium Chloride (0.9 % Sodium Chloride Flush 3 Ml Syringe) 3 ml IVFLUSH QSHIFT [facility] Last Admin: 11/28/24 08:29 Dose: 3 ml Vitamin D (Cholecalciferol (Vitamin D3) 25 Mcg Tablet) 25 mcg PO DAILY [facility] Last Admin: 11/28/24 08:29 Dose: 25 mcg Home Medications ?Medication ?Instructions ?Recorded ?Confirmed ?Last Taken ?Type calcium carbonate 1,000 mg PO DAILY 03/24/23 11/21/24 11/20/24 History Physical Exam 2 Vital Signs: Vital Signs: Last Vital Signs Temp 97.4 F 11/28/24 07:18 Pulse 64 11/28/24 07:48 Resp 18 11/28/24 07:48 BP 135/76 11/28/24 07:18 Pulse Ox 96 11/28/24 07:18 O2 Del Method Room Air 11/28/24 07:18 O2 Flow Rate 1 11/27/24 08:30 BMI result Body Mass Index 19.2 Const: General: cooperative, comfortable, no acute distress, alert and awake Nutritional Appearance: thin Orientation/consciousness: patient oriented x3 Limitations: no limitations HEENT: Head: Yes normocephalic and Yes atraumatic Neck: Neck: Yes trachea midline, Yes supple and Yes no JVD Resp: Effort & Inspection: normal respiratory effort Auscultation: d iminished lung sounds Cardio: Jugular venous distension: no JVD Palpation: normal PMI Rate: r egular rate Rhythm: regular rhythm Heart sounds: S1 normal heart sound present, S2 normal heart sound present, no click, no gallops, no murmurs and no rubs GI: Auscultation: normal bowel sounds Skin: General skin exam: no rashes or lesions noted Neuro: General: patient oriented x3 Extrem: General: Yes no clubbing, cyanosis or edema Objective Labs and Meds 11/27/24 06:12 11/27/24 06:12 Lab results: EKG shows normal sinus rhythm with incomplete right bundle-branch block otherwise normal EKG with no Q-waves Assessment and Plan (1) Preoperative cardiovascular examination: Status: Acute Preoperative cardiovascular risk stratification this elderly woman with limited exercise capacity to undergo a major lung surgery under general anesthesia which is considered intermediate to high risk surgery. Patient was limited exercise capacity given her underlying COPD. Echocardiogram shows regional wall motion abnormality which may suggestive of underlying coronary artery disease. She certainly has significant risk factors for coronary artery disease given her age, prior smoking and hyperlipidemia. I think she requires further evaluation for risk stratification from cardiac perspective with a vasodilating myocardial perfusion imaging to assess for significant myocardial ischemia. If she does have significant myocardial ischemia this will alter risk and may require surgery at a tertiary care center. This was discussed with her. If her myocardial perfusion imaging shows no significant ischemia, she would be reasonable risk to pursue surgery here. Continue her current medical therapy. Further treatment based on the findings of stress test results which will be scheduled as inpatient, with 1 part of the test is performed today and 2nd tomorrow. Procedures Date of Service Date of Service: 11/28/24
[2024-11-28] MEDS: oxyCODONE HCl Immed Release 5 MG TABLET PO (19:13)
[2024-11-29] VITALS (7 sets, daily range): BP systolic 129–148; BP diastolic 64–85; PULSE 78–93; RESP 16–20; TEMP 36.3–37.4; O2SAT 93–97
[2024-11-29] MEDS: 0.9 % Sodium Chloride Flush 3 ML SYRINGE IVFLUSH ×4 (00:40→20:36)
[2024-11-29] MEDS: Heparin Sodium,Porcine 5,000 UNIT/ML VIAL 5000 UNIT SUBCUT ×3 (03:52→17:19)
[2024-11-29] MEDS: Fluticasone/Vilanterol 200/25 BLST.W.DEV 1 PUFF INHALE (07:57)
--- NOTE | 2024-11-29 09:38 | HO.PM.IMPN ---
Subjective Subjective Date of Service: 11/29/24 Interval History: no complaints Physical Exam Vital Signs: Vital Signs: Last Vital Signs Temp 97.7 F 11/29/24 07:42 Pulse 93 11/29/24 08:01 Resp 18 11/29/24 08:01 BP 148/71 H 11/29/24 07:42 Pulse Ox 96 11/29/24 07:42 O2 Del Method Room Air 11/29/24 07:42 O2 Flow Rate 1 11/27/24 08:30 BMI result Body Mass Index 19.2 Const: General: cooperative, comfortable, no acute distress, alert and awake Nutritional Appearance: thin Orientation/consciousness: patient oriented x3 Limitations: no limitations HEENT: Head: Yes normocephalic and Yes atraumatic Neck: Neck: Yes trachea midline, Yes supple and Yes no JVD Resp: Effort & Inspection: normal respiratory effort Auscultation: diminished lung sounds Cardio: Jugular venous distension: no JVD Palpation: normal PMI Rate: regular rate Rhythm: regular rhythm Heart sounds: S1 normal heart sound present, S2 normal heart sound present, no click, no gallops, no murmurs and no rubs GI: Auscultation: normal bowel sounds Skin: General skin exam: no rashes or lesions noted Neuro: General: patient oriented x3 Extrem: General: Yes no clubbing, cyanosis or edema Objective Data Active Medications Acetaminophen (Acetaminophen 325 Mg Tablet) 650 mg PO Q6H PRN PRN Reason: Pain, Moderate(Pain Scale 4-6) Last Admin: 11/22/24 14:49 Dose: 650 mg Documented By: JUAN A Albuterol/Ipratropium (Albuterol/Iprat 2.5/0.5mg 3 Ml Ampul.Neb) 3 ml INHALE BID PRN PRN Reason: wheezing Atorvastatin Calcium (Atorvastatin Calcium 10 Mg Tablet) 10 mg PO DAILY [facility] Last Admin: 11/28/24 08:29 Dose: 10 mg Documented By: JACQUELINE Calcium Carbonate (Calcium Carbonate 750 Mg Tab.Chew) 750 mg PO Q4H PRN PRN Reason: Heartburn Last Admin: 11/24/24 10:26 Dose: 750 mg Documented By: ARSLAN Fluticasone/Vilanterol (Fluticasone/Vilanterol 200/25 Blst.W.Dev) 1 puff INHALE RDAILY [facility] Last Admin: 11/29/24 07:57 Dose: 1 puff Documented By: DOUG Heparin Sodium (Porcine) (Heparin Sodium,Porcine 5,000 Unit/Ml Vial) 5,000 unit SUBCUT Q8H [facility] Last Admin: 11/29/24 03:52 Dose: 5,000 unit Documented By: NERI Magnesium Hydroxide (Milk Of Magnesia 30 Ml Oral.Susp) 30 ml PO DAILY PRN PRN Reason: Constipation Melatonin (Melatonin 3 Mg Tablet) 6 mg PO BEDTIME PRN PRN Reason: Insomnia Morphine Sulfate (Morphine Sulfate 4 Mg/Ml Cartridge) 2 mg IVPUSH Q4H PRN; Protocol PRN Reason: Pain, Severe (Pain Scale 7-10) Last Admin: 11/23/24 11:04 Dose: 2 mg Documented By: CELIAN Ondansetron HCl (Ondansetron Hcl 4 Mg/2 Ml Vial) 4 mg IVPUSH Q8H PRN PRN Reason: Nausea and Vomiting Last Admin: 11/23/24 12:40 Dose: 4 mg Documented By: CELINA Oxycodone HCl (Oxycodone Hcl Immed Release 5 Mg Tablet) 5 mg PO Q4H PRN PRN Reason: Pain, Severe (Pain Scale 7-10) Last Admin: 11/28/24 19:13 Dose: 5 mg Documented By: AMISH Oxycodone HCl (Oxycodone Hcl Immed Release 5 Mg Tablet) 5 mg PO Q6H PRN PRN Reason: Pain, Moderate(Pain Scale 4-6) Last Admin: 11/26/24 10:55 Dose: 5 mg Documented By: RANDOLPH Polyethylene Glycol (Polyethylene Glycol 3350 17 Gm Powd.Pack) 17 gm PO DAILY [facility] Last Admin: 11/28/24 08:29 Dose: 17 gm Documented By: JACQUELINE Simethicone (Simethicone 80 Mg Tab.Chew) 80 mg PO QIDWMHS PRN PRN Reason: Gas Sodium Chloride (0.9 % Sodium Chloride Flush 3 Ml Syringe) 3 ml IVFLUSH QSHIFT [facility] Last Admin: 11/29/24 00:40 Dose: 3 ml Documented By: NERI Vitamin D (Cholecalciferol (Vitamin D3) 25 Mcg Tablet) 25 mcg PO DAILY [facility] Last Admin: 11/28/24 08:29 Dose: 25 mcg Documented By: WILLIAC Labs 11/27/24 06:12 11/27/24 06:12 Assessment and Plan (1) Pneumothorax of right lung after biopsy: Status: Acute (2) Squamous cell lung cancer: Status: Acute Plan 79F PMH significant for COPD, HLD,?and osteoporosis who initially presented to short-stay surgery for elective outpatient lung nodule biopsy. Procedure was complicated by pneumothorax Right lung pneumothorax post lung biopsy positive for Squamous cell cancer failed trial of Waterseal pplan for RUL lobectomy inpatient echo with normal EF, basilar hypokinesis, cardio eval for preop risk assessment/optimization - stress test LLQ pain, resolved constipation or gas Simethicone PRN, Laxatives monitor COPD Not in acute exacerbation Continue home inhalers Hyperlipidemia Continue statin Full Code DVT Prophylaxis: Pneumatic compression + Heparin SC given high risk of DVT pending any possible surgical intervention reason for continued hospitalization:chest tube, possible lobectomy Quality Stroke Does the patient have a stroke diagnosis?: No VTE Prior VTE?: No VTE Risk Level:: Medical - moderate - high VTE Device Contraindication: N/A - Device Ordered VTE Drug Contraindication: Treatment Not Indicated
[2024-11-29] MEDS: Atorvastatin Calcium 10 MG TABLET PO (09:44)
[2024-11-29] MEDS: Cholecalciferol (Vitamin D3) 25 MCG TABLET PO (09:44)
--- NOTE | 2024-11-29 14:16 | PM.PNCARD ---
Subjective Subjective Date of Service: 11/29/24 Principal diagnosis: Preoperative cardiovascular risk stratification Interval history: Patient underwent myocardial perfusion imaging which showed normal myocardial perfusion. Patient was no cardiovascular symptoms at current point in time Review of Systems Constitutional: Reports no additional constitutional complaints Cardiovascular: Reports no additional cardiovascular complaints and Reports dyspnea on exertion Respiratory: Reports dyspnea on exertion Reports system reviewed and no additional complaints, except as documented Physical Exam Vital Signs: Last Vital Signs Temp 99.4 F 11/29/24 12:00 Pulse 87 11/29/24 12:00 Resp 18 11/29/24 12:00 BP 130/65 11/29/24 12:00 Pulse Ox 96 11/29/24 12:00 O2 Del Method Room Air 11/29/24 12:00 O2 Flow Rate 1 11/27/24 08:30 BMI result Body Mass Index 19.2 Const General: cooperative, comfortable, no acute distress, alert and awake Nutritional Appearance: thin Orientation/consciousness: patient oriented x3 Limitations: no limitations HEENT Head: Yes normocephalic and Yes atraumatic Neck Neck: Yes trachea midline, Yes supple and Yes no JVD Resp Effort & Inspection: normal respiratory effort Auscultation: diminished lung sounds Cardio Jugular venous distension: no JVD Palpation: normal PMI Rate: regular rate Rhythm: regular rhythm Heart sounds: S1 normal heart sound present, S2 normal heart sound present, no click, no gallops, no murmurs and no rubs GI Auscultation: normal bowel sounds Skin General skin exam: no rashes or lesions noted Neuro General: patient oriented x3 Extrem General: Yes no clubbing, cyanosis or edema Objective Labs and Meds 11/27/24 06:12 11/27/24 06:12 Progress Note: A&P Assessment and plan (1) Preoperative cardiovascular examination: Status: Acute Assessment and Plan: Preoperative cardiovascular risk stratification this elderly woman with multiple risk factors with a normal myocardial perfusion to undergo major thoracic surgery under general anesthesia. Given her significant issue she still remains low to intermediate risk for perioperative cardiovascular morbidity mortality with currently optimized for surgery on current medical therapy. Findings discussed with the hospitalist team. Will sign of the case. Please consult us if need be. Time Spent With Patient Time: Total time managing care of this patient today ____ minutes. Progress Note: Quality Stroke Does the patient have a stroke diagnosis?: No Procedures Date of Service Date of Service: 11/29/24
--- NOTE | 2024-11-29 14:49 | MHC.CM.PN ---
PT W/RIGHT LUNG PNEUMOTHORAX POST BIOPSY/CA, PER HOSPITALIST PLAN FOR R LOBECTOMY NEXT WEEK, NO PLANS FOR DC AT THIS TIME, CM WILL CONT TO FOLLOW DC NEEDS.
[2024-11-30] MEDS: 0.9 % Sodium Chloride Flush 3 ML SYRINGE IVFLUSH ×3 (00:24→17:08)
[2024-11-30] MEDS: oxyCODONE HCl Immed Release 5 MG TABLET PO ×2 (01:12→06:33)
[2024-11-30] MEDS: Heparin Sodium,Porcine 5,000 UNIT/ML VIAL 5000 UNIT SUBCUT ×3 (01:19→18:08)
[2024-11-30 03:39] VITALS: BP 127/78; PULSE 80; RESP 18; TEMP 36.2; O2SAT 95
[2024-11-30 07:06] VITALS: BP 122/65; PULSE 75; RESP 16; TEMP 36.2; O2SAT 95
[2024-11-30 07:45] VITALS: PULSE 75; RESP 16; O2SAT 96
[2024-11-30] MEDS: Fluticasone/Vilanterol 200/25 BLST.W.DEV 1 PUFF INHALE (07:45)
[2024-11-30] MEDS: polyethylene glycoL 3350 17 GM POWD.PACK PO (08:02)
[2024-11-30] MEDS: Cholecalciferol (Vitamin D3) 25 MCG TABLET PO (08:02)
[2024-11-30] MEDS: Atorvastatin Calcium 10 MG TABLET PO (08:02)
--- NOTE | 2024-11-30 09:23 | HO.PM.IMPN ---
Subjective Subjective Date of Service: 11/30/24 Interval History: no complaints Physical Exam Vital Signs: Vital Signs: Last Vital Signs Temp 97.1 F 11/30/24 07:06 Pulse 75 11/30/24 07:45 Resp 16 11/30/24 07:45 BP 122/65 11/30/24 07:06 Pulse Ox 95 11/30/24 07:06 O2 Del Method Room Air 11/30/24 07:06 O2 Flow Rate 1 11/27/24 08:30 BMI result Body Mass Index 19.2 Const: General: cooperative, comfortable, no acute distress, alert and awake Nutritional Appearance: thin Orientation/consciousness: patient oriented x3 Limitations: no limitations HEENT: Head: Yes normocephalic and Yes atraumatic Neck: Neck: Yes trachea midline, Yes supple and Yes no JVD Resp: Effort & Inspection: normal respiratory effort Auscultation: diminished lung sounds Cardio: Jugular venous distension: no JVD Palpation: normal PMI Rate: regular rate Rhythm: regular rhythm Heart sounds: S1 normal heart sound present, S2 normal heart sound present, no click, no gallops, no murmurs and no rubs GI: Auscultation: normal bowel sounds Skin: General skin exam: no rashes or lesions noted Neuro: General: patient oriented x3 Extrem: General: Yes no clubbing, cyanosis or edema Objective Data Active Medications Acetaminophen (Acetaminophen 325 Mg Tablet) 650 mg PO Q6H PRN PRN Reason: Pain, Moderate(Pain Scale 4-6) Last Admin: 11/22/24 14:49 Dose: 650 mg Documented By: JUAN A Albuterol/Ipratropium (Albuterol/Iprat 2.5/0.5mg 3 Ml Ampul.Neb) 3 ml INHALE BID PRN PRN Reason: wheezing Atorvastatin Calcium (Atorvastatin Calcium 10 Mg Tablet) 10 mg PO DAILY [facility] Last Admin: 11/30/24 08:02 Dose: 10 mg Documented By: JUAN Calcium Carbonate (Calcium Carbonate 750 Mg Tab.Chew) 750 mg PO Q4H PRN PRN Reason: Heartburn Last Admin: 11/24/24 10:26 Dose: 750 mg Documented By: ARSLAN Fluticasone/Vilanterol (Fluticasone/Vilanterol 200/25 Blst.W.Dev) 1 puff INHALE RDAILY [facility] Last Admin: 11/30/24 07:45 Dose: 1 puff Documented By: KATHYA Heparin Sodium (Porcine) (Heparin Sodium,Porcine 5,000 Unit/Ml Vial) 5,000 unit SUBCUT Q8H [facility] Last Admin: 11/30/24 01:19 Dose: 5,000 unit Documented By: ANTHONY Magnesium Hydroxide (Milk Of Magnesia 30 Ml Oral.Susp) 30 ml PO DAILY PRN PRN Reason: Constipation Melatonin (Melatonin 3 Mg Tablet) 6 mg PO BEDTIME PRN PRN Reason: Insomnia Morphine Sulfate (Morphine Sulfate 4 Mg/Ml Cartridge) 2 mg IVPUSH Q4H PRN; Protocol PRN Reason: Pain, Severe (Pain Scale 7-10) Last Admin: 11/23/24 11:04 Dose: 2 mg Documented By: CELINA Ondansetron HCl (Ondansetron Hcl 4 Mg/2 Ml Vial) 4 mg IVPUSH Q8H PRN PRN Reason: Nausea and Vomiting Last Admin: 11/23/24 12:40 Dose: 4 mg Documented By: CELINA Oxycodone HCl (Oxycodone Hcl Immed Release 5 Mg Tablet) 5 mg PO Q4H PRN PRN Reason: Pain, Severe (Pain Scale 7-10) Last Admin: 11/30/24 06:33 Dose: 5 mg Documented By: ANTHONY Oxycodone HCl (Oxycodone Hcl Immed Release 5 Mg Tablet) 5 mg PO Q6H PRN PRN Reason: Pain, Moderate(Pain Scale 4-6) Last Admin: 11/30/24 01:12 Dose: 5 mg Documented By: ANTHONY Polyethylene Glycol (Polyethylene Glycol 3350 17 Gm Powd.Pack) 17 gm PO DAILY [facility] Last Admin: 11/30/24 08:02 Dose: 17 gm Documented By: JUAN Simethicone (Simethicone 80 Mg Tab.Chew) 80 mg PO QIDWMHS PRN PRN Reason: Gas Sodium Chloride (0.9 % Sodium Chloride Flush 3 Ml Syringe) 3 ml IVFLUSH QSHIFT [facility] Last Admin: 11/30/24 08:07 Dose: 3 ml Documented By: JUAN Vitamin D (Cholecalciferol (Vitamin D3) 25 Mcg Tablet) 25 mcg PO DAILY [facility] Last Admin: 11/30/24 08:02 Dose: 25 mcg Documented By: JUAN Labs 11/27/24 06:12 11/27/24 06:12 Assessment and Plan (1) Pneumothorax of right lung after biopsy: Status: Acute (2) Squamous cell lung cancer: Status: Acute Plan 79F PMH significant for COPD, HLD,?and osteoporosis who initially presented to short-stay surgery for elective outpatient lung nodule biopsy. Procedure was complicated by pneumothorax Right lung pneumothorax post lung biopsy positive for Squamous cell cancer failed trial of Waterseal pplan for RUL lobectomy inpatient echo with normal EF, basilar hypokinesis, stress test unremarkable. Would proceed with lobectomy as planned LLQ pain, resolved constipation or gas Simethicone PRN, Laxatives monitor COPD Not in acute exacerbation Continue home inhalers Hyperlipidemia Continue statin Full Code DVT Prophylaxis: Pneumatic compression + Heparin SC given high risk of DVT pending any possible surgical intervention reason for continued hospitalization:chest tube, possible lobectomy Quality Stroke Does the patient have a stroke diagnosis?: No VTE Prior VTE?: No VTE Risk Level:: Medical - moderate - high VTE Device Contraindication: N/A - Device Ordered VTE Drug Contraindication: Treatment Not Indicated
[2024-11-30 11:52] VITALS: BP 136/75; PULSE 85; RESP 12; TEMP 36.5; O2SAT 97
--- NOTE | 2024-11-30 15:11 | PM.PNTS ---
Subjective Subjective Date of Service: 11/30/24 Interval history: Uneventful evening. No respiratory issues. Chest tube minimal output with no obvious air leak. Patient received good news from Cardiology and that her cardiac workup stress test was within normal limits. Physical Exam Vital Signs: Vital Signs: Last Vital Signs Temp 97.7 F 11/30/24 11:52 Pulse 85 11/30/24 11:52 Resp 12 11/30/24 11:52 BP 136/75 11/30/24 11:52 Pulse Ox 97 11/30/24 11:52 O2 Del Method Room Air 11/30/24 11:52 O2 Flow Rate 1 11/27/24 08:30 BMI result Body Mass Index 19.2 Chest: Other: Chest tube dressing clean dry and intact. Procedures Date of Service Date of Service: 11/30/24 Progress Note: A&P Assessment and plan (1) Primary cancer of right upper lobe of lung: Status: Acute (2) Squamous cell lung cancer: Status: Acute (3) Pneumothorax of right lung after biopsy: Status: Acute (4) Chest tube in place: Status: Acute Plan Continue current plan. We will attempt to schedule for definitive procedure for next week. Time Spent With Patient Time: Total time managing care of this patient today ____ minutes. Quality Stroke Does the patient have a stroke diagnosis?: No VTE Prior VTE?: No VTE Risk Level:: Medical - moderate - high VTE Device Contraindication: N/A - Device Ordered VTE Drug Contraindication: Treatment Not Indicated
[2024-11-30 15:41] VITALS: BP 129/79; PULSE 100; RESP 16; TEMP 36.7; O2SAT 98
[2024-11-30] MEDS: Lidocaine 4 % Patch ADH..PATCH 1 PATCH TRANSDERMA (17:06)
[2024-11-30 20:00] VITALS: BP 110/54; PULSE 83; RESP 16; TEMP 36.1; O2SAT 95
[2024-12-01] VITALS (7 sets, daily range): BP systolic 106–130; BP diastolic 59–95; PULSE 70–83; RESP 14–20; TEMP 36–37.5; O2SAT 91–97
[2024-12-01] MEDS: Heparin Sodium,Porcine 5,000 UNIT/ML VIAL 5000 UNIT SUBCUT ×3 (01:32→18:39)
[2024-12-01] MEDS: Lidocaine 4 % Patch ADH..PATCH 1 PATCH TRANSDERMA (08:03)
[2024-12-01] MEDS: polyethylene glycoL 3350 17 GM POWD.PACK PO (08:03)
[2024-12-01] MEDS: Cholecalciferol (Vitamin D3) 25 MCG TABLET PO (08:04)
[2024-12-01] MEDS: 0.9 % Sodium Chloride Flush 3 ML SYRINGE IVFLUSH (08:04)
[2024-12-01] MEDS: Atorvastatin Calcium 10 MG TABLET PO (08:04)
--- NOTE | 2024-12-01 10:31 | HO.PM.IMPN ---
Subjective Subjective Date of Service: 12/01/24 Interval History: no complaints Physical Exam Vital Signs: Vital Signs: Last Vital Signs Temp 97.7 F 12/01/24 07:21 Pulse 74 12/01/24 07:21 Resp 14 12/01/24 07:21 BP 129/68 12/01/24 07:21 Pulse Ox 97 12/01/24 09:45 O2 Del Method Room Air 12/01/24 09:45 O2 Flow Rate 1 11/27/24 08:30 BMI result Body Mass Index 19.2 Chest: Other: Chest tube dressing clean dry and intact. Objective Data Active Medications Acetaminophen (Acetaminophen 325 Mg Tablet) 650 mg PO Q6H PRN PRN Reason: Pain, Moderate(Pain Scale 4-6) Last Admin: 11/22/24 14:49 Dose: 650 mg Documented By: JUAN A Albuterol/Ipratropium (Albuterol/Iprat 2.5/0.5mg 3 Ml Ampul.Neb) 3 ml INHALE BID PRN PRN Reason: wheezing Atorvastatin Calcium (Atorvastatin Calcium 10 Mg Tablet) 10 mg PO DAILY [facility] Last Admin: 12/01/24 08:04 Dose: 10 mg Documented By: JUAN Calcium Carbonate (Calcium Carbonate 750 Mg Tab.Chew) 750 mg PO Q4H PRN PRN Reason: Heartburn Last Admin: 11/24/24 10:26 Dose: 750 mg Documented By: ARSLAN Fluticasone/Vilanterol (Fluticasone/Vilanterol 200/25 Blst.W.Dev) 1 puff INHALE RDAILY [facility] Last Admin: 12/01/24 07:53 Dose: Not Given Documented By: KATHYA Non-Admin Reason: Patient Asleep Heparin Sodium (Porcine) (Heparin Sodium,Porcine 5,000 Unit/Ml Vial) 5,000 unit SUBCUT Q8H [facility] Last Admin: 12/01/24 10:04 Dose: 5,000 unit Documented By: JUAN Lidocaine (Lidocaine 4 % Patch Adh..Patch) 1 patch TRANSDERMA DAILY [facility]; Protocol Last Admin: 12/01/24 08:03 Dose: 1 patch Documented By: JUAN Magnesium Hydroxide (Milk Of Magnesia 30 Ml Oral.Susp) 30 ml PO DAILY PRN PRN Reason: Constipation Melatonin (Melatonin 3 Mg Tablet) 6 mg PO BEDTIME PRN PRN Reason: Insomnia Morphine Sulfate (Morphine Sulfate 4 Mg/Ml Cartridge) 2 mg IVPUSH Q4H PRN; Protocol PRN Reason: Pain, Severe (Pain Scale 7-10) Last Admin: 11/23/24 11:04 Dose: 2 mg Documented By: CELINA Ondansetron HCl (Ondansetron Hcl 4 Mg/2 Ml Vial) 4 mg IVPUSH Q8H PRN PRN Reason: Nausea and Vomiting Last Admin: 11/23/24 12:40 Dose: 4 mg Documented By: CELINA Oxycodone HCl (Oxycodone Hcl Immed Release 5 Mg Tablet) 5 mg PO Q6H PRN PRN Reason: Pain, Moderate(Pain Scale 4-6) Last Admin: 11/30/24 01:12 Dose: 5 mg Documented By: ANTHONY Polyethylene Glycol (Polyethylene Glycol 3350 17 Gm Powd.Pack) 17 gm PO DAILY [facility] Last Admin: 12/01/24 08:03 Dose: 17 gm Documented By: JUAN Simethicone (Simethicone 80 Mg Tab.Chew) 80 mg PO QIDWMHS PRN PRN Reason: Gas Sodium Chloride (0.9 % Sodium Chloride Flush 3 Ml Syringe) 3 ml IVFLUSH QSHIFT [facility] Last Admin: 12/01/24 08:04 Dose: 3 ml Documented By: JUAN Vitamin D (Cholecalciferol (Vitamin D3) 25 Mcg Tablet) 25 mcg PO DAILY [facility] Last Admin: 12/01/24 08:04 Dose: 25 mcg Documented By: JUAN Labs 11/27/24 06:12 11/27/24 06:12 Assessment and Plan (1) Pneumothorax of right lung after biopsy: Status: Acute (2) Squamous cell lung cancer: Status: Acute Plan 79F PMH significant for COPD, HLD,?and osteoporosis who initially presented to short-stay surgery for elective outpatient lung nodule biopsy. Procedure was complicated by pneumothorax Right lung pneumothorax post lung biopsy positive for Squamous cell cancer failed trial of Waterseal pplan for RUL lobectomy inpatient echo with normal EF, basilar hypokinesis, stress test unremarkable. Would proceed with lobectomy as planned LLQ pain, resolved constipation or gas Simethicone PRN, Laxatives monitor COPD Not in acute exacerbation Continue home inhalers Hyperlipidemia Continue statin Full Code DVT Prophylaxis: Pneumatic compression + Heparin SC given high risk of DVT pending any possible surgical intervention reason for continued hospitalization:chest tube, possible lobectomy Quality Stroke Does the patient have a stroke diagnosis?: No VTE Prior VTE?: No VTE Risk Level:: Medical - moderate - high VTE Device Contraindication: N/A - Device Ordered VTE Drug Contraindication: Treatment Not Indicated
--- NOTE | 2024-12-01 13:59 | PM.PNTS ---
Subjective Subjective Date of Service: 12/01/24 Interval history: Uneventful evening. No acute respiratory issues. Physical Exam Vital Signs: Vital Signs: Last Vital Signs Temp 97.0 F 12/01/24 11:50 Pulse 82 12/01/24 11:50 Resp 14 12/01/24 11:50 BP 123/95 H 12/01/24 11:50 Pulse Ox 96 12/01/24 11:50 O2 Del Method Room Air 12/01/24 11:50 O2 Flow Rate 1 11/27/24 08:30 BMI result Body Mass Index 19.2 Chest: Other: Chest tube dressing clean dry and intact. Patient has minimal crepitus in the upper chest but otherwise within normal limits. Pleur-evac has no output and no obvious air leak. Procedures Date of Service Date of Service: 12/01/24 Progress Note: A&P Assessment and plan (1) Pneumothorax of right lung after biopsy: Status: Acute (2) Chest tube in place: Status: Acute (3) Squamous cell lung cancer: Status: Acute Plan Current plan is to once again attempt placing the chest tube on water seal and seeing how the patient does with this. Patient agrees. All questions answered. We will order chest x-ray for tomorrow morning. Time Spent With Patient Time: Total time managing care of this patient today ____ minutes. Quality Stroke Does the patient have a stroke diagnosis?: No VTE Prior VTE?: No VTE Risk Level:: Medical - moderate - high VTE Device Contraindication: N/A - Device Ordered VTE Drug Contraindication: Treatment Not Indicated
[2024-12-02] VITALS: BP 115/61; PULSE 77; RESP 16; TEMP 36.2; O2SAT 95
[2024-12-02] MEDS: Heparin Sodium,Porcine 5,000 UNIT/ML VIAL 5000 UNIT SUBCUT ×2 (01:41→09:34)
[2024-12-02] MEDS: 0.9 % Sodium Chloride Flush 3 ML SYRINGE IVFLUSH ×2 (01:41→09:39)
[2024-12-02 04:00] VITALS: BP 118/72; PULSE 67; RESP 16; TEMP 36.2; O2SAT 95
[2024-12-02 07:58] VITALS: BP 120/66; PULSE 77; RESP 16; TEMP 36.3; O2SAT 94
[2024-12-02] MEDS: Fluticasone/Vilanterol 200/25 BLST.W.DEV 1 PUFF INHALE (08:03)
[2024-12-02 08:04] VITALS: PULSE 77; RESP 16; O2SAT 94
[2024-12-02] MEDS: Lidocaine 4 % Patch ADH..PATCH 1 PATCH TRANSDERMA (09:35)
[2024-12-02] MEDS: Atorvastatin Calcium 10 MG TABLET PO (09:35)
[2024-12-02] MEDS: Cholecalciferol (Vitamin D3) 25 MCG TABLET PO (09:35)
--- NOTE | 2024-12-02 09:35 | PM.PNGS ---
Subjective Subjective Date of Service: 12/02/24 Interval history: feels well denies SOB no airleak fro chest tube Physical Exam Vital Signs: Vital Signs: Last Vital Signs Temp 97.4 F 12/02/24 07:58 Pulse 77 12/02/24 08:04 Resp 16 12/02/24 08:04 BP 120/66 12/02/24 07:58 Pulse Ox 94 12/02/24 07:58 O2 Del Method Room Air 12/02/24 07:58 O2 Flow Rate 1 11/27/24 08:30 BMI result Body Mass Index 19.2 Const: General: comfortable and no acute distress Chest: Other: chest tube in place - pigtail, on right. no airleak Resp: Effort & Inspection: normal respiratory effort Cardio: Rate: regular rate GI: Palpation (GI): Soft to palpation, not firm and nontender Objective Data Active Medications Acetaminophen (Acetaminophen 325 Mg Tablet) 650 mg PO Q6H PRN PRN Reason: Pain, Moderate(Pain Scale 4-6) Last Admin: 11/22/24 14:49 Dose: 650 mg Documented By: JUAN A Albuterol/Ipratropium (Albuterol/Iprat 2.5/0.5mg 3 Ml Ampul.Neb) 3 ml INHALE BID PRN PRN Reason: wheezing Atorvastatin Calcium (Atorvastatin Calcium 10 Mg Tablet) 10 mg PO DAILY [facility] Last Admin: 12/01/24 08:04 Dose: 10 mg Documented By: JUAN Calcium Carbonate (Calcium Carbonate 750 Mg Tab.Chew) 750 mg PO Q4H PRN PRN Reason: Heartburn Last Admin: 11/24/24 10:26 Dose: 750 mg Documented By: ARSLAN Fluticasone/Vilanterol (Fluticasone/Vilanterol 200/25 Blst.W.Dev) 1 puff INHALE RDAILY [facility] Last Admin: 12/02/24 08:03 Dose: 1 puff Documented By: KATHYA Heparin Sodium (Porcine) (Heparin Sodium,Porcine 5,000 Unit/Ml Vial) 5,000 unit SUBCUT Q8H [facility] Last Admin: 12/02/24 01:41 Dose: 5,000 unit Documented By: ANTOIC Lidocaine (Lidocaine 4 % Patch Adh..Patch) 1 patch TRANSDERMA DAILY [facility]; Protocol Last Admin: 12/01/24 08:03 Dose: 1 patch Documented By: JUAN Magnesium Hydroxide (Milk Of Magnesia 30 Ml Oral.Susp) 30 ml PO DAILY PRN PRN Reason: Constipation Melatonin (Melatonin 3 Mg Tablet) 6 mg PO BEDTIME PRN PRN Reason: Insomnia Morphine Sulfate (Morphine Sulfate 4 Mg/Ml Cartridge) 2 mg IVPUSH Q4H PRN; Protocol PRN Reason: Pain, Severe (Pain Scale 7-10) Last Admin: 11/23/24 11:04 Dose: 2 mg Documented By: CELINA Ondansetron HCl (Ondansetron Hcl 4 Mg/2 Ml Vial) 4 mg IVPUSH Q8H PRN PRN Reason: Nausea and Vomiting Last Admin: 11/23/24 12:40 Dose: 4 mg Documented By: CELINA Oxycodone HCl (Oxycodone Hcl Immed Release 5 Mg Tablet) 5 mg PO Q6H PRN PRN Reason: Pain, Moderate(Pain Scale 4-6) Last Admin: 11/30/24 01:12 Dose: 5 mg Documented By: ANTHONY Polyethylene Glycol (Polyethylene Glycol 3350 17 Gm Powd.Pack) 17 gm PO DAILY [facility] Last Admin: 12/01/24 08:03 Dose: 17 gm Documented By: JUAN Simethicone (Simethicone 80 Mg Tab.Chew) 80 mg PO QIDWMHS PRN PRN Reason: Gas Sodium Chloride (0.9 % Sodium Chloride Flush 3 Ml Syringe) 3 ml IVFLUSH QSHIFT [facility] Last Admin: 12/02/24 01:41 Dose: 3 ml Documented By: RIOS Vitamin D (Cholecalciferol (Vitamin D3) 25 Mcg Tablet) 25 mcg PO DAILY [facility] Last Admin: 12/01/24 08:04 Dose: 25 mcg Documented By: JUAN Labs 11/27/24 06:12 11/27/24 06:12 Procedures Date of Service Date of Service: 12/02/24 Progress Note: A&P Assessment and plan (1) Pneumothorax of right lung after biopsy: Status: Acute Assessment and Plan: chest tube removed occlusive dressings placed with xeroform check CXR - if no pneumo, ok to dc home today looks well overall Time Spent With Patient Time: Total time managing care of this patient today ____ minutes. Quality Stroke Does the patient have a stroke diagnosis?: No VTE Prior VTE?: No VTE Risk Level:: Medical - moderate - high VTE Device Contraindication: N/A - Device Ordered VTE Drug Contraindication: Treatment Not Indicated
--- NOTE | 2024-12-02 10:44 | PM.DS ---
DS: Providers Provider Date of Service: 12/02/24 Date of admission: 11/21/24 12:35 Date of discharge: 12/02/24 Primary care physician: Juanita Lakhani MD Consults: 11/21/24 12:20 Consult to Thoracic Surgery Routine Consulting Provider: Carlton Rosales Reason for consultation: Right pneumothorax, chest tube in place 11/26/24 07:49 Consult to Hematology / Oncology Routine Consulting Provider: [facility] [place]Hematology Reason for consultation: non-small cell lung carcinoma on lung biopsy 11/28/24 09:10 Consult to Cardiology Routine Consulting Provider: [facility] [place] [facility] Reason for consultation: preop risk assessment lobectomy, some hypokinesis on echo Has provider been notified: Yes 12/02/24 07:00 Consult to Case Management Routine Comment: qod dsg change to chest tube site DS: Diagnosis Discharge Diagnosis (1) Pneumothorax of right lung after biopsy: Status: Acute DS: Summary Hospital Course Hospital Course: From initial hpi: 79-year-old female with a PMH significant for COPD, HLD, and osteoporosis who initially presented to short-stay surgery for elective outpatient lung nodule biopsy. Procedure was complicated by pneumothorax and small chest tube was inserted into lung biopsy site, and pt was placed on chest wall suction. Pt seen and evaluated in the PACU where she is resting comfortably in bed. Pt reports has expiratory pain at biopsy and chest tube site, otherwise has been no acute medical complaints. Denies shortness or breath or difficulty breathing. No cough. No chest pain/pressure, palpitations. No nausea, vomiting, abdominal pain. Pt will be admitted to the hospital for treatment and further evaluation of right lung pneumothorax. Hospital course: Patient was admitted for right lung pneumothorax post lung biopsy which came positive for squamous cell cancer. She had chest tube placed. Initially was having trouble with trials of water seal so plan was for inpatient lobectomy. Patient had preop workup including stress test which was unremarkable. Due to scheduling difficulties was unable to get inpatient lobectomy, chest tube was then able to be successfully removed without recurrence of pneumothorax. Patient will be discharged home and follow up closely with thoracic and Oncology. For COPD remained stable on inhalers. For hyperlipidemia was continued on statin. Time Attestation Discharge Coordination Time (in mins): 37 Quality: Safe Use of Opioids Does Pt have an Active Cancer Diagnosis on the Problem List?: Yes Opioid Measure Date for [facility] Report: 11/02/24 Opioid Measure Time for [facility] Report: 10:46 Quality: Stroke Does the patient have a stroke diagnosis?: No Physical Exam Vital Signs: Vital Signs: Last Vital Signs Temp 97.4 F 12/02/24 07:58 Pulse 77 12/02/24 08:04 Resp 16 12/02/24 08:04 BP 120/66 12/02/24 07:58 Pulse Ox 94 12/02/24 07:58 O2 Del Method Room Air 12/02/24 07:58 O2 Flow Rate 1 11/27/24 08:30 BMI result Body Mass Index 19.2 Const: General: comfortable and no acute distress Resp: Effort & Inspection: normal respiratory effort Cardio: Rate: regular rate GI: Palpation (GI): Soft to palpation, not firm and nontender DS: Data Data Completed and Pending Completed studies during hospitalization [Text1]: Pending at discharge 11/21/24 09:15 Cytology [PTH] Routine 11/21/24 10:19 Surgical Path [Surgical] [PTH] Routine Discharge Plan Discharge Anticipated Discharge Date/Time: 12/02/24 10:34 Patient Disposition: Home Health Service Discharge Diagnosis: lung cancer, penumothorax Referrals: Juanita Lakhani MD [Primary Care Provider] - 1 Week Nighat Curran MD [Physician] - 1 Week Carlton Rosales MD [Physician] - 1 Week Discharge Medications: New oxycodone 5 mg Tablet 5 mg PO Q6H PRN (Reason: Pain, Moderate(Pain Scale 4-6)) Qty: 20 0RF Rx Instructions: Partial Fill upon patient request. Continued cholecalciferol (vitamin D3) [Vitamin D3] 25 mcg (1,000 unit) capsule 25 mcg PO DAILY Qty: 90 3RF fluticasone propion-salmeterol [Wixela Inhub] 500-50 mcg/dose blister with device 1 inh inhalation Q12H Qty: 60 4RF calcium carbonate 500 mg calcium (1,250 mg) tablet,chewable 1,000 mg PO DAILY atorvastatin [Lipitor] 10 mg tablet 10 mg PO DAILY Qty: 90 3RF ipratropium-albuterol 0.5 mg-3 mg(2.5 mg base)/3 mL solution for nebulization 3 ml inhalation BID PRN (Reason: wheezing) Qty: 180 3RF Discharge Orders: Discharge Order (Routine); Ordered 12/02/24 Ordered By: Phi Pastrana Diet: Advance to usual diet Activity on Discharge: No heavy lifting Stand Alone Forms: Patient Portal Discharge page Print Language: Romanian Activity Restrictions/Additional Instructions: VNA services for chest tube site dressing care Care Plan Goals: recovery Health Concerns: lung cancer Plan of Treatment: follow up with dr rosales for lobectomy Assessment: see above
[2024-12-02 11:20] VITALS: BP 124/61; PULSE 87; RESP 17; TEMP 36.1; O2SAT 97
--- NOTE | 2024-12-02 11:20 | MHC.CM.PN ---
Per MD patient medically cleared for dc home self care. Chest tube removal site w/ DSD, not skilled and per MD no other skilled needs. Patient's will provide transport this afternoon. IMM delivered.
== END 2024-12-02 14:36 | disposition home or self-care (01) | DRG 200 ==
LOC: HO.SSSA 12:37 → HO.S3 12:47 → HO.IMC 11-26 15:17
PROVIDERS: Hospitalist; Physician Assistant Surgical; Student in an Organized Health Care Education/Training Program; Admitting Provider Student in an Organized Health Care Education/Training Program; PCP Internal Medicine; Visit Provider Internal Medicine
DX: J95.811 Postprocedural pneumothorax (principal); C34.11 Malignant neoplasm of upper lobe, right bronchus or lung; J43.9 Emphysema, unspecified; E78.5 Hyperlipidemia, unspecified; Z87.891 Personal history of nicotine dependence; Z79.51 Long term (current) use of inhaled steroids; Z79.899 Other long term (current) drug therapy
CPT/HCPCS: 32408; 32551; 36415; 71045; 78452; 80048; 82803; 85025; 85610; 85730; 88173; 88305; 88341; 88342; 93005; 93017; 93306; 94640; 99152; 99153; A7041; A9500; C1729; C1769; J0280; J1644; J2003; J2250; J2270; J2310; J2405; J2785; J3010; Q9957

== ENCOUNTER → 2024-11-21 12:35 | Outpatient (BNV) | payer MEDICARE, SELFPAY | PROVIDERS: Admitting Provider Student in an Organized Health Care Education/Training Program; PCP Internal Medicine; Visit Provider Internal Medicine Medical Oncology | DX: C34.11 Malignant neoplasm of upper lobe, right bronchus or lung (principal); Z87.891 Personal history of nicotine dependence | CPT/HCPCS: 99222 ==

== ENCOUNTER → 2024-11-21 12:35 | Outpatient (BNV) | payer MEDICARE, SELFPAY | PROVIDERS: Admitting Provider Student in an Organized Health Care Education/Training Program; PCP Internal Medicine; Visit Provider Surgery | DX: C34.11 Malignant neoplasm of upper lobe, right bronchus or lung (principal); J95.811 Postprocedural pneumothorax; Z87.891 Personal history of nicotine dependence | CPT/HCPCS: 99221; 99231 ==

== ENCOUNTER → 2024-11-21 12:35 | Outpatient (BNV) | payer MEDICARE, SELFPAY | PROVIDERS: Admitting Provider Student in an Organized Health Care Education/Training Program; PCP Internal Medicine; Visit Provider Student in an Organized Health Care Education/Training Program | DX: J95.811 Postprocedural pneumothorax (principal) | CPT/HCPCS: 99223; 99232 ==

== ENCOUNTER → 2024-11-21 12:35 | Outpatient (BNV) | payer MEDICARE, SELFPAY | PROVIDERS: Admitting Provider Student in an Organized Health Care Education/Training Program; PCP Internal Medicine; Visit Provider Internal Medicine Cardiovascular Disease | DX: Z01.810 Encounter for preprocedural cardiovascular examination (principal) | CPT/HCPCS: 99222 ==

== ENCOUNTER → 2024-11-21 12:35 | Outpatient (BNV) | payer MEDICARE, SELFPAY | PROVIDERS: Admitting Provider Student in an Organized Health Care Education/Training Program; PCP Internal Medicine; Visit Provider Hospitalist | DX: C34.90 Malignant neoplasm of unspecified part of unspecified bronchus or lung (principal); J95.811 Postprocedural pneumothorax; Z01.811 Encounter for preprocedural respiratory examination | CPT/HCPCS: 99223 ==

== ENCOUNTER → 2024-12-09 08:20 | Outpatient (BNV) | payer MEDICARE, SELFPAY | PROVIDERS: PCP Internal Medicine; Visit Provider Internal Medicine Medical Oncology | DX: C34.11 Malignant neoplasm of upper lobe, right bronchus or lung (principal) | CPT/HCPCS: 99214 ==

== ENCOUNTER 2024-12-10 12:16 | Outpatient (BNV) | payer MEDICARE, SELFPAY | END 2024-12-19 06:00 | PROVIDERS: Admitting Provider Surgery; PCP Internal Medicine; Visit Provider Radiology Diagnostic Radiology | DX: C34.11 Malignant neoplasm of upper lobe, right bronchus or lung (principal); Z97.8 Presence of other specified devices | CPT/HCPCS: 71045 ==

== ENCOUNTER 2024-12-10 12:16 | Outpatient (BNV) | payer MEDICARE, SELFPAY | END 2024-12-17 11:00 | PROVIDERS: Admitting Provider Surgery; PCP Internal Medicine; Visit Provider Radiology Diagnostic Radiology | DX: C34.11 Malignant neoplasm of upper lobe, right bronchus or lung (principal); T81.82XA Emphysema (subcutaneous) resulting from a procedure, initial encounter; Z97.8 Presence of other specified devices | CPT/HCPCS: 71045 ==

== ENCOUNTER 2024-12-10 12:16 | Inpatient (IN) | payer MEDICARE, SELFPAY ==
[2024-12-05 07:59] VITALS: BMI 20.6
--- NOTE | 2024-12-09 08:32 | MHC.SHP ---
Pre-Procedural Eval Section A - 24 Hr Update-Section A only Date of Service: 12/10/24 The patient is an INPATIENT: Yes Changes since office visit: No Cold of Flu in the past 2 weeks, No New Medical Problems, No Changes in Medication and No Patient answered all questions Section B - Complete if H&P > 30 days Chief Complaint: Malignant neoplasm of upper lobe, right bronchus Allergies: Allergies Allergy/AdvReac Type Severity Reaction Status Date / Time prednisone AdvReac Back Pain Verified 12/09/24 08:31 Review of Systems Sugical H&P ROS: Negative: Constitution, Cardiovascular, Respiratory, Neurological, Psychiatric, Hem-Onc, Allergic/Immunologic, Gastrointestinal, Genitourinary, Musculoskeletal, Integumentary, Endocrine and Eyes/Ears/Nose/Throat Exam Surgical H&P Exam: Normal: HEENT, Normal: Heart, Normal: Lungs, Normal: Extremities, Normal: Abdomen, Normal: Skin and Normal: Neurological Plan I have reviewed the history and physical and performed a pertinent physical examination on my patient. No changes have occurred unless specified. Time Spent With Patient Time: Total time managing care of this patient today ____ minutes.
--- NOTE | 2024-12-09 13:23 | P.CONAN_ITS ---
Documented by User: Ekaterina Elliott NP 12/09/24 13:27 HPI - Anesthesia Eval Consult details Narrative: 79yo F for Right Thoracoscopy w/Video Assist,possible open,Right [place] [facility] [place] [place]27-12[place]02[place]24: Hospital course: Patient was admitted for right lung pneumothorax post lung biopsy which came positive for squamous cell cancer. She had chest tube placed. Initially was having trouble with trials of water seal so plan was for inpatient lobectomy. Patient had preop workup including stress test which was unremarkable. Due to scheduling difficulties was unable to get inpatient lobectomy, chest tube was then able to be successfully removed without recurrence of pneumothorax. Patient will be discharged home and follow up closely with thoracic and Oncology. For COPD remained stable on inhalers. For hyperlipidemia was continued on statin. Cardiac eval during inpt: Assessment and plan (1) Preoperative cardiovascular examination: Status: Acute Assessment and Plan: Preoperative cardiovascular risk stratification this elderly woman with multiple risk factors with a normal myocardial perfusion to undergo major thoracic surgery under general anesthesia. Given her significant issue she still remains low to intermediate risk for perioperative cardiovascular morbidity mortality with currently optimized for surgery on current medical therapy. Findings discussed with the hospitalist team. PMFSH Active Problems Active Problems: All Active Problems Non-small cell lung cancer (NSCLC) (Acute) Chest tube in place (Acute) Preoperative cardiovascular examination (Acute) Primary cancer of right upper lobe of lung (Acute) Pre-op chest exam (Acute) Squamous cell lung cancer (Acute) Pulmonary nodule 1 cm or greater in diameter (Acute) COPD (chronic obstructive pulmonary disease) (Acute) Pneumothorax of right lung after biopsy (Acute) Former heavy cigarette smoker (20-39 per day) (Acute) Hoarseness or changing voice (Acute) White coat syndrome with hypertension (Acute) Dyslipidemia (Acute) Impaired fasting glucose (Acute) Osteoporosis (Acute) Past Medical History Medical History Squamous cell carcinoma of lung COPD (chronic obstructive pulmonary disease) Pneumothorax of right lung after biopsy Former heavy cigarette smoker (20-39 per day) Hoarseness or changing voice Shortness of breath on exertion White coat syndrome with hypertension Dyslipidemia Impaired fasting glucose Osteoporosis Family History Family History (Updated 12/09/24 @ 08:29 by Kate Reinoso) Father No problems noted. Mother Diabetes mellitus Sister Brain cancer Son No problems noted. Surgical History Surgical History History of lung biopsy H/O colonoscopy Social History Social History (Updated 12/09/24 @ 08:30 by Kate Reinoso) Household Members: Spouse Household Members Other:: Housing: House Are you a primary manager care to a significant other at home: No Do you presently have visiting nurse or other home services: No Alcohol intake: current Alcohol intake frequency: does not drink Alcohol type: beer Patient Tobacco Use Status: Former Tobacco user Tobacco use type: Cigarette Cigarette Packs Per Day: 1 Years Smoked: 30 e-Cigarette/Vaping Use: Never Used Second Hand Smoke Exposure: Yes Use of substances other than those prescribed or required for medical reasons: No Have you been hit, kicked, punched, or otherwise hurt by someone within the past year? If so, by whom?: No Spiritual Healthcare Practices: none Sikh Healthcare Practices: [facility] Cultural Healthcare Practices: none Are you DNR?: No Advance Directives: Yes Advance Directives Information Provided: Yes Advance Directives on File: Yes Advance Directives Date on File: 07/30/20 Recently lost weight without trying: No Eating poorly because of decreased appetite: No Nutrition Risks: Surgical patient >75years FDLMP: n/a Poor oral hygiene: No (upper full denture) service: No Current occupational status: disabled Cognitive needs: No Hearing needs: No Vision needs: Yes Meds Allergies Allergy/AdvReac Type Severity Reaction Status Date / Time prednisone AdvReac Back Pain Verified 12/09/24 08:31 Home Medications ?Medication ?Instructions ?Recorded ?Confirmed ?Last Taken ?Type calcium carbonate 1,000 mg PO QAM 03/24/23 12/05/24 11/20/24 History atorvastatin 10 mg tablet (Lipitor) 10 mg PO QAM 12/05/24 12/05/24 Unknown History cholecalciferol (vitamin D3) 25 25 mcg PO QAM 12/05/24 12/05/24 Unknown History mcg (1,000 unit) capsule (Vitamin D3) Exam Height,Weight and Vital Signs: Height 5 ft 4 in Weight 54.431 kg Pertinent Lab Results Pertinent Lab Results: Laboratory Tests 12/05/24 10:30 Blood Type O Positive Antibody Screen NEGATIVE Laboratory Tests 12/09/24 09:28 WBC 8.1 Hgb 12.7 Hct 38.7 Plt Count 307 Sodium 142 Potassium 4.2 Chloride 105 Carbon Dioxide 28 BUN 11 Creatinine 0.72 Narrative Narrative: EKG 11/2024 Vent. Rate : 95 BPM Atrial Rate : 95 BPM P-R Int : 150 ms QRS Dur : 88 ms QT Int : 368 ms P-R-T Axes : 81 9 69 degrees QTcB Int : 462 ms Normal sinus rhythm Normal ECG No previous ECGs available ECHO 11/2024 Conclusions: - 1. Normal LV ejection fraction of 60 65% with impaired relaxation filling pattern with underlying regional wall motion abnormality suggestive of coronary artery disease 2. Cardiac valvular Dopplers within normal limits 3. Normal RV systolic pressure 4. No gross pericardial effusion NM josé perf SPECT rest & str 11/2024 Impression: 1. Myocardial perfusion imaging study shows likely normal myocardial perfusion 2. Gated LVEF is 55% 3. Transient ischemic dilatation not present Nondiagnostic changes on EKG. CXR 11/2024 Impression: Removal of small bore right pigtail chest tube. No appreciable pneumothorax. Concerning stellate opacity in the right upper lobe. If not recently performed, follow-up chest CT suggested. Similar overinflation and asymmetric interstitial prominence right lung greater than left. No consolidation. Assessment and Plan Assessment Anesthesia Assessment: Chart Reviewed Documented by User: Jermaine Olmstead MD 12/10/24 14:02 [facility] Past Medical History Medical History Squamous cell carcinoma of lung COPD (chronic obstructive pulmonary disease) Pneumothorax of right lung after biopsy Former heavy cigarette smoker (20-39 per day) Hoarseness or changing voice Shortness of breath on exertion White coat syndrome with hypertension Dyslipidemia Impaired fasting glucose Osteoporosis Family History Family History (Updated 12/09/24 @ 08:29 by Kate Reinoso) Father No problems noted. Mother Diabetes mellitus Sister Brain cancer Son No problems noted. Family history of problems with anesthesia: No Surgical History Surgical History History of lung biopsy H/O colonoscopy History of Problems with Anesthesia: No Social History Social History (Updated 12/09/24 @ 08:30 by Kate Reinoso) Household Members: Spouse Household Members Other:: Housing: House Are you a primary manager care to a significant other at home: No Do you presently have visiting nurse or other home services: No Alcohol intake: current Alcohol intake frequency: does not drink Alcohol type: beer Patient Tobacco Use Status: Former Tobacco user Tobacco use type: Cigarette Cigarette Packs Per Day: 1 Years Smoked: 30 e-Cigarette/Vaping Use: Never Used Second Hand Smoke Exposure: Yes Use of substances other than those prescribed or required for medical reasons: No Have you been hit, kicked, punched, or otherwise hurt by someone within the past year? If so, by whom?: No Spiritual Healthcare Practices: none Sikh Healthcare Practices: [facility] Cultural Healthcare Practices: none Are you DNR?: No Advance Directives: Yes Advance Directives Information Provided: Yes Advance Directives on File: Yes Advance Directives Date on File: 07/30/20 Recently lost weight without trying: No Eating poorly because of decreased appetite: No Nutrition Risks: Surgical patient >75years FDLMP: n/a Poor oral hygiene: No (upper full denture) service: No Current occupational status: disabled Cognitive needs: No Hearing needs: No Vision needs: Yes Meds Allergies Allergy/AdvReac Type Severity Reaction Status Date / Time prednisone AdvReac Back Pain Verified 12/09/24 08:31 Home Medications ?Medication ?Instructions ?Recorded ?Confirmed ?Last Taken ?Type calcium carbonate 1,000 mg PO QAM 03/24/23 12/05/24 11/20/24 History atorvastatin 10 mg tablet (Lipitor) 10 mg PO QAM 12/05/24 12/05/24 Unknown History cholecalciferol (vitamin D3) 25 25 mcg PO QAM 12/05/24 12/05/24 Unknown History mcg (1,000 unit) capsule (Vitamin D3) Exam Airway Mallampati Class: II TM Dist: >3cm Neck ROM: Full Loose/Missing/Broken Teeth: Yes Assessment and Plan Assessment Anesthesia Assessment: Anesthesia Plan Discussed Final Anesthetic Review Family History of Problems with Anesthesia: No History of Problems with Anesthesia: No NPO: Yes ASA Class: III Final Preanesthetic Review: No Changes in Pt Med Stat, Meds/Allgs Chart Reviewed, Consent Obtained/Reviewed and Anes Risks/Benef Reviewed Patient Risk: High (Discussed possible post-op mech ventilation/ICU admission) Procedure Risk: High Anesthetic Plan Anesthetic Plan: GA Disposition: Standard PACU (possible ICU-fish and wildlife warden aware)
[2024-12-10] VITALS (10 sets, daily range): BP systolic 132–160; BP diastolic 54–83; PULSE 73–97; RESP 14–20; TEMP 36.3–36.7; O2SAT 91–100; BMI 21.2
--- NOTE | ~2024-12-10 | XR_ITS ---
.EXAMINATION: XR CHEST CLINICAL INFORMATION: [address] WATER SEAL COMPARISON: December 15, 2024. TECHNIQUE: Frontal view of the chest was obtained. FINDINGS: No gross pneumothorax. Right-sided chest tube remains in the peripheral of the right hemithorax. Small volume subcutaneous emphysema right lateral chest wall. Stable appearance of the lungs and cardiomediastinal silhouette. Old traumatic deformities in the posterior lateral ribs left hemithorax. XR/XR chest 1V IMPRESSION: No gross pneumothorax. Subcutaneous emphysema, right lateral chest wall. Stable position right-sided chest tube. Electronically signed by: Vikram Warner MD 12/16/2024 11:47 AM [facility]
--- NOTE | ~2024-12-10 | XR_ITS ---
EXAMINATION: XR CHEST CLINICAL INFORMATION: chest tube removal COMPARISON: December 19, 2024. TECHNIQUE: Frontal view of the chest was obtained. FINDINGS: Right-sided chest tube has been removed. Subcutaneous emphysema along the right lateral chest wall. No gross pneumothorax. The right lung is expanded. Mild prominence of the interstitial markings. Cardiomediastinal silhouette appears unchanged with calcified plaque aortic arch. XR/XR chest 1V IMPRESSION: Status post right-sided chest tube removal with the accumulation of moderate volume of subcutaneous emphysema. No gross pneumothorax. Recommend follow-up for stability. Electronically signed by: Vikram Warner MD 12/20/2024 12:52 PM EST
--- NOTE | ~2024-12-10 | XR_ITS ---
CLINICAL HISTORY: f u VATS right upper lobe wedge resection 1 view chest x-ray Comparison: CR - XR CHEST 1V - 12/02/24 10:09 EST CR - XR CHEST 1V - 12/02/24 06:12 EST Findings: Similar-appearing very small right apical pneumothorax suggested. Right-sided chest tube in place. Chronic interstitial changes. Cardiac and mediastinal contours are stable. Old right proximal humeral fracture. Old left-sided rib fractures. Impression: Very small right apical pneumothorax suggested, decreased. Right-sided chest tube in place This document has been electronically signed by: Harinder Hunter MD on 12/11/2024 06:35:26
--- NOTE | ~2024-12-10 | XR_ITS ---
EXAMINATION: XR CHEST CLINICAL INFORMATION: s/p rul resection routine follow-up COMPARISON: Chest x-ray 12/17/2024 TECHNIQUE: Frontal view of the chest was obtained. FINDINGS: The right-sided chest tube is upper lung is stable. There is no visible pneumothorax on this exam. The lungs are expanded and clear. No evidence of pleural effusion. The left lung is clear. The heart size and pulmonary vascularity is normal. Old traumatic deformities of lateral ribs are stable XR/XR chest 1V IMPRESSION: No change in right chest tube. The lungs are clear. No pneumothorax or pleural effusion seen. No major change from 12/17/2024 chest x-ray. Electronically signed by: Ward Corcoran MD 12/19/2024 07:06 AM [facility]
--- NOTE | ~2024-12-10 | XR_ITS ---
EXAMINATION: XR CHEST CLINICAL INFORMATION: f/u VATs right wedge resection, on water seal COMPARISON: December 16, 2024. TECHNIQUE: Frontal view of the chest was obtained. FINDINGS: Right-sided chest tube remains in the peripheral right upper hemithorax. No gross pneumothorax. Subcutaneous emphysema right axillary and right-sided chest wall. Asymmetric prominence of the interstitial markings in the right hemithorax. Cardiomediastinal silhouette is midline with calcified plaque thoracic aorta. Sutures in the medial aspect of the right upper hemithorax with volume loss. Old traumatic deformities in the posterior lateral ribs left lower hemithorax. XR/XR chest 1V IMPRESSION: Post treatment and surgical changes right lung with volume loss and no gross pneumothorax. Persistent subcutaneous emphysema, right-sided chest wall. Stable position of the right chest tube. Electronically signed by: Vikram Warner MD 12/17/2024 11:55 AM EST
--- NOTE | ~2024-12-10 | XR_ITS ---
EXAMINATION: XR CHEST CLINICAL INFORMATION: Status post right upper lobe wedge COMPARISON: 12/02/2024. TECHNIQUE: Frontal view of the chest was obtained. FINDINGS: Right chest tube in place with the tip terminating in the right lateral apex. The cardiac, hilar, and mediastinal contours are normal. Aortic mural calcification. The lungs are clear bilaterally. There is a small right apical and basal pneumothorax, measuring approximately 1.3 cm apical pleural separation. There are right medial apical staple lines. No left pneumothorax. The left lung is clear. There is subcutaneous emphysema of the right chest wall. Old fracture deformity of the right proximal humerus. XR/XR chest 1V IMPRESSION: 1. Chest tube on the right terminates in the right lateral apex. 2. There is a small right apical and basal pneumothorax. 3. The left lung is clear. Electronically signed by: Beltran Dominguez MD 12/10/2024 04:37 PM [facility]
--- NOTE | ~2024-12-10 | XR_ITS ---
CLINICAL HISTORY: Midsternal chest pain with chest tube 1 view chest x-ray Comparison: 12/13/2024 Findings: Portions of the exam are obscured by overlying material. There is small residual right apical pneumothorax with right chest tube in position. The exam is otherwise unchanged. IMPRESSION: 1. No significant change from yesterday This document has been electronically signed by: Andrea Wilburn MD on 12/14/2024 05:02:15
--- NOTE | ~2024-12-10 | XR_ITS ---
EXAMINATION: XR CHEST 1 VIEW HISTORY: s/p right upper wedge resection COMPARISON: Comparison is made with the prior examination dated 12/11/2024. FINDINGS: A single AP portable view of the chest performed at 8:37 AM is submitted. A right-sided chest tube remains in place. There is a possible tiny right apical pneumothorax. There are no focal airspace opacities. There is no pleural effusion, pneumothorax, or pulmonary vascular congestion. The heart is normal in size. There is an old healed fracture of the right humeral neck. XR/XR chest 1V IMPRESSION: Right chest tube in place without change. Possible trace right apical pneumothorax. Electronically signed by: Cisco Gonzales MD 12/12/2024 09:29 AM [facility]
--- NOTE | ~2024-12-10 | XR_ITS ---
CLINICAL HISTORY: Follow-up right upper lobe wedge resection 1 view chest x-ray Comparison: CR - XR CHEST 1V - 12/14/24 04:17 EST Findings: A chest tube is present with its tip in the right upper lung field. There is no evidence of pneumothorax. No consolidation or effusion. Heart size is normal. No acute fracture. IMPRESSION: 1. No acute findings. This document has been electronically signed by: Jovany Bautista MD on 12/15/2024 06:18:00
--- NOTE | ~2024-12-10 | XR_ITS ---
EXAMINATION: XR CHEST CLINICAL INFORMATION: f/u R wedge resection, on water seal COMPARISON: Prior day, and numerous priors dating back to 11/25/2024. TECHNIQUE: Frontal view of the chest was obtained. FINDINGS: Chest tube on the right terminates in the lateral right upper lobe region. This appears slightly more inferior than is previously. The cardiac, hilar, and mediastinal contours are normal. There is a slightly more prominent right apical pneumothorax measuring 1.8 cm pleural to pleural separation. Previously this measured 1.4 cm. The remainder of the pulmonary findings are unchanged. The left lung remains clear. There is increasing subcutaneous gas in the right thoracic chest wall. No change in osseous findings. XR/XR chest 1V IMPRESSION: 1. Right chest tube slightly more inferiorly than previously. Tip projects over the lateral right upper lobe region. 2. There is a slightly increasing right apical pneumothorax as discussed. 3. There is increasing right chest wall subcutaneous emphysema. 4. Remainder of the findings are unchanged. Electronically signed by: Beltran Dominguez MD 12/13/2024 12:22 PM [facility]
[2024-12-10] MEDS: Lactated Ringers 1,000 ML 100 ML IVCONT (11:20)
--- OUTSIDE RECORDS SUMMARY | 2024-12-10 15:00 | XMS_ITS | Clinical Summary ---
Author Organization [facility] Address [address] [place] [address] Phone Care Team Providers Care Microsoft Bi Developer Name Role Phone Unavailable Primary Care Provider Unavailabl e Encounters Date Type Department Care Team Description 10/07/2024 11:32 AM EST - 10/07/2024 11:59 PM EST Hospital Encounter [facility] PET Scan [address] [place] [address] Solitary pulmonary nodule Discharge Disposition: Home or Self Care from Last 3 Months Social History Tobacco Use Types Packs/Day Years Used Date Smoking Tobacco: Never Assessed Comments Unknown Sex and Gender Information Value Date Recorded Sex Assigned at Not on file Legal Sex Female 11:26 AM EST Gender Identity Not on file Sexual Orientation Not on file Plan of Treatment Health Maintenance Due Date Last Done Comments DTaP,Tdap,and Td Vaccines (1 - Tdap) 1964 RSV Immunization Patients 60+ Years Old (1 - 1-dose 75+ series) 2020 COVID-19 Vaccine ( season) 2024 01/26/2023, 03/31/2022, 09/21/2021, Additional history exists Depression Screening 10/08/2024 Falls Risk Assessment 10/08/2024 Hepatitis C Screening 10/08/2024 Osteoporosis Screening (Bone Density Screening) 10/08/2024 Social Influencers of Health Screening 10/08/2024 Zoster Vaccines Completed 08/16/2022, 04/21/2022 Pneumococcal Vaccine: 50+ Years Completed 09/23/2022, 07/24/2015 Influenza Vaccine Completed 07/04/2024, , 06/27/2022, Additional history exists HIB Vaccines Aged Out No longer eligi ble based on patient's age to complete this topic HPV Vaccines Aged Out No longer eligi ble based on patient's age to complete this topic Hepatitis A Vaccines Aged Out No long er eligible based on patient's age to complete this topic Hepatitis B Vaccines Aged Out No long er eligible based on patient's age to complete this topic IPV Vaccines Aged Out No longer eligi ble based on patient's age to complete this topic MMR Vaccines Aged Out No longer eligi ble based on patient's age to complete this topic Meningococcal ACWY Vaccine Aged Out N o longer eligible based on patient's age to complete this topic Meningococcal B Vacine Aged Out No lo nger eligible based on patient's age to complete this topic RSV Immunization Patients Under 20 months Aged Out No longer eligible based on patient's age to complete this topic Varicella Vaccines Aged Out No longer eligible based on patient's age to complete this topic Procedures Procedure Name Priority Date/Time Associated Diagnosis Comments PET CT SKULL TO MID THIGH INITIAL Routine 10/07/2024 1:30 PM EST Solitary pulmonary nodule from Last 3 Months Results * PET CT Skull to Mid Thigh Initial (10/07/2024 1:30 PM EST) Anatomical Region Laterality Modality Body Radiographic Gregoria ging 10/08/2024 12:4 9 PM EST Impressions 10/08/2024 1:30 PM EST 2 FDG active lesions in the right upper pole. The lower nodular lesion is likely a primary nodule. Slightly superior right upper lobe in ill-defined scarlike lesion and may represent an old nodule but FDG positive. Rest of the whole-body bone scan is unremarkable. There is no metastatic adenopathy seen. -------- FINAL REPORT -------- Dictated By: Ward Corcoran Dictated Date: 10/08/2024 12:49 ET Assigned Physician: Ward Corcoran Reviewed and Electronically Signed By: Ward Corcoran Signed Date: 10/08/2024 13:30 ET Workstation ID: [id number] Transcribed By: Self Edit Transcribed Date: 10/08/2024 12:49 ET Narrative 10/08/2024 1:30 PM EST EXAMINATION: PET CT skull to mid thigh. CLINICAL INDICATION: Solitary pulmonary nodules. COMPARISON: No outside examination labeled for comparison. TECHNIQUE: Following intravenous administration of 13.2 mCi of F-18 FDG in left antecubital vein, whole-body PET emission scan was obtained from skull base to mid thigh 51 minutes postinjection. 5 mm thin axial nondiagnostic CT transmission scan was obtained without oral or IV contrast for attenuation correction and correlative imaging. 3-D reformats and color fusion was performed on a separate workstation and readily available for interpretation. Baseline glucose measures 97 mg/DL. DLP 316 FINDINGS: Skull base: There is no abnormal metabolic activity seen in the skull base. On CT there is no intrahepatic cranial parenchymal abnormality seen in visualized images. The paranasal sinuses and mastoid air cells are well-aerated. There is small osteoid osteoma right frontal sinus. NECK: There is no abnormal FDG activity seen in the neck. No specific activity seen along the left prevertebral longitudinal muscle. On CT visualized bilateral parotid/submandibular glands and thyroid lobes are symmetric and normal. No abnormal neck mass or lymphadenopathy seen. The airways widely patent. CHEST: There is FDG 1.2 cm cm nodule in the right upper lobe with irregular margins and max SUV of 4.[address] slice 57/4 and PET slice 57/3. The superior in the right upper lobe is an irregular parenchymal density appearing like scar measuring 2.3 x 0.[address] image 51/4 it is medial nodularity within maximum SUV of 4.89. No additional areas of FDG activity seen in the lung parenchyma or the mediastinum. On CT there is centrilobular emphysema with a well-demarcated 1.2 similar nodule right upper lobe and superiorly and 8 lingular scar with slight medial nodularity as described above. No additional lung nodules, mass or consolidation. No pleural effusion or thickening. No mediastinal mass or adenopathy seen. There is mild coronary artery calcifications. No pericardial effusion. Abdomen and pelvis: There is no abnormal metabolic activity seen and abdomen or pelvis. On CT visualized solid organs are normal. No radiopaque gallstones, renal calculi hydronephrosis. There is mild constipation. The bladder is nondistended. Few scattered diverticula are seen in sigmoid colon without diverticulitis. No abnormality seen in the upper/mid thighs. Osseous structures: There is a nonspecific metabolic activity right posterior fourth rib adjacent to the transverse process but no corresponding lytic or sclerotic process seen. Procedure Note Ward Corcoran MD - 10/08/2024 EXAMINATION: PET CT skull to mid thigh. CLINICAL INDICATION: Solitary pulmonary nodules. COMPARISON: No outside examination labeled for comparison. TECHNIQUE: Following intravenous administration of 13.2 mCi of F-18 FDG inleft antecubital vein, whole-body PET emission scan was obtained fromskull base to mid thigh 51 minutes postinjection. [address] transmission scan was obtained without oral or IVcontrast for attenuation correction and correlative imaging. 3-D reformatsand color fusion was performed on a separate workstation and readilyavailable for interpretation. Baseline glucose measures 97 mg/DL. [id number] FINDINGS: Skull base: There is no abnormal metabolic activity seen in theskull base. On CT there is no intrahepatic cranial parenchymal abnormalityseen in visualized images. The paranasal sinuses and mastoid air cells arewell-aerated. There is small osteoid osteoma right frontal sinus. NECK: There is no abnormal FDG activity seen in the neck. No specificactivity seen along the left prevertebral longitudinal muscle. On CTvisualized bilateral parotid/submandibular glands and thyroid lobes aresymmetric and normal. No abnormal neck mass or lymphadenopathy seen. Theairways widely patent. CHEST: There is FDG 1.2 cm cm nodule in the right upper lobe withirregular margins and max SUV of 4.[address] slice 57/4 and PET slice57/3. The superior in the right upper lobe is an irregular parenchymaldensity appearing like scar measuring 2.3 x 0.[address] image 51/4it is medial nodularity within maximum SUV of 4.89. No additional areas ofFDG activity seen in the lung parenchyma or the mediastinum. On CT thereis centrilobular emphysema with a well-demarcated 1.2 similar nodule rightupper lobe and superiorly and 8 lingular scar with slight medialnodularity as described above. No additional lung nodules, mass orconsolidation. No pleural effusion or thickening. No mediastinal mass oradenopathy seen. There is mild coronary artery calcifications. Nopericardial effusion. Abdomen and pelvis: There is no abnormal metabolic activity seen andabdomen or pelvis. On CT visualized solid organs are normal. No radiopaquegallstones, renal calculi hydronephrosis. There is mild constipation. Thebladder is nondistended. Few scattered diverticula are seen in sigmoidcolon without diverticulitis. No abnormality seen in the upper/mid thighs. Osseous structures: There is a nonspecific metabolic activity rightposterior fourth rib adjacent to the transverse process but nocorresponding lytic or sclerotic process seen. IMPRESSION: 2 FDG active lesions in the right upper pole. The lower nodular lesion islikely a primary nodule. Slightly superior right upper lobe in ill-definedscarlike lesion and may represent an old nodule but FDG positive. Rest of the whole-body bone scan is unremarkable. There is no metastaticadenopathy seen. -------- FINAL REPORT -------- Dictated By: Ward Corcoran Dictated Date: 10/08/2024 12:49 ET Assigned Physician: Ward Corcoran Reviewed and Electronically Signed By: Ward Corcoran Signed Date: 10/08/2024 13:30 ET Workstation ID: [id number] Transcribed By: Self Edit Transcribed Date: 10/08/2024 12:49 ET [facility] [place] Final Result from Last 3 Months Insurance MEDICAID ADVANTAGE
--- NOTE | 2024-12-10 15:04 | W.PM.OPN ---
Operative Note Operative Note Date of Service: 12/10/24 Narrative: Preoperative diagnosis: [] Right upper lobe [id number] lung cancer Postop diagnosis: [] The same Procedure [] right upper lobe wedge resection, mediastinal lymph node sampling, intercostal nerve block, bronchoscopy Surgeon: [] Bobby Interpretive Program Coordinator: [] Dyllan Waterman Type of Anesthesia: [] Double-lumen general Indication for surgery: [] Bronchoscopy demonstrated no gross endoluminal pathology. It was also used to assist anesthesia and placement of double-lumen tube. Intrathoracic findings demonstrated isolated right upper lobe dumbbell shaped lung mass. Grossly and then frozen section of wedge resection demonstrated clear margins. Mediastinal lymph node sampling from node stations 4R ,7, 10R. These were all normal appearing nodes. Patient did not have very prominent lymph nodes in the hemithorax. Because of the patient was very tenuous pulmonary status, wedge resection was performed with clear margins avoiding a formal lobectomy and allowing for retention of the remaining right upper lobe. Findings: [] Patient brought to the operating room, placed on operative table supine position, after an adequate level of double-lumen general anesthesia was induced, patient underwent bronchoscopy with findings noted above. Patient was then placed in the left lateral decubitus position of the right chest was prepped and draped in usual sterile fashion. Using anterior posterior working ports placed under direct vision and an axillary WERE incision in the 4th intercostal space with wound protector placed, findings were as noted above. Lung was grasped and through the access incision , the dumbbell shaped tumor was identified TO PALPATION. This was felt to be amenable to generous wedge resection to grossly clear margins. This was performed using sequential firing of CHRISTIANO staplers to grossly clear margins. As noted above, suture margin was tagged and sent to pathology and was found to be clear on frozen section. Log was filled with saline and remaining right upper lobe and remaining lung were re-expanded with minimal air leak from the staple line. Next mediastinal lymph node sampling was performed at stations noted above. These were sent as separate specimens to pathology. As noted above, patient had very limited lymph node at the lymph node stations identified. Intercostal nerve block using 0.5% Marcaine/Exparel was performed. The chest cavity was again irrigated and secured hemostasis. Ports removed under direct laparoscopic view. Wounds were closed in the following manner; 24 Nigerian chest tube was placed through the anterior port and secured to the skin using 0 silk suture. Ports were then closed using deep followed by dermal interrupted 2-0 and 3-0 Vicryl sutures. Access incision had its deep muscular layer closed using running 0 Vicryl suture. Subcutaneous running 2-0 Vicryl suture followed by running subcuticular 4-0 Vicryl sutures were placed. Steri-Strips and sterile dressings were applied. Chest tube was connected to Pleur-evac and lung re-expanded with minimal air leak demonstrated. Sponge, needle, and instrument counts reported correct. Patient tolerated the procedure well and emerged from anesthesia stable condition. EBL minimal. Postprocedure chest x-ray pending. Pulmonary Resection Hilar Station: Ten Mediastinal Station #1: 7 Mediastinal Station #2: 4 Procedure performed with curative intent?: Yes General Surg. - Synoptic Notes Pulmonary Resection Hilar Station: Ten Mediastinal Station #1: 7 Mediastinal Station #2: 4 Procedure performed with curative intent?: Yes
--- NOTE | 2024-12-10 16:36 | PHA.MEDREC ---
Pharmacy Consult ? Medication Reconciliation Pharmacy has completed the medication reconciliation.
[2024-12-10] MEDS: oxyCODONE HCl Immed Release 5 MG TABLET PO ×2 (17:49→23:03)
[2024-12-10] MEDS: Atorvastatin Calcium 10 MG TABLET PO (17:49)
[2024-12-10] MEDS: Lactated Ringers 1,000 ML 80 ML IVCONT (18:05)
[2024-12-10] MEDS: Acetaminophen 1,000 MG/100 ML PIGGYBACK 400 MG IV (18:06)
[2024-12-10] MEDS: 0.9 % Sodium Chloride Flush 3 ML SYRINGE IVFLUSH (18:08)
[2024-12-10] MEDS: Docusate Sodium 100 MG CAPSULE PO (20:07)
--- NOTE | 2024-12-10 20:33 | HO.PM.IMCN ---
History of Present Illness Data of Consult Service Date: 12/10/24 Requesting physician: Carlton Rosales Primary Care Provider: Juanita Lakhani MD [facility] Reason for consult: medical consult Patient is a 79-year-old female with a past medical history significant for lung cancer, COPD, white coat hypertension, dyslipidemia, osteoporosis and elevated blood glucose, recent A1c 5.4%, s/p right upper lung wedge resection, mediastinal lymph node sampling, intercostal nerve block and bronchoscopy today. She reports that her pain is well-controlled she is not having any chest pain or shortness of breath. She denies any nausea, vomiting abdominal pain or lower extremity edema. She has a Lundberg catheter placed which is draining straw-colored urine, she denies any dysuria. She has yet at pass gas or have a bowel movement but is not having any discomfort. Review of Systems Constitutional: Constitutional: Denies body ache(s), Denies chills, Denies fatigue, Denies fever(s) and Denies headache(s) Eyes: Eyes: Denies change in vision and Denies photophobia ENT: Denies headache(s), Denies nasal congestion, Denies nasal discharge and Denies sore throat Cardiovascular: Cardiovascular: Denies chest pain, Denies syncope, Denies rapid heart rate, Denies leg edema and Denies dyspnea Respiratory: Respiratory: Denies cough, Denies dyspnea and Denies wheezing Gastrointestinal: Gastrointestinal: Denies diarrhea, Denies nausea and Denies vomiting Genitourinary: Genitourinary: Denies hematuria and Denies dysuria Musculoskeletal: Musculoskeletal: Denies myalgias Integumentary/Breasts: Skin/Breast: Denies rash Neurologic: Denies confusion, Denies syncope and Denies headache(s) Psychiatric: Psychiatric: Denies confusion Endocrine: Endocrine: Denies fatigue Hematologic/Lymphatic: Hematologic/Lymphatic: Denies easy bleeding and Denies easy bruising Allergic/Immunologic: Allergic/Immunologic: Denies wheezing PMFSH Medical History Squamous cell carcinoma of lung COPD (chronic obstructive pulmonary disease) Pneumothorax of right lung after biopsy Former heavy cigarette smoker (20-39 per day) Hoarseness or changing voice Shortness of breath on exertion White coat syndrome with hypertension Dyslipidemia Impaired fasting glucose Osteoporosis Family History (Updated 12/09/24 @ 08:29 by Kate Reinoso) Father No problems noted. Mother Diabetes mellitus Sister Brain cancer Son No problems noted. Surgical History (Updated 12/10/24 @ 20:38 by Corrina Hope PA-C) History of lung biopsy H/O colonoscopy Social History (Updated 12/09/24 @ 08:30 by Kate Reinoso) Household Members: Significant Other Household Members Other:: Housing: House Are you a primary nurse behavioral health care to a significant other at home: No Do you presently have visiting nurse or other home services: No Alcohol intake: current Alcohol intake frequency: does not drink Alcohol type: beer Comment: counts correct Patient Tobacco Use Status: Former Tobacco user Tobacco use type: Cigarette Cigarette Packs Per Day: 1 Cigarettes Per Day: 20.0 Years Smoked: 30 e-Cigarette/Vaping Use: Never Used Second Hand Smoke Exposure: Yes Use of substances other than those prescribed or required for medical reasons: No Have you been hit, kicked, punched, or otherwise hurt by someone within the past year? If so, by whom?: No Do you feel safe in your current relationship?: Yes Spiritual Healthcare Practices: none [facility] Practices: Spiritism Cultural Healthcare Practices: none Are you DNR?: No Advance Directives: Yes Advance Directives Information Provided: Yes Advance Directives on File: Yes Advance Directives Date on File: 07/30/20 Do you have a plan to hurt others: No Plan Recently lost weight without trying: No How much weight loss: Not applicable Eating poorly because of decreased appetite: No Nutrition screen score: 0 Nutrition Risks: No Nutritional Risk Patient : No FDLMP: n/a Poor oral hygiene: No (upper full denture) service: No Current occupational status: disabled Cognitive needs: No Hearing needs: No Vision needs: Yes Narrative: No smoking, alcohol or drug use Meds Allergies Allergy/AdvReac Type Severity Reaction Status Date / Time prednisone AdvReac Back Pain Verified 12/09/24 08:31 Active Medications: Current Medications Albuterol/Ipratropium (Albuterol/Iprat 2.5/0.5mg 3 Ml Ampul.Neb) 3 ml INHALE BID PRN PRN Reason: wheezing Atorvastatin Calcium (Atorvastatin Calcium 10 Mg Tablet) 10 mg PO DAILY [facility] Last Admin: 12/10/24 17:49 Dose: 10 mg Calcium Carbonate (Calcium Carbonate 750 Mg Tab.Chew) 750 mg PO Q4H PRN PRN Reason: Heartburn Docusate Sodium (Docusate Sodium 100 Mg Capsule) 100 mg PO BID [facility] Last Admin: 12/10/24 20:07 Dose: 100 mg Acetaminophen (Ofirmev) 1,000 mg in 100 mls @ 400 mls/hr IV Q6H [facility] Last Infusion: 12/10/24 18:41 Dose: Infused Lactated Ringer's (Lr) 1,000 mls @ 80 mls/hr IVCONT .[id number] [facility] Last Admin: 12/10/24 18:05 Dose: 80 mls/hr Magnesium Hydroxide (Milk Of Magnesia 30 Ml Oral.Susp) 30 ml PO DAILY PRN PRN Reason: Constipation Melatonin (Melatonin 3 Mg Tablet) 6 mg PO BEDTIME PRN PRN Reason: Insomnia Morphine Sulfate (Morphine Sulfate 4 Mg/Ml Cartridge) 4 mg IVPUSH Q4H PRN; Protocol PRN Reason: Pain, Severe (Pain Scale 7-10) Non-Formulary Medication (Fluticasone Propion-Salmeterol [Wixela Inhub]) 1 inhalation INHALE Q12H [facility] Ondansetron HCl (Ondansetron Hcl 4 Mg/2 Ml Vial) 4 mg IVPUSH Q8H PRN PRN Reason: Nausea and Vomiting Oxycodone HCl (Oxycodone Hcl Immed Release 5 Mg Tablet) 5 mg PO Q4H PRN PRN Reason: Pain, Moderate(Pain Scale 4-6) Last Admin: 12/10/24 17:49 Dose: 5 mg Polyethylene Glycol (Polyethylene Glycol 3350 17 Gm Powd.Pack) 17 gm PO DAILY PRN PRN Reason: Constipation Sodium Chloride (0.9 % Sodium Chloride Flush 3 Ml Syringe) 3 ml IVFLUSH QSHIFT [facility] Last Admin: 12/10/24 18:08 Dose: 3 ml Home Medications ?Medication ?Instructions ?Recorded ?Confirmed ?Last Taken ?Type calcium carbonate 1,000 mg PO QAM 03/24/23 12/05/24 11/20/24 History atorvastatin 10 mg tablet (Lipitor) 10 mg PO QAM 12/05/24 12/05/24 Unknown History cholecalciferol (vitamin D3) 25 25 mcg PO QAM 12/05/24 12/05/24 Unknown History mcg (1,000 unit) capsule (Vitamin D3) albuterol sulfate 90 mcg/actuation 2 puff inhalation Q4-6H PRN 12/10/24 12/10/24 Unknown History aerosol inhaler wheezing Physical Exam Vital Signs and Narrative: Vital Signs: Last Vital Signs Temp 98.1 F 12/10/24 20:00 Pulse 95 12/10/24 20:00 Resp 14 12/10/24 20:00 BP 132/73 12/10/24 20:00 Pulse Ox 93 12/10/24 20:00 O2 Del Method Room Air 12/10/24 20:00 O2 Flow Rate 2 12/10/24 15:54 BMI result Body Mass Index 21.2 General: AOx3, no acute distress Resp: CTA bilaterally, diminished due to pain with deep inspriation CVS: S1, S2, RRR GI: +BS, NT, no distention Skin: Warm, dry Neuro: Cranial nerves II-XII grossly intact bilaterally. Motor grossly intact bilaterally Extremities: No LE edema Psych: Appropriate affect Const: General: No confusion Orientation/consciousness: No confusion Eyes: Direct Ophthalmoscopy: No photophobia Neuro: General: No confusion Results Imaging Radiologist's Impressions: Impressions Chest X-Ray 12/10/24 16:30 IMPRESSION: 1. Chest tube on the right terminates in the right lateral apex. 2. There is a small right apical and basal pneumothorax. 3. The left lung is clear. Electronically signed by: Beltran Dominguez MD 12/10/2024 04:37 PM [facility] Assessment and Plan (1) S/P bronchoscopy: Status: Acute (2) Primary cancer of right upper lobe of lung: Status: Acute Plan Patient is a 79-year-old female with a past medical history significant for lung cancer, COPD, white coat hypertension, dyslipidemia, osteoporosis and elevated blood glucose, recent A1c 5.4%, s/p right upper lung wedge resection, mediastinal lymph node sampling, intercostal nerve block and bronchoscopy today. No acute medical issues. s/p wedge resection/LN sampling/bronchoscopy - plan per surgery COPD - continue home inhalers white coat HTN - monior BP, normal currently dyslipidemia - continue atorvastatin osteoporosis - continue calcium and vitamin-D elevated blood glucose - recent A1c 5.4%, no diabetes Thank you for allowing me to participate in the pt's care. Signing off for now. Please contact the medical team if any questions or concerns.
[2024-12-11] MEDS: Acetaminophen 1,000 MG/100 ML PIGGYBACK 400 MG IV ×4 (01:42→21:05)
[2024-12-11 03:19] VITALS: BP 105/54; PULSE 80; RESP 20; TEMP 36.3; O2SAT 92
[2024-12-11] MEDS: Lactated Ringers 1,000 ML 80 ML IVCONT (05:33)
[2024-12-11 07:02] LABS: MANUAL DIFF FLAG NO
[2024-12-11 07:06] VITALS: BP 139/65; PULSE 83; RESP 20; TEMP 36.6; O2SAT 96
[2024-12-11 07:07] LABS: Basophils Absolute Auto 0.1 X10*3/uL (0.0-0.2); Basophils Percent Auto 0.4 % (0-2); Eosinophils Absolute Auto 0.2 X10*3/uL (0.0-0.4); Eosinophils Percent Auto 1.3 % (0-4); Hemoglobin 11.7 g/dl (12.0-16.0); Imm Gran Abs Auto 0.06 X10*3/uL (0.00-0.03); Imm Gran Pct Auto 0.4 % (0.0-0.4); Lymphocytes Absolute Auto 1.8 X10*3/uL (1.2-4.9); Lymphocytes Percent Auto 13.7 % (20-40); Mean Corpuscular HGB Conc 32.5 g/dl (31.0-35.0); Mean Corpuscular Hemoglobin 29.3 pg (27.0-33.0); Mean Platelet Volume 10.8 fL (9.4-12.3); Monocytes Percent Auto 7.7 % (2-11); Neutrophils Absolute Auto 10.3 x10*3/uL (2.0-8.3); Neutrophils Percent Auto 76.5 % (45-73); Platelet Count 276 X10*3/uL (160-400); Red Cell Distribution Width 14.3 % (11.0-16.0); White Blood Count 13.5 X10*3/uL (4.8-10.8)
[2024-12-11 07:23] LABS: Anion Gap 9 (12-20); Blood Urea Nitrogen 12 mg/dL (9-16); Calcium 8.8 mg/dL (8.4-10.2); Carbon Dioxide 28 mmol/L (22-29); Chloride 104 mmol/L (96-108); Creatinine Clr Calc Pharmacy 59.7; Estimated Glomerular Filt Rate > 60; Glucose Fasting 104 mg/dL (60-99); Potassium 4.4 mmol/L (3.3-5.1); Sodium 137 mmol/L (135-145)
[2024-12-11] MEDS: oxyCODONE HCl Immed Release 5 MG TABLET PO ×2 (07:38→15:10)
--- NOTE | 2024-12-11 08:22 | P.PNTS_ITS ---
Subjective Subjective Date of Service: 12/11/24 Interval history: Feels ok this morning, sore at right lateral chest where incisions are. Denies shortness of breath, chest pain. Has not been OOB yet. Tolerating solid diet. Physical Exam 2 Vital Signs: Vital Signs: Last Vital Signs Temp 97.9 F 12/11/24 07:06 Pulse 83 12/11/24 07:06 Resp 20 12/11/24 07:06 BP 139/65 12/11/24 07:06 Pulse Ox 96 12/11/24 07:06 O2 Del Method Room Air 12/11/24 07:06 O2 Flow Rate 2 12/10/24 15:54 BMI result Body Mass Index 21.2 Const: General: comfortable, no acute distress and alert Orientation/consciousness: patient oriented x3 Chest: Other: right chest tube in place, mild crepitus, scant serosanguineous output small air leak present on pleurvac dressings clean and intact, mild tenderness Resp: Effort & Inspection: normal respiratory effort, able to speak in complete sentences, not labored, no tracheal deviation and no use of accessory muscles Skin: General skin exam: no rashes or lesions noted Neuro: General: patient oriented x3 and moves all extremities Procedures Date of Service Date of Service: 12/11/24 Progress Note: A&P Assessment and plan (1) Primary cancer of right upper lobe of lung: Status: Acute Plan POD #1 s/p right upper lobe wedge resection, mediastinal lymph node sampling, intercostal nerve block, bronchoscopy. Patient doing fairly well post op. Hemodynamically stable. VATs dressings clean and intact, chest tube with scant serosanguineous drainage, small air leak this morning on exam. CXR shows persistent small air space apically on right. Will continue chest tube to suction today. Dc casper. Dc IVF. OOB and increasing activity as tolerated today. Continue incentive spirometer 10x/hr. Leukocytosis likely reactive this morning, H/H stable. Will initiate heparin subq for VTE prophalyxis today. Time Spent With Patient Time: Total time managing care of this patient today ____ minutes. Quality Stroke Does the patient have a stroke diagnosis?: No VTE Prior VTE?: No VTE Risk Level:: Surgical - low VTE Device Contraindication: N/A - Device Ordered VTE Drug Contraindication: Treatment Not Indicated
[2024-12-11] MEDS: Docusate Sodium 100 MG CAPSULE PO ×2 (09:15→19:46)
[2024-12-11] MEDS: Atorvastatin Calcium 10 MG TABLET PO (09:15)
[2024-12-11] MEDS: 0.9 % Sodium Chloride Flush 3 ML SYRINGE IVFLUSH ×2 (09:16→17:12)
--- NOTE | 2024-12-11 09:18 | MHC.CM.PN ---
IMM 12/11/24, Pt. lives with her , she does not have home health services or use DME. PCP confirmed: Juanita Lakhani, HCP on file and confirmed: Oswaldo and Elizabeth. Family to transport home at DC. DCP: home either self care and with SN, VNA. CM will follow for DC needs.
[2024-12-11 10:51] VITALS: BP 141/67; PULSE 89; RESP 20; TEMP 36.7; O2SAT 94
[2024-12-11] MEDS: SALMETEROL INHALE (12:00)
[2024-12-11] MEDS: FLUTICASONE PROPIONATE INHALE (12:00)
[2024-12-11] MEDS: ondansetron HCL 4 MG/2 ML VIAL IVPUSH (15:10)
[2024-12-11 15:19] VITALS: BP 121/72; PULSE 95; RESP 18; TEMP 36.7; O2SAT 91
--- NOTE | 2024-12-11 16:25 | PC.NURSE ---
late entry: Med administration of oxycondone 5 mg was given at the request of the patient.
[2024-12-11 18:31] VITALS: BP 146/67; PULSE 86; RESP 19; TEMP 35.9; O2SAT 91
[2024-12-11] MEDS: Enoxaparin Sodium 40 MG/0.4 ML SYRINGE SUBCUT (19:46)
[2024-12-11 23:53] VITALS: BP 133/77; PULSE 84; RESP 19; TEMP 36.7; O2SAT 93
[2024-12-12] MEDS: Acetaminophen 1,000 MG/100 ML PIGGYBACK 400 MG IV ×4 (03:17→21:20)
[2024-12-12] MEDS: 0.9 % Sodium Chloride Flush 3 ML SYRINGE IVFLUSH ×4 (03:20→21:21)
[2024-12-12] MEDS: oxyCODONE HCl Immed Release 5 MG TABLET PO ×2 (03:21→21:23)
[2024-12-12 03:28] VITALS: BP 133/72; PULSE 86; RESP 19; TEMP 36.7; O2SAT 91
[2024-12-12 06:47] LABS: MANUAL DIFF FLAG NO
[2024-12-12 06:51] LABS: Basophils Absolute Auto 0.1 X10*3/uL (0.0-0.2); Basophils Percent Auto 0.5 % (0-2); Eosinophils Absolute Auto 0.4 X10*3/uL (0.0-0.4); Eosinophils Percent Auto 3.3 % (0-4); Hematocrit 39.1 % (37.0-47.0); Hemoglobin 12.9 g/dl (12.0-16.0); Imm Gran Abs Auto 0.09 X10*3/uL (0.00-0.03); Imm Gran Pct Auto 0.7 % (0.0-0.4); Lymphocytes Absolute Auto 1.9 X10*3/uL (1.2-4.9); Lymphocytes Percent Auto 15.1 % (20-40); Mean Corpuscular Hemoglobin 29.6 pg (27.0-33.0); Mean Corpuscular Volume 89.7 fL (80.0-98.0); Mean Platelet Volume 10.6 fL (9.4-12.3); Monocytes Absolute Auto 0.9 X10*3/uL (0.1-1.2); Monocytes Percent Auto 6.6 % (2-11); Neutrophils Absolute Auto 9.5 x10*3/uL (2.0-8.3); Neutrophils Percent Auto 73.8 % (45-73); Platelet Count 314 X10*3/uL (160-400); Red Blood Count 4.36 X10*6/uL (4.20-5.50); Red Cell Distribution Width 14.1 % (11.0-16.0); White Blood Count 12.8 X10*3/uL (4.8-10.8)
[2024-12-12 07:32] VITALS: BP 153/90; PULSE 82; RESP 20; TEMP 36.8; O2SAT 94
[2024-12-12] MEDS: Atorvastatin Calcium 10 MG TABLET PO (08:31)
[2024-12-12] MEDS: Docusate Sodium 100 MG CAPSULE PO ×2 (08:31→21:21)
--- NOTE | 2024-12-12 08:36 | PM.PNTS ---
Subjective Subjective Date of Service: 12/12/24 Interval history: Feels ok this morning. Having urinary retention and was straight cathed x 1 yesterday. Vomited after lunch yesterday but felt improved following and no further nausea/vomiting. OOB to bathroom. Denies shortness of breath. Physical Exam Vital Signs: Vital Signs: Last Vital Signs Temp 98.2 F 12/12/24 07:32 Pulse 82 12/12/24 07:32 Resp 20 12/12/24 07:32 BP 153/90 H 12/12/24 07:32 Pulse Ox 94 12/12/24 07:32 O2 Del Method Room Air 12/12/24 07:32 O2 Flow Rate 2 12/10/24 15:54 BMI result Body Mass Index 21.2 Const: General: comfortable, no acute distress and alert Orientation/consciousness: patient oriented x3 Chest: Other: Right VATS incisions clean chest tube in place, now with scant serosanguineous drainage small air leak on exam Resp: Effort & Inspection: normal respiratory effort, not labored, no respiratory distress and symmetric chest movement Skin: General skin exam: no rashes or lesions noted Neuro: General: patient oriented x3 and moves all extremities Procedures Date of Service Date of Service: 12/12/24 Progress Note: A&P Assessment and plan (1) Primary cancer of right upper lobe of lung: Status: Acute Plan POD #2 s/p right upper lobe wedge resection, mediastinal lymph node sampling, intercostal nerve block, bronchoscopy. Continues to do fairly well post op, hemodynamically stable. VATs incisions clean. Chest tube with scant serosanguineous drainage, small air leak remains present. Await AM CXR for further chest tube plan, possibly place to water seal if no air leak. Cont increasing activity as tolerated today. Continue incentive spirometer 10x/hr. AM labs reviewed. May require casper cath if urinary retention persists. Cont to straight cath for now. Time Spent With Patient Time: Total time managing care of this patient today ____ minutes. Quality Stroke Does the patient have a stroke diagnosis?: No VTE Prior VTE?: No VTE Risk Level:: Surgical - low VTE Device Contraindication: N/A - Device Ordered VTE Drug Contraindication: Treatment Not Indicated
[2024-12-12 11:13] VITALS: BP 158/78; PULSE 93; RESP 18; TEMP 36.3; O2SAT 96
[2024-12-12] MEDS: FLUTICASONE PROPIONATE INHALE (11:19)
[2024-12-12] MEDS: SALMETEROL INHALE (11:19)
[2024-12-12] MEDS: Morphine Sulfate 4 MG/ML CARTRIDGE IVPUSH (14:33)
[2024-12-12 15:39] VITALS: BP 146/73; PULSE 84; RESP 16; TEMP 36.2; O2SAT 95
[2024-12-12] MEDS: Enoxaparin Sodium 40 MG/0.4 ML SYRINGE SUBCUT (18:34)
[2024-12-12 19:35] VITALS: BP 117/91; PULSE 95; RESP 16; TEMP 36.5; O2SAT 94
[2024-12-12] MEDS: polyethylene glycoL 3350 17 GM POWD.PACK PO (21:30)
[2024-12-12 23:33] VITALS: BP 116/77; PULSE 83; RESP 16; TEMP 36.6; O2SAT 95
[2024-12-13] MEDS: Acetaminophen 1,000 MG/100 ML PIGGYBACK 400 MG IV ×4 (02:16→22:48)
[2024-12-13 03:38] VITALS: BP 137/70; PULSE 88; RESP 16; TEMP 37.1; O2SAT 92
[2024-12-13] MEDS: oxyCODONE HCl Immed Release 5 MG TABLET PO ×4 (06:08→22:47)
[2024-12-13 07:05] VITALS: BP 156/89; PULSE 90; RESP 20; TEMP 36.6; O2SAT 96
[2024-12-13] MEDS: 0.9 % Sodium Chloride Flush 3 ML SYRINGE IVFLUSH ×3 (07:36→22:57)
[2024-12-13] MEDS: Docusate Sodium 100 MG CAPSULE PO ×2 (07:37→22:49)
[2024-12-13] MEDS: Atorvastatin Calcium 10 MG TABLET PO (07:37)
[2024-12-13] MEDS: FLUTICASONE PROPIONATE INHALE (07:38)
[2024-12-13] MEDS: SALMETEROL INHALE (07:38)
--- NOTE | 2024-12-13 08:04 | P.PNTS_ITS ---
Subjective Subjective Date of Service: 12/13/24 Interval history: Reports increasing pain at incision sites and chest tube site last night and this morning. Was partially relieved with oxycodone. Passing flatus. Was OOB to recliner yesterday. Still requiring straight caths for high PVR. Physical Exam Vital Signs: Vital Signs: Last Vital Signs Temp 97.8 F 12/13/24 07:05 Pulse 90 12/13/24 07:05 Resp 20 12/13/24 07:05 BP 156/89 H 12/13/24 07:05 Pulse Ox 96 12/13/24 07:05 O2 Del Method Room Air 12/13/24 07:05 O2 Flow Rate 2 12/10/24 15:54 BMI result Body Mass Index 21.2 Const: General: comfortable, no acute distress and alert Orientation/consciousness: patient oriented x3 Resp: Other: incision sites clean, mild ecchymosis surrounding chest tube in place, scant drainage, continues with small air leak Effort & Inspection: normal respiratory effort, not labored, not tachypneic and no use of accessory muscles GI: Palpation (GI): Soft to palpation and nontender Skin: General skin exam: no rashes or lesions noted Neuro: General: patient oriented x3 and moves all extremities Procedures Date of Service Date of Service: 12/13/24 Progress Note: A&P Assessment and plan (1) Primary cancer of right upper lobe of lung: Status: Acute (2) Urinary retention with incomplete bladder emptying: Status: Acute Plan POD #3 s/p right upper lobe wedge resection, mediastinal lymph node sampling, intercostal nerve block, bronchoscopy. Doing well, awaiting resolution of air leak. Increase in pain likely due to exparel wearing off at this point and is expected, discussed with patient and RN. VSS, hemodynamically stable. Incisions clean, chest tube with scant serosanguineous drainage, small air leak remains present. Will attempt water seal and repeat CXR later this morning. Instructed RN to place back to suction if develops shortness of breath. Cont increasing activity as tolerated, continue incentive spirometer 10x/hr. Reinsert casper give n multiple straight caths. Time Spent With Patient Time: Total time managing care of this patient today ____ minutes. Quality Stroke Does the patient have a stroke diagnosis?: No VTE Prior VTE?: No VTE Risk Level:: Surgical - low VTE Device Contraindication: N/A - Device Ordered VTE Drug Contraindication: Treatment Not Indicated
--- NOTE | 2024-12-13 10:21 | PC.NURSE ---
This RN inserted an 18 gauge indwelling urinary catheter a 0850. Patient tolerated well. Urine output right after insertion was 600cc.
[2024-12-13 10:48] VITALS: BP 135/59; PULSE 100; RESP 20; TEMP 36.6; O2SAT 95
--- NOTE | 2024-12-13 12:16 | MHC.CM.PN ---
Per EMR review, pt. is not ready for DC, she is recovering from her surgical procedure. CM to follow for DC needs.
[2024-12-13] MEDS: Tamsulosin HCL 0.4 MG CAPSULE PO (13:58)
[2024-12-13 16:00] VITALS: BP 128/78; PULSE 117; RESP 16; TEMP 36.7; O2SAT 92
[2024-12-13 19:06] VITALS: BP 110/60; PULSE 88; RESP 16; TEMP 36.2; O2SAT 95
[2024-12-13] MEDS: Enoxaparin Sodium 40 MG/0.4 ML SYRINGE SUBCUT (22:56)
[2024-12-13 23:27] VITALS: BP 118/57; PULSE 84; RESP 14; TEMP 36.1; O2SAT 94
--- NOTE | 2024-12-14 03:45 | ECG_ITS ---
Test Reason : chest pain Blood Pressure : */* mmHG Vent. Rate : 80 BPM Atrial Rate : 80 BPM P-R Int : 152 ms QRS Dur : 74 ms QT Int : 402 ms P-R-T Axes : 87 -21 66 degrees QTcB Int : 463 ms Normal sinus rhythm Normal ECG When compared with ECG of 27-Nov-2024 10:04, No significant change was found Referred By: Carlton Rosales Electronically Signed By: Shaquille Jung
[2024-12-14 03:47] VITALS: BP 108/63; PULSE 81; RESP 16; TEMP 36.1; O2SAT 93
[2024-12-14 04:04] LABS: Glucose, Whole Blood 106 mg/dL (60-115)
[2024-12-14] MEDS: Acetaminophen 1,000 MG/100 ML PIGGYBACK 400 MG IV ×3 (04:12→15:10)
[2024-12-14] MEDS: Calcium Carbonate 750 MG TAB.CHEW PO (04:13)
[2024-12-14] MEDS: oxyCODONE HCl Immed Release 5 MG TABLET PO ×4 (04:32→20:14)
[2024-12-14] MEDS: Milk of Magnesia 30 ML ORAL.SUSP PO (06:26)
--- NOTE | 2024-12-14 07:14 | P.PNTS_ITS ---
Subjective Subjective Date of Service: 12/14/24 Interval history: Heartburn and chest discomfort issues from last night have resolved. well reactivator operator chest x-ray within normal limits. Patient was no respiratory issues at present. Pleur-evac small air leak and minimal output Physical Exam Vital Signs: Vital Signs: Last Vital Signs Temp 97 F 12/14/24 03:47 Pulse 81 12/14/24 03:47 Resp 16 12/14/24 03:47 BP 108/63 12/14/24 03:47 Pulse Ox 93 12/14/24 03:47 O2 Del Method Room Air 12/14/24 03:47 O2 Flow Rate 2 12/10/24 15:54 BMI result Body Mass Index 21.2 Chest: Other: Incisions all clean dry and intact. Pleur-evac as noted above Procedures Date of Service Date of Service: 12/14/24 Progress Note: A&P Assessment and plan (1) Postop check: Status: Acute Plan Encourage out of bed/incentive spirometry/diet as tolerated/stool softeners. Because of urinary retention we will keep Lundberg in through the weekend. Continue chest tube because of small persists air leak Time Spent With Patient Time: Total time managing care of this patient today ____ minutes. Quality Stroke Does the patient have a stroke diagnosis?: No VTE Prior VTE?: No VTE Risk Level:: Surgical - low VTE Device Contraindication: N/A - Device Ordered VTE Drug Contraindication: Treatment Not Indicated
[2024-12-14 07:48] VITALS: BP 106/64; PULSE 95; RESP 20; TEMP 36.7; O2SAT 93
[2024-12-14] MEDS: 0.9 % Sodium Chloride Flush 3 ML SYRINGE IVFLUSH ×2 (09:27→15:12)
[2024-12-14] MEDS: Tamsulosin HCL 0.4 MG CAPSULE PO (09:28)
[2024-12-14] MEDS: Atorvastatin Calcium 10 MG TABLET PO (09:29)
[2024-12-14] MEDS: Docusate Sodium 100 MG CAPSULE PO ×2 (09:29→20:17)
[2024-12-14] MEDS: polyethylene glycoL 3350 17 GM POWD.PACK PO (09:33)
[2024-12-14] MEDS: SALMETEROL INHALE (10:06)
[2024-12-14] MEDS: FLUTICASONE PROPIONATE INHALE (10:06)
[2024-12-14] MEDS: Pantoprazole Sodium 40 MG/10 ML VIAL IVPUSH ×2 (10:13→15:12)
[2024-12-14 11:41] VITALS: BP 103/56; PULSE 97; RESP 20; TEMP 36.6; O2SAT 95
[2024-12-14 15:27] VITALS: BP 101/57; PULSE 107; RESP 18; TEMP 36.6; O2SAT 94
[2024-12-14 19:21] VITALS: BP 122/67; PULSE 115; RESP 20; TEMP 36; O2SAT 96
[2024-12-14] MEDS: ondansetron HCL 4 MG/2 ML VIAL IVPUSH (19:53)
[2024-12-14] MEDS: Enoxaparin Sodium 40 MG/0.4 ML SYRINGE SUBCUT (19:53)
[2024-12-14] MEDS: Lactated Ringers 1,000 ML 999 ML IV (20:38)
--- NOTE | 2024-12-14 20:51 | PM.EVENT ---
Event Note Date of Service: 12/14/24 Event Note: Nurse reported low blood pressure. Patient states she was sitting in chair when she felt like she would pass out. Blood pressure with systolic in the 70s as per the nurse. Upon my evaluation, patient mentating well and complaining of dizziness. She does have chest pain at chest tube site. Repeat blood pressure 96/64 without intervention. Ordered 1 L crystalloid bolus. Patient denies chest pain or palpitations. Near-syncope episode was preceded by nausea. ?vasovagal in the setting of pain. Closely monitor on telemetry. Consider Cardiology consult if patient has another similar episode. Time Spent With Patient Time: Total time managing care of this patient today ____ minutes.
[2024-12-14 23:48] VITALS: BP 132/69; PULSE 112; RESP 16; TEMP 36.4; O2SAT 94
[2024-12-15] MEDS: oxyCODONE HCl Immed Release 5 MG TABLET PO ×4 (01:24→23:22)
[2024-12-15] MEDS: 0.9 % Sodium Chloride Flush 3 ML SYRINGE IVFLUSH ×4 (02:13→20:50)
[2024-12-15] MEDS: Magnesium Hydrox/Alum Hydrox 30 ML ORAL.SUSP PO ×3 (02:13→23:23)
[2024-12-15] MEDS: Acetaminophen 1,000 MG/100 ML PIGGYBACK 400 MG IV ×3 (02:15→14:23)
[2024-12-15 03:45] VITALS: BP 103/53; PULSE 99; RESP 14; TEMP 36.6; O2SAT 92
[2024-12-15] MEDS: Pantoprazole Sodium 40 MG/10 ML VIAL IVPUSH ×2 (06:04→16:20)
[2024-12-15 07:49] VITALS: BP 132/72; PULSE 97; RESP 20; TEMP 36.8; O2SAT 94
[2024-12-15] MEDS: Tamsulosin HCL 0.4 MG CAPSULE PO (08:25)
[2024-12-15] MEDS: Docusate Sodium 100 MG CAPSULE PO ×2 (08:25→20:50)
[2024-12-15] MEDS: FLUTICASONE PROPIONATE INHALE (08:25)
[2024-12-15] MEDS: Atorvastatin Calcium 10 MG TABLET PO (08:25)
[2024-12-15] MEDS: SALMETEROL INHALE (08:25)
--- NOTE | 2024-12-15 08:56 | PM.PNGS ---
Subjective Subjective Date of Service: 12/15/24 Interval history: Continues to complain of heartburn and some burning pain in the right axilla but generally feels well. Does not like taking the morphine and prefers the oxycodone. No air leak noted by chest tube. Physical Exam Vital Signs: Vital Signs: Last Vital Signs Temp 98.2 F 12/15/24 07:49 Pulse 97 12/15/24 07:49 Resp 20 12/15/24 07:49 BP 132/72 12/15/24 07:49 Pulse Ox 94 12/15/24 07:49 O2 Del Method Room Air 12/15/24 07:49 O2 Flow Rate 2 12/10/24 15:54 BMI result Body Mass Index 21.2 Const: General: no acute distress Nutritional Appearance: thin Orientation/consciousness: patient oriented x3 Chest: Other: Chest incisions are clean and intact. Chest tube site clean Resp: Other: Breathing comfortably with no respiratory distress Skin: Other: Warm and dry, Neuro: General: patient oriented x3 Objective Data Active Medications Al Hydroxide/Mg Hydroxide (Magnesium Hydrox/Alum Hydrox 30 Ml Oral.Susp) 30 ml PO BID PRN PRN Reason: Heartburn Albuterol/Ipratropium (Albuterol/Iprat 2.5/0.5mg 3 Ml Ampul.Neb) 3 ml INHALE BID PRN PRN Reason: wheezing Atorvastatin Calcium (Atorvastatin Calcium 10 Mg Tablet) 10 mg PO DAILY [facility] Last Admin: 12/15/24 08:25 Dose: 10 mg Documented By: LEATHA Calcium Carbonate (Calcium Carbonate 750 Mg Tab.Chew) 750 mg PO Q4H PRN PRN Reason: Heartburn Last Admin: 12/14/24 04:13 Dose: 750 mg Documented By: ANTHONY Comments: c/o of heartburn Docusate Sodium (Docusate Sodium 100 Mg Capsule) 100 mg PO BID [facility] Last Admin: 12/15/24 08:25 Dose: 100 mg Documented By: LEATHA Enoxaparin Sodium (Enoxaparin Sodium 40 Mg/0.4 Ml Syringe) 40 mg SUBCUT Q24H [facility] Last Admin: 12/14/24 19:53 Dose: 40 mg Documented By: DERRICK Acetaminophen (Ofirmev) 1,000 mg in 100 mls @ 400 mls/hr IV Q6H [facility] Last Admin: 12/15/24 08:25 Dose: 400 mls/hr Documented By: LEATHA Magnesium Hydroxide (Milk Of Magnesia 30 Ml Oral.Susp) 30 ml PO DAILY PRN PRN Reason: Constipation Last Admin: 12/14/24 06:26 Dose: 30 ml Documented By: ANTHONY Melatonin (Melatonin 3 Mg Tablet) 6 mg PO BEDTIME PRN PRN Reason: Insomnia Morphine Sulfate (Morphine Sulfate 4 Mg/Ml Cartridge) 4 mg IVPUSH Q4H PRN; Protocol PRN Reason: Pain, Severe (Pain Scale 7-10) Last Admin: 12/12/24 14:33 Dose: 4 mg Documented By: MONICA Pt Owned Med ( Fluticasone Prop - Salmeterol (Wixela) 500-50mcg) 1 each INHALE RDAILY [facility] Last Admin: 12/15/24 08:25 Dose: 1 each Documented By: LEATHA Ondansetron HCl (Ondansetron Hcl 4 Mg/2 Ml Vial) 4 mg IVPUSH Q8H PRN PRN Reason: Nausea and Vomiting Last Admin: 12/14/24 19:53 Dose: 4 mg Documented By: DERRICK Oxycodone HCl (Oxycodone Hcl Immed Release 5 Mg Tablet) 5 mg PO Q4H PRN PRN Reason: Pain, Moderate(Pain Scale 4-6) Last Admin: 12/15/24 06:04 Dose: 5 mg Documented By: DERRICK Pantoprazole Sodium (Pantoprazole Sodium 40 Mg/10 Ml Vial) 40 mg IVPUSH BID@0630,1630 [facility] Last Admin: 12/15/24 06:04 Dose: 40 mg Documented By: DERRICK Polyethylene Glycol (Polyethylene Glycol 3350 17 Gm Powd.Pack) 17 gm PO DAILY PRN PRN Reason: Constipation Last Admin: 12/14/24 09:33 Dose: 17 gm Documented By: LEATHA Sodium Chloride (0.9 % Sodium Chloride Flush 3 Ml Syringe) [facility] Last Admin: 12/15/24 08:26 Dose: 3 ml Documented By: LEATHA Tamsulosin HCl (Tamsulosin Hcl 0.4 Mg Capsule) 0.4 mg PO DAILY [facility] Last Admin: 12/15/24 08:25 Dose: 0.4 mg Documented By: LEATHA Donohue 12/12/24 05:57 12/11/24 06:30 Procedures Date of Service Date of Service: 12/15/24 Progress Note: A&P Assessment and plan (1) Primary cancer of right upper lobe of lung: Status: Acute Plan 79-year-old female patient status post VATS right upper lobe wedge resection. Overall she was doing quite well with good pain relief with oxycodone. She does not like the way morphine makes her feel therefore I will stop this and add oxycodone 10 mg Q 4 hours p.r.n. severe pain. Continue Maalox for heartburn. Continue incentive spirometry. Time Spent With Patient Time: Total time managing care of this patient today ____ minutes. Quality Stroke Does the patient have a stroke diagnosis?: No VTE Prior VTE?: No VTE Risk Level:: Surgical - low VTE Device Contraindication: N/A - Device Ordered VTE Drug Contraindication: Treatment Not Indicated
[2024-12-15] MEDS: oxyCODONE HCl Immed Release 5 MG TABLET 10 MG PO ×2 (10:06→14:22)
[2024-12-15 12:00] VITALS: BP 136/61; PULSE 104; RESP 18; TEMP 36.7; O2SAT 92
[2024-12-15 15:47] VITALS: BP 122/66; PULSE 103; RESP 18; TEMP 36.4; O2SAT 95
[2024-12-15 19:51] VITALS: BP 119/57; PULSE 103; RESP 17; TEMP 36.4; O2SAT 91
[2024-12-15] MEDS: Enoxaparin Sodium 40 MG/0.4 ML SYRINGE SUBCUT (20:50)
[2024-12-15 23:27] VITALS: BP 117/60; PULSE 100; RESP 20; TEMP 37.2; O2SAT 93
[2024-12-16 04:00] VITALS: BP 112/56; PULSE 101; RESP 18; TEMP 36.7; O2SAT 95
[2024-12-16] MEDS: oxyCODONE HCl Immed Release 5 MG TABLET PO ×5 (05:41→21:36)
[2024-12-16] MEDS: Pantoprazole Sodium 40 MG/10 ML VIAL IVPUSH ×2 (05:41→17:36)
--- NOTE | 2024-12-16 06:27 | PC.NURSE ---
Nursing Note [id number] am. Acute Delirium with agitation, anxiety and paranoia throughout the night. Dr. Shah came to bedside 4x during the night assessing patient as patient presenting with delusions, hitting at staff, removing gown and all blankets, wiggling herself to end of bed causing her lower leg dressings to loosen and yelling out. Patient incessantly talking stating she is in [place] and we all need to get out of her house!. Pt using profanity at staff and insisting she calling the senior designer/art director . Dr. Shah made aware patient does not have IV access, and telemetry heart monitor leads placed on her back to obtain heart rhythm as patient 10 mg Zyprexa IM given x2 during the night per Dr. Shah's orders and Haldol 5mg IM given at 01:29. One hour after administration patient reassessed and patient's eyes closed but hands making small movements grabbing at gown but not removing it. Legs restless in the bed, and pt at times conversing with herself. Dr. Shah assessed and plan continue to monitor for improvement in mentation.
[2024-12-16] MEDS: FLUTICASONE PROPIONATE INHALE (07:27)
[2024-12-16] MEDS: SALMETEROL INHALE (07:27)
[2024-12-16 07:28] VITALS: PULSE 101; RESP 18; O2SAT 95
[2024-12-16 08:00] VITALS: BP 105/61; PULSE 97; RESP 18; TEMP 37; O2SAT 89
--- NOTE | 2024-12-16 08:30 | P.PNTS_ITS ---
Subjective Subjective Date of Service: 12/16/24 <[facility] Last Filed: 12/16/24 09:27> 12/16/24 <Shira Mijares PA-C - Last Filed: 12/16/24 09:33> Interval history: 79 year old female with a prior medical history of COPD, primary cancer of right upper lobe of lung, and dyslipidemia 6 days s/p right upper lobe wedge resection. Complains of heartburn that occurred last night. Casper catheter still in place. Reports last bowel movement 3/1. Was placed on nasal cannula last night due to low O2 sat, but does not endorse SOB this morning. Chest tube in place, on waterseal, minimal air leak noted. Trialed morphine for pain, but the patient did not like it, so was switched to oxycodone. <[facility] Last Filed: 12/16/24 09:27> Complains of heartburn that occurred last night. Casper catheter still in place. Reports last bowel movement 3/1. Was placed on nasal cannula last night due to low O2 sat, but does not endorse SOB this morning. Trialed morphine for pain, but the patient did not like it, so was switched to oxycodone. <Shira Mijares PA-C - Last Filed: 12/16/24 09:33> Physical Exam Vital Signs: Vital Signs: Last Vital Signs Temp 98.6 F 12/16/24 08:00 Pulse 97 12/16/24 08:00 Resp 18 12/16/24 08:00 BP 105/61 12/16/24 08:00 Pulse Ox 89 L 12/16/24 08:00 O2 Del Method Room Air 12/16/24 08:00 O2 Flow Rate 2 12/16/24 04:00 BMI result Body Mass Index 21.2 <[facility] Last Filed: 12/16/24 09:27> Const: Other: Awake, alert, in no acute distress. Patient is lying comfortably in bed. <[facility] Last Filed: 12/16/24 09:27> Orientation/consciousness: patient oriented x3 <FARHAT Frias Last Filed: 12/16/24 09:33> HEENT: Other: Normocephalic. Atraumatic. <Alcides Bajwa - Last Filed: 12/16/24 09:27> Chest: Other: Chest tube placement intact. Chest tube shows small/minimal air leak when the patient coughs. Incision in right upper chest appears intact, dry, and clean. Dressings appear clean, dry, and intact. <[facility] Last Filed: 12/16/24 09:27> Other: Chest tube placement intact. Chest tube shows small/minimal air leak. Incision in right upper chest appears dry, and clean. <Shira Mijares PA-C - Last Filed: 12/16/24 09:33> Resp: Other: Normal work of breathing. Clear to auscultation bilaterally. Able to speak in full, complete sentences. <[facility] Last Filed: 12/16/24 09:27> Cardio: Other: Regular rate and rhythm. No murmurs, rubs, or gallops appreciated. Radial pulses 2+ bilaterally. No JVD. <[facility] Last Filed: 12/16/24 09:27> GI: Other: Abdomen soft, non-tender, non-distended. <[facility] Last Filed: 12/16/24 09:27> : Other: casper in place, some blood tinged urine, no dev blood noted <Shira Mijares PA-C Last Filed: 12/16/24 09:33> Skin: Other: Incision on right upper chest appears intact, dry, and clean. Chest tube appears intact, dressings dry and intact. No other rashes or lesions seen on exposed skin. <[facility] Last Filed: 12/16/24 09:27> Other: No other rashes or lesions seen on exposed skin. <Shira Mijares PA-C - Last Filed: 12/16/24 09:33> Neuro: Other: No focal neurological deficits. <[facility] Last Filed: 12/16/24 09:27> General: patient oriented x3 <Shira Mijares PA-C Last Filed: 12/16/24 09:33> Extrem: Other: Normal range of motion of UE and LE bilaterally. <[facility] Last Filed: 12/16/24 09:27> Psych: Other: Affect and mood are appropriate. Patient cooperative with the exam. <Alcides Bajwa - Last Filed: 12/16/24 09:27> Procedures Date of Service Date of Service: 12/16/24 <Alcides Bajwa - Last Filed: 12/16/24 09:27> 12/16/24 <Shira Mijares PA-C - Last Filed: 12/16/24 09:33> Progress Note: A&P Assessment and plan (1) Urinary retention with incomplete bladder emptying: Status: Acute <Alcides Bajwa - Last Filed: 12/16/24 09:27> (2) Postop check: Status: Acute <Alcides Bajwa - Last Filed: 12/16/24 09:27> (3) Primary cancer of right upper lobe of lung: Status: Acute <Alcides Bajwa - Last Filed: 12/16/24 09:27> Assessment and Plan: Will discontinue casper catheter today. Serial post void residual bladder scans will be performed to assess bladder emptying and urinary ret ention.Patient's chest tube put back on suction due to minimal air leak. Will continue oxycodone for pain. Encouraged patient to ask for PRN laxatives for constipation. Continue to encourage incentive spirometry, out of bed ambulation, and diet as tolerated. <Alcides Bajwa - Last Filed: 12/16/24 09:27> 79 year old female with a prior medical history of COPD, primary cancer of right upper lobe of lung, and dyslipidemia 6 days s/p right upper lobe wedge resection. Will discontinue casper catheter today. Serial post void residual fe dder scans will be performed to assess bladder emptying and urinary retention.Patient's chest tube put back on suction due to persistent air leak. Will continue oxycodone for pain. Encouraged patient to ask for PRN laxatives for constipation. Continue to encourage incentive spirometry, out of bed ambulation, and diet as tolerated. Agree with above assessment plan by Alcides MERCADO. No acute issues, await air leak to resolve. VSS. Has been intermittently tachycardic. Will repeat CBC, BMP. PT consult to assist with ambulation, ok off suction for short period as long as does not develop shortness of breath. Encouraged incentive spirometer 10x/hr. Dc casper, trial void and PVR bladder scans. Now with only blood tinged urine, apparently had dev blood over the weekend. Seems to be improving, Cont to monitor. <Shira Mijares PA-C - Last Filed: 12/16/24 09:33> Time Spent With Patient Time: Total time managing care of this patient today ____ minutes. <Alcides - Last Filed: 12/16/24 09:27> Quality Stroke Does the patient have a stroke diagnosis?: No <Alcides - Last Filed: 12/16/24 09:27> VTE Prior VTE?: No < - Last Filed: 12/16/24 09:27> VTE Risk Level:: Surgical - low < - Last Filed: 12/16/24 09:27> VTE Device Contraindication: N/A - Device Ordered <Alcides Filed: 12/16/24 09:27> VTE Drug Contraindication: Treatment Not Indicated <Alcides Bajwa - Last Filed: 12/16/24 09:27>
[2024-12-16] MEDS: Tamsulosin HCL 0.4 MG CAPSULE PO (09:37)
[2024-12-16] MEDS: Atorvastatin Calcium 10 MG TABLET PO (09:38)
[2024-12-16] MEDS: 0.9 % Sodium Chloride Flush 3 ML SYRINGE IVFLUSH ×3 (09:38→19:59)
[2024-12-16] MEDS: Docusate Sodium 100 MG CAPSULE PO ×2 (09:39→19:57)
[2024-12-16 11:22] VITALS: BP 122/70; PULSE 105; RESP 19; TEMP 36.3; O2SAT 93
[2024-12-16 11:23] LABS: MANUAL DIFF FLAG NO
[2024-12-16 11:25] LABS: Basophils Absolute Auto 0.1 X10*3/uL (0.0-0.2); Basophils Percent Auto 0.6 % (0-2); Eosinophils Absolute Auto 0.4 X10*3/uL (0.0-0.4); Eosinophils Percent Auto 4.1 % (0-4); Hematocrit 34.3 % (37.0-47.0); Hemoglobin 11.3 g/dl (12.0-16.0); Imm Gran Pct Auto 1.1 % (0.0-0.4); Lymphocytes Absolute Auto 1.7 X10*3/uL (1.2-4.9); Lymphocytes Percent Auto 17.8 % (20-40); Mean Corpuscular HGB Conc 32.9 g/dl (31.0-35.0); Mean Corpuscular Hemoglobin 29.7 pg (27.0-33.0); Mean Corpuscular Volume 90.3 fL (80.0-98.0); Mean Platelet Volume 9.8 fL (9.4-12.3); Monocytes Absolute Auto 0.8 X10*3/uL (0.1-1.2); Monocytes Percent Auto 8.6 % (2-11); Neutrophils Absolute Auto 6.4 x10*3/uL (2.0-8.3); Neutrophils Percent Auto 67.8 % (45-73); Platelet Count 291 X10*3/uL (160-400); Red Cell Distribution Width 14.4 % (11.0-16.0); White Blood Count 9.5 X10*3/uL (4.8-10.8)
[2024-12-16 11:39] LABS: Anion Gap 10 (12-20); Blood Urea Nitrogen 10 mg/dL (9-16); Calcium 9.3 mg/dL (8.4-10.2); Carbon Dioxide 31 mmol/L (22-29); Chloride 99 mmol/L (96-108); Creatinine Clr Calc Pharmacy 60.5; Estimated Glomerular Filt Rate > 60; Glucose Fasting 113 mg/dL (60-99); Potassium 4.1 mmol/L (3.3-5.1); Sodium 136 mmol/L (135-145)
--- NOTE | 2024-12-16 15:42 | MHC.CM.PN ---
Addendum entered by Alana Costello 12/16/24 15:51: referral sent to VNA's that accept [facility] Medicare, which [facility] is not contracted with. Original Note: Pt not ready to DC, PT rec. home with services, CM asked pt. her preference for VNA and she said [facility], referral in.
[2024-12-16 16:00] VITALS: BP 125/73; PULSE 104; RESP 18; TEMP 36.9; O2SAT 95
[2024-12-16] MEDS: Milk of Magnesia 30 ML ORAL.SUSP PO (17:38)
[2024-12-16 19:25] VITALS: BP 114/59; PULSE 112; RESP 18; TEMP 36.4; O2SAT 90
[2024-12-16] MEDS: Enoxaparin Sodium 40 MG/0.4 ML SYRINGE SUBCUT (19:57)
[2024-12-17] VITALS (9 sets, daily range): BP systolic 115–128; BP diastolic 56–72; PULSE 98–129; RESP 16–20; TEMP 36.7–37.1; O2SAT 88–95
[2024-12-17] MEDS: oxyCODONE HCl Immed Release 5 MG TABLET PO ×5 (01:42→22:28)
[2024-12-17] MEDS: Pantoprazole Sodium 40 MG/10 ML VIAL IVPUSH ×2 (05:50→18:04)
[2024-12-17] MEDS: FLUTICASONE PROPIONATE INHALE (08:08)
[2024-12-17] MEDS: SALMETEROL INHALE (08:08)
[2024-12-17] MEDS: Tamsulosin HCL 0.4 MG CAPSULE PO (08:59)
[2024-12-17] MEDS: 0.9 % Sodium Chloride Flush 3 ML SYRINGE IVFLUSH ×3 (08:59→20:55)
[2024-12-17] MEDS: Atorvastatin Calcium 10 MG TABLET PO (08:59)
[2024-12-17] MEDS: Docusate Sodium 100 MG CAPSULE PO (08:59)
--- NOTE | 2024-12-17 09:23 | PM.PNTS ---
Subjective Subjective Date of Service: 12/17/24 <Shira Mijares PA-C - Last Filed: 12/17/24 09:28> 12/17/24 <Carlton Rosales MD - Last Filed: 12/17/24 10:01> Interval history: Overall feels well. Having pain at chest tube site but denies incisional pain. Had BM this morning. Voiding on own. Denies shortness of breath. <Shira Mijares PA-C - Last Filed: 12/17/24 09:28> Physical Exam Vital Signs: Vital Signs: Last Vital Signs Temp 98.1 F 12/17/24 07:52 Pulse 129 H 12/17/24 08:38 Resp 18 12/17/24 08:09 BP 121/66 12/17/24 07:52 Pulse Ox 88 L 12/17/24 08:38 O2 Del Method Room Air 12/17/24 07:52 O2 Flow Rate 2 12/17/24 04:00 BMI result Body Mass Index 21.2 <Shira Mijares PA-C - Last Filed: 12/17/24 09:28> Const: General: comfortable, no acute distress and alert <FARHAT Frias Last Filed: 12/17/24 09:28> Orientation/consciousness: patient oriented x3 <FARHAT Frias Last Filed: 12/17/24 09:28> Chest: Other: right lateral chest tube in place, very minimal bubbling incisions clean <FARHAT Frias Last Filed: 12/17/24 09:28> Resp: Effort & Inspection: normal respiratory effort, not labored and not tachypneic <FARHAT Frias Last Filed: 12/17/24 09:28> Skin: General skin exam: no rashes or lesions noted <FARHAT Frias Last Filed: 12/17/24 09:28> Neuro: General: patient oriented x3 <FARHAT Frias Last Filed: 12/17/24 09:28> Procedures Date of Service Date of Service: 12/17/24 <FARHAT Frias Last Filed: 12/17/24 09:28> 12/17/24 <Carlton Rosales MD - Last Filed: 12/17/24 10:01> Progress Note: A&P Assessment and plan (1) Urinary retention with incomplete bladder emptying: Status: Acute <Shira Mijares PA-C - Last Filed: 12/17/24 09:28> (2) Primary cancer of right upper lobe of lung: Status: Acute <Shira Mijares PA-C - Last Filed: 12/17/24 09:28> (3) Postop check: Status: Acute <FARHAT Frias Last Filed: 12/17/24 09:28> Assessment and Plan: Very minimal air leak on exam this morning. She is in high 80s on room air. Tachycardic this AM but that was after ambulating in halls twice. Monitor vitals. Chest tube to water seal, repeat CXR later this morning. Respiratory therapy consult for home O2 eval. If lung remains up, will remove chest tube and hopefully home tomorrow if remains hemodynamically stable. <Shira Mijares PA-C - Last Filed: 12/17/24 09:28> Time Spent With Patient Time: Total time managing care of this patient today ____ minutes. <Shira Mijares PA-C - Last Filed: 12/17/24 09:28> Quality Stroke Does the patient have a stroke diagnosis?: No <Shira Mijares PA-C - Last Filed: 12/17/24 09:28> VTE Prior VTE?: No <Shira Mijares PA-C - Last Filed: 12/17/24 09:28> VTE Risk Level:: Surgical - low <FARHAT Frias Last Filed: 12/17/24 09:28> VTE Device Contraindication: N/A - Device Ordered <Shira Mijares PA-C - Last Filed: 12/17/24 09:28> VTE Drug Contraindication: Treatment Not Indicated <FARHAT Frias Last Filed: 12/17/24 09:28>
--- NOTE | 2024-12-17 11:22 | PC.NURSE ---
per weight shifter RN report :casper cath was removed on 12/16/24 , pt is urinating without difficulties
[2024-12-17] MEDS: Acetaminophen 325 MG TABLET 650 MG PO (20:52)
[2024-12-17] MEDS: Enoxaparin Sodium 40 MG/0.4 ML SYRINGE SUBCUT (20:54)
[2024-12-18] VITALS (8 sets, daily range): BP systolic 117–123; BP diastolic 58–76; PULSE 97–133; RESP 16–20; TEMP 36.4–37.1; O2SAT 91–99
[2024-12-18] MEDS: Pantoprazole Sodium 40 MG/10 ML VIAL IVPUSH ×2 (06:32→16:39)
[2024-12-18] MEDS: oxyCODONE HCl Immed Release 5 MG TABLET PO ×2 (06:40→21:04)
--- NOTE | 2024-12-18 07:29 | P.PNGS_ITS ---
Subjective Subjective Date of Service: 12/18/24 <[facility] Last Filed: 12/18/24 08:41> 12/20/24 <Carlton Rosales MD - Last Filed: 12/20/24 13:01> Interval history: Patient is still complaining of pain at the chest tube insertion site, but is moderately controlled with medication. No pain at the incision site. Patient reports her last BM was this morning 12/18, and she also reports she has been hydrating and urinating regularly with no issues. She does not report any shortness of breath this morning. <[facility] Filed: 12/18/24 08:41> Physical Exam 2 Vital Signs: Vital Signs: Last Vital Signs Temp 98.2 F 12/18/24 07:18 Pulse 98 12/18/24 07:18 Resp 18 12/18/24 07:18 BP 121/76 12/18/24 07:18 Pulse Ox 94 12/18/24 07:18 O2 Del Method Room Air 12/18/24 07:18 O2 Flow Rate 2 12/18/24 04:00 BMI result Body Mass Index 21.2 <[facility] Filed: 12/18/24 08:41> Const: Other: Awake, alert, and in no acute distress. is lying comfortably in bed. <[facility] Filed: 12/18/24 08:41> HEENT: Other: Normocephalic. Atraumatic. <[facility] Filed: 12/18/24 08:41> Chest: Other: Chest tube in place, dressings are clean, dry and intact. Incision site in right upper chest is clean, dry, and intact. Air leak appreciated in chest tube when patient coughs. <[facility] Last Filed: 12/18/24 08:41> Resp: Other: Clear to auscultation bilaterally. Able to speak in full, complete sentences. <[facility] Filed: 12/18/24 08:41> Cardio: Other: Regular rate and rhythm. No JVD. <[facility] Filed: 12/18/24 08:41> GI: Other: Abdomen is soft, non-tender, and non-distended. <[facility] Filed: 12/18/24 08:41> Skin: Other: no rashes or lesiosn seen on exposed skin. Chest tube insertion site and incision site are dry, clean, and intact. <[facility] Last Filed: 12/18/24 08:41> Neuro: Other: No focal neurological deficits. <[facility] Last Filed: 12/18/24 08:41> Extrem: Other: Normal range of motion in bilateral UE and LE. <[facility] Last Filed: 12/18/24 08:41> Psych: Other: Appropriate mood and affect. Cooperative with the exam. <[facility] Last Filed: 12/18/24 08:41> Objective Data Active Medications Acetaminophen (Acetaminophen 325 Mg Tablet) 650 mg PO Q6H PRN PRN Reason: Pain, Mild 1-3,fever,headache Last Admin: 12/17/24 20:52 Dose: 650 mg Documented By: JUAN JOSE Al Hydroxide/Mg Hydroxide (Magnesium Hydrox/Alum Hydrox 30 Ml Oral.Susp) 30 ml PO BID PRN PRN Reason: Heartburn Last Admin: 12/15/24 23:23 Dose: 30 ml Documented By: ANTHONY Comments: heartburn Albuterol/Ipratropium (Albuterol/Iprat 2.5/0.5mg 3 Ml Ampul.Neb) 3 ml INHALE BID PRN PRN Reason: wheezing Atorvastatin Calcium (Atorvastatin Calcium 10 Mg Tablet) 10 mg PO DAILY [facility] Last Admin: 12/17/24 08:59 Dose: 10 mg Documented By: ELISSA Calcium Carbonate (Calcium Carbonate 750 Mg Tab.Chew) 750 mg PO Q4H PRN PRN Reason: Heartburn Last Admin: 12/14/24 04:13 Dose: 750 mg Documented By: ANTHONY Comments: c/o of heartburn Docusate Sodium (Docusate Sodium 100 Mg Capsule) 100 mg PO BID [facility] Last Admin: 12/17/24 20:54 Dose: Not Given Documented By: JUAN JOSE Non-Admin Reason: Patient Refused Enoxaparin Sodium (Enoxaparin Sodium 40 Mg/0.4 Ml Syringe) 40 mg SUBCUT Q24H [facility] Last Admin: 12/17/24 20:54 Dose: 40 mg Documented By: JUAN JOSE Magnesium Hydroxide (Milk Of Magnesia 30 Ml Oral.Susp) 30 ml PO DAILY [facility] Last Admin: 12/17/24 09:21 Dose: Not Given Documented By: ELISSA Non-Admin Reason: loose stool Melatonin (Melatonin 3 Mg Tablet) 6 mg PO BEDTIME PRN PRN Reason: Insomnia Pt Owned Med ( Fluticasone Prop - Salmeterol (Wixela) 500-50mcg) 1 each INHALE RDAILY [facility] Last Admin: 12/17/24 08:08 Dose: 1 each Documented By: SHELBY Ondansetron HCl (Ondansetron Hcl 4 Mg/2 Ml Vial) 4 mg IVPUSH Q8H PRN PRN Reason: Nausea and Vomiting Last Admin: 12/14/24 19:53 Dose: 4 mg Documented By: DERRICK Oxycodone HCl (Oxycodone Hcl Immed Release 5 Mg Tablet) 5 mg PO Q4H PRN PRN Reason: Pain, Moderate(Pain Scale 4-6) Last Admin: 12/18/24 06:40 Dose: 5 mg Documented By: JUAN JOSE Oxycodone HCl (Oxycodone Hcl Immed Release 5 Mg Tablet) 10 mg PO Q4H PRN PRN Reason: Pain, Severe (Pain Scale 7-10) Last Admin: 12/15/24 14:22 Dose: 10 mg Documented By: LEATHA Pantoprazole Sodium (Pantoprazole Sodium 40 Mg/10 Ml Vial) 40 mg IVPUSH BID@0630,1630 [facility] Last Admin: 12/18/24 06:32 Dose: 40 mg Documented By: JUAN JOSE Polyethylene Glycol (Polyethylene Glycol 3350 17 Gm Powd.Pack) 17 gm PO DAILY [facility] Last Admin: 12/17/24 09:20 Dose: Not Given Documented By: ELISSA Non-Admin Reason: loose stool Sodium Chloride (0.9 % Sodium Chloride Flush 3 Ml Syringe) 3 ml IVFLUSH QSHIFT [facility] Last Admin: 12/17/24 20:55 Dose: 3 ml Documented By: JUAN JOSE Tamsulosin HCl (Tamsulosin Hcl 0.4 Mg Capsule) 0.4 mg PO DAILY [facility] Last Admin: 12/17/24 08:59 Dose: 0.4 mg Documented By: ELISSA <[facility] - Last Filed: 12/18/24 08:41> Labs CBC & Chem 7: 12/16/24 11:15 12/16/24 11:15 <[facility] - Last Filed: 12/18/24 08:41> Procedures Date of Service Date of Service: 12/18/24 <[facility] - Last Filed: 12/18/24 08:41> 12/20/24 <Carlton Rosales MD - Last Filed: 12/20/24 13:01> Progress Note: A&P Assessment and plan (1) Status post partial lobectomy of lung: Status: Acute <[facility] Last Filed: 12/18/24 08:41> (2) Squamous cell lung cancer: Status: Acute <[facility] Last Filed: 12/18/24 08:41> Assessment and Plan: Patient is a 79 year old patient with a prior medical history of Primary cancer of right upper lobe of lung, COPD, and dyslipidemia s/p right upper lung lobe mass wedge removal and 8 days out from surgery. Patient still has air leak present in chest tube. Was placed on waterseal yesterday. Will continue to monitor in the hospital. Home options including home nursing with mini pleur evac or heimlich valve were offered with outpatient chest tube removal, but the patient declined. Continue to manage chest tube insertion site pain. Continue to encourage ambulation and incentive spirometry. Continue to monitor Is and Os, as well as monitor incision site. <[facility] - Last Filed: 12/18/24 08:41> Patient is a 79 year old patient with a prior medical history of Primary cancer of right upper lobe of lung, COPD, and dyslipidemia s/p right upper lung lobe mass wedge removal and 8 days out from surgery. Patient still has air leak present in chest tube. Was placed on waterseal yesterday. Will continue to monitor in the hospital. Home options including home nursing with mini pleur evac or heimlich valve were offered with outpatient ches t tube removal, but the patient declined. Continue to manage chest tube insertion site pain. Continue to encourage ambulation and incentive spirometry. Continue to monitor Is and Os, as well as monitor incision site. Chest tube removed with the occlusive dressing placed. Postprocedure chest x- ray pending. If patient is asymptomatic and chest x-ray is okay, patient will be discharged home with VNA services. Discharge instructions were reviewed with the patient and her sister who is also present. <Carlton Rosales MD - Last Filed: 12/20/24 13:01> Time Spent With Patient Time: Total time managing care of this patient today ____ minutes. <[facility] - Last Filed: 12/18/24 08:41> Quality Stroke Does the patient have a stroke diagnosis?: No <[facility] Filed: 12/18/24 08:41> VTE Prior VTE?: No <[facility] - Last Filed: 12/18/24 08:41> VTE Risk Level:: Surgical - low <[facility] Filed: 12/18/24 08:41> VTE Device Contraindication: N/A - Device Ordered <[facility] Filed: 12/18/24 08:41> VTE Drug Contraindication: Treatment Not Indicated <[facility] Filed: 12/18/24 08:41>
[2024-12-18] MEDS: SALMETEROL INHALE (07:35)
[2024-12-18] MEDS: Tamsulosin HCL 0.4 MG CAPSULE PO (07:35)
[2024-12-18] MEDS: FLUTICASONE PROPIONATE INHALE (07:35)
[2024-12-18] MEDS: 0.9 % Sodium Chloride Flush 3 ML SYRINGE IVFLUSH ×3 (07:35→21:05)
[2024-12-18] MEDS: Atorvastatin Calcium 10 MG TABLET PO (07:36)
--- NOTE | 2024-12-18 08:14 | PM.PNTS ---
Subjective Subjective Date of Service: 12/18/24 Interval history: Patient had uneventful evening. She states that during the day she is out of bed/ambulating, doing her incentive spirometer, tolerating a diet. Having bowel movements. No respiratory issues or complaints. Pleur-evac was scant output and very small air leak. Yesterday's chest x-ray demonstrates lung fully expanded. Physical Exam Vital Signs: Vital Signs: Last Vital Signs Temp 98.2 F 12/18/24 07:18 Pulse 98 12/18/24 07:18 Resp 18 12/18/24 07:18 BP 121/76 12/18/24 07:18 Pulse Ox 94 12/18/24 07:18 O2 Del Method Room Air 12/18/24 07:18 O2 Flow Rate 2 12/18/24 04:00 BMI result Body Mass Index 21.2 Chest: Other: Incisions healing very well. Dressing over chest tube site clean dry and intact. Pleur-evac findings as noted above Procedures Date of Service Date of Service: 12/18/24 Progress Note: A&P Assessment and plan (1) Status post partial lobectomy of lung: Status: Acute Plan I discussed with the patient therapeutic options which are to continue inpatient chest tube while on water seal and eventually once air leak resolves remove the chest tube although this could take an unknown amount of days or patient could be sent home with either Heimlich valve were many Pleur-evac. We would provide VNA services regarding this. Patient would like to discuss this plan with her sister who may also a sister at home with her convalescence. When she has made a decision she will let us know. In the meantime, continue chest tube to water seal, ambulate, incentive spirometry, diet as tolerated, stool softeners as needed. Pathology still pending Time Spent With Patient Time: Total time managing care of this patient today ____ minutes. Quality Stroke Does the patient have a stroke diagnosis?: No VTE Prior VTE?: No VTE Risk Level:: Surgical - low VTE Device Contraindication: N/A - Device Ordered VTE Drug Contraindication: Treatment Not Indicated
--- NOTE | 2024-12-18 10:42 | MHC.CM.PN ---
EMR REVIEWED, PT W/LUNG CA AND S/P R UPPER LOBE WEDGE RESECTION, PT WILL NEED HOME P.T. AND SN, [facility] OFFERING, CM WILL CONT TO FOLLOW DC NEEDS.
[2024-12-18] MEDS: oxyCODONE HCl Immed Release 5 MG TABLET 10 MG PO (13:36)
[2024-12-18] MEDS: Enoxaparin Sodium 40 MG/0.4 ML SYRINGE SUBCUT (21:04)
[2024-12-19 03:18] VITALS: BP 139/69; PULSE 97; RESP 20; TEMP 36.7; O2SAT 96
[2024-12-19] MEDS: oxyCODONE HCl Immed Release 5 MG TABLET PO ×5 (03:41→20:44)
[2024-12-19] MEDS: Pantoprazole Sodium 40 MG/10 ML VIAL IVPUSH ×2 (07:16→16:42)
[2024-12-19] MEDS: Docusate Sodium 100 MG CAPSULE PO ×2 (07:43→20:43)
[2024-12-19] MEDS: Tamsulosin HCL 0.4 MG CAPSULE PO (07:43)
[2024-12-19] MEDS: Atorvastatin Calcium 10 MG TABLET PO (07:44)
[2024-12-19] MEDS: 0.9 % Sodium Chloride Flush 3 ML SYRINGE IVFLUSH ×3 (07:44→20:46)
[2024-12-19] MEDS: SALMETEROL INHALE (07:44)
[2024-12-19] MEDS: FLUTICASONE PROPIONATE INHALE (07:44)
[2024-12-19 08:00] VITALS: BP 121/66; PULSE 96; RESP 20; TEMP 36.8; O2SAT 100
--- NOTE | 2024-12-19 09:58 | PM.PNTS ---
Subjective Subjective Date of Service: 12/19/24 Interval history: She overall feels improved but continues with pain at chest tube site. Denies shortness of breath. Has been OOB and ambulating hallways a few times a day, OOB to recliner for most of day. Does not feel comfortable going home with chest tube in place as she is alone most of the day. Physical Exam Vital Signs: Vital Signs: Last Vital Signs Temp 98.2 F 12/19/24 08:00 Pulse 96 12/19/24 08:00 Resp 20 12/19/24 08:00 BP 121/66 12/19/24 08:00 Pulse Ox 100 12/19/24 08:00 O2 Del Method Room Air 12/19/24 08:00 O2 Flow Rate 2 12/18/24 22:24 BMI result Body Mass Index 21.2 Const: General: comfortable, no acute distress and alert Orientation/consciousness: patient oriented x3 Chest: Other: right chest tube in place, new cannister with zero drainage small air leak on exam this am right VATs incisions clean Resp: Effort & Inspection: normal respiratory effort, able to speak in complete sentences, not labored, no respiratory distress and not tachypneic Skin: General skin exam: no rashes or lesions noted Neuro: General: patient oriented x3 and moves all extremities Procedures Date of Service Date of Service: 12/19/24 Progress Note: A&P Assessment and plan (1) Status post partial lobectomy of lung: Status: Acute (2) Non-small cell lung cancer (NSCLC): Status: Acute Plan Unfortunately she does still have small air leak. Her lung remains up on f/u CXR. She is hemodynamically stable. Again discussed option of going home with chest tube in place to mini pleurvac or heimlich valve or even STR. She is not comfortable with this and would prefer to stay in the hospital while chest tube is in place. Await air leak to resolve, cont chest tube to water seal. Cont to increase ambulation, activity, incentive spirometer. Time Spent With Patient Time: Total time managing care of this patient today ____ minutes. Quality Stroke Does the patient have a stroke diagnosis?: No VTE Prior VTE?: No VTE Risk Level:: Surgical - low VTE Device Contraindication: N/A - Device Ordered VTE Drug Contraindication: Treatment Not Indicated
[2024-12-19 11:47] VITALS: BP 106/59; PULSE 100; RESP 18; TEMP 36.7; O2SAT 95
[2024-12-19 15:55] VITALS: BP 118/70; PULSE 109; RESP 16; TEMP 36.7; O2SAT 94
[2024-12-19 20:00] VITALS: BP 121/58; PULSE 97; RESP 16; TEMP 37.7; O2SAT 92
[2024-12-19] MEDS: Enoxaparin Sodium 40 MG/0.4 ML SYRINGE SUBCUT (20:44)
[2024-12-20 00:42] VITALS: BP 126/65; PULSE 92; RESP 20; TEMP 37.1; O2SAT 91
[2024-12-20] MEDS: oxyCODONE HCl Immed Release 5 MG TABLET PO ×3 (03:07→14:21)
[2024-12-20 04:00] VITALS: BP 124/64; PULSE 102; RESP 20; TEMP 36.5; O2SAT 96
[2024-12-20] MEDS: Pantoprazole Sodium 40 MG/10 ML VIAL IVPUSH (05:19)
[2024-12-20 07:29] VITALS: BP 141/75; PULSE 97; RESP 20; TEMP 37.2; O2SAT 93
[2024-12-20] MEDS: SALMETEROL INHALE (07:51)
[2024-12-20] MEDS: FLUTICASONE PROPIONATE INHALE (07:51)
[2024-12-20] MEDS: 0.9 % Sodium Chloride Flush 3 ML SYRINGE IVFLUSH (07:52)
[2024-12-20] MEDS: Tamsulosin HCL 0.4 MG CAPSULE PO (07:52)
[2024-12-20] MEDS: Docusate Sodium 100 MG CAPSULE PO (07:52)
[2024-12-20] MEDS: Atorvastatin Calcium 10 MG TABLET PO (07:52)
[2024-12-20 07:53] VITALS: PULSE 102; RESP 20; O2SAT 93
[2024-12-20 11:38] VITALS: BP 115/63; PULSE 94; RESP 18; TEMP 37.1; O2SAT 94
--- NOTE | 2024-12-20 12:16 | MHC.CM.PN ---
Patient is not medically cleared to discharge. She continues with a chest tube, which has an airleak. DP home no services. A family member will provide transportation home.
--- NOTE | 2024-12-20 14:17 | PM.DS ---
DS: Providers Provider Date of Service: 12/20/24 Date of admission: 12/10/24 12:16 Date of discharge: 12/20/24 Primary care physician: Juanita Lakhani MD Attending physician on admission: Carlton Rosales Consults: 12/10/24 16:15 Consult to Hospitalist Routine Comment: Consulting Provider: [facility] Hospitalists Reason For Exam: s/p right upper lobe wedge resection, COPD Attending physician on discharge: Carlton Rosales DS: Diagnosis Discharge Diagnosis (1) Status post partial lobectomy of lung: Status: Acute (2) Squamous cell lung cancer: Status: Acute DS: Summary Hospital Course Hospital Course: HPI AT ADMISSION: On 11/20/24, patient underwent biopsy of right upper lung nodule and developed iatrogenic pneumothorax following requiring right chest tube placement with subsequent prolonged air leak that eventually resolved. During that hospital stay, she was unable to tolerate water seal without her lung dropping and had persistent air leak for a lengthy period. Pathology came back squamous cell carcinoma, moderate to poorly differentiated. Previous outpatient PET scan demonstrated only localized disease of the right upper lobe consistent with [id number]-akam lung cancer (tissue diagnosis status post lung biopsy). Because the patient has an early stage lung cancer, and with confirmatory input from pulmonology, patient would benefit from resection of this right upper lobe tumor. Given the persistent air leak with a prolonged hospital stay, arrangements and work up to proceed with resection during her stay were carried out. Cardiology was consulted and she underwent myocardial perfusion imaging which showed normal myocardial perfusion. In the interim of her work up, her air leak resolved and her chest tube was removed. She was discharged with plan for elective right VATs upper lobe wedge resection possible lobectomy which she now presents for. HOSPITAL COURSE: On 12/10/24, right upper lobe wedge resection, mediastinal lymph node sampling, intercostal nerve block, bronchoscopy was performed by Dr. Rosales without complication. She was admitted to the medical/telemetry floor following for observation and recovery. Hospitalists were consulted for management of her medical comorbidities. She had an uncomplicated but lengthy recovery course. She remained inpatient for 10 days as she had a persistent air leak from her right chest tube. On POD #1, her casper was removed but she developed urinary retention requiring multiple straight caths followed by casper reinsertion. She was ambulated and activity was increased. Incentive spirometer use 10x/hr was encouraged. Her casper was eventually removed and she began voiding on her own. Her air leak became progressively smaller in size. She was weaned off supplemental oxygen. Subsequent CXRs showed resolution of an air space and she was placed to water seal. Her lung remained up on water seal with the very small air leak. After a few days of achieving pleural symphysis with a very small air leak, it was decided to remove the chest tube. Post procedure film showed no pneumothorax. On the day of discharge, she was tolerating a solid diet, her chest tube had been removed. Her pain was minimal. She was hemodynamically stable and stable from respiratory standpoint on room air. Her incision sites were clean and chest tube site dressing intact. She was ambulating without difficulty and felt ready for discharge. She was discharged to home on 12/20/24 with VNA services. She is to follow up in the office in 1 week. Status at Discharge Functional status at discharge: independent ambulation Overall status at discharge: patient is progressing back to baseline Time Attestation Discharge Coordination Time (in mins): 45 Quality: Safe Use of Opioids Does Pt have an Active Cancer Diagnosis on the Problem List?: Yes Opioid Measure Date for [facility] Report: 11/26/24 Opioid Measure Time for [facility] Report: 13:23 Quality: Stroke Does the patient have a stroke diagnosis?: No Physical Exam Vital Signs: Vital Signs: Last Vital Signs Temp 98.7 F 12/20/24 11:38 Pulse 94 12/20/24 11:38 Resp 18 12/20/24 11:38 BP 115/63 12/20/24 11:38 Pulse Ox 94 12/20/24 11:38 O2 Del Method Room Air 12/20/24 11:38 O2 Flow Rate 2 12/18/24 22:24 BMI result Body Mass Index 21.2 Const: General: comfortable, no acute distress and alert Orientation/consciousness: patient oriented x3 Chest: Other: right VATS incision sites clean right chest tube dressing in place Resp: Effort & Inspection: normal respiratory effort, not tachypneic and no use of accessory muscles Skin: General skin exam: no rashes or lesions noted Neuro: General: patient oriented x3 and moves all extremities DS: Data Data Completed and Pending Completed studies during hospitalization [Text1]: Pending at discharge 12/10/24 13:53 Surgical Path [Surgical] [PTH] Stat Procedures Drainage of Right Lung, Percutaneous Approach, Diagnostic (11/21/24) Drainage of Right Pleural Cavity with Drainage Device, Percutaneous Approach (11/21/24) Excision of Right Upper Lung Lobe, Percutaneous Approach, Diagnostic (11/21/24) Discharge Plan Discharge Anticipated Discharge Date/Time: 12/20/24 16:05 Patient Disposition: Home Health Service Discharge Diagnosis: Right upper lobe [id number] lung cancer Referrals: [facility] [Outside] - 1 Week Juanita Lakhani MD [Primary Care Provider] - 1 Week Carlton Rosales MD [Physician] - 1 Week Discharge Medications: New hydrocodone-acetaminophen 5-325 mg tablet 1 tab PO Q4-6H PRN (Reason: pain) Qty: 30 0RF Rx Instructions: Partial Fill upon patient request. Continued fluticasone propion-salmeterol [Wixela Inhub] 500-50 mcg/dose blister with device 1 inh inhalation Q12H Qty: 60 4RF oxycodone 5 mg Tablet 5 mg PO Q6H PRN (Reason: Pain, Moderate(Pain Scale 4-6)) Qty: 20 0RF Rx Instructions: Partial Fill upon patient request. atorvastatin [Lipitor] 10 mg tablet 10 mg PO QAM cholecalciferol (vitamin D3) [Vitamin D3] 25 mcg (1,000 unit) capsule 25 mcg PO QAM albuterol sulfate 90 mcg/actuation HFA aerosol inhaler 2 puff INHALATION Q4-6H PRN (Reason: wheezing) calcium carbonate 500 mg calcium (1,250 mg) tablet,chewable 1,000 mg PO QAM ipratropium-albuterol 0.5 mg-3 mg(2.5 mg base)/3 mL solution for nebulization 3 ml inhalation BID PRN (Reason: wheezing) Qty: 180 3RF Discharge Orders: Discharge Order (Routine); Ordered 12/20/24 Ordered By: Carlton Rosales Diet: Advance to usual diet Activity on Discharge: No heavy lifting Stand Alone Forms: Patient Portal Discharge page Print Language: Japanese Care Plan Goals: Returned to baseline Health Concerns: Continued convalescence Plan of Treatment: Recovery from surgery Assessment: Stable Discharge Date/Time: 12/20/24 17:37
--- NOTE | 2024-12-20 14:38 | P.F2F_ITS ---
Service Date Service Date: 12/20/24 Encounter Date of encounter: 12/20/24 Reasons for Services Signs and symptoms assessed: incisional/chest tube site pain, chest tube output, shortness of breath Reason for intermediate: wound care Homebound: Leaving the home is medically contraindicated at this time without the asist of a device and/or another person due th the listed conditions above and below. Reason homebound: weakness related to hospital stay and unable to drive Homebound supporting statement: Ms. Fong is s/p right VATS wedge resection. Her chest tube was removed 12/20/24. She needs chest tube site dressing changes every other day with xeroform and 4x4, tape. Certification: Based on the above findings, I certify that this patient is confined to the home and needs intermittent intermediate care, physical therapy and/or speech therapy, or continues to need occupational therapy. The patient is under my care, and I have initiated the establishment of the plan of care. The patient will be followed by a physician who will periodically review the plan of care. Time Spent With Patient Time: Total time managing care of this patient today ____ minutes.
--- NOTE | 2024-12-20 16:07 | W.MHC.F2F ---
Service Date Service Date: 12/20/24 Encounter Date of encounter: 12/20/24 Encounter: Anruag.omissy dry sterile dressing changes of right chest tube site by VNA Reasons for Services Signs and symptoms assessed: Status post vats right upper lobe resection Homebound: Leaving the home is medically contraindicated at this time without the asist of a device and/or another person due th the listed conditions above and below. Reason homebound: weakness related to hospital stay and unable to drive Certification: Based on the above findings, I certify that this patient is confined to the home and needs intermittent shelter care, physical therapy and/or speech therapy, or continues to need occupational therapy. The patient is under my care, and I have initiated the establishment of the plan of care. The patient will be followed by a physician who will periodically review the plan of care. Time Spent With Patient Time: Total time managing care of this patient today ____ minutes.
== END 2024-12-20 17:37 | disposition home health service (06) | DRG 164 ==
LOC: HO.SSSA 12:23 → HO.IMC 15:27
PROVIDERS: Physician Assistant Surgical; Admitting Provider Surgery; PCP Internal Medicine; Visit Provider Surgery
PROC: 0BBC4ZZ Excision of Right Upper Lung Lobe, Percutaneous Endoscopic Approach (ICD-10-PCS; principal; 2024-12-10 12:30)
DX: C34.11 Malignant neoplasm of upper lobe, right bronchus or lung (principal); J93.82 Other air leak; J44.9 Chronic obstructive pulmonary disease, unspecified; R03.0 Elevated blood-pressure reading, without diagnosis of hypertension; E78.5 Hyperlipidemia, unspecified; M81.0 Age-related osteoporosis without current pathological fracture; R73.9 Hyperglycemia, unspecified; R33.9 Retention of urine, unspecified; Z87.891 Personal history of nicotine dependence; Z79.51 Long term (current) use of inhaled steroids; Z79.899 Other long term (current) drug therapy
CPT/HCPCS: 36415; 71045; 80048; 82947; 85025; 86850; 86900; 86901; 88305; 88309; 88313; 88331; 88332; 93005; 94664; 97116; 97162; A7041; C1729; J0131; J0690; J1171; J1650; J2003; J2270; J2405; J2470; J2704; J3010; J7120

== ENCOUNTER 2024-12-10 12:16 | Outpatient (BNV) | payer MEDICARE, SELFPAY | END 2024-12-13 12:00 | PROVIDERS: Admitting Provider Surgery; PCP Internal Medicine; Visit Provider Radiology Diagnostic Radiology | DX: J95.811 Postprocedural pneumothorax (principal); T79.7XXA Traumatic subcutaneous emphysema, initial encounter; Z90.2 Acquired absence of lung [part of] | CPT/HCPCS: 71045 ==

== ENCOUNTER 2024-12-10 12:16 | Outpatient (BNV) | payer MEDICARE, SELFPAY | END 2024-12-12 08:40 | PROVIDERS: Admitting Provider Surgery; PCP Internal Medicine; Visit Provider Radiology Diagnostic Radiology | DX: J95.811 Postprocedural pneumothorax (principal); Z90.2 Acquired absence of lung [part of] | CPT/HCPCS: 71045 ==

== ENCOUNTER 2024-12-10 12:16 | Outpatient (BNV) | payer MEDICARE, SELFPAY | END 2024-12-14 04:09 | PROVIDERS: Admitting Provider Surgery; PCP Internal Medicine; Visit Provider Specialist | DX: T81.82XA Emphysema (subcutaneous) resulting from a procedure, initial encounter (principal); Z48.03 Encounter for change or removal of drains | CPT/HCPCS: 71045 ==

== ENCOUNTER 2024-12-10 12:16 | Outpatient (BNV) | payer MEDICARE, SELFPAY | END 2024-12-16 10:50 | PROVIDERS: Admitting Provider Surgery; PCP Internal Medicine; Visit Provider Radiology Diagnostic Radiology | DX: C34.11 Malignant neoplasm of upper lobe, right bronchus or lung (principal); T81.82XA Emphysema (subcutaneous) resulting from a procedure, initial encounter; Z97.8 Presence of other specified devices | CPT/HCPCS: 71045 ==

== ENCOUNTER 2024-12-10 12:16 | Outpatient (BNV) | payer MEDICARE, SELFPAY | END 2024-12-10 16:30 | PROVIDERS: Admitting Provider Surgery; PCP Internal Medicine; Visit Provider Radiology Diagnostic Radiology | DX: C34.11 Malignant neoplasm of upper lobe, right bronchus or lung (principal); Z90.2 Acquired absence of lung [part of]; J93.9 Pneumothorax, unspecified | CPT/HCPCS: 71045 ==

== ENCOUNTER 2024-12-10 12:16 | Outpatient (BNV) | payer MEDICARE, SELFPAY | END 2024-12-14 03:45 | PROVIDERS: Admitting Provider Surgery; PCP Internal Medicine; Visit Provider Internal Medicine Cardiovascular Disease | DX: R07.9 Chest pain, unspecified (principal) | CPT/HCPCS: 93010 ==

== ENCOUNTER 2024-12-10 12:16 | Outpatient (BNV) | payer MEDICARE, SELFPAY | END 2024-12-20 12:28 | PROVIDERS: Admitting Provider Surgery; PCP Internal Medicine; Visit Provider Radiology Diagnostic Radiology | DX: C34.11 Malignant neoplasm of upper lobe, right bronchus or lung (principal); T81.82XA Emphysema (subcutaneous) resulting from a procedure, initial encounter | CPT/HCPCS: 71045 ==

== ENCOUNTER 2024-12-10 12:16 | Outpatient (BNV) | payer MEDICARE, SELFPAY | END 2024-12-15 06:00 | PROVIDERS: Admitting Provider Surgery; PCP Internal Medicine; Visit Provider Radiology Diagnostic Radiology | DX: C34.11 Malignant neoplasm of upper lobe, right bronchus or lung (principal); Z97.8 Presence of other specified devices | CPT/HCPCS: 71045 ==

== ENCOUNTER 2024-12-10 12:16 | Outpatient (BNV) | payer MEDICARE, SELFPAY | END 2024-12-11 06:08 | PROVIDERS: Admitting Provider Surgery; PCP Internal Medicine; Visit Provider Radiology Vascular & Interventional Radiology | DX: T79.7XXA Traumatic subcutaneous emphysema, initial encounter (principal); Z90.2 Acquired absence of lung [part of] | CPT/HCPCS: 71045 ==

== ENCOUNTER → 2024-12-10 12:16 | Outpatient (BNV) | payer MEDICARE, SELFPAY | PROVIDERS: Admitting Provider Surgery; PCP Internal Medicine; Visit Provider Physician Assistant | DX: Z98.890 Other specified postprocedural states (principal); C34.11 Malignant neoplasm of upper lobe, right bronchus or lung | CPT/HCPCS: 99222 ==

== ENCOUNTER → 2024-12-10 12:16 | Outpatient (BNV) | payer MEDICARE, SELFPAY | PROVIDERS: Admitting Provider Surgery; PCP Internal Medicine; Visit Provider Physician Assistant Surgical | DX: Z90.2 Acquired absence of lung [part of] (principal); C34.90 Malignant neoplasm of unspecified part of unspecified bronchus or lung | CPT/HCPCS: 32666; 32674; 99024 ==

== ENCOUNTER 2024-12-31 08:55 | Outpatient (AMB) | payer MEDICARE, SELFPAY ==
--- NOTE | 2024-12-31 08:57 | MHC.OFFVIS ---
Intake Visit Reasons: S/P VATS, RUL lobectomy Intake Note: Patient here s/p right upper lobe wedge resection, mediastinal lymph node sampling, intercostal nerve block, bronchoscopy. Reports incision healing well. Patient c/o: no concerns. No longer taking rx pain meds. Surgery: 12-10-2024 Zinc Plate Grainer Required: No Accompanied by: Sister Allergies prednisone Adverse Reaction (Verified 12/31/24 09:00) Back Pain HPI Comments Details: Patient presents with her sister for postop visit status post right upper lobe wedge resection. Pathology results were already reviewed with the patient during her hospitalization. She has no respiratory issues or complaints. She is increasing her activity level. She still has incisional discomfort but does not require narcotics. [facility] Medical History (Updated 12/28/24 @ 00:02 by Radha Castillo) Squamous cell carcinoma of lung COPD (chronic obstructive pulmonary disease) Pneumothorax of right lung after biopsy Former heavy cigarette smoker (20-39 per day) Hoarseness or changing voice Shortness of breath on exertion White coat syndrome with hypertension Dyslipidemia Impaired fasting glucose Osteoporosis Surgical History (Updated 12/31/24 @ 09:07 by Carlton Rosales MD) Status post partial lobectomy of lung (12/10/24) History of lung biopsy H/O colonoscopy Family History (Updated 12/09/24 @ 08:29 by Kate Reinoso) Father No problems noted. Mother Diabetes mellitus Sister Brain cancer Son No problems noted. Social History (Updated 12/09/24 @ 08:30 by Kate Reinsoo) Household Members: Significant Other Household Members Other:: Housing: House Are you a primary home care manager to a significant other at home: No Do you presently have visiting nurse or other home services: No Alcohol intake: current Alcohol intake frequency: does not drink Alcohol type: beer Comment: counts correct Patient Tobacco Use Status: Former Tobacco user Tobacco use type: Cigarette Cigarette Packs Per Day: 1 Cigarettes Per Day: 20.0 Years Smoked: 30 e-Cigarette/Vaping Use: Never Used Second Hand Smoke Exposure: Yes Advance Directives Date on File: 07/30/20 service: No Current occupational status: disabled Cognitive needs: No Hearing needs: No Vision needs: Yes Physical Exam Chest Other: All incisions clean dry and intact. Good breath sounds bilaterally Assessment & Plan Assessment & Plan (1) Status post lung surgery: Code(s): Z98.890 - Other specified postprocedural states Category: Medical Plan Patient was been given local instructions he will see me in a proximally 1 month's time or p.r.n.. All questions answered. She is encouraged to increase her activity level, doing her incentive spirometry as well. Coding Level of Care Code Global (43221) Diagnoses Status post lung surgery Z98.890
--- OUTSIDE RECORDS SUMMARY | 2024-12-31 09:29 | XMS_ITS | Clinical Summary ---
Author Organization [facility] Address [address] [place] [address] Phone Care Team Providers Care Fabrication Welder Name Role Phone Unavailable Primary Care Provider Unavailabl e Encounters Date Type Department Care Team Description 10/07/2024 11:32 AM EST - 10/07/2024 11:59 PM EST Hospital Encounter [facility] PET Scan [address] [place] [address] Solitary pulmonary nodule Discharge Disposition: [...] Signed Date: 10/08/2024 13:30 ET Workstation ID: [id number] Transcribed By: Self Edit Transcribed Date: 10/08/2024 [...] for interpretation. Baseline glucose measures 97 mg/DL. [id number] FINDINGS: Skull base: There is no abnormal [...] Signed Date: 10/08/2024 13:30 ET Workstation ID: [id number] Transcribed By: Self Edit Transcribed Date: 10/08/2024 12:49 ET Rohith Mojica MD [facility] PROCEDURES Final Result from Last 3 Months Insurance MEDICAID ADVANTAGE
== END 2024-12-31 09:06 | disposition home or self-care (01) ==
LOC: HO.HGS 08:56
PROVIDERS: PCP Internal Medicine; Visit Provider Surgery
DX: Z98.890 Other specified postprocedural states (principal)
CPT/HCPCS: 99024

== ENCOUNTER → 2024-12-31 08:55 | Outpatient (BNVA) | payer MEDICARE, SELFPAY | PROVIDERS: PCP Internal Medicine; Visit Provider Surgery | DX: Z09 Encounter for follow-up examination after completed treatment for conditions other than malignant neoplasm (principal); Z98.890 Other specified postprocedural states | CPT/HCPCS: 99212 ==

== ENCOUNTER 2025-01-06 13:33 | Outpatient (AMB) | payer MEDICARE, SELFPAY ==
[2025-01-06 14:16] VITALS: BP 120/70; PULSE 85; RESP 14; TEMP 36.4; O2SAT 96; BMI 19.2
--- NOTE | 2025-01-06 14:16 | A.OFFPC_ITS ---
Vital Signs 01/06/25 14:16 Height 5 ft 4 in Weight 112 lb BMI 19.2 BP 120/70 Blood Pressure Location Lt brachial Position Sitting Respiration 14 Pulse 85 Pulse Source Pulse Oximeter Temp 97.6 F Temp Source Oral Pulse Oximetry (%) 96 Oxygen Delivery Method Room Air Intake Visit Reasons: HDF - per dr alonso Intake Note: Pt is here today for her HDF Allergies prednisone Adverse Reaction (Verified 01/06/25 14:39) Back Pain Medication List - Last Reconciled 01/06/25 by Juanita Lakhani MD atorvastatin (Lipitor) 10 mg PO QAM calcium carbonate 1,000 mg PO QAM cholecalciferol (vitamin D3) (Vitamin D3) 25 mcg PO QAM fluticasone propion-salmeterol 500-50 mcg/dose (Wixela Inhub) 1 inh inhalation Q12H Tobacco use date assessed: 01/06/25 Fall risk assessment: No Falls in past year Last assessed Fall Risk: 01/06/25 Dental Screening Dental Screen Date: 01/06/25 Did you have a dental visit in the last 12 months?: No Did you have a dental problem in the last 6 months where you did not have access to dental care?: No Was dental information given to patient?: No HPI HDF - per dr alonso HPI Details 79 year old lady, with a PMH significant for COPD, HLD,?and osteoporosis, diagnosed recently with [id number] lung carcinoma, underwent right upper lobe wedge resection on 12/10/2024, complicated by development of pneumothorax status post chest tube placement, here today for a follow-up.. Status post chest tube placement. Feeling better, denies shortness or breath or difficulty breathing. No cough. No chest pain/pressure, palpitations. She however has been having intermittent episodes of epigastric pain accompanied by some nausea but no vomiting , usually after eating. [facility] Medical History (Updated 01/09/25 @ 14:47 by Nighat Curran MD) Heartburn Squamous cell carcinoma of lung COPD (chronic obstructive pulmonary disease) Pneumothorax of right lung after biopsy Former heavy cigarette smoker (20-39 per day) Hoarseness or changing voice Shortness of breath on exertion White coat syndrome with hypertension Dyslipidemia Impaired fasting glucose Osteoporosis Surgical History Status post partial lobectomy of lung (12/10/24) History of lung biopsy H/O colonoscopy Family History Father No problems noted. Mother Diabetes mellitus Sister Brain cancer Son No problems noted. Social History Household Members: Significant Other Household Members Other:: Housing: House Are you a primary care clinician to a significant other at home: No Do you presently have visiting nurse or other home services: No Alcohol intake: current Alcohol intake frequency: does not drink Alcohol type: beer Comment: counts correct Patient Tobacco Use Status: Former Tobacco user Tobacco use type: Cigarette Cigarette Packs Per Day: 1 Years Smoked: 30 e-Cigarette/Vaping Use: Never Used Second Hand Smoke Exposure: Yes Use of substances other than those prescribed or required for medical reasons: No Have you been hit, kicked, punched, or otherwise hurt by someone within the past year? If so, by whom?: No Do you feel safe in your current relationship?: Yes Advance Directives Date on File: 07/30/20 Do you have thoughts of harming others: None Do you have a plan to hurt others: No Plan Patient : No service: No Current occupational status: disabled Cognitive needs: No Hearing needs: No Vision needs: Yes Questionnaire PHQ-9 Over the last 2 weeks, how often have you been bothered by any of the following problems? 1. Little interest or pleasure in doing things: not at all 2. Feeling down, depressed, or hopeless: not at all 3. Trouble falling or staying asleep, or sleeping too much: not at all 4. Feeling tired or having little energy: not at all 5. Poor appetite or overeating: not at all 6. Feeling bad about yourself - or that you are a failure or have let yourself or your family down: not at all 7. Trouble concentrating on things, such as reading the newspaper or watching television: not at all 8. Moving or speaking so slowly that other people could have noticed. Or the opposite - being so fidgety or restless that you have been moving around a lot more than usual: not at all 9. Thoughts that you would be better off or of hurting yourself in some way: not at all Total score: 0 Depression Screening Interpretation: Negative Depression Screening Done: Yes 79085 - PHQ-9 Billing: Yes Source: Developed by Drs. Cisco Tierney, Vivi Benites, Mir Daniels and colleagues, with an educational tay from [employer]. Thrive Questionnaire Date Thrive assessed: 01/06/25 I am a: Patient What is your living situation today?: I have a steady place to live Within the past 12 months, did the food you bought not last and you didn't have the money to get more?: Never true Within the past 12 months, did you worry whether your food would run out before you got money to buy more?: Never true Do you have trouble paying for medicines?: No Do you have trouble getting transportation to medical appointments?: No Do you have trouble paying your heating and electricity bill?: No Do you have trouble taking care of your child, family member or friend?: No Do you have trouble with day-to-day activities such as bathing, preparing meals, shopping, managing finances, etc.?: No Are you currently unemployed and looking for a job?: No Are you interested in more education?: No Please select the resources that you would like help with: None Currently or been in a relationship where the following occur: No concerns reported THRIVE Score: 0 AUDIT C Alcohol Use Questionnaire (AUDIT-C) 1. How often do you have a drink containing alcohol?: Never Total Score: 0 MYA-7 AMB Questionnaire MYA-7 Date MYA - 7 assessed: 01/06/25 Feeling nervous, anxious, or on edge: 0 = Not at all Not being able to stop or control worryin = Not at all Worrying too much about different things: 0 = Not at all Trouble relaxin = Not at all Being so restless that it is hard to sit still: 0 = Not at all Becoming easily annoyed or irritable: 0 = Not at all Feeling afraid as if something awful might happen: 0 = Not at all Total MYA-7 score (0-4 normal; 5-9 mild; 10-14 moderate; 15-21 severe): 0 Source: Developed by Vivi Ro Kurt Kroenke and colleagues, with an educational tay from [employer]. Review of Systems Const Denies chills, Denies fever(s), Denies headache(s), Denies night sweats, Denies poor appetite and Denies weakness Eyes Details: Followed by Dr. Celeste Denies dry eyes, Denies irritation and Denies itchy eyes ENT Reports Normal hearing present, Denies headache(s), Denies nasal congestion, Denies nasal discharge, Denies post nasal drip and Denies sore throat Card Denies chest pain at rest, Denies chest pain with activity, Denies claudication, Denies leg edema, Denies dyspnea and Denies orthopnea Resp Denies chest congestion, Denies excessive phlegm production, Denies pain on inspiration and Denies dyspnea GI Reports no additional complaints Reports no additional complaints Musc Denies myalgias Neuro Reports Normal hearing present, Denies headache(s), Denies Sensory deficit (Neuro) and Denies weakness Psych Reports no additional complaints Benjamín/Lymph Denies lymphadenopathy Aller/Immun Denies itchy eyes and Denies seasonal rhinorrhea Physical exam (Primary Care) Vital Signs: Last Vital Signs Temp 97.6 F 01/06/25 14:16 Pulse 85 01/06/25 14:16 Resp 14 01/06/25 14:16 BP 120/70 01/06/25 14:16 Pulse Ox 96 01/06/25 14:16 Oxygen Delivery Method Room Air 01/06/25 14:16 BMI result Body Mass Index 19.2 Tobacco/Smoking Status: Tobacco use Status Tobacco use date assessed 01/06/25 01/06/25 14:22 Patient Tobacco Use Status Former Tobacco user 01/06/25 14:22 Tobacco use type Cigarette 01/06/25 14:22 e-Cigarette/Vaping Use Never Used 01/06/25 14:22 PHQ-9: PHQ-9 Score PHQ-9: Total score 0 01/06/25 14:43 Depression Screening Interpretation: Negative Thrive Assessment: Date of Thrive Assessment Date Thrive assessed 01/06/25 01/06/25 14:22 Currently or been in a relationship where the following occur: No concerns reported Const General: no acute distress and alert Orientation/consciousness: patient oriented x3 HENMT Head: Yes normocephalic Ears: external ears normal General nose exam: Normal external nose present and No nasal discharge present Face and sinus: Yes face symmetric Mouth: oropharynx normal and moist mucous membranes Neck Neck: Yes full ROM and Yes no lymphadenopathy Thyroid: Thyroid normal Resp Effort & Inspection: normal respiratory effort and able to speak in complete sentences Auscultation: clear to auscultation bilaterally Cardio Jugular venous distension: no JVD Rate: regular rate Rhythm: regular rhythm Heart sounds: S1 normal heart sound present and S2 normal heart sound present GI Inspection: Yes normal to inspection Palpation (GI): Soft to palpation, nontender, no guarding and no masses Auscultation: normal bowel sounds General: Yes no CVA tenderness Back/Spine/Pelvis Back: no CVA tenderness Skin General skin exam: no rashes or lesions noted Neuro General: patient oriented x3, gait normal, moves all extremities, no focal motor deficits and CN's II-XI intact bilaterally Cranial nerves: Yes Normal hearing present Cognition (Neuro): normal cognition Gait exam (Neuro): Normal gait present Motor exam (neuro): 5/5 motor strength present throughout Sensory Exam: No Sensory deficit (Neuro) Extrem General: Yes normal to inspection, Yes full ROM, Yes no pedal edema and Yes normal gait Psych Appearance: grossly normal and well kempt Mental Status: mental status grossly normal Speech and movement: Normal speech and movement present Affect: normal affect Attitude: cooperative Thought process: Normal thought process present Coding Level of Care Code Est Pt Level 4 (34993) Complex EM visit Add On G2211 Diagnoses Squamous cell lung cancer C34.90 COPD (chronic obstructive pulmonary disease) J44.9 Dyslipidemia E78.5 Heartburn R12 Additional Codes PHQ-9 - 00707 - PHQ-9 Billing: Yes ([id number]) Assessment & Plan Assessment & Plan (1) Squamous cell lung cancer: Code(s): C34.90 - Malignant neoplasm of unspecified part of unspecified bronchus or lung Category: Medical Plan: Currently followed by Oncology (2) COPD (chronic obstructive pulmonary disease): Code(s): J44.9 - Chronic obstructive pulmonary disease, unspecified Category: Medical Plan: Continue Wixela (3) Dyslipidemia: Code(s): E78.5 - Hyperlipidemia, unspecified Category: Medical Plan: Continue atorvastatin 10 mg daily (4) Heartburn: Code(s): R12 - Heartburn Category: Medical Plan: Started on famotidine 40 mg take 1 tablet twice a day before eating. Avoidance of triggers for heartburn Medications: New famotidine 40 mg PO BID 60 tabs 0RF R12 - Heartburn
== END 2025-01-06 14:46 | disposition home or self-care (01) ==
LOC: HO.HMCC 13:33
PROVIDERS: PCP Internal Medicine; Visit Provider Internal Medicine
DX: C34.90 Malignant neoplasm of unspecified part of unspecified bronchus or lung (principal); J44.9 Chronic obstructive pulmonary disease, unspecified; E78.5 Hyperlipidemia, unspecified; R12 Heartburn

== ENCOUNTER → 2025-01-06 13:33 | Outpatient (BNVA) | payer MEDICARE, SELFPAY | PROVIDERS: PCP Internal Medicine; Visit Provider Internal Medicine | DX: C34.90 Malignant neoplasm of unspecified part of unspecified bronchus or lung (principal); J44.9 Chronic obstructive pulmonary disease, unspecified; E78.5 Hyperlipidemia, unspecified; R12 Heartburn | CPT/HCPCS: 96127; 99212 ==

== ENCOUNTER 2025-01-16 13:28 | Outpatient (REF) | payer MEDICARE, SELFPAY ==
--- OUTSIDE RECORDS SUMMARY | 2025-01-16 14:44 | XMS_ITS | Clinical Summary ---
Author Organization [facility] Address [address] [place] [address] Phone Care Team Providers Care Metal Welder Name Role Phone Unavailable Primary Care Provider Unavailabl e Social History Tobacco Use Types Packs/Day Years Used Date Smoking Tobacco: Never Assessed Comments Unknown Sex and Gender Information Value Date Recorded Sex Assigned at Not on file Legal Sex Female 11:26 AM EST Gender Identity Not on file Sexual Orientation Not on file Plan of Treatment Health Maintenance Due Date Last Done Comments DTaP,Tdap,and Td Vaccines (1 - Tdap) 1964 RSV Immunization Adult Patients (1 - 1-dose 75+ series) 2020 COVID-19 Vaccine (2023- season) 2024 01/26/2023, 03/31/2022, 09/21/2021, Additional history [...] on patient's age to complete this topic Insurance [employer] [place] [employer]VANTAGE
== END 2025-01-16 13:29 | disposition home or self-care (01) ==
LOC: HO.SH 13:28
PROVIDERS: Visit Provider Internal Medicine Medical Oncology
DX: Z01.118 Encounter for examination of ears and hearing with other abnormal findings (principal); H90.3 Sensorineural hearing loss, bilateral
CPT/HCPCS: 92557; 92567; 92588

== ENCOUNTER 2025-01-28 | Outpatient (REF) | payer MEDICARE, SELFPAY ==
--- OUTSIDE RECORDS SUMMARY | 2025-04-11 14:17 | XMS_ITS | Patient Health Record ---
Author Organization [facility] Address [address] [place] [id number] Care Team Providers Care Assistant Professor Of Mathematics Name Role Phone Lesvia SANDERS, Juanita Primary Care Provider Cisco Mcdonnell [phone] Reason For Referral No Information Medications Medication SIG (Take, Route, Frequency, Duration) Notes Start Date End Date Status Atorvastatin Calcium 10 MG 1 tablet Oral ly Once a day for 30 day(s) Active Vitamin C 500 MG 1 tablet Orally Once a day for 30 day(s) Active Vitamin D3 1000 UNIT 1 tablet Orally Onc e a day Active Alendronate Sodium 70 MG 1 tablet Orally for 30 day(s) Active Colyte w Flavor Packs 240 GM Take the day before the colonoscopy as directed Orally Once for 1 day(s) 04/26/2019 Active Immunizations Vaccine Route Administration Date Status Comme nts Influenza Unknown 08/16/2018 Administered Social History Tobacco Use: Social History Observation Description Date Details (start date - stop date) Former Smoker NA - NA Tobacco Use/Smoking Question Answer Notes Patient is a former smoker When did you stop smoking? 6 years How long has it been since you last smoked? 5-10 years Section Notes: Smoker--4 cigarettes a day; no sig alcohol Nonsmoker since 2013; no sig alcohol Problems Problem Type SNOMED Code ICD Code Onset Dates Problem Status W/U Status Risk Notes Problem 063331563 Encounter for screening for malignant neoplasm of colon (Z12.11) Active confirmed Problem 876109363 History of adenomatous polyp of colon (Z86.010) Active confirmed Problem [id number] Preprocedural examination (Z01.818) Active confirmed Plan Of Treatment Future Test Test Name Order Date COLONOSCOPY 01/28/2014 COLONOSCOPY 11/20/2018 Insurance Providers Payer Name Payer Address Payer Phone Subscriber Number Group Number Insured Name Patient Relationship to Insured Coverage Start Date Coverage End Date [facility] [employer] [address] [place] [phone] [id number] MARIBELL GARVEY Self - patient is the insured Medical (General) History Medical History History ICD Code Screening colonoscopy 2008--1 small tubular adenoma removed--also noted were diverticulosis and internal hemorrhoids; neg. colonoscopy in 03/2014 Hyperlipidemia Denies IA,DM,CVA,Lung disease,renal dise ase Osteoporosis Surgical History Surgery Date(Month/Year) Tonsillectomy and adenoidectomy
== END 2025-01-28 00:01 | disposition home or self-care (01) ==
LOC: CF
PROVIDERS: Visit Provider Surgery
DX: Z90.2 Acquired absence of lung [part of] (principal)
CPT/HCPCS: 99212

== ENCOUNTER 2025-01-28 11:03 | Outpatient (AMB) | payer MEDICARE, SELFPAY ==
--- NOTE | 2025-01-28 11:04 | MHC.OFFVIS ---
Vital Signs 01/28/25 11:12 Height 5 ft 4 in Weight 108 lb BMI 18.5 BP 114/75 Blood Pressure Location Lt brachial Position Sitting Pulse 113 H Intake Visit Reasons: 1 Month Follow up S/P VATS, RUL lobectomy Intake Note: Patient here s/p right upper lobe wedge resection, mediastinal lymph node sampling, intercostal nerve block, bronchoscopy. Reports incision healing well. Patient c/o: would like to get Port a-cath placed before February 11. Public Works Laborer Required: No Accompanied by: sister Coni Allergies prednisone Adverse Reaction (Verified 01/28/25 11:12) Back Pain HPI Comments Details: Patient presents with her sister. She is commencing chemotherapy. In the meantime, she has no respiratory issues or complaints. She was no significant incisional discomfort. She is slowly but steadily increasing her activity level. [facility] Medical History (Updated 01/09/25 @ 14:47 by Nighat Curran MD) Heartburn Squamous cell carcinoma of lung COPD (chronic obstructive pulmonary disease) Pneumothorax of right lung after biopsy Former heavy cigarette smoker (20-39 per day) Hoarseness or changing voice Shortness of breath on exertion White coat syndrome with hypertension Dyslipidemia Impaired fasting glucose Osteoporosis Surgical History Status post partial lobectomy of lung (12/10/24) History of lung biopsy H/O colonoscopy Family History Father No problems noted. Mother Diabetes mellitus Sister Brain cancer Son No problems noted. Social History Household Members: Significant Other Household Members Other:: Housing: House Are you a primary career specialist to a significant other at home: No Do you presently have visiting nurse or other home services: No Alcohol intake: current Alcohol intake frequency: does not drink Alcohol type: beer Comment: counts correct Patient Tobacco Use Status: Former Tobacco user Tobacco use type: Cigarette Cigarette Packs Per Day: 1 Cigarettes Per Day: 20.0 Years Smoked: 30 e-Cigarette/Vaping Use: Never Used Second Hand Smoke Exposure: Yes Advance Directives Date on File: 07/30/20 service: No Current occupational status: disabled Cognitive needs: No Hearing needs: No Vision needs: Yes Physical Exam Vital Signs: Last Vital Signs Pulse 113 H 01/28/25 11:12 BP 114/75 01/28/25 11:12 BMI result Body Mass Index 18.5 Chest Other: Chest sounds bilaterally. All incisions clean dry and intact. Assessment & Plan Assessment & Plan (1) Encounter for insertion of tunneled central venous catheter (CVC) with port: Code(s): Z45.2 - Encounter for adjustment and management of vascular access device Category: Surgical (2) Status post lobectomy of lung: Code(s): Z90.2 - Acquired absence of lung [part of] Category: Surgical Plan Patient was doing well status post lobectomy Patient and her sister say that she requires a Port-A-Cath. Risks, benefits, alternatives of Port-A-Cath placement reviewed with the patient and her sister which included but not limited to bleeding, infection, pneumothorax, numbness, pain, scarring the patient wished to proceed. Arrangements made for this prior to the patient was next chemotherapy which is on 02/11. Coding Level of Care Code Est Pt Level 5 (48369) Global (23601) Diagnoses Encounter for insertion of tunneled central venous catheter (CVC) with port Z45.2 Status post lobectomy of lung Z90.2
[2025-01-28 11:12] VITALS: BP 114/75; PULSE 113; BMI 18.5
--- OUTSIDE RECORDS SUMMARY | 2025-01-28 13:30 | XMS_ITS | Clinical Summary ---
Author Organization [facility] Address [address] [place] [address] Phone Care Team Providers Care Public Health Sanitarian Technician Name Role Phone Unavailable Primary Care Provider [...] age to complete this topic Meningococcal B Vaccine Aged Out No l onger eligible based on patient's age to complete this topic RSV Immunization Patients Under 20 months Aged Out No longer eligible based on patient's age to complete this topic Varicella Vaccines Aged Out No longer eligible based on patient's age to complete this topic Insurance [employer] [employer]
== END 2025-01-28 11:24 | disposition home or self-care (01) ==
LOC: HO.HGS 11:03
PROVIDERS: PCP Internal Medicine; Visit Provider Surgery
DX: Z45.2 Encounter for adjustment and management of vascular access device (principal); Z90.2 Acquired absence of lung [part of]
CPT/HCPCS: 99024

== ENCOUNTER 2025-02-04 05:37 | Day surgery (SDC) | payer MEDICARE, SELFPAY ==
--- OUTSIDE RECORDS SUMMARY | 2025-01-28 15:05 | XMS_ITS | Clinical Summary ---
Author Organization [facility] Address [address] [place] [address] Phone Care Team Providers Care Seed Cleaning Machine Operator Name Role Phone Unavailable Primary Care Provider [...]
--- NOTE | 2025-01-30 14:38 | HO.ANESPROP2 ---
Documented by User: Ekaterina Elliott NP 01/30/25 14:44 HPI - Anesthesia Eval Consult details Narrative: 79yo F for Port-a-Cath Insertion s/p VATS, RUL wedge resection 11/2024 with GETA-7 Squamous cell carcinoma - tx managed with [facility] Oncology [facility] Active Problems Active Problems: All Active Problems Status post lobectomy of lung (Acute) Encounter for insertion of tunneled central venous catheter (CVC) with port (Acute) Heartburn (Acute) Squamous cell lung cancer (Acute) Status post lung surgery (Acute) Pulmonary nodule 1 cm or greater in diameter (Acute) COPD (chronic obstructive pulmonary disease) (Acute) Hoarseness or changing voice (Acute) White coat syndrome with hypertension (Acute) Dyslipidemia (Acute) Impaired fasting glucose (Acute) Osteoporosis (Acute) Past Medical History Medical History Heartburn Squamous cell carcinoma of lung COPD (chronic obstructive pulmonary disease) Pneumothorax of right lung after biopsy Former heavy cigarette smoker (20-39 per day) Hoarseness or changing voice Shortness of breath on exertion White coat syndrome with hypertension Dyslipidemia Impaired fasting glucose Osteoporosis Family History Family History Father No problems noted. Mother Diabetes mellitus Sister Brain cancer Son No problems noted. Family history of problems with anesthesia: No Surgical History Surgical History Status post partial lobectomy of lung (12/10/24) History of lung biopsy H/O colonoscopy History of Problems with Anesthesia: No Social History Social History Household Members: Significant Other Household Members Other:: Housing: House Are you a primary intensive care specialist to a significant other at home: No Do you presently have visiting nurse or other home services: No Alcohol intake: current Alcohol intake frequency: does not drink Alcohol type: beer Comment: counts correct Patient Tobacco Use Status: Former Tobacco user Tobacco use type: Cigarette Cigarette Packs Per Day: 1 Cigarettes Per Day: 20.0 Years Smoked: 30 e-Cigarette/Vaping Use: Never Used Second Hand Smoke Exposure: Yes Advance Directives Date on File: 07/30/20 service: No Current occupational status: disabled Cognitive needs: No Hearing needs: No Vision needs: Yes Meds Allergies Allergy/AdvReac Type Severity Reaction Status Date / Time prednisone AdvReac Back Pain Verified 02/04/25 06:17 Home Medications ?Medication ?Instructions ?Recorded ?Confirmed ?Last Taken ?Type calcium carbonate 1,000 mg PO QAM 03/24/23 02/04/25 02/03/25 History atorvastatin 10 mg tablet (Lipitor) 10 mg PO QAM 12/05/24 02/04/25 02/03/25 History cholecalciferol (vitamin D3) 25 25 mcg PO QAM 12/05/24 02/04/25 02/03/25 History mcg (1,000 unit) capsule (Vitamin D3) Exam Pertinent Lab Results Pertinent Lab Results: Laboratory Tests 01/27/25 10:08 WBC 6.9 Hgb 13.4 Hct 38.8 Plt Count 282 Sodium 139 Potassium 4.4 Chloride 99 Carbon Dioxide 31 H BUN 20 H Creatinine 0.92 Narrative Narrative: EKG 12/2024 Vent. Rate : 80 BPM Atrial Rate : 80 BPM P-R Int : 152 ms QRS Dur : 74 ms QT Int : 402 ms P-R-T Axes : 87 -21 66 degrees QTcB Int : 463 ms Normal sinus rhythm Normal ECG When compared with ECG of 27-Nov-2024 10:04, No significant change was found ECHO 11/2024 Conclusions: - 1. Normal LV ejection fraction of 60 65% with impaired relaxation filling pattern with underlying regional wall motion abnormality suggestive of coronary artery disease 2. Cardiac valvular Dopplers within normal limits 3. Normal RV systolic pressure 4. No gross pericardial effusion NM josé perf SPECT rest & str 11/2024 Impression: 1. Myocardial perfusion imaging study shows likely normal myocardial perfusion 2. Gated LVEF is 55% 3. Transient ischemic dilatation not present Nondiagnostic changes on EKG. XR chest 1V 12/2024 IMPRESSION: Status post right-sided chest tube removal with the accumulation of moderate volume of subcutaneous emphysema. No gross pneumothorax. Recommend follow-up for stability. Assessment and Plan Assessment Anesthesia Assessment: Chart Reviewed Final Anesthetic Review Family History of Problems with Anesthesia: No History of Problems with Anesthesia: No Documented by User: Joan Guajardo MD 02/04/25 07:26 [facility] Past Medical History Medical History Heartburn Squamous cell carcinoma of lung COPD (chronic obstructive pulmonary disease) Pneumothorax of right lung after biopsy Former heavy cigarette smoker (20-39 per day) Hoarseness or changing voice Shortness of breath on exertion White coat syndrome with hypertension Dyslipidemia Impaired fasting glucose Osteoporosis Family History Family History Father No problems noted. Mother Diabetes mellitus Sister Brain cancer Son No problems noted. Surgical History Surgical History Status post partial lobectomy of lung (12/10/24) History of lung biopsy H/O colonoscopy Social History Social History Household Members: Significant Other Household Members Other:: Housing: House Are you a primary intensive care specialist to a significant other at home: No Do you presently have visiting nurse or other home services: No Alcohol intake: current Alcohol intake frequency: does not drink Alcohol type: beer Comment: counts correct Patient Tobacco Use Status: Former Tobacco user Tobacco use type: Cigarette Cigarette Packs Per Day: 1 Cigarettes Per Day: 20.0 Years Smoked: 30 e-Cigarette/Vaping Use: Never Used Second Hand Smoke Exposure: Yes Advance Directives Date on File: 07/30/20 service: No Current occupational status: disabled Cognitive needs: No Hearing needs: No Vision needs: Yes Meds Allergies Allergy/AdvReac Type Severity Reaction Status Date / Time prednisone AdvReac Back Pain Verified 02/04/25 06:17 Home Medications ?Medication ?Instructions ?Recorded ?Confirmed ?Last Taken ?Type calcium carbonate 1,000 mg PO QAM 03/24/23 02/04/25 02/03/25 History atorvastatin 10 mg tablet (Lipitor) 10 mg PO QAM 12/05/24 02/04/25 02/03/25 History cholecalciferol (vitamin D3) 25 25 mcg PO QAM 02/20/25 04/22/25 04/21/25 History mcg (1,000 unit) capsule (Vitamin D3) Exam Pertinent Lab Results Pertinent Lab Results: aLaboratory Tests 01/27/25 10:08 WBC 6.9 Hgb 13.4 Hct 38.8 Plt Count 282 Sodium 139 Potassium 4.4 Chloride 99 Carbon Dioxide 31 H BUN 20 H Creatinine 0.92 Airway Mallampati Class: II TM Dist: >3cm Neck ROM: Full Denture: Upper Loose/Missing/Broken Teeth: Yes, Upper and Lower Heart: RRR Lungs: CTA Assessment and Plan Assessment Anesthesia Assessment: Anesthesia Plan Discussed Final Anesthetic Review NPO: Yes ASA Class: III Final Preanesthetic Review: Meds/Allgs Chart Reviewed, Consent Obtained/Reviewed and Anes Risks/Benef Reviewed Patient Risk: Intermediate Procedure Risk: Low Anesthetic Plan Anesthetic Plan: MAC: Disposition: Standard PACU
[2025-02-04] VITALS (14 sets, daily range): BP systolic 122–150; BP diastolic 68–90; PULSE 74–95; RESP 16–18; TEMP 36.2–36.6; O2SAT 95–100; BMI 18.5
--- NOTE | ~2025-02-04 | XR_ITS ---
EXAMINATION: XR CHEST CLINICAL INFORMATION: Status post right subclavian Port-A-Cath. COMPARISON: December 20, 2024. TECHNIQUE: Frontal view of the chest was obtained. FINDINGS: There is a right apical pneumothorax, moderate volume. Right-sided Port-A-Cath tip ends in the SVC/right atrium junction. No pleural effusion. No gross consolidation. Cardiomediastinal silhouette size is normal. Calcified plaque thoracic aorta. Multilevel thoracic spondylosis. XR/XR chest 1V IMPRESSION: Status post right-sided Port-A-Cath placement resulting in right-sided pneumothorax, moderate volume. A message on [employer] connect to the requesting physician Dr. Carlton Rosales at 8:17 AM on February 05, 2025. Electronically signed by: Vikram Warner MD 02/05/2025 08:18 AM EDT
--- NOTE | ~2025-02-04 | FL_ITS ---
EXAMINATION: XR FLUOROSCOPY WITH IMAGES CLINICAL INFORMATION: Port-A-Cath placement COMPARISON: None available. TECHNIQUE: Fluoroscopy provided to: Dr. Rosales Fluoroscopy time: 33 seconds Dose: 2.7 mGy Images: 3 FINDINGS: 3 fluoroscopic spot images obtained during placement of a right chest Port-A-Cath. Refer to the full procedural report for details. FL/FL guidance in OR IMPRESSION: Fluoroscopic guidance. Electronically signed by: Beltran Dominguez MD 02/05/2025 09:14 AM EDT
[2025-02-04] MEDS: Lactated Ringers 1,000 ML 100 ML IVCONT (07:08)
--- NOTE | 2025-02-04 07:09 | MHC.SHP ---
Pre-Procedural Eval Section A - 24 Hr Update-Section A only Date of Service: 02/04/25 The patient is an INPATIENT: No Changes since office visit: No Cold of Flu in the past 2 weeks, No New Medical Problems, No Changes in Medication and No Patient answered all questions Section B - Complete if H&P > 30 days Chief Complaint: Encounter for adjustment and management of vascula Allergies: Allergies Allergy/AdvReac Type Severity Reaction Status Date / Time prednisone AdvReac Back Pain Verified 02/04/25 06:17 Review of Systems Sugical H&P ROS: Negative: Constitution, Cardiovascular, Respiratory, Neurological, Psychiatric, Hem-Onc, Allergic/Immunologic, Gastrointestinal, Genitourinary, Musculoskeletal, Integumentary, Endocrine and Eyes/Ears/Nose/Throat Exam Surgical H&P Exam: Normal: HEENT, Normal: Heart, Normal: Lungs, Normal: Extremities, Normal: Abdomen, Normal: Skin and Normal: Neurological Plan I have reviewed the history and physical and performed a pertinent physical examination on my patient. No changes have occurred unless specified. Time Spent With Patient Time: Total time managing care of this patient today ____ minutes.
[2025-02-04] MEDS: ceFAZolin Sodium/Dextrose,Iso 2 GM/50 ML PIGGYBACK IV (07:45)
--- NOTE | 2025-02-04 08:37 | W.PM.OPN ---
Operative Note Operative Note Date of Service: 02/04/25 Narrative: Preoperative diagnosis: [] Right lung cancer, IV access for chemotherapy Postop diagnosis: [] The same Procedure [] right subclavian vein Port-A-Cath placement with Doppler ultrasound guidance and fluoroscopy Surgeon: [] Bobby Account Development Manager: [] Dyllan Type of Anesthesia: [] Mac Indication for surgery: [] Chemotherapy. IV access Findings: [] Patient brought to the operating room, placed on operative table supine position, after an adequate level of MAC anesthesia was induced, the right neck and chest were prepped and draped in usual sterile fashion.Next, using Doppler ultrasound guidance, the right internal jugular vein was identified and cannulated using Seldinger technique. After the Inability to advance the wire distally after several attempts, right subclavian vein was uneventfully accessed and a wire advanced to the level of the superior vena cava under fluoroscopic guidance. A pocket was fashioned at the access site and using Bovie. Dilating sheath was placed over the wire under fluoroscopic guidance and the wire removed. Catheter was secured to the port using 3-0 Vicryl sutures and pre flushed catheter was advanced over the dilating sheath to the level of the superior vena cava under fluoroscopic guidance. Peel-away sheath was removed without incident. Antegrade and retrograde flow were established. Wound was irrigated, secured hemostasis, and closed using interrupted inverted dermal 3-0 Vicryl sutures followed by Steri-Strips and sterile dressings. Port was once again accessed with antegrade and retrograde flow easily established. Wound was infiltrated at the beginning and at the end with 0.5% Marcaine/1% lidocaine. Sponge, needle, and instrument counts reported correct. Patient tolerated the procedure well and emerged from anesthesia and stable condition. EBL minimal. Portable postprocedure chest x-ray pending.
== END 2025-02-04 11:45 | disposition home or self-care (01) ==
PROVIDERS: PCP Internal Medicine; Visit Provider Surgery
PROC: (CPT 36561; principal; 2025-02-04 07:30)
DX: Z45.2 Encounter for adjustment and management of vascular access device (principal); C34.91 Malignant neoplasm of unspecified part of right bronchus or lung; Z90.2 Acquired absence of lung [part of]; R49.0 Dysphonia; J44.9 Chronic obstructive pulmonary disease, unspecified; R06.02 Shortness of breath; R12 Heartburn; I10 Essential (primary) hypertension; E78.5 Hyperlipidemia, unspecified; R73.01 Impaired fasting glucose; M81.0 Age-related osteoporosis without current pathological fracture; Z88.8 Allergy status to other drugs, medicaments and biological substances; Z87.891 Personal history of nicotine dependence
CPT/HCPCS: 36561; 36415; 71045; 85025; C1788; J0690; J1644; J2003; J2704; J2795; J3010

== ENCOUNTER → 2025-02-04 05:37 | Outpatient (BNV) | payer MEDICARE, SELFPAY | PROVIDERS: PCP Internal Medicine; Visit Provider Surgery | DX: C34.11 Malignant neoplasm of upper lobe, right bronchus or lung (principal) | CPT/HCPCS: 36561; 76937; 77001 ==

== ENCOUNTER 2025-02-04 06:20 | Outpatient (REF) | payer MEDICARE, SELFPAY ==
--- OUTSIDE RECORDS SUMMARY | 2025-02-04 06:23 | XMS_ITS | Clinical Summary ---
Author Organization [facility] Address [address] [place] [address] Phone Care Team Providers Care Lodging Facilities Manager Name Role Phone Unavailable Primary Care Provider [...]
[2025-02-04 07:09] LABS: Basophils Percent Auto 1.8 % (0-2); Eosinophils Percent Auto 1.2 % (0-4); Hematocrit 35.3 % (37.0-47.0); Hemoglobin 11.8 g/dl (12.0-16.0); Lymphocytes Absolute Auto 1.3 X10*3/uL (1.2-4.9); Lymphocytes Percent Auto 76.8 % (20-40); MANUAL DIFF FLAG SCAN; Mean Corpuscular HGB Conc 33.4 g/dl (31.0-35.0); Mean Corpuscular Hemoglobin 29.3 pg (27.0-33.0); Mean Corpuscular Volume 87.6 fL (80.0-98.0); Mean Platelet Volume 11.1 fL (9.4-12.3); Monocytes Absolute Auto 0.1 X10*3/uL (0.1-1.2); Monocytes Percent Auto 4.9 % (2-11); Neutrophils Absolute Auto 0.3 x10*3/uL (2.0-8.3); Neutrophils Percent Auto 15.3 % (45-73); Platelet Count 200 X10*3/uL (160-400); Red Blood Count 4.03 X10*6/uL (4.20-5.50); Red Cell Distribution Width 13.1 % (11.0-16.0); SCAN SMEAR FLAG 1
[2025-02-04 07:10] LABS: White Blood Count 1.6 X10*3/uL (4.8-10.8)
[2025-02-04 07:44] LABS: SLIDE REVIEW VERIFIED
== END 2025-02-04 06:21 | disposition home or self-care (01) ==
LOC: HO.LAB 06:20
PROVIDERS: Visit Provider Internal Medicine Medical Oncology
DX: Z13.89 Encounter for screening for other disorder (principal)
CPT/HCPCS: 36415; 85025

== ENCOUNTER → 2025-02-04 09:00 | Outpatient (BNV) | payer MEDICARE, SELFPAY | PROVIDERS: PCP Internal Medicine; Visit Provider Radiology Diagnostic Radiology | DX: Z95.828 Presence of other vascular implants and grafts (principal) | CPT/HCPCS: 71045 ==

== ENCOUNTER 2025-02-06 09:19 | Outpatient (REF) | payer MEDICARE, SELFPAY ==
--- NOTE | ~2025-02-06 | XR_ITS ---
EXAMINATION: XR CHEST CLINICAL INFORMATION: J93.9 - Pneumothorax, unspecified COMPARISON: 02/04/2025, 12/20/2024. TECHNIQUE: 2 views of the chest were obtained. FINDINGS: The cardiac, hilar, and mediastinal contours are normal. Aorta is mildly tortuous and calcified. Slightly larger right apical pneumothorax, measuring 3.4 cm pleural separation. (Previously 1.8 cm pleural separation). Lungs appear clear otherwise. Interval development of significant subcutaneous emphysema throughout the right chest wall, right greater than left inferior neck, and also involving the left chest wall superiorly. XR/XR chest 2V IMPRESSION: 1. Slightly larger right apical pneumothorax. See above. 2. Lungs otherwise appear clear. There is no left-sided pneumothorax. 3. Interval development of significant subcutaneous emphysema throughout the right chest wall, right greater than left inferior neck, and also in left superior thorax. These findings were communicated to Dr. Liam Waterman, covering for Dr. Rosales, via secure text at 2:56 PM, 02/07/2025. Electronically signed by: Beltran Dominguez MD 02/07/2025 03:02 PM EDT
--- OUTSIDE RECORDS SUMMARY | 2025-02-06 10:12 | XMS_ITS | Clinical Summary ---
Author Organization [facility] Address [address] [place] [address] Phone Care Team Providers Care Ballet Master/Mistress Name Role Phone Unavailable Primary Care Provider [...]
== END 2025-02-06 09:20 | disposition home or self-care (01) ==
LOC: HO.XRAY 09:19
PROVIDERS: PCP Internal Medicine; Visit Provider Surgery
DX: J93.9 Pneumothorax, unspecified (principal)
CPT/HCPCS: 71046

== ENCOUNTER → 2025-02-06 09:24 | Outpatient (BNV) | payer MEDICARE, SELFPAY | PROVIDERS: PCP Internal Medicine; Visit Provider Radiology Diagnostic Radiology | DX: J93.9 Pneumothorax, unspecified (principal) | CPT/HCPCS: 71046 ==

== ENCOUNTER 2025-02-07 15:31 | Emergency (ER) | payer MEDICARE, SELFPAY ==
--- NOTE | ~2025-02-07 | XR_ITS ---
CLINICAL HISTORY: monitor pneumo 2 view chest x-ray Comparison: CR/ND/SR - XR CHEST 2V - 02/06/25 09:35 EDT Findings: Stable right Port-A-Cath. Stable right apical pneumothorax. No mediastinal shift. Heart size is normal. No consolidation or significant pleural effusion. Extensive soft tissue emphysema with interval worsening on the left and in anterior chest wall. No acute fracture. IMPRESSION: 1. Stable right apical pneumothorax. No mediastinal shift. 2. Worsening soft tissue emphysema This document has been electronically signed by: Elizabeth Moon MD on 02/07/2025 17:08:18
--- NOTE | 2025-02-07 15:56 | ED.GENADULT ---
HPI - General Adult General Chief complaint: General Medical Stated complaint: Called In For X-Ray Time Seen by Provider: 02/07/25 16:09 History of Present Illness ED Provider: Rea DALLAS narrative: The patient year old female with a history of non-small cell lung cancer. She has been receiving chemotherapy. Three days ago she had an outpatient procedure to place a Port-A-Cath. A small apical right pneumothorax was identified on the postprocedural chest x-ray the day of the procedure. The patient returned to the hospital for an outpatient chest x-ray that showed that the right apical pneumothorax was slightly larger. Because of this finding the patient was asked to come to the emergency room by Dr. Rosales for another chest x-ray. The patient says that she has been experiencing a sense of crackling in the skin of her right shoulder and the right side of her neck and also somewhat on the left side of her neck. She has some pain radiating down the right arm. She does not feel short of breath. She has had no fever, sweats, chills. The patient has been using ondansetron recently because of nausea attributed to chemotherapy. She was feeling relatively less nausea today and was able to eat a hamburger earlier at lunch today. Related Data Home Medications ?Medication ?Instructions ?Recorded ?Confirmed calcium carbonate 1,000 mg PO QAM 03/24/23 02/04/25 atorvastatin 10 mg tablet (Lipitor) 10 mg PO QAM 12/05/24 02/04/25 cholecalciferol (vitamin D3) 25 25 mcg PO QAM 12/05/24 02/04/25 mcg (1,000 unit) capsule (Vitamin D3) Previous Rx's ?Medication ?Instructions ?Recorded fluticasone 500 mcg-salmeterol 50 1 inh inhalation Q12H #60 ea 09/24/24 mcg/dose blistr powdr for inhalation (Wixela Inhub) famotidine 40 mg tablet 40 mg PO BID #60 tabs 01/06/25 Magic Mouthwash 10 ml PO QID #240 mL 01/09/25 Diphen/Lido/Antacid 1:1:1 240 mL suspension dexamethasone 4 mg tablet 4 mg PO BID #60 tabs 01/09/25 ondansetron 8 mg disintegrating 8 mg PO Q8H #50 tabs 01/09/25 tablet hydrocodone 5 mg-acetaminophen 325 1 tab PO Q4-6H PRN pain #30 tabs 02/04/25 mg tablet ibuprofen 800 mg tablet 800 mg PO Q8H PRN pain #30 tabs 02/05/25 ibuprofen 800 mg tablet 800 mg PO Q8H PRN pain #30 tabs 02/05/25 Allergies Allergy/AdvReac Type Severity Reaction Status Date / Time prednisone AdvReac Back Pain Verified 02/07/25 16:11 Review of Systems Review of Systems: Yes all other systems are reviewed and are negative [facility] Past Medical History Medical History Heartburn Squamous cell carcinoma of lung COPD (chronic obstructive pulmonary disease) Pneumothorax of right lung after biopsy Former heavy cigarette smoker (20-39 per day) Hoarseness or changing voice Shortness of breath on exertion White coat syndrome with hypertension Dyslipidemia Impaired fasting glucose Osteoporosis Surgical History Port-A-Cath in place Status post partial lobectomy of lung (12/10/24) History of lung biopsy H/O colonoscopy Family History Family History Father No problems noted. Mother Diabetes mellitus Sister Brain cancer Son No problems noted. Social History Social History Household Members: Significant Other Household Members Other:: Housing: House Are you a primary critical care clinical nurse specialist to a significant other at home: No Do you presently have visiting nurse or other home services: No Alcohol intake: current Alcohol intake frequency: does not drink Alcohol type: beer Patient Tobacco Use Status: Former Tobacco user Tobacco use type: Cigarette Cigarette Packs Per Day: 1 Cigarettes Per Day: 20.0 Years Smoked: 30 Smoked in Last 30 Days: No e-Cigarette/Vaping Use: Never Used Second Hand Smoke Exposure: Yes Use of substances other than those prescribed or required for medical reasons: No Advance Directives: Yes Advance Directives on File: Yes Advance Directives Date on File: 07/30/20 service: No Current occupational status: disabled Cognitive needs: No Hearing needs: No Vision needs: Yes Physical Exam ED Vital Signs: Vital Signs - 24 hr 02/07/25 15:57 02/07/25 16:18 02/07/25 17:42 Temperature 98.6 F 98.0 F 97.6 F Pulse Rate 95 93 89 Respiratory Rate 18 20 20 Blood Pressure 183/81 H 163/86 H 147/79 H Pulse Oximetry 95 97 Oxygen Delivery Method Room Air Room Air Room Air Oxygen Flow Rate 100 BMI result Body Mass Index 17.3 Const Other: The patient is a frail looking, chronically ill-appearing 79-year-old woman. She is awake and alert and does not seem in acute respiratory distress. She has a lot of obvious bruising to the anterior chest and the right side of her neck. HENMT Other: Face is symmetrical, mucous membranes are moist. Eyes General: appearance normal, both eyes and all related structures Neck Other: There is subcutaneous emphysema to the skin of the right side of the neck. Chest Other: There are a lot of ecchymotic skin changes to the anterior chest. Resp Other: No increased work of breathing. Breath sounds are clear bilaterally. Cardio Rate: regular rate Rhythm: regular rhythm Heart sounds: S1 normal heart sound present and S2 normal heart sound present GI Other: The abdomen is soft and nontender Skin Other: There are a lot of ecchymoses to the anterior chest and the right supraclavicular area. There is subcutaneous emphysema in this region as well. Neuro Other: The patient is awake and alert with a normal mental status. Cranial nerves 2-12 are grossly intact. She moves her extremities symmetrically and appropriately and seems grossly neurologically intact. Extrem Other: No peripheral edema Course Course Course Narrative: This is a Rapid Medical Examination (RME) performed by Cleveland Monahan PA-C in triage. Full HPI, ROS, assessment and treatment plan per primary provider in the Main ED. 02/07/25 [address] Hx: 79 yo female here for cxr per Dr. Rosales. Had Port-A-Cath placed to right chest yesterday for chemo treatment of lung cancer. has bruising noted to chest. not on AC. reports pain around port site with sharp pain extending down right arm. cxr yesterday showing right apical pneumo w/ SQ emphysema. PE/vitals: noted bruising to chest. crepitus noted to b/l jaw/neck w/ noted swelling and ecchymosis to right neck Plan: cxr Medical Decision Making Medical Decision Making MDM Narrative: The patient is a 79-year-old female who had a Port-A-Cath placed 3 days ago. She had a small right apical pneumothorax identified following the procedure. Yesterday she no outpatient chest x-ray that showed some slight increase in the size of the apical pneumothorax. She was advised to come to the emergency room today for another x-ray. She does not have any symptoms of shortness of breath although she does describe symptoms consistent with worsening subcutaneous emphysema. Today's x-ray shows a stable right apical pneumothorax. I reviewed the x-rays no also spoke with Dr. Russell who came to the emergency room. We agreed that the pneumothorax remains small and that there is no worsening of the radiographic appearance of the pneumothorax and the patient has no worsening symptoms related to the pneumothorax aside from the symptoms of her increased subcutaneous emphysema. The patient was placed on a non-rebreather while in the emergency room. However otherwise the patient looked well and seemed appropriate for discharge and so she was discharged to rest and take it easy over the weekend and contact Dr. Rosales on Monday. She should return to the ER if worse over the weekend. Discharge Plan Discharge Clinical Impression: Pneumothorax on right Patient Disposition: Home, Self-Care Additional Instructions: Your x-ray today shows that the pneumothorax of your right lung (also known as a collapsed lung) is stable. It is still very small. Our hope at this point is that the long will remain stable and at the pneumothorax will get slowly better over time. Please plan on contacting Dr. Rosales on Monday to let him know how you are doing. If you are worse over the weekend, if you experience shortness of breath or fever, return to the emergency room. Prescriptions: No Action fluticasone propion-salmeterol [Wixela Inhub] 500-50 mcg/dose blister with device 1 inh inhalation Q12H Qty: 60 4RF ibuprofen 800 mg tablet 800 mg PO Q8H PRN (Reason: pain) Qty: 30 0RF ibuprofen 800 mg tablet 800 mg PO Q8H PRN (Reason: pain) Qty: 30 0RF ondansetron 8 mg Tablet,Disintegrating 8 mg PO Q8H Qty: 50 3RF dexamethasone 4 mg Tablet 4 mg PO BID Qty: 60 3RF Rx Instructions: Take 4 mg p.o. b.i.d. day after chemotherapy for 2 days, Q 3 weekly Magic Mouthwash Diphen/Lido/Antacid 1:1:1 240 mL Suspension 10 ml PO QID Qty: 240 3RF Rx Instructions: Lidocaine Viscous 2 % 80mL; diphenhydramine 12.5 mg/5 mL 80mL; aluminum-mag hydrox-simeth [id number]/5mL 80mL atorvastatin [Lipitor] 10 mg tablet 10 mg PO QAM cholecalciferol (vitamin D3) [Vitamin D3] 25 mcg (1,000 unit) capsule 25 mcg PO QAM hydrocodone-acetaminophen 5-325 mg tablet 1 tab PO Q4-6H PRN (Reason: pain) Qty: 30 0RF Rx Instructions: Partial Fill upon patient request. calcium carbonate 500 mg calcium (1,250 mg) tablet,chewable 1,000 mg PO QAM famotidine 40 mg tablet 40 mg PO BID Qty: 60 0RF Referrals: Carlton Rosales MD [Physician] - Interventions: ED Discharge Assessment Last Done: 02/07/25 17:42 Discharge Date/Time: 02/07/25 18:01 Print Language: German
[2025-02-07 15:57] VITALS: BP 183/81; PULSE 95; RESP 18; TEMP 37; O2SAT 95; BMI 17.3
[2025-02-07 16:18] VITALS: BP 163/86; PULSE 93; RESP 20; TEMP 36.7; O2SAT 97
--- NOTE | 2025-02-07 17:21 | P.CONGS_ITS ---
History of Present Illness Consult details Consult date: 02/07/25 Narrative: 79 year old female with known squamous cell lung cancer, history of left upper lobectomy in November [address] Rosales, had a port placement for chemotherapy last February 04, 2025. Postprocedure chest x-ray showed a pneumothorax on the right side. She was however discharged postprocedure and had a follow up chest x-ray yesterday, February 06. This showed persistence of the right apical pneumothorax which appeared to be slightly bigger. The patient was therefore called today to come to the ER to have a repeat chest x-ray She denies any shortness of breath. She says she has no respiratory complaints. She does complain of pain on the fresh Port-A-Cath insertion site although this is not worsening. She has a known ecchymosis and subcutaneous emphysema postprocedure. ................................................................................ ....................................................................... ................................................................................ ................................................................................ ........................................ ............................................... Review of Systems Constitutional: Constitutional: Denies chills and Denies fever(s) Cardiovascular: Cardiovascular: Denies chest pain, Denies dyspnea and Denies dyspnea on exertion Respiratory: Respiratory: Denies cough, Denies dyspnea and Denies dyspnea on exertion Gastrointestinal: Gastrointestinal: Denies hematochezia and Denies change in bowel habits Genitourinary: Genitourinary: Denies hematuria Musculoskeletal: Musculoskeletal: Denies back pain and Denies limited range of motion Neurologic: Denies focal weakness and Denies convulsions Psychiatric: Psychiatric: Denies depression and Denies mood swings PMFSH Past Medical History Medical History Heartburn Squamous cell carcinoma of lung COPD (chronic obstructive pulmonary disease) Pneumothorax of right lung after biopsy Former heavy cigarette smoker (20-39 per day) Hoarseness or changing voice Shortness of breath on exertion White coat syndrome with hypertension Dyslipidemia Impaired fasting glucose Osteoporosis Family History Family History Father No problems noted. Mother Diabetes mellitus Sister Brain cancer Son No problems noted. Surgical History Surgical History Port-A-Cath in place Status post partial lobectomy of lung (12/10/24) History of lung biopsy H/O colonoscopy Social History Social History Household Members: Significant Other Household Members Other:: Housing: House Are you a primary director of home care hospice to a significant other at home: No Do you presently have visiting nurse or other home services: No Alcohol intake: current Alcohol intake frequency: does not drink Alcohol type: beer Patient Tobacco Use Status: Former Tobacco user Tobacco use type: Cigarette Cigarette Packs Per Day: 1 Years Smoked: 30 e-Cigarette/Vaping Use: Never Used Second Hand Smoke Exposure: Yes Use of substances other than those prescribed or required for medical reasons: No Have you been hit, kicked, punched, or otherwise hurt by someone within the past year? If so, by whom?: No Do you feel safe in your current relationship?: Yes Advance Directives Date on File: 07/30/20 Do you have thoughts of harming others: None Do you have a plan to hurt others: No Plan Patient : No service: No Current occupational status: disabled Cognitive needs: No Hearing needs: No Vision needs: Yes Meds Allergies Allergy/AdvReac Type Severity Reaction Status Date / Time prednisone AdvReac Back Pain Verified 02/10/25 10:22 Home Medications ?Medication ?Instructions ?Recorded ?Confirmed ?Last Taken ?Type calcium carbonate 1,000 mg PO QAM 03/24/23 02/10/25 02/03/25 History atorvastatin 10 mg tablet (Lipitor) 10 mg PO QAM 12/05/24 02/10/25 02/03/25 History cholecalciferol (vitamin D3) 25 25 mcg PO QAM 12/05/24 02/10/25 02/03/25 History mcg (1,000 unit) capsule (Vitamin D3) Physical Exam Vital Signs: Vital Signs: Last Vital Signs Temp 98.0 F 02/07/25 16:18 Pulse 93 02/07/25 16:18 Resp 20 02/07/25 16:18 BP 163/86 H 02/07/25 16:18 Pulse Ox 97 02/07/25 16:18 O2 Del Method Room Air 02/07/25 16:18 BMI result Body Mass Index 17.3 Const: General: comfortable and no acute distress Chest: Other: Ecchymosis on the right upper chest and shoulder and neck Resp: Effort & Inspection: normal respiratory effort Cardio: Rate: regular rate GI: Palpation (GI): Soft to palpation, not firm and nontender Results Labs Labs: All other labs normal. Imaging Chest x-ray: image reviewed Assessment and Plan (1) Pneumothorax, right: Status: Acute She had a postprocedure pneumothorax after insertion of Port-A-Cath last . She was asked to come to the ER today for follow up chest x-ray after her x-rays study yesterday showed 2 persistence of the pneumothorax which appeared to be slightly bigger. She denies any respiratory issues. She says she does not feel anything different from baseline with regards to her breathing. She has pain on the insertion site which seems appropriate She has a known ecchymosis. She clinically looks well. I have reviewed her follow up chest x-ray tonight. The pneumothorax seems to be slightly smaller compared to yesterday. Clinically she looks well. She does have any significant respiratory issues I therefore talked to the ER staff. I feel that the patient may be able to be sent home from the ED as clinically she seems to be doing very well. I had a long discussion with the patient and her family at bedside about he had to come back to the ER urgently if she develops significant shortness of breath. The patient has a follow up with Oncology next week so we may ask them to do a follow up x-ray when she comes for her treatment next week. Procedures Date of Service Date of Service: 02/11/25
[2025-02-07 17:42] VITALS: BP 147/79; PULSE 89; RESP 20; TEMP 36.4
== END 2025-02-07 18:01 | disposition home or self-care (01) ==
PROVIDERS: Emergency Provider Emergency Medicine; PCP Internal Medicine
DX: J93.9 Pneumothorax, unspecified (principal); C34.90 Malignant neoplasm of unspecified part of unspecified bronchus or lung; Z90.2 Acquired absence of lung [part of]; Z95.828 Presence of other vascular implants and grafts; Z86.711 Personal history of pulmonary embolism; Z87.891 Personal history of nicotine dependence; Z79.01 Long term (current) use of anticoagulants; Z92.21 Personal history of antineoplastic chemotherapy
CPT/HCPCS: 71046; 99283; 99284

== ENCOUNTER → 2025-02-07 16:01 | Outpatient (BNV) | payer MEDICARE, SELFPAY | PROVIDERS: Emergency Provider Emergency Medicine; PCP Internal Medicine; Visit Provider Specialist | DX: J93.9 Pneumothorax, unspecified (principal); J43.9 Emphysema, unspecified | CPT/HCPCS: 71046 ==

== ENCOUNTER → 2025-02-07 16:20 | Outpatient (BNV) | payer MEDICARE, SELFPAY | PROVIDERS: Emergency Provider Emergency Medicine; PCP Internal Medicine; Visit Provider Surgery | DX: J93.9 Pneumothorax, unspecified (principal) | CPT/HCPCS: 99024 ==

== ENCOUNTER 2025-02-10 13:32 | Outpatient (REF) | payer MEDICARE, SELFPAY ==
--- NOTE | ~2025-02-10 | US_ITS ---
EXAMINATION: US TRIPLEX UPPER EXTREMITY, RIGHT CLINICAL INFORMATION: Right upper extremity edema. COMPARISON: None available. TECHNIQUE: Color-flow triplex imaging with spectral analysis and compression Doppler was performed on the right upper extremity. FINDINGS: The right internal jugular vein is patent. The proximal and distal subclavian vein is not visualized. The mid subclavian vein appears patent. Visualized cephalic, axillary and antecubital veins are patent. The right brachial vein is patent as well. There are linear shadowing echoes in the anterior subcutaneous soft tissues of axilla and lateral neck from subcutaneous emphysema limiting evaluation US/US venous duplex UE RT IMPRESSION: No evidence of deep venous thrombosis involving the visualized segments of right upper extremity veins. The subclavian vein segment is not well-visualized as described above.. Electronically signed by: Ward Corcoran MD 02/10/2025 02:56 PM EDT
--- OUTSIDE RECORDS SUMMARY | 2025-02-10 16:07 | XMS_ITS | Clinical Summary ---
Author Organization [facility] Address [address] [place] [address] Phone Care Team Providers Care Group Activities Aide Name Role Phone Unavailable Primary Care Provider [...]
== END 2025-02-10 13:33 | disposition home or self-care (01) ==
LOC: HO.US 13:32
PROVIDERS: PCP Internal Medicine; Visit Provider Internal Medicine Medical Oncology
DX: R60.0 Localized edema (principal); Z86.718 Personal history of other venous thrombosis and embolism
CPT/HCPCS: 93971

== ENCOUNTER → 2025-02-10 13:35 | Outpatient (BNV) | payer MEDICARE, SELFPAY | PROVIDERS: PCP Internal Medicine; Visit Provider Radiology Diagnostic Radiology | DX: R22.31 Localized swelling, mass and lump, right upper limb (principal) | CPT/HCPCS: 93971 ==

== ENCOUNTER → 2025-02-12 09:00 | Outpatient (BNVA) | payer MEDICARE, SELFPAY | PROVIDERS: PCP Internal Medicine; Visit Provider Surgery | DX: Z09 Encounter for follow-up examination after completed treatment for conditions other than malignant neoplasm (principal); Z95.828 Presence of other vascular implants and grafts | CPT/HCPCS: 99212 ==

== ENCOUNTER 2025-02-23 12:54 | Inpatient (IN) | payer MEDICARE, SELFPAY ==
--- NOTE | ~2025-02-23 | CT_ITS ---
CLINICAL HISTORY: shortness of breath CT angiography of the chest with IV contrast. 3D/MIP post processing reconstructions were performed. COMPARISON: XR chest dated 02/23/25 at 14:18 EDT XR chest dated 02/07/25 at 16:[address] chest dated 08/23/24 at 08:58 EST FINDINGS: Pulmonary embolism present within the subsegmental right lower lobe pulmonary arteries. No evidence of right heart strain. RV to LV ratio of 0.8. Heterogeneous thyroid gland. Right thyroid lobe nodule measuring 1.5 cm. No supraclavicular or axillary lymphadenopathy. Right-sided chest port tip terminates i present within the SVC. Subcutaneous gas present along the right chest wall extending into the right axilla and right arm. No pleural effusion. Suture material present at the right lung apex. No pneumothorax. Trachea and central airways are clear. No significant bronchial wall thickening. No bronchiectasis. Hyperinflation. Several small bilateral 2 mm pulmonary nodules, not definitively seen on prior imaging. For example left upper lobe 2 mm pulmonary nodule (series 7, image 69). Right lower lobe 2 mm pulmonary nodule (series 7, image 100). Mild diffuse adrenal gland thickening bilaterally. Mild mid thoracic spondylosis. No acute fracture or suspicious bone lesion IMPRESSION: 1. Pulmonary embolism present within the subsegmental right lower lobe pulmonary arteries. No evidence of right heart strain. 2. Subcutaneous gas along the right chest wall extending into the right axilla and upper arm decreased from prior imaging dated 02/06/2025 when accounting for differences in technique. 3. Right thyroid lobe nodule measuring 1.5 cm. Recommend comparison with nonemergent thyroid ultrasound if not already performed. 4. Small scattered 2 mm pulmonary nodules. Recommend comparison with more recent imaging if available. If none available, consider follow-up imaging 12 months. This document has been electronically signed by: Dave Esparza MD on 02/23/2025 15:47:02
--- NOTE | ~2025-02-23 | XR_ITS ---
CLINICAL HISTORY: chest pain Two views of the chest. COMPARISON: XR chest dated 02/07/25 at 16:48 EDT FINDINGS: Right-sided chest port tip overlies the distal SVC, stable. Interval resolution of previously seen subcutaneous gas along the neck and chest lazo. Normal heart size. No consolidation. Suture material present along the medial right upper lung. No pleural effusion or pneumothorax. No acute fracture. IMPRESSION: 1. No consolidation. This document has been electronically signed by: Dave Esparza MD on 02/23/2025 15:00:44
--- NOTE | 2025-02-23 12:55 | ED.GENADULT ---
HPI - General Adult General Chief complaint: General Medical Stated complaint: weak pain Time Seen by Provider: 02/23/25 13:11 History of Present Illness HPI narrative: Patient is a 79-year-old female with a history of having lung cancer. Status post wedge resection back in November. Subsequently had a PowerPort placed. a PowerPortwas placed on are February 04. Since then patient has been experiencing pain localized over the port site. There is no fever no chills. There is no diaphoresis. Patient has shortness of breath but is chronic. no fever no chills. No coughing or upper respiratory symptoms. No diaphoresis. Patient is from home. Related Data Home Medications ?Medication ?Instructions ?Recorded ?Confirmed calcium carbonate 1,000 mg PO QAM 03/24/23 02/10/25 atorvastatin 10 mg tablet (Lipitor) 10 mg PO QAM 12/05/24 02/10/25 cholecalciferol (vitamin D3) 25 25 mcg PO QAM 12/05/24 02/10/25 mcg (1,000 unit) capsule (Vitamin D3) Previous Rx's ?Medication ?Instructions ?Recorded fluticasone 500 mcg-salmeterol 50 1 inh inhalation Q12H #60 ea 09/24/24 mcg/dose blistr powdr for inhalation (Wixela Inhub) Magic Mouthwash 10 ml PO QID #240 mL 01/09/25 Diphen/Lido/Antacid 1:1:1 240 mL suspension dexamethasone 4 mg tablet 4 mg PO BID #60 tabs 01/09/25 ondansetron 8 mg disintegrating 8 mg PO Q8H #50 tabs 01/09/25 tablet hydrocodone 5 mg-acetaminophen 325 1 tab PO Q4-6H PRN pain #30 tabs 02/04/25 mg tablet ibuprofen 800 mg tablet 800 mg PO Q8H PRN pain #30 tabs 02/05/25 ibuprofen 800 mg tablet 800 mg PO Q8H PRN pain #30 tabs 02/05/25 oxycodone 5 mg tablet 5 mg PO Q8H PRN Breakthrough Pain, 02/10/25 Moderate #60 tabs albuterol sulfate 90 mcg/actuation 2 puff inhalation Q4-6H PRN 02/18/25 aerosol inhaler shortness of breath or wheezing #1 ea famotidine 40 mg tablet 40 mg PO BID #60 tabs 02/19/25 budesonide-formoterol HFA 160 2 puff inhalation Q12H #10.2 grams 02/21/25 mcg-4.5 mcg/actuation aerosol inhaler (Symbicort) Allergies Allergy/AdvReac Type Severity Reaction Status Date / Time prednisone AdvReac Back Pain Verified 02/23/25 12:59 Review of Systems Review of Systems: Positive pain over the PowerPort site PMFSH Past Medical History Attestation statement: The following information was validated with the patient. Medical History Heartburn Squamous cell carcinoma of lung COPD (chronic obstructive pulmonary disease) Pneumothorax of right lung after biopsy Former heavy cigarette smoker (20-39 per day) Hoarseness or changing voice Shortness of breath on exertion White coat syndrome with hypertension Dyslipidemia Impaired fasting glucose Osteoporosis Surgical History Port-A-Cath in place Status post partial lobectomy of lung (12/10/24) History of lung biopsy H/O colonoscopy Family History Family History Father No problems noted. Mother Diabetes mellitus Sister Brain cancer Son No problems noted. Social History Social History Household Members: Significant Other Household Members Other:: Housing: House Are you a primary direct care professional to a significant other at home: No Do you presently have visiting nurse or other home services: No Alcohol intake: current Alcohol intake frequency: does not drink Alcohol type: beer Patient Tobacco Use Status: Former Tobacco user Tobacco use type: Cigarette Cigarette Packs Per Day: 1 Cigarettes Per Day: 20.0 Years Smoked: 30 Smoked in Last 30 Days: No e-Cigarette/Vaping Use: Never Used Second Hand Smoke Exposure: Yes Use of substances other than those prescribed or required for medical reasons: No Advance Directives: Yes Advance Directives on File: Yes Advance Directives Date on File: 07/30/20 Do you have a plan to hurt others: No Plan service: No Current occupational status: disabled Cognitive needs: No Hearing needs: No Vision needs: Yes Physical Exam ED Vital Signs: Vital Signs - 24 hr 02/23/25 12:57 02/23/25 14:01 02/23/25 14:03 Temperature 97.4 F Pulse Rate 128 H 97 Respiratory Rate 18 16 19 Blood Pressure 138/94 H 123/78 Pulse Oximetry 97 95 Oxygen Delivery Method Room Air Room Air BMI result Body Mass Index 18.5 Appearance: Alert. Oriented X3. No acute distress. Eyes: Pupils equal, round and reactive to light. ENT: Pharynx normal. Neck: Normal inspection. Neck supple. No lymph nodes noted. No crepitus CVS: Normal heart rate and rhythm. Pulses normal. Normal S1 and S2 Respiratory: No respiratory distress. No Wheezing. No rales. Minimal crepitus noted around the area of the PowerPort. There is good breath sounds bilaterally. Abdomen: Soft and nontender. No rigidity. No distention. good BS x4 Skin: Skin warm and dry. Normal skin color. Normal skin turgor. Extremities: No lower extremity edema. Neurovascular intact to all extremities. No Lacerations. No Rash Neuro: Oriented X 3. No motor deficit. No sensory deficit. Moving all extermities. No slurred speech Course Course Course Narrative: RME performed by Jana Zelaya PA-C. Patient is a 79 year old assigned female at presenting to the emergency department with pain around a port. Patient states that she has been having pain around her port and feeling weak. Detailed physical exam and review of systems are deferred to the supervisor ditching. EKG, labs, imaging, and swabs ordered. Patient placed back in the waiting room pending room availability and results. Medications Administered Discontinued Medications Generic Name Dose Route Start Last Admin Trade Name Eve PRN Reason Stop Dose Admin Hydromorphone HCl 0.5 mg 02/23/25 13:55 02/23/25 14:01 Hydromorphone Hcl 0.5 Mg/0.5 Ml Syringe IVPUSH 02/23/25 13:56 0.5 mg ONCE ONE Administration Protocol Sodium Chloride 1,000 mls @ 999 mls/hr 02/23/25 14:00 02/23/25 14:02 Ns IV 02/23/25 15:00 999 mls/hr .Q1H1M [place] Administration Iohexol 100 ml 02/23/25 14:58 02/23/25 14:58 Iohexol 350 Mg/Ml 100 Ml Infus..Btl IV 02/23/25 14:59 65 ml ONCE ONE Administration Medical Decision Making Medical Decision Making [facility] Narrative: patient is 79 years old presented today with having pain over the port site. Has a history of lung cancer had recent procedure including a wedge resection done. Has a history of non-small cell cancer. Currently undergoing chemo. My interpretation patient's chest x-ray was grossly negative for pneumonia. The port seems to be in place. Patient had a CTA of the chest done. Which was positive for a subsegmental PE on the right side. Question if that explained patient's pain. However patient is 79 years old has a history of cancer has a history of recent surgery not a good candidate for outpatient treatment of pulmonary emboli. Her PERC score is a 2. Hospitalist team consulted. Patient to be admitted. surgery was consulted as well. Will follow in-house. Differential Diagnosis Differential Diagnoses: The differential diagnosis associated with the presentation includes Congestive heart failure, PE, pneumothorax, pneumonia, cancer Admission/Observation Consideration of admission/observation: Escalation of care including admission/observation considered Consult Healthcare Provider Management of the patient was discussed with: Hospitalist and Automatic Dry Starch Operator ( surgery) Lab Data [facility] Lab Attestation statement: I reviewed the patient's lab results. 02/23/25 13:52 02/23/25 13:52 Labs: Lab Results 02/23/25 Range/Units 13:52 WBC 6.9 (4.8-10.8) X10*3/uL RBC 3.76 L (4.20-5.50) X10*6/uL Hgb 11.2 L (12.0-16.0) g/dl Hct 31.7 L (37.0-47.0) % MCV 84.3 (80.0-98.0) fL MCH 29.8 (27.0-33.0) pg MCHC 35.3 H (31.0-35.0) g/dl RDW 14.9 (11.0-16.0) % Plt Count 246 D (160-400) X10*3/uL MPV 10.4 (9.4-12.3) fL Immature Gran % (Auto) 0.4 (0.0-0.4) % Neut % (Auto) 73.1 H (45-73) % Lymph % (Auto) 20.3 (20-40) % [place] % (Auto) 3.2 (2-11) % Eos % (Auto) 2.9 (0-4) % Baso % (Auto) 0.1 (0-2) % Lymph # (Auto) 1.4 (1.2-4.9) X10*3/uL [place] # (Auto) 0.2 (0.1-1.2) X10*3/uL Eos # (Auto) 0.2 (0.0-0.4) X10*3/uL Baso # (Auto) 0.0 (0.0-0.2) X10*3/uL Abs Immat Gran (auto) 0.03 (0.00-0.03) X10*3/uL Absolute Neuts (auto) 5.1 (2.0-8.3) x10*3/uL Absolute Nucleated RBC 0.000 (0.0-0.012) X10*3/uL Nucleated RBC % (auto) 0.0 (0.0-0.2) /100WBC Sodium 138 (135-145) mmol/L Potassium 3.8 (3.3-5.1) mmol/L Chloride 99 (96-108) mmol/L Carbon Dioxide 26 (22-29) mmol/L Anion Gap 17 (12-20) BUN 23 H (9-16) mg/dL Creatinine 0.76 (0.5-1.4) mg/dL Estim Creat Clear Calc 46.4 Estimated GFR > 60 Random Glucose 118 H (60-115) mg/dL Calcium 9.4 (8.4-10.2) mg/dL Magnesium 1.6 (1.6-2.6) mg/dL Total Bilirubin 0.6 (0.0-1.0) mg/dL AST 35 H (5-31) U/L ALT 11 (0-31) U/L Alkaline Phosphatase 75 (39-117) U/L Troponin I High Sens 4.7 (<3.5-17.0) ng/L Total Protein 5.9 L (6.5-8.0) g/dL Albumin 3.6 (3.5-5.0) g/dL Independent Interpretation I performed an independent interpretation of an: EKG ( Shows a sinus pattern heart rate is 100 VA QRS QTC normal no acute ST segment elevation noted.) and Plain X-Ray ( Chest x-ray grossly negative for pneumonia pneumothorax) Radiology Impression Discussion of test interpretation with radiology: I have reviewed the radiologist's reading. Chronic Conditions history of lung cancer Social Determinants Patient?s care significantly limited by Social Determinants of Health including: Problems related to primary support group Discharge Plan Discharge Clinical Impression: Pulmonary emboli Patient Disposition: Admitted As Inpatient Prescriptions: No Action fluticasone propion-salmeterol [Wixela Inhub] 500-50 mcg/dose blister with device 1 inh inhalation Q12H Qty: 60 4RF ibuprofen 800 mg tablet 800 mg PO Q8H PRN (Reason: pain) Qty: 30 0RF ibuprofen 800 mg tablet 800 mg PO Q8H PRN (Reason: pain) Qty: 30 0RF albuterol sulfate 90 mcg/actuation HFA aerosol inhaler 2 puff inhalation Q4-6H PRN (Reason: shortness of breath or wheezing) Qty: 1 3RF famotidine 40 mg tablet 40 mg PO BID Qty: 60 1RF budesonide-formoterol [Symbicort] 160-4.5 mcg/actuation HFA aerosol inhaler 2 puff inhalation Q12H Qty: 10.2 6RF ondansetron 8 mg Tablet,Disintegrating 8 mg PO Q8H Qty: 50 3RF dexamethasone 4 mg Tablet 4 mg PO BID Qty: 60 3RF Rx Instructions: Take 4 mg p.o. b.i.d. day after chemotherapy for 2 days, Q 3 weekly Magic Mouthwash Diphen/Lido/Antacid 1:1:1 240 mL Suspension 10 ml PO QID Qty: 240 3RF Rx Instructions: Lidocaine Viscous 2 % 80mL; diphenhydramine 12.5 mg/5 mL 80mL; aluminum-mag hydrox-simeth [id number]/5mL 80mL oxycodone 5 mg Tablet 5 mg PO Q8H PRN (Reason: Breakthrough Pain, Moderate) Qty: 60 0RF Rx Instructions: Partial Fill upon patient request. atorvastatin [Lipitor] 10 mg tablet 10 mg PO QAM cholecalciferol (vitamin D3) [Vitamin D3] 25 mcg (1,000 unit) capsule 25 mcg PO QAM hydrocodone-acetaminophen 5-325 mg tablet 1 tab PO Q4-6H PRN (Reason: pain) Qty: 30 0RF Rx Instructions: Partial Fill upon patient request. calcium carbonate 500 mg calcium (1,250 mg) tablet,chewable 1,000 mg PO QAM Print Language: Eritrean
[2025-02-23 12:57] VITALS: BP 138/94; PULSE 128; RESP 18; TEMP 36.3; O2SAT 97; BMI 18.5
--- NOTE | 2025-02-23 12:57 | ECG_ITS ---
Test Reason : WEAKNESS Blood Pressure : */* mmHG Vent. Rate : 100 BPM Atrial Rate : 100 BPM P-R Int : 142 ms QRS Dur : 78 ms QT Int : 360 ms P-R-T Axes : 83 -44 71 degrees QTcB Int : 464 ms Normal sinus rhythm Biatrial enlargement Left axis deviation Pulmonary disease pattern Abnormal ECG When compared with ECG of 14-Dec-2024 03:45, No significant change was found Referred By: Jana Zelaya Electronically Signed By: ERNESTO CAMERON MD
[2025-02-23 13:59] LABS: MANUAL DIFF FLAG NO
[2025-02-23 14:00] LABS: Basophils Percent Auto 0.1 % (0-2); Eosinophils Absolute Auto 0.2 X10*3/uL (0.0-0.4); Eosinophils Percent Auto 2.9 % (0-4); Hematocrit 31.7 % (37.0-47.0); Hemoglobin 11.2 g/dl (12.0-16.0); Imm Gran Abs Auto 0.03 X10*3/uL (0.00-0.03); Imm Gran Pct Auto 0.4 % (0.0-0.4); Lymphocytes Absolute Auto 1.4 X10*3/uL (1.2-4.9); Lymphocytes Percent Auto 20.3 % (20-40); Mean Corpuscular HGB Conc 35.3 g/dl (31.0-35.0); Mean Corpuscular Hemoglobin 29.8 pg (27.0-33.0); Mean Corpuscular Volume 84.3 fL (80.0-98.0); Mean Platelet Volume 10.4 fL (9.4-12.3); Monocytes Absolute Auto 0.2 X10*3/uL (0.1-1.2); Monocytes Percent Auto 3.2 % (2-11); Neutrophils Absolute Auto 5.1 x10*3/uL (2.0-8.3); Neutrophils Percent Auto 73.1 % (45-73); Platelet Count 246 X10*3/uL (160-400); Red Blood Count 3.76 X10*6/uL (4.20-5.50); Red Cell Distribution Width 14.9 % (11.0-16.0); White Blood Count 6.9 X10*3/uL (4.8-10.8)
[2025-02-23 14:01] VITALS: RESP 16
[2025-02-23] MEDS: HYDROmorphone HCl 0.5 MG/0.5 ML SYRINGE IVPUSH (14:01)
[2025-02-23] MEDS: 0.9 % Sodium Chloride 1,000 ML 999 ML IV (14:02)
[2025-02-23 14:03] VITALS: BP 123/78; PULSE 97; RESP 19; O2SAT 95
[2025-02-23 14:14] LABS: Alanine Aminotransferase 11 U/L (0-31); Albumin Level 3.6 g/dL (3.5-5.0); Anion Gap 17 (12-20); Aspartate Amino Transferase 35 U/L (5-31); Bilirubin Total 0.6 mg/dL (0.0-1.0); Blood Urea Nitrogen 23 mg/dL (9-16); Calcium 9.4 mg/dL (8.4-10.2); Carbon Dioxide 26 mmol/L (22-29); Chloride 99 mmol/L (96-108); Creatinine Clr Calc Pharmacy 46.4; Estimated Glomerular Filt Rate > 60; Glucose Random 118 mg/dL (60-115); Magnesium 1.6 mg/dL (1.6-2.6); Potassium 3.8 mmol/L (3.3-5.1); Sodium 138 mmol/L (135-145); Total Protein 5.9 g/dL (6.5-8.0)
[2025-02-23 14:21] LABS: Troponin-I High Sensitivity 4.7 ng/L (<3.5-17.0)
[2025-02-23 14:31] LABS: Alkaline Phosphatase 75 U/L (39-117)
[2025-02-23] MEDS: iohexoL 350 MG/ML 100 ML INFUS..BTL IV (14:58)
--- NOTE | 2025-02-23 16:06 | P.HPHOSP_ITS ---
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 patient was diagnosed with small-cell lung carcinoma July 2024 and recently started chemotherapy for suspicion of floaters noting lymph node biopsies were negative for metastases per her oncologist. Patient has been receiving chemotherapy weekly until recently when her white count was low. Patient states she has not use the MediPort so far as she is recovering from complications but does have poor peripheral access. Patient's goal is to have the MediPort removed as an outpatient. Patient denies any ongoing shortness of breath at rest or with exertion and is not currently using oxygen at home. Incidentally CTA of the chest was done and patient was found to have a PE without evidence of right heart strain. Patient was started on weight based Lovenox in the emergency department and will be continue with Eliquis 12 hours later. Patient remains on room air. Nutritional consult placed for noted weight loss. Patient reports poor taste secondary to chemotherapy with decrease in appetite overall. patient would not be a candidate for Megace due to her current PE status as Megace can promote blood clots. patient has not use marijuana or Marinol in the past. Patient can not tolerate ensure but has tried boost and can tolerate this. Patient did confirm that she is a full code status. Patient is interested in completing healthcare proxy during this admission. Review of Systems 2 Review of Systems: patient currently denies chest pain, shortness of breath at rest or with exertion, abdominal pain, nausea or vomiting. Patient denies any lower calf swelling or pain. Patient denies any current open wounds. Patient reports increased bruising overall since starting chemotherapy. Patient states she has pain starting at the MediPort down her right arm which is burning and tingling in nature. The oxycodone does relieve the pain. patient denies any fever, chills, diarrhea or constipation issues. Patient moves her bowels every 1-2 days using MiraLax Yes all other systems are reviewed and are negative FORMERLY [facility], [facility] Medical History Heartburn Squamous cell carcinoma of lung COPD (chronic obstructive pulmonary disease) Pneumothorax of right lung after biopsy Former heavy cigarette smoker (20-39 per day) Hoarseness or changing voice Shortness of breath on exertion White coat syndrome with hypertension Dyslipidemia Impaired fasting glucose Osteoporosis Cognitive capacity: alert and orientated x3 Functional capacity: independent ambulation Patient : No Family History Father No problems noted. Mother Diabetes mellitus Sister Brain cancer Son No problems noted. Surgical History Port-A-Cath in place Status post partial lobectomy of lung (12/10/24) History of lung biopsy H/O colonoscopy Social History Household Members: Significant Other Household Members Other:: Housing: House Are you a primary career technical education instructor to a significant other at home: No Do you presently have visiting nurse or other home services: No Alcohol intake: current Alcohol intake frequency: does not drink Alcohol type: beer Patient Tobacco Use Status: Former Tobacco user Tobacco use type: Cigarette Cigarette Packs Per Day: 1 Cigarettes Per Day: 20.0 Years Smoked: 30 Smoked in Last 30 Days: No e-Cigarette/Vaping Use: Never Used Second Hand Smoke Exposure: Yes Use of substances other than those prescribed or required for medical reasons: No Advance Directives: Yes Advance Directives on File: Yes Advance Directives Date on File: 07/30/20 Do you have a plan to hurt others: No Plan service: No Current occupational status: disabled Cognitive needs: No Hearing needs: No Vision needs: Yes Ebola Risk: Travel/Contact With Anyone From Affected Area/s: No Has Patient Experienced Ebola Symptoms: No Meds Allergies Allergy/AdvReac Type Severity Reaction Status Date / Time prednisone AdvReac Back Pain Verified 02/23/25 12:59 Home Medications ?Medication ?Instructions ?Recorded ?Confirmed ?Last Taken ?Type calcium carbonate 1,000 mg PO QAM 03/24/23 02/10/25 02/03/25 History atorvastatin 10 mg tablet (Lipitor) 10 mg PO QAM 12/05/24 02/10/25 02/03/25 History cholecalciferol (vitamin D3) 25 25 mcg PO QAM 12/05/24 02/10/25 02/03/25 History mcg (1,000 unit) capsule (Vitamin D3) Physical Exam 2 Vital Signs and Narrative: Vital Signs: Last Vital Signs Temp 97.4 F 02/23/25 12:57 Pulse 97 02/23/25 14:03 Resp 19 02/23/25 14:03 BP 123/78 02/23/25 14:03 Pulse Ox 95 02/23/25 14:03 O2 Del Method Room Air 02/23/25 14:03 BMI result Body Mass Index 18.5 Alert and orientated X3, able to give good history. Neuro: CN II-X11 intact, no deficits, visual acuity intact, glasses on EYES: PERRLA, EOM intact ENT: hearing intact, no issues with swallowing, uvula midline, lips moist, nares patent no epistaxis, upper dental plate Cardiac: S1 S2 RRR, no murmur, no JVD, no edema in Lower ext Pulmonary: lungs diminished L middle and lower lobes, no adventitous sounds noted unable to appreciate subcutaneous emphysema R neck and chest Mediport intact, closed site Abdominal: BS active in all 4 quadrants, no guarding, tenderness, rebounding MSK: strength 4/5 upper and lower extremities : no CVA tenderness no bladder distension Extremities: no edema in lower extremities, PT and DP pulses palpable +2 Psych: mood anxious, judgement and insight good Skin: noted bruising over both hands and arms Results Labs 02/23/25 13:52 02/23/25 13:52 Labs: Laboratory Results - last 24 hr 02/23/25 13:52 MCV 84.3 MCH 29.8 MCHC 35.3 H RDW 14.9 Plt Count 246 D MPV 10.4 Immature Gran % (Auto) 0.4 Neut % (Auto) 73.1 H Lymph % (Auto) 20.3 Stanton % (Auto) 3.2 Eos % (Auto) 2.9 Baso % (Auto) 0.1 Lymph # (Auto) 1.4 Stanton # (Auto) 0.2 Eos # (Auto) 0.2 Baso # (Auto) 0.0 Abs Immat Gran (auto) 0.03 Absolute Neuts (auto) 5.1 Absolute Nucleated RBC 0.000 Nucleated RBC % (auto) 0.0 Anion Gap 17 Estim Creat Clear Calc 46.4 Estimated GFR > 60 Random Glucose 118 H Calcium 9.4 Magnesium 1.6 Total Bilirubin 0.6 AST 35 H ALT 11 Alkaline Phosphatase 75 Total Protein 5.9 L Albumin 3.6 ECG Attestation: I personally reviewed and interpreted this ECG as follows: (Normal sinus rhythm Biatrial enlargement Left axis deviation) Prior ECG tracings: available for review Imaging Radiologist's Impressions: CTA IMPRESSION: 1. Pulmonary embolism present within the subsegmental right lower lobe pulmonary arteries. No evidence of right heart strain. 2. Subcutaneous gas along the right chest wall extending into the right axilla and upper arm decreased from prior imaging dated 02/06/2025 when accounting for differences in technique. 3. Right thyroid lobe nodule measuring 1.5 cm. Recommend comparison with nonemergent thyroid ultrasound if not already performed. 4. Small scattered 2 mm pulmonary nodules. Recommend comparison with more recent imaging if available. If none available, consider follow-up imaging 12 months. CXR no consolidation Resolve of SUB CU EMPH Assessment and Plan (1) Pulmonary emboli: Qualifiers: Pulmonary embolism type: unspecified Chronicity: acute Acute cor pulmonale presence: without acute cor pulmonale Qualified Code(s): I26.99 - Other pulmonary embolism without acute cor pulmonale Status: Acute Plan Patient is a 79-year-old female with past medical history recent diagnosis small- cell lung carcinoma with no obvious metastases currently on chemotherapy, white coat induced HTN, previous tobacco user for 60 years 1 pack per day, COPD on Symbicort, GERD, recent weight loss 32 lb, hyperlipidemia with recent complications secondary to MediPort placement right upper chest including small pneumothorax not requiring chest tube and subcutaneous emphysema is being admitted for PE without right heart strain. Due to pt's age, higher risk for acute complications. PE -Likely secondary to Lung Cancer Dx and being on chemotherapy -WT based lovenex started in ED, reviewed plan with attending Dr Artis, starting eliquis 5 mg BID 12 hours later (4AM 02/24) -Pt remains on RA, no issues with hypoxia, chest pain -Telemetry ordered -Oncology consulted -No evidence on clinical exam to perform venous dopplers Small cell Lung CA/ pain related to MPT placement -[place] [facility] [place] requesting MPT be removed, pt understands this would not be done this admission -Oxycodone 5 mg Q4H prn for pain -Pt may benefit from extended release oxycodone, this would be per oncology -Plan for chemo per oncology COPD -symbicort -pulse ox monitoring -Duonebs prn HTN -Pt has noted white coat reaction in regards to HTN, is not usually on anti- hypertensives -BP has normalized in the ED, holding off on prescribing anti-hypertensives -Low Na diet ordered GERD/Heartburn -Will add omperazole to pt's current famotidien as her symptoms are daily -Avoid food triggers Weigth loss 32 pounds over 3 months -Nutritional consult ordered -Patient can not tolerate ensure, ordered fortified ice cream for now -Patient can not take Megace due to risk for further DVT/PE, patient has not tried Marinol or marijuana in the past and is not interested currently DVT prophylaxis: Eliquis PPI prophylaxis: omeprazole added to patient's famotidine Patient is a full code Patient is interested in completing a healthcare proxy during this admission Quality Stroke Does the patient have a stroke diagnosis?: No Reason for No Anti-thrombotic by Day Two: N/A - Med Ordered VTE Prior VTE?: No VTE Risk Level:: Medical - moderate - high VTE Device Contraindication: N/A - Device Ordered VTE Drug Contraindication: N/A - Med Ordered
[2025-02-23 16:09] LABS: Appearance Urine Clear; Color Urine Yellow; Glucose Urine UA Negative (Negative); Leukocyte Esterase Urine Negative (Negative); Nitrite Urine Negative (Negative); PH 7.5 (5.0-9.0); Specific Gravity - Urine 1.025 (1.005-1.025); Urine Blood Negative (Negative); Urine Ketones Negative (Negative); Urine Protein Negative (Neg-Trace)
--- NOTE | 2025-02-23 16:24 | PC.NURSE ---
lovenox requested from pharmacy
[2025-02-23] MEDS: Enoxaparin Sodium 60 MG/0.6 ML SYRINGE 50 MG SUBCUT (16:27)
--- NOTE | 2025-02-23 17:30 | PHA.MEDREC ---
Addendum entered by Morales [facility] 02/23/25 17:55: MED REC CHEKED BY [facility] Original Note: Pharmacy Consult ? Medication Reconciliation Pharmacy has completed the medication reconciliation. Spoke with patient to confirm medications. She is not taking famotidine or hydrocodone w/tylenol, ibuprofen, and Wixela. She started taking symbicort this morning. She last took dexamethasone on . Her only pain medications are oxycodone and tylenol as needed. Patient reports she took her morning medications today but not the oxycodone.
[2025-02-23 18:44] LABS: Mean Corpuscular HGB Conc 34.4 g/dl (31.0-35.0); Mean Corpuscular Hemoglobin 29.7 pg (27.0-33.0); Mean Corpuscular Volume 86.5 fL (80.0-98.0); Mean Platelet Volume 10.6 fL (9.4-12.3); Platelet Count 252 X10*3/uL (160-400); Red Cell Distribution Width 14.8 % (11.0-16.0); White Blood Count 7.9 X10*3/uL (4.8-10.8)
[2025-02-23 18:48] LABS: INTERNATIONAL NORM RATIO 0.9 (0.9-1.1); Prothrombin Time 10.8 SEC (10.9-12.4)
[2025-02-23 19:03] VITALS: BP 152/97; PULSE 98; RESP 14; TEMP 36.6; O2SAT 96
[2025-02-23] MEDS: oxyCODONE HCl Immed Release 5 MG TABLET PO (19:05)
[2025-02-23] MEDS: Atorvastatin Calcium 10 MG TABLET PO (19:05)
[2025-02-23] MEDS: Cholecalciferol (Vitamin D3) 25 MCG TABLET PO (19:05)
[2025-02-23] MEDS: Calcium Oyster Shell Elemental 500 MG TABLET 1000 MG PO (19:05)
[2025-02-23 20:30] VITALS: BMI 18.2
[2025-02-23 20:50] VITALS: BP 133/73; PULSE 89; RESP 16; TEMP 36.3; O2SAT 96
[2025-02-23 23:32] VITALS: BP 148/88; PULSE 87; RESP 18; TEMP 36.3; O2SAT 96
[2025-02-24] MEDS: Magnesium Hydrox/Alum Hydrox 30 ML ORAL.SUSP 15 ML PO
[2025-02-24 04:00] VITALS: BP 136/80; PULSE 88; RESP 18; TEMP 36.3; O2SAT 94
[2025-02-24] MEDS: oxyCODONE HCl Immed Release 5 MG TABLET PO (06:00)
[2025-02-24] MEDS: Omeprazole 20 MG CAPSULE.DR PO (06:06)
[2025-02-24] MEDS: Apixaban 5 MG TABLET 10 MG PO (06:06)
[2025-02-24 06:35] LABS: MANUAL DIFF FLAG NO
[2025-02-24 06:54] LABS: Basophils Percent Auto 0.3 % (0-2); Eosinophils Absolute Auto 0.7 X10*3/uL (0.0-0.4); Eosinophils Percent Auto 11.1 % (0-4); Hematocrit 31.5 % (37.0-47.0); Hemoglobin 10.9 g/dl (12.0-16.0); Imm Gran Abs Auto 0.05 X10*3/uL (0.00-0.03); Imm Gran Pct Auto 0.8 % (0.0-0.4); Lymphocytes Absolute Auto 1.9 X10*3/uL (1.2-4.9); Mean Corpuscular HGB Conc 34.6 g/dl (31.0-35.0); Mean Corpuscular Volume 86.8 fL (80.0-98.0); Mean Platelet Volume 10.7 fL (9.4-12.3); Monocytes Absolute Auto 0.3 X10*3/uL (0.1-1.2); Monocytes Percent Auto 4.2 % (2-11); Neutrophils Absolute Auto 3.2 x10*3/uL (2.0-8.3); Neutrophils Percent Auto 52.6 % (45-73); Platelet Count 236 X10*3/uL (160-400); Red Blood Count 3.63 X10*6/uL (4.20-5.50); Red Cell Distribution Width 14.7 % (11.0-16.0); White Blood Count 6.1 X10*3/uL (4.8-10.8)
--- NOTE | 2025-02-24 06:59 | PM.HEMONCCN ---
Subjective - Subjective Chief complaint: Pain at site of MediPort Patient: known to practice within the last 3 years Consult date: 02/24/25 Primary Care Provider: Juanita Lakhani MD Medical Summary: DIAGNOSIS: [id number] LUNG CARCINOMA. Status post chest tube placement. CURRENT THERAPY: On 12/10/2024, she underwent right upper lobe wedge resection by Dr. Rosales. Pathology revealed: Invasive squamous cell carcinoma, poorly-differentiated basaloid >50% and moderately differentiated predominantly nonkeratinizing with rare keratinization. Staple margin is free of tumor. Visceral pleural invasion is present. No definitive LVI seen. Direct invasion of adjacent structures: Not identified. Tumor span of 4.8 cm (pt2b.) G3. Foci of bronchial epithelium with squamous metaplasia and atypical/dysplastic squamous metaplasia. Lymph nodes: 10 are, 4R, 7 biopsies negative for metastatic carcinoma.. TNM:pT2b,pN0. Started Cisplatin/Navelbine in the adjuvant setting on 01/21. 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 Unfortunately, patient had complications after right port placement, she developed pneumothorax in required chest tube placement. She continues to have significant pain at the port site which prompted her to come to emergency department on 02/23/2025. She was waiting to have her MediPort removed. She started adjuvant chemotherapy about a week ago. Patient underwent right upper extremity Doppler on 02/10/2025 because of swelling of the right upper extremity, this was negative for DVT. She had CTA performed 02/23/2025 because of shortness of breath, this revealed pulmonary embolism within the subsegmental right lower lobe pulmonary arteries with out evidence of right heart strain. Subcutaneous gas along right chest wall extending into right axilla and upper arm, decreased from previous. At this time patient denies any chest pain or shortness of breath but she does have pain at the port site radiating down her right arm. Review of Systems - Constitutional Reports as per [facility] Medical History: Medical History (Last Reviewed 02/23/25 @ 22:38 by oJan Bal RN) COPD (chronic obstructive pulmonary disease) Dyslipidemia Former heavy cigarette smoker (20-39 per day) Heartburn Hoarseness or changing voice Impaired fasting glucose Osteoporosis Pneumothorax of right lung after biopsy Shortness of breath on exertion Squamous cell carcinoma of lung White coat syndrome with hypertension Functional capacity: independent ambulation Family History: Family History (Last Reviewed 02/23/25 @ 16:59 by Nakia Akers [facility]) Father No problems noted. Mother Diabetes mellitus Sister Brain cancer Son No problems noted. Surgical History: Surgical History (Last Reviewed 02/23/25 @ 22:38 by Joan Bal RN) H/O colonoscopy History of lung biopsy Port-A-Cath in place Status post partial lobectomy of lung Onset Date: 12/10/24 Social History: Social History (Last Reviewed 02/23/25 @ 14:10 by Ragini Perez MD) Living Situation History: Household Members: Spouse Household Members Other:: Housing: House Are you a primary pediatric care coordinator to a significant other at home: No Do you presently have visiting nurse or other home services: No Tobacco History: Patient Tobacco Use Status: Former Tobacco user Tobacco use type: Cigarette Cigarette Packs Per Day: 1 Years Smoked: 30 e-Cigarette/Vaping Use: Never Used Second Hand Smoke Exposure: Yes Advance Directives: Advance Directives Date on File: 07/30/20 Occupation Assessmet: service: No Current occupational status: disabled - Travel History Ebola Risk: Travel/Contact With Anyone From Affected Area/s: No Has Patient Experienced Ebola Symptoms: No Home Medications and Allergies Current Medications: Current Medications Acetaminophen (Acetaminophen 325 Mg Tablet) 650 mg PO Q6H PRN PRN Reason: Pain, Mild 1-3,fever,headache Albuterol Sulfate (Albuterol Sulfate 90 Mcg 8 Gm Inhaler) 2 puff INHALE Q4H PRN PRN Reason: shortness of breath or wheezing Albuterol/Ipratropium (Albuterol/Iprat 2.5/0.5mg 3 Ml Ampul.Neb) 3 ml INHALE Q4H PRN PRN Reason: Shortness of Breath/Wheezing Apixaban (Apixaban 5 Mg Tablet) 10 mg PO Q12H [facility] Stop: 03/02/25 18:01 Last Admin: 02/24/25 06:06 Dose: 10 mg Atorvastatin Calcium (Atorvastatin Calcium 10 Mg Tablet) 10 mg PO DAILY [facility] Last Admin: 02/23/25 19:05 Dose: 10 mg Calcium Carbonate (Calcium Carbonate 750 Mg Tab.Chew) 750 mg PO Q4H PRN PRN Reason: Heartburn Calcium Carbonate (Calcium Oyster Shell Elemental 500 Mg Tablet) 1,000 mg PO DAILY [facility] Last Admin: 02/23/25 19:05 Dose: 1,000 mg Fluticasone/Vilanterol (Fluticasone/Vilanterol 200/25 Blst.W.Dev) 1 puff INHALE RDAILY [facility] Lidocaine/Diphenhydr/Alum/Mg/Simeth (Mag&Al/Sim/Diphenhyd/Lidocaine 10 Ml Oral.Susp) 10 ml PO QID PRN PRN Reason: oral sores Magnesium Hydroxide (Milk Of Magnesia 30 Ml Oral.Susp) 30 ml PO DAILY PRN PRN Reason: Constipation Melatonin (Melatonin 3 Mg Tablet) 6 mg PO BEDTIME PRN PRN Reason: Insomnia Omeprazole (Omeprazole 20 Mg Capsule.Dr) 20 mg PO DAILY@0630 [facility] Last Admin: 02/24/25 06:06 Dose: 20 mg Ondansetron HCl (Ondansetron Hcl 4 Mg/2 Ml Vial) 4 mg IVPUSH Q8H PRN PRN Reason: Nausea and Vomiting Oxycodone HCl (Oxycodone Hcl Immed Release 5 Mg Tablet) 5 mg PO Q4H PRN PRN Reason: Pain, Severe (Pain Scale 7-10) Last Admin: 02/24/25 06:00 Dose: 5 mg Polyethylene Glycol (Polyethylene Glycol 3350 17 Gm Powd.Pack) 17 gm PO DAILY [facility] Senna (Sennosides 8.6 Mg Tablet) 17.2 mg PO BEDTIME [facility] Last Admin: 02/23/25 21:18 Dose: Not Given Sodium Chloride (0.9 % Sodium Chloride Flush 3 Ml Syringe) 3 ml [facility] Last Admin: 02/24/25 00:00 Dose: 3 ml Sodium Chloride (0.9 % Sodium Chloride Flush 3 Ml Syringe) 3 ml [facility] Last Admin: 02/24/25 04:12 Dose: Not Given Vitamin D (Cholecalciferol (Vitamin D3) 25 Mcg Tablet) 25 mcg PO DAILY [facility] Last Admin: 02/23/25 19:05 Dose: 25 mcg Home Medications ?Medication ?Instructions ?Recorded ?Confirmed ?Type calcium carbonate 1,000 mg PO QAM 03/24/23 02/23/25 History atorvastatin 10 mg tablet (Lipitor) 10 mg PO QAM 12/05/24 02/23/25 History cholecalciferol (vitamin D3) 25 25 mcg PO QAM 12/05/24 02/23/25 History mcg (1,000 unit) capsule (Vitamin D3) Magic Mouthwash 10 ml PO QID PRN oral sores 02/23/25 02/23/25 History Diphen/Lido/Antacid 1:1:1 240 mL suspension acetaminophen 500 mg tablet 500 mg PO Q6H PRN Pain 02/23/25 02/23/25 History aluminum hydrox-magnesium carb 254 5 - 10 ml PO TID PRN Heartburn 02/23/25 02/23/25 History mg-237.5 mg/5 mL oral suspension (Gaviscon Extra Strength) dexamethasone 4 mg tablet 4 mg PO BID PRN after chemotherapy 02/23/25 02/23/25 History ondansetron 8 mg disintegrating 8 mg PO Q8H PRN Nausea And Vomiting 02/23/25 02/23/25 History tablet Allergies Allergy/AdvReac Type Severity Reaction Status Date / Time prednisone AdvReac Back Pain Verified 02/23/25 12:59 Physical Exam Vital signs: Vital Signs Temp 97.3 F 02/24/25 04:00 Pulse 88 02/24/25 04:00 Resp 18 02/24/25 04:00 BP 136/80 02/24/25 04:00 Pulse Ox 94 02/24/25 04:00 O2 Del Method Room Air 02/24/25 04:00 Intake & Output 02/23/25 02/24/25 02/24/25 18:59 06:59 18:59 Intake Total 240 / 240 Balance 240 / 240 Intake: Intake, Oral Amount 240 / 240 Other: Number of Unmeasured Voids 1 Urine Bathroom Urine Color Yellow Last Bowel Movement 02/21/25 Weight 48.988 kg 48 kg [place] Weight in Grams 04346 Weight 48 kg - Constitutional Present: no acute distress, mild distress, thin - Routine HEENT Exam Head: Present: normal inspection Eye: Present: EOMI, PERRL - Routine Neck Exam Present: supple - Routine Respiratory Exam Absent: accessory muscle use, rales, wheezes - Routine Cardiovascular Exam Cardiovascular: Present: RRR, S1, S2 - Routine Abdominal Exam Present: soft - Routine Skin Exam Present: intact - Routine Neurological Exam Present: alert, oriented X3 Hem/Onc Consult Result - Labs CBC & Chem 7: 02/24/25 06:06 02/24/25 06:06 Labs: Short CBC 02/23/25 02/23/25 02/24/25 Range/Units 13:52 18:31 06:06 WBC 6.9 7.9 6.1 (4.8-10.8) X10*3/uL Hgb 11.2 L 11.0 L 10.9 L (12.0-16.0) g/dl Hct 31.7 L 32.0 L 31.5 L (37.0-47.0) % Plt Count 246 D 252 236 (160-400) X10*3/uL BMP 02/23/25 13:52 Sodium 138 Potassium 3.8 Chloride 99 Carbon Dioxide 26 BUN 23 H Creatinine 0.76 Calcium 9.4 Liver Function 02/23/25 Range/Units 13:52 Total Bilirubin 0.6 (0.0-1.0) mg/dL AST 35 H (5-31) U/L ALT 11 (0-31) U/L Alkaline Phosphatase 75 (39-117) U/L Albumin 3.6 (3.5-5.0) g/dL Urine 02/23/25 Range/Units 16:00 Urine Color Yellow Urine Appearance Clear Urine pH 7.5 (5.0-9.0) Ur Specific [place] 1.025 (1.005-1.025) Urine Protein Negative (Neg-Trace) mg/dL Urine Glucose (UA) Negative (Negative) mg/dL Assessment and Plan Patient Active problem list reviewed?: Yes (1) Pulmonary emboli Status: Acute Assessment and plan: 1. 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 She received her 2nd cycle of adjuvant chemotherapy with cis-telida and Navelbine on 02/18/2025. She had right MediPort placed on 02/04/2025, developed a complications including pneumothorax which required chest tube placement. She was evaluated for DVT of the right upper extremity 2 weeks ago that was negative. Because of persistent pain and swelling associated with right MediPort, it is not being used for her chemotherapy, she was going to have the port removed. Unfortunately she now has developed pulmonary embolism which is also complication of MediPort. She has been started on Eliquis. She is on oxycodone for pain control. She has subsegmental pulmonary embolism and she is not overtly symptomatic, her oxygen saturation is good and CTA did not show evidence of right heart strain. She can be discharged on Eliquis and have MediPort removed as outpatient after with holding Eliquis for 2 days. I thank you for the consultation. - Time Spent With Patient Time Spent with Patient (in minutes): 20
[2025-02-24 07:02] LABS: Alanine Aminotransferase 14 U/L (0-31); Albumin Level 3.6 g/dL (3.5-5.0); Alkaline Phosphatase 66 U/L (39-117); Anion Gap 13 (12-20); Aspartate Amino Transferase 21 U/L (5-31); Bilirubin Total 0.7 mg/dL (0.0-1.0); Blood Urea Nitrogen 17 mg/dL (9-16); Calcium 10.3 mg/dL (8.4-10.2); Carbon Dioxide 33 mmol/L (22-29); Chloride 97 mmol/L (96-108); Creatinine Clr Calc Pharmacy 45.5; Estimated Glomerular Filt Rate > 60; Glucose Random 99 mg/dL (60-115); Potassium 4.4 mmol/L (3.3-5.1); Sodium 139 mmol/L (135-145)
[2025-02-24 07:40] VITALS: BP 156/85; PULSE 92; RESP 17; TEMP 36.2; O2SAT 96
[2025-02-24] MEDS: Fluticasone/Vilanterol 200/25 BLST.W.DEV 1 PUFF INHALE (07:41)
[2025-02-24 07:45] VITALS: PULSE 111; RESP 18; O2SAT 97
[2025-02-24] MEDS: Calcium Oyster Shell Elemental 500 MG TABLET 1000 MG PO (08:15)
[2025-02-24] MEDS: Cholecalciferol (Vitamin D3) 25 MCG TABLET PO (08:16)
[2025-02-24] MEDS: polyethylene glycoL 3350 17 GM POWD.PACK PO (08:16)
[2025-02-24] MEDS: Atorvastatin Calcium 10 MG TABLET PO (08:16)
[2025-02-24] MEDS: 0.9 % Sodium Chloride Flush 3 ML SYRINGE IVFLUSH ×2 (08:16)
--- NOTE | 2025-02-24 08:55 | MHC.CM.PN ---
CM met with Patient at bedside and addressed IMM with her, providing Patient with the original and a copy has been placed on the chart. 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 Patient is active with [facility](Mediport for weekly Chemo/Lung CA)and home/resume said services is Patient's goal.CM has initiated and will follow for dc planning. PCP is Dr. Juanita Lakhani and Sister/Coni will transport to home at time of dc.
--- NOTE | 2025-02-24 10:00 | P.DS_ITS ---
DS: Providers Provider Date of Service: 02/24/25 Date of admission: 02/23/25 16:05 Date of discharge: 02/24/25 Primary care physician: Juanita Lakhani MD Consults: 02/23/25 16:43 Consult to Hematology / Oncology Routine Consulting Provider: [facility] Oncology/Hematology Reason for consultation: PE on chemotherapy Has provider been notified: No DS: Diagnosis Discharge Diagnosis (1) Pulmonary emboli: Status: Acute DS: Summary Hospital Course Hospital Course: Admission hpi Chief Complaint: pain at mediport site, has not been used recent cx with SUBCU emph, sm PTX Patient is a 79-year-old female with past medical history recent diagnosis 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 patient was diagnosed with small-cell lung carcinoma July 2024 and recently started chemotherapy for suspicion of floaters noting lymph node biopsies were negative for metastases per her oncologist. Patient has been receiving chemotherapy weekly until recently when her white count was low. Patient states she has not use the MediPort so far as she is recovering from complications but does have poor peripheral access. Patient's goal is to have the MediPort removed as an outpatient. Patient denies any ongoing shortness of breath at rest or with exertion and is not currently using oxygen at home. Incidentally CTA of the chest was done and patient was found to have a PE without evidence of right heart strain. Patient was started on weight based Lovenox in the emergency department and will be continue with Eliquis 12 hours later. Patient remains on room air. Hospital course: Patient was admitted for mangement of PE, she was hemodynamically stable and received Lovenox in ED, and continued on Eliquis the next days, she has remained clinically stable and appear to be marking a more rapid than anticipated recovery. Onology has seen her and recommends continuing with eliquis and outpatient follow for the lung cancer. sub cut emphasyma seen on CT has previously been noted on an xray from january. Time Attestation Discharge Coordination Time (in mins): 45 Quality: Safe Use of Opioids Does Pt have an Active Cancer Diagnosis on the Problem List?: No Quality: Stroke Does the patient have a stroke diagnosis?: No Physical Exam Vital Signs: Vital Signs: Last Vital Signs Temp 97.1 F 02/24/25 07:40 Pulse 111 H 02/24/25 07:45 Resp 18 02/24/25 07:45 BP 156/85 H 02/24/25 07:40 Pulse Ox 96 02/24/25 07:40 O2 Del Method Room Air 02/24/25 07:40 BMI result Body Mass Index 18.2 General: AO X 3, no acute distress Resp: CTA bilateral CVS: S1,S2,RRR GI: +BS, NT, no distention Skin: No rash Neuro: motor grossly intact Psych: appropriate affect DS: Data Data Completed and Pending Completed studies during hospitalization [Text1]: Procedures Drainage of Right Lung, Percutaneous Approach, Diagnostic (11/21/24) Drainage of Right Pleural Cavity with Drainage Device, Percutaneous Approach (11/21/24) Drainage of Right Pleural Cavity with Drainage Device, Percutaneous Endoscopic Approach (12/10/24) Excision of Right Upper Lung Lobe, Percutaneous Approach, Diagnostic (11/21/24) Excision of Right Upper Lung Lobe, Percutaneous Endoscopic Approach (12/10/24) Excision of Thorax Lymphatic, Percutaneous Endoscopic Approach, Diagnostic (12/10/24) Labs on day of discharge: Laboratory Results - last 24 hr 02/23/25 02/23/25 02/23/25 13:52 16:00 18:31 WBC 6.9 7.9 RBC 3.76 L 3.70 L Hgb 11.2 L 11.0 L Hct 31.7 L 32.0 L MCV 84.3 86.5 MCH 29.8 29.7 MCHC 35.3 H 34.4 RDW 14.9 14.8 Plt Count 246 D 252 MPV 10.4 10.6 Immature Gran % (Auto) 0.4 Neut % (Auto) 73.1 H Lymph % (Auto) 20.3 [place] % (Auto) 3.2 Eos % (Auto) 2.9 Baso % (Auto) 0.1 Lymph # (Auto) 1.4 [place] # (Auto) 0.2 Eos # (Auto) 0.2 Baso # (Auto) 0.0 Abs Immat Gran (auto) 0.03 Absolute Neuts (auto) 5.1 Absolute Nucleated RBC 0.000 0.000 Nucleated RBC % (auto) 0.0 0.0 PT 10.8 L INR 0.9 APTT 29.0 Sodium 138 Potassium 3.8 Chloride 99 Carbon Dioxide 26 Anion Gap 17 BUN 23 H Creatinine 0.76 Estim Creat Clear Calc 46.4 Estimated GFR > 60 Random Glucose 118 H Calcium 9.4 Magnesium 1.6 Total Bilirubin 0.6 AST 35 H ALT 11 Alkaline Phosphatase 75 Troponin I High Sens 4.7 Total Protein 5.9 L Albumin 3.6 Urine Color Yellow Urine Appearance Clear Urine pH 7.5 Ur Specific [place] 1.025 Urine Protein Negative Urine Glucose (UA) Negative Urine Ketones Negative Urine Blood Negative Urine Nitrite Negative Ur Leukocyte Esterase Negative 02/24/25 06:06 WBC 6.1 RBC 3.63 L Hgb 10.9 L Hct 31.5 L MCV 86.8 MCH 30.0 MCHC 34.6 RDW 14.7 Plt Count 236 MPV 10.7 Immature Gran % (Auto) 0.8 H Neut % (Auto) 52.6 Lymph % (Auto) 31.0 [place] % (Auto) 4.2 Eos % (Auto) 11.1 H Baso % (Auto) 0.3 Lymph # (Auto) 1.9 [place] # (Auto) 0.3 Eos # (Auto) 0.7 H Baso # (Auto) 0.0 Abs Immat Gran (auto) 0.05 H Absolute Neuts (auto) 3.2 Absolute Nucleated RBC 0.000 Nucleated RBC % (auto) 0.0 PT INR APTT Sodium 139 Potassium 4.4 Chloride 97 Carbon Dioxide 33 H Anion Gap 13 BUN 17 H Creatinine 0.76 Estim Creat Clear Calc 45.5 Estimated GFR > 60 Random Glucose 99 Calcium 10.3 H D Magnesium Total Bilirubin 0.7 AST 21 ALT 14 Alkaline Phosphatase 66 Troponin I High Sens Total Protein 6.0 L Albumin 3.6 Urine Color Urine Appearance Urine pH Ur Specific [place] Urine Protein Urine Glucose (UA) Urine Ketones Urine Blood Urine Nitrite Ur Leukocyte Esterase Discharge Plan Discharge Anticipated Discharge Date/Time: 02/24/25 09:58 Patient Disposition: Home Health Service Discharge Diagnosis: Pulmonary embolism Referrals: [facility] [Outside] - 1 Week Juanita Lakhani MD [Primary Care Provider] - 1 Week Discharge Medications: New Eliquis 5 mg Tablet 10 mg PO Q12H Qty: 90 0RF Rx Instructions: take 2 tabs twice daily for 7 days (13 more doses), then after that take 1 tab twice daily continuously Continued albuterol sulfate 90 mcg/actuation HFA aerosol inhaler 2 puff inhalation Q4-6H PRN (Reason: shortness of breath or wheezing) Qty: 1 3RF budesonide-formoterol [Symbicort] 160-4.5 mcg/actuation HFA aerosol inhaler 2 puff inhalation Q12H Qty: 10.2 6RF acetaminophen 500 mg Tablet 500 mg PO Q6H PRN (Reason: Pain) Gaviscon Extra Strength 254-237.5 mg/5 mL Suspension 5 - 10 ml PO TID PRN (Reason: Heartburn) ondansetron 8 mg tablet,disintegrating 8 mg PO Q8H PRN (Reason: Nausea And Vomiting) dexamethasone 4 mg tablet 4 mg PO BID PRN (Reason: after chemotherapy) Rx Instructions: Take 4 mg p.o. b.i.d. day after chemotherapy for 2 days, Q 3 weekly Magic Mouthwash Diphen/Lido/Antacid 1:1:1 240 mL suspension 10 ml PO QID PRN (Reason: oral sores) Rx Instructions: Lidocaine Viscous 2 % 80mL; diphenhydramine 12.5 mg/5 mL 80mL; aluminum-mag hydrox-simeth [id number]/5mL 80mL oxycodone 5 mg Tablet 5 mg PO Q8H PRN (Reason: Breakthrough Pain, Moderate) Qty: 60 0RF Rx Instructions: Partial Fill upon patient request. atorvastatin [Lipitor] 10 mg tablet 10 mg PO QAM cholecalciferol (vitamin D3) [Vitamin D3] 25 mcg (1,000 unit) capsule 25 mcg PO QAM calcium carbonate 500 mg calcium (1,250 mg) tablet,chewable 1,000 mg PO QAM Discharge Orders: Discharge Order (Routine); Ordered 02/24/25 Ordered By: Kael Artis Diet: Advance to usual diet Activity on Discharge: As tolerated Stand Alone Forms: Patient Portal Discharge page Print Language: Thai Care Plan Goals: recovery from pulmoary embolism (blood clots from the lungs Health Concerns: pulmonary embolism Plan of Treatment: take eliquis as directed and follow up with your oncologist Assessment: see above Discharge Date/Time: 02/24/25 13:59
--- NOTE | 2025-02-24 11:21 | W.MHC.F2F ---
Service Date Service Date: 02/24/25 Encounter Date of encounter: 02/24/25 Reasons for Services Signs and symptoms assessed: shortness and chest pain due to lung cancer and pulmonary embolism Reason for detention: medication treatment and teach disease management Homebound: Leaving the home is medically contraindicated at this time without the asist of a device and/or another person due th the listed conditions above and below. Reason homebound: shortness of breath with minimal effort Homebound supporting statement: homebound due to shortness of breath from PE and lung cancer, winded easily and therefore needs the assistance of another person Certification: Based on the above findings, I certify that this patient is confined to the home and needs intermittent detention care, physical therapy and/or speech therapy, or continues to need occupational therapy. The patient is under my care, and I have initiated the establishment of the plan of care. The patient will be followed by a physician who will periodically review the plan of care. Time Spent With Patient Time: Total time managing care of this patient today ____ minutes.
[2025-02-24 11:23] VITALS: BP 138/71; PULSE 99; RESP 17; TEMP 36.2; O2SAT 96
--- NOTE | 2025-02-24 11:30 | MHC.CM.PN ---
Patient has completed a new HCP, naming her Sister/Elizabeth as the Primary Agent and Her /Oswaldo as the Secondary Agent.
--- NOTE | 2025-02-24 11:46 | MHC.CM.PN ---
Patient has been medically cleared for dc to home today with services;Patient is in agreement with [facility] (she was not active with [facility] as she originally reported). [facility] is aware of today's dc and Sister will transport to home.
--- NOTE | 2025-02-24 12:34 | MHC.CLN ---
CONSULT PT IS MODERATELY MALNOURISHED PT WITH MILDLY DEPLETED SUBCUTANEOUS FAT AND MUSCLE MASS WITH BMI 18.2 AND PT REPORTED 10% SIGNIFICANT WT LOSS X6 MONTHS WITH CHRONIC POOR PO INTAKE R/T LOSS OF TASTE AND APPETITE FROM CHEMO TX PT DISLIKES ENSURE, TOLERATES BOOST SUPPLEMENT AT HOME DIET RX; 2GM NA-RECOMMEND LIBERALIZING DIET TO INCREASE VARIETY AND INTAKE PT RECEIVING MAGIC CUP BID TO INCREASE KCALS SUPP PROVIDES 580KCALS, 18G PROTEIN MONITOR PO INTAKE AND ENCOURAGE SUPPLEMENT
--- NOTE | 2025-02-25 07:42 | MHC.CM.PN ---
The signed dc summary has been faxed to Marilynn Galdamez @ [facility] @ [phone].
== END 2025-02-24 13:59 | disposition home health service (06) | DRG 176 ==
LOC: HO.ED 16:01 → HO.EDOVER 18:30 → HO.IMC 19:34
PROVIDERS: Physician Assistant Medical; Admitting Provider Nurse Practitioner Family; Emergency Provider Emergency Medicine Emergency Medical Services; PCP Internal Medicine; Visit Provider Internal Medicine
DX: I26.99 Other pulmonary embolism without acute cor pulmonale (principal); C34.11 Malignant neoplasm of upper lobe, right bronchus or lung; Z90.2 Acquired absence of lung [part of]; Z87.891 Personal history of nicotine dependence; Z79.899 Other long term (current) drug therapy
CPT/HCPCS: 36415; 71046; 71275; 80053; 81003; 83735; 84484; 85025; 85027; 85610; 85730; 93005; 94640; 99285; J1171; J1650; Q9967

== ENCOUNTER → 2025-02-23 12:57 | Outpatient (BNV) | payer MEDICARE, SELFPAY | PROVIDERS: Admitting Provider Nurse Practitioner Family; Emergency Provider Emergency Medicine Emergency Medical Services; PCP Internal Medicine; Visit Provider Internal Medicine Cardiovascular Disease | DX: R53.1 Weakness (principal); R94.31 Abnormal electrocardiogram [ECG] [EKG]; I51.7 Cardiomegaly | CPT/HCPCS: 93010 ==

== ENCOUNTER → 2025-02-23 12:57 | Outpatient (BNV) | payer MEDICARE, SELFPAY | PROVIDERS: Emergency Provider Emergency Medicine Emergency Medical Services; PCP Internal Medicine; Visit Provider Radiology Diagnostic Radiology | DX: R06.02 Shortness of breath (principal); R07.9 Chest pain, unspecified | CPT/HCPCS: 71046; 71275 ==

== ENCOUNTER → 2025-02-23 16:05 | Outpatient (BNV) | payer MEDICARE, SELFPAY | PROVIDERS: Admitting Provider Nurse Practitioner Family; Emergency Provider Emergency Medicine Emergency Medical Services; PCP Internal Medicine; Visit Provider Nurse Practitioner Family | DX: I26.99 Other pulmonary embolism without acute cor pulmonale (principal) | CPT/HCPCS: 99223 ==

== ENCOUNTER → 2025-02-23 16:05 | Outpatient (BNV) | payer MEDICARE, SELFPAY | PROVIDERS: Admitting Provider Nurse Practitioner Family; Emergency Provider Emergency Medicine Emergency Medical Services; PCP Internal Medicine; Visit Provider Internal Medicine | DX: I26.99 Other pulmonary embolism without acute cor pulmonale (principal) | CPT/HCPCS: 99222 ==

== ENCOUNTER 2025-02-27 08:41 | Outpatient (AMB) | payer MEDICARE, SELFPAY ==
--- NOTE | 2025-02-27 08:49 | A.OFFPC_ITS ---
Vital Signs 02/27/25 09:02 Height 5 ft 4 in Weight 105 lb BMI 18.0 BP 124/70 Blood Pressure Location Lt brachial Position Sitting Respiration 17 Pulse 99 Pulse Source Pulse Oximeter Temp 98.2 F Temp Source Oral Pulse Oximetry (%) 98 Oxygen Delivery Method Room Air Intake Visit Reasons: TCM/[facility] blood clot Intake Note: Pt is here today for her TCM/[facility] blood clot Allergies prednisone Adverse Reaction (Verified 03/10/25 17:03) Back Pain Medication List - Last Reconciled 03/10/25 by Juanita Lakhani MD apixaban (Eliquis) 10 mg (2 x 5 mg) PO Q12H atorvastatin (Lipitor) 10 mg PO QAM budesonide-formoterol 160-4.5 mcg/actuation (Symbicort) 2 puffs inhalation Q12H calcium carbonate 1,000 mg PO QAM cholecalciferol (vitamin D3) (Vitamin D3) 25 mcg PO QAM lactulose 10 grams (15 mL) PO BEDTIME PRN Magic Mouthwash Diphen/Lido/Antacid 1:1:1 10 mL PO QID PRN ondansetron 8 mg PO Q8H PRN oxycodone 5 mg PO Q8H PRN Tobacco use date assessed: 02/27/25 Fall risk assessment: No Falls in past year Last assessed Fall Risk: 02/27/25 Dental Screening Dental Screen Date: 02/27/25 Did you have a dental visit in the last 12 months?: No Did you have a dental problem in the last 6 months where you did not have access to dental care?: No Was dental information given to patient?: No HPI TCM/[facility] blood clot HPI0 Details Patient is a 79-year-old female with past medical history recent diagnosis 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 Patient denies any ongoing shortness of breath at rest or with exertion and is not currently using oxygen at home. Incidentally CTA of the chest was done and patient was found to have a PE without evidence of right heart strain. Patient was started on weight based Lovenox in the emergency department a later transition to Eliquis . Remained hemodynamically stable on during admission. Oncology saw patient during recent stay and recommended continuing with Eliquis and outpatient follow-up for her lung cancer subcutaneous emphysema seen on recent CAT scan At present patient states that she has been feeling well, no further complaints of chest pain or shortness of breath. [facility] Medical History Current use of equipment operator intermodal yard anticoagulation History of pulmonary embolus (PE) Heartburn Squamous cell carcinoma of lung COPD (chronic obstructive pulmonary disease) Pneumothorax of right lung after biopsy Former heavy cigarette smoker (20-39 per day) Hoarseness or changing voice Shortness of breath on exertion White coat syndrome with hypertension Dyslipidemia Impaired fasting glucose Osteoporosis Surgical History Port-A-Cath in place Status post partial lobectomy of lung (12/10/24) History of lung biopsy H/O colonoscopy Family History Father No problems noted. Mother Diabetes mellitus Sister Brain cancer Son No problems noted. Social History Household Members: Spouse Household Members Other:: Housing: House Are you a primary day care provider to a significant other at home: No Do you presently have visiting nurse or other home services: No Alcohol intake: current Alcohol intake frequency: does not drink Alcohol type: beer Patient Tobacco Use Status: Former Tobacco user Tobacco use type: Cigarette Cigarette Packs Per Day: 1 Years Smoked: 30 e-Cigarette/Vaping Use: Never Used Second Hand Smoke Exposure: Yes Advance Directives Date on File: 07/30/20 service: No Current occupational status: disabled Cognitive needs: No Hearing needs: No Vision needs: Yes Questionnaire Thrive Questionnaire Date Thrive assessed: 01/06/25 I am a: Patient What is your living situation today?: I have a steady place to live Within the past 12 months, did the food you bought not last and you didn't have the money to get more?: Never true Within the past 12 months, did you worry whether your food would run out before you got money to buy more?: Never true Do you have trouble paying for medicines?: No Do you have trouble getting transportation to medical appointments?: No Do you have trouble paying your heating and electricity bill?: No Do you have trouble taking care of your child, family member or friend?: No Do you have trouble with day-to-day activities such as bathing, preparing meals, shopping, managing finances, etc.?: No Are you currently unemployed and looking for a job?: No Are you interested in more education?: No Please select the resources that you would like help with: None Currently or been in a relationship where the following occur: No concerns reported THRIVE Score: 0 MYA-7 AMB Questionnaire MYA-7 Date MYA - 7 assessed: 01/06/25 Source: Developed by Drs. Cisco Tierney, Vivi Benites, Mir Daniels and colleagues, with an educational tay from [employer]. Review of Systems Const Denies fever(s), Denies headache(s), Denies poor appetite and Denies weakness Eyes Details: Followed by Dr. Celeste ENT Reports Normal hearing present and Denies headache(s) Card Denies chest pain at rest, Denies chest pain with activity, Denies claudication, Denies leg edema, Denies dyspnea and Denies orthopnea Resp Denies chest congestion, Denies excessive phlegm production, Denies pain on inspiration and Denies dyspnea GI Reports no additional complaints Reports no additional complaints Musc Denies myalgias Neuro Reports Normal hearing present, Denies headache(s), Denies Sensory deficit (Neuro) and Denies weakness Psych Reports no additional complaints Benjamín/Lymph Denies lymphadenopathy Aller/Immun Denies seasonal rhinorrhea Physical exam (Primary Care) Vital Signs: Last Vital Signs Temp 98.2 F 02/27/25 09:02 Pulse 99 02/27/25 09:02 Resp 17 02/27/25 09:02 BP 124/70 02/27/25 09:02 Pulse Ox 98 02/27/25 09:02 Oxygen Delivery Method Room Air 02/27/25 09:02 BMI result Body Mass Index 18.0 Tobacco/Smoking Status: Tobacco use Status Tobacco use date assessed 02/27/25 02/27/25 08:56 Patient Tobacco Use Status Former Tobacco user 02/27/25 08:56 Tobacco use type Cigarette 02/27/25 08:56 e-Cigarette/Vaping Use Never Used 02/27/25 08:56 Thrive Assessment: Date of Thrive Assessment Date Thrive assessed 01/06/25 02/27/25 08:56 Currently or been in a relationship where the following occur: No concerns reported Const General: no acute distress and alert Orientation/consciousness: patient oriented x3 HENMT Head: Yes normocephalic Ears: external ears normal General nose exam: Normal external nose present and No nasal discharge present Face and sinus: Yes face symmetric Mouth: oropharynx normal and moist mucous membranes Neck Neck: Yes full ROM and Yes no lymphadenopathy Thyroid: Thyroid normal Chest Other: Tenderness on palpation over MediPort side on right upper chest Resp Effort & Inspection: normal respiratory effort and able to speak in complete sentences Auscultation: clear to auscultation bilaterally Cardio Jugular venous distension: no JVD Rate: regular rate Rhythm: regular rhythm Heart sounds: S1 normal heart sound present and S2 normal heart sound present GI Inspection: Yes normal to inspection Palpation (GI): Soft to palpation, nontender, no guarding and no masses Auscultation: normal bowel sounds General: Yes no CVA tenderness Back/Spine/Pelvis Back: no CVA tenderness Skin General skin exam: no rashes or lesions noted Neuro General: patient oriented x3, gait normal, moves all extremities, no focal motor deficits and CN's II-XI intact bilaterally Cranial nerves: Yes Normal hearing present Cognition (Neuro): normal cognition Gait exam (Neuro): Normal gait present Motor exam (neuro): 5/5 motor strength present throughout Sensory Exam: No Sensory deficit (Neuro) Extrem General: Yes normal to inspection, Yes full ROM, Yes no pedal edema and Yes normal gait Psych Appearance: grossly normal and well kempt Mental Status: mental status grossly normal Speech and movement: Normal speech and movement present Affect: normal affect Attitude: cooperative Thought process: Normal thought process present Coding Level of Care Code TCM High MDM <= 7 Days Diagnoses History of pulmonary embolus (PE) Z86.711 Current use of equipment operator intermodal yard anticoagulation Z79.01 Squamous cell lung cancer C34.90 Other acute postoperative pain G89.18 Constipation due to opioid therapy K59.03; T40.2X5A Assessment & Plan Assessment & Plan (1) History of pulmonary embolus (PE): Code(s): Z86.711 - Personal history of pulmonary embolism Category: Medical Plan: Currently on Eliquis 10 mg 1 tablet twice a day (2) Current use of equipment operator intermodal yard anticoagulation: Code(s): Z79.01 - [facility] (current) use of anticoagulants Category: Medical Plan: Currently on Eliquis twice a day (3) Squamous cell lung cancer: Code(s): C34.90 - Malignant neoplasm of unspecified part of unspecified bronchus or lung Category: Medical Plan: Was receiving chemotherapy but currently on hold due to recent development of pulmonary embolism and MediPort complication, followed by Dr. Curran has appointment scheduled already on 03/11/2025 (4) Other acute postoperative pain: Code(s): G89.18 - Other acute postprocedural pain Plan: MediPort to be removed outpatient, Eliquis for 2 days prior to surgery (5) Constipation due to opioid therapy: Code(s): K59.03 - Drug induced constipation; T40.2X5A - Adverse effect of other opioids, initial encounter Plan: Prescription sent for lactulose 10 g per 15 mL once a day as needed for constipation Medications: New lactulose 10 grams (15 mL) PO BEDTIME PRN 237 mL 0RF constipation
[2025-02-27 09:02] VITALS: BP 124/70; PULSE 99; RESP 17; TEMP 36.8; O2SAT 98; BMI 18.0
--- OUTSIDE RECORDS SUMMARY | 2025-02-27 09:06 | XMS_ITS | Clinical Summary ---
Author Organization [facility] Address [address] [place] [address] Phone Care Team Providers Care Insert Operator Name Role Phone Unavailable Primary Care [...]
== END 2025-02-27 10:09 | disposition home or self-care (01) ==
LOC: HO.HMCC 08:42
PROVIDERS: PCP Internal Medicine; Visit Provider Internal Medicine
DX: K59.03 Drug induced constipation (principal); C34.90 Malignant neoplasm of unspecified part of unspecified bronchus or lung; Z86.711 Personal history of pulmonary embolism; Z79.01 Long term (current) use of anticoagulants; G89.18 Other acute postprocedural pain; T40.2X5A Adverse effect of other opioids, initial encounter

== ENCOUNTER → 2025-02-27 08:41 | Outpatient (BNVA) | payer MEDICARE, SELFPAY | PROVIDERS: PCP Internal Medicine; Visit Provider Internal Medicine | DX: I10 Essential (primary) hypertension (principal); C34.90 Malignant neoplasm of unspecified part of unspecified bronchus or lung; J44.9 Chronic obstructive pulmonary disease, unspecified; K21.9 Gastro-esophageal reflux disease without esophagitis; E78.5 Hyperlipidemia, unspecified; R06.02 Shortness of breath; G89.18 Other acute postprocedural pain; K59.03 Drug induced constipation; T40.2X5A Adverse effect of other opioids, initial encounter; X58.XXXA Exposure to other specified factors, initial encounter; Z86.711 Personal history of pulmonary embolism; Z79.01 Long term (current) use of anticoagulants; Z79.899 Other long term (current) drug therapy; Z87.891 Personal history of nicotine dependence | CPT/HCPCS: 99496 ==

== ENCOUNTER 2025-03-14 11:04 | Day surgery (SDC) | payer MEDICARE, SELFPAY ==
--- OUTSIDE RECORDS SUMMARY | 2025-03-05 14:26 | XMS_ITS | Clinical Summary ---
Author Organization [facility] Address [address] [place] [address] Phone Care Team Providers Care Glass Ribbon Machine Operator Assistant Name Role Phone Unavailable Primary Care Provider [...]
--- NOTE | ~2025-03-14 | IR_ITS ---
Port removal History: Patient no longer requires access for chemotherapy. Referring physicians request removal. Procedure: The risks and benefits were discussed the patient and the consent was signed. The right anterior chest was prepped and draped in routine sterile fashion. The skin was anesthetized with 1% lidocaine. An incision was made over the previous scar. Utilizing blunt dissection, the port was removed from the chest with the catheter intact. The pocket was irrigated with 50 mL of normal saline. The port pocket was closed with interrupted 3-0 Vicryl sutures in the deep layer and surgical glue to close the skin. The patient tolerated the procedure well. A sterile dressing was applied. This procedure was performed by Prieto Romero PA-C, and supervised by Dr. Corcoran. IR/IR cvc remove tunnel w prt/printer operator Impression: Right port removal Electronically signed by: Ward Corcoran MD 03/18/2025 08:06 AM EDT
[2025-03-14 12:05] VITALS: BP 143/70; PULSE 89; RESP 12; TEMP 36.7; O2SAT 98; BMI 18.2
[2025-03-14 13:10] VITALS: BP 150/89; PULSE 94; O2SAT 97
[2025-03-14 13:25] VITALS: BP 143/73; PULSE 96; O2SAT 98
[2025-03-14 13:45] VITALS: BP 142/64; PULSE 86; RESP 18; TEMP 36.6; O2SAT 96
[2025-03-14 13:57] VITALS: BP 153/79; PULSE 90; RESP 18; TEMP 36.6; O2SAT 96
== END 2025-03-14 14:09 | disposition home or self-care (01) ==
PROVIDERS: Physician Assistant Surgical; PCP Internal Medicine; Visit Provider Internal Medicine Medical Oncology
PROC: (CPT 36590; principal; 2025-03-14 13:00)
DX: Z45.2 Encounter for adjustment and management of vascular access device (principal); C34.90 Malignant neoplasm of unspecified part of unspecified bronchus or lung
CPT/HCPCS: 36590; J2003

== ENCOUNTER → 2025-03-14 12:58 | Outpatient (BNV) | payer MEDICARE, SELFPAY | PROVIDERS: PCP Internal Medicine; Visit Provider Physician Assistant Surgical | DX: Z45.2 Encounter for adjustment and management of vascular access device (principal) | CPT/HCPCS: 36590 ==

== ENCOUNTER 2025-03-18 10:27 | Outpatient (REF) | payer MEDICARE, SELFPAY ==
--- NOTE | ~2025-03-18 | US_ITS ---
EXAMINATION: US THYROID HISTORY: f/u 1.5 cm R thyroid nodule on chest CTA 02/23/25 TECHNIQUE: Real-time grayscale ultrasound imaging was performed and images were reviewed. COMPARISON: Correlation is made with a chest CT dated 02/23/2025. FINDINGS: SIZE: The right thyroid lobe measures 4.4 x 1.8 x 2.0 cm. The left thyroid lobe measures 3.9 x 1.1 x 1.1 cm. The isthmus measures 4 mm. FLOW: Flow to the gland is normal. ECHOGENICITY: The echotexture of the gland is homogeneous. NODULES: A 3 mm calcification is noted at the upper pole of the left thyroid lobe. Multiple thyroid nodules are identified as described below: Nodule #: 1 Location: Isthmus measuring 9 x 3 x 7 mm. Shape: Wider than tall (0 points) Margins: Ill-defined (0 points) Echotexture: Isoechoic (1 point) Composition: Mixed (1 point) Calcifications: None (0 points) Total points: 2 TIRADS: TR2: Not suspicious Nodule #: 2 Location: Midportion of the right thyroid lobe measuring 7 x 6 x 5 mm. Shape: Taller than wide (3 points) Margins: Ill-defined (0 points) Echotexture: Isoechoic (1 point) Composition: Mostly solid (2 points) Calcifications: None (0 points) Total points: 6 TIRADS: TR4: Moderately suspicious. Nodule #: 3 Location: Mid to lower pole of the right thyroid lobe measuring 14 x 9 x 12 mm. Shape: Wider than tall (0 points) Margins: Ill-defined (0 points) Echotexture: Isoechoic (1 point) Composition: Mostly solid (2 points) Calcifications: None (0 points) Total points: 3 TIRADS: TR3: Mildly suspicious. US/US thyroid IMPRESSION: Multiple thyroid nodules as described. As per ACR TI-RADS guidelines below, no further workup is required. ACR TI-RADS Guidelines TR1 (0 points): Benign, No follow-up or biopsy required TR2 (2 points): Not Suspicious, No biopsy or follow up indicated TR3 (3 points): Mildly Suspicious, FNA if >= 2.5 cm, Follow if >= 1.5 cm TR4 (4-6 points): Moderately Suspicious, FNA if >= 1.5 cm, Follow if >= 1.0 cm TR5 (>=7 points): Highly Suspicious, FNA if >= 1.0 cm, Follow if >= 0.5 cm Electronically signed by: Cisco Gonzales MD 03/18/2025 02:17 PM EDT
--- OUTSIDE RECORDS SUMMARY | 2025-03-18 12:03 | XMS_ITS | Clinical Summary ---
Author Organization [facility] Address [address] [place] [address] Phone Care Team Providers Care Chef Instructor Name Role Phone Unavailable Primary Care Provider [...] Depression Screening 10/08/2024 Falls Risk Assessment 10/08/2024 Osteoporosis Screening (Bone Density Screening) 10/08/2024 [...] patient's age to complete this topic Insurance MEDICAID ADVANTAGE
== END 2025-03-18 10:28 | disposition home or self-care (01) ==
LOC: HO.US 10:27
PROVIDERS: Visit Provider Nurse Practitioner Family
DX: E04.1 Nontoxic single thyroid nodule (principal)
CPT/HCPCS: 76536

== ENCOUNTER → 2025-03-18 10:29 | Outpatient (BNV) | payer MEDICARE, SELFPAY | PROVIDERS: Visit Provider Radiology Diagnostic Radiology | DX: E04.2 Nontoxic multinodular goiter (principal) | CPT/HCPCS: 76536 ==

== ENCOUNTER 2025-03-24 09:30 | Outpatient (AMB) | payer MEDICARE, SELFPAY ==
--- NOTE | 2025-03-24 09:21 | MHC.OFFVIS ---
Vital Signs 03/24/25 09:34 Height 5 ft 4 in Weight 109 lb 2.061 oz BMI 18.7 BP 140/78 H Blood Pressure Location Rt brachial Position Sitting Pulse 87 Pulse Source Pulse Oximeter Pulse Oximetry (%) 97 Oxygen Delivery Method Room Air Intake Visit Reasons: Shortness of breath Allergies prednisone Adverse Reaction (Verified 03/24/25 09:38) Back Pain HPI HPI Shortness of breath: Details: Argenis is a pleasant 80 year old female, former smoker, 60 pack year history, with recent h/o small cell lung carcinoma stage 2B s/p wedge resection of RUL 12/10/24 lymph node biopsies negative for malignancy, severe COPD and osteoporosis. She is currently being followed by oncology initially underwent chemotherapy however developed complications secondary to port placement of right upper chest including small pneumothorax not requiring chest tube and subcutaneous emphysema. She also was admitted to [facility] 02/23-02/24 due to worsening site discomfort, found to have subsegmental PE of RLL without heart strain, initially started on lovenox, now on Elquis 5 mg BID, likely related to underlying carcinoma and chemo. She has since had port removed 03/14 and is not intereseted in further treatment with chemotherapy. At this time, she reports excellent control of respiratory symptoms on Symbicort and feels significantly improved since having port replaced and cessation of chemo. [facility] Medical History Current use of intermediate card tender anticoagulation History of pulmonary embolus (PE) Heartburn Squamous cell carcinoma of lung COPD (chronic obstructive pulmonary disease) Pneumothorax of right lung after biopsy Former heavy cigarette smoker (20-39 per day) Hoarseness or changing voice Shortness of breath on exertion White coat syndrome with hypertension Dyslipidemia Impaired fasting glucose Osteoporosis Surgical History Port-A-Cath in place Status post partial lobectomy of lung (12/10/24) History of lung biopsy H/O colonoscopy Family History Father No problems noted. Mother Diabetes mellitus Sister Brain cancer Son No problems noted. Social History Household Members: Spouse Household Members Other:: Housing: House Are you a primary child care worker to a significant other at home: No Do you presently have visiting nurse or other home services: No Alcohol intake: current Alcohol intake frequency: does not drink Alcohol type: beer Patient Tobacco Use Status: Former Tobacco user Tobacco use type: Cigarette Cigarette Packs Per Day: 1 Years Smoked: 30 e-Cigarette/Vaping Use: Never Used Second Hand Smoke Exposure: Yes Advance Directives Date on File: 07/30/20 service: No Current occupational status: disabled Cognitive needs: No Hearing needs: No Vision needs: Yes Review of Systems Const Denies chills, Denies excessive sweating, Denies fever(s), Denies headache(s) and Denies night sweats Eyes Denies dry eyes, Denies irritation and Denies itchy eyes ENT Reports Normal hearing present, Denies headache(s), Denies nasal congestion, Denies nasal discharge, Denies post nasal drip and Denies sore throat Card Denies chest pain, Denies chest pain at rest, Denies chest pain with activity, Denies claudication, Denies leg edema, Denies dyspnea, Denies dyspnea on exertion, Denies orthopnea and Denies paroxysmal nocturnal dyspnea Resp Denies chest congestion, Denies cough, Denies excessive phlegm production, Denies pain on inspiration, Denies pain with cough, Denies dyspnea, Denies dyspnea on exertion, Denies stridor and Denies wheezing Musc Denies myalgias Neuro Reports Normal hearing present and Denies headache(s) Endo Denies excessive sweating Benjamín/Lymph Denies lymphadenopathy Aller/Immun Denies itchy eyes, Denies seasonal rhinorrhea and Denies wheezing Physical Exam Vital Signs: Last Vital Signs Pulse 87 03/24/25 09:34 BP 140/78 H 03/24/25 09:34 Pulse Ox 97 03/24/25 09:34 Oxygen Delivery Method Room Air 03/24/25 09:34 BMI result Body Mass Index 18.7 Const General: cooperative, healthy appearing, comfortable, no acute distress and alert Nutritional Appearance: thin Orientation/consciousness: patient oriented x3 Limitations: no limitations HEENT Head: Yes normal to inspection, Yes normocephalic and Yes atraumatic Ears: hearing grossly normal bilaterally and external ears normal Eyes General: appearance normal, both eyes and all related structures Eyelids: Yes eyelids normal Sclerae: sclerae normal EOM: EOMs intact bilaterally Neck Neck: Yes normal visual inspection and Yes no lymphadenopathy Lymphatic: no lymphadenopathy noted Chest Chest palpation & inspection: normal inspection of the chest Resp Other: decreased aeration throughout LLL compared to RLL Effort & Inspection: normal respiratory effort, able to speak in complete sentences, no audible wheezes, no stridor, not tachypneic, no tripod positioning and no use of accessory muscles Auscultation: diminished lung sounds Cardio Jugular venous distension: no JVD Rate: regular rate Rhythm: regular rhythm Skin Other: warm, dry General skin exam: no rashes or lesions noted Neuro General: patient oriented x3 Cranial nerves: Yes Normal hearing present Cognition (Neuro): normal cognition Gait exam (Neuro): Normal gait present Extrem General: Yes normal to inspection, Yes capillary refill normal, Yes no clubbing, cyanosis or edema and Yes no pedal edema Psych Appearance: grossly normal and well kempt Speech and movement: Normal speech and movement present and Clear speech present Affect: normal affect Attitude: cooperative Thought process: Normal thought process present Thought content: Normal thought content present Insight: Good insight present (Psych) Judgement: Good judgement present (Psych) Results Reviewed Results Reviewed: [address] [address] [address] Scan Report Signed with Kaia Patient: Argenis Fong MR#: [id number] : 1945 Acct:[id number] Age/Sex: 79 / F ADM Date: 02/23/25 Loc: .ED Attending Dr: Ordering Physician: Ragini Perez MD Date of Service: 02/23/25 Procedure(s): CT angio chest PE protocol Accession Number(s): [id number] cc: Juanita Lakhani MD; Ragini Perez MD~ Report Number: [id number]: Total DLP = 187.00 mGy-cm ADDENDUMThis document has been electronically signed by: Dave Esparza MD on 02/23/2025 15:47:02 ADDENDUM: This report was discussed with Dr Chris Romero on February 23, 2025 15:49:00 EDT. This document has been electronically signed by: Felicia Paula on 02/23/2025 15:49:19 Addendum Dictated By: Dave Esparza MD Addendum Signed By: <Electronically signed by Dave Esparza MD in OV> 02/23/25 1550 Addendum Cosigned By: DD/ /09/1547 TD/TT: 02/23/2509/09/1549 CLINICAL HISTORY: shortness of breath CT angiography of the chest with IV contrast. 3D/MIP post processing reconstructions were performed. COMPARISON: XR chest dated 02/23/25 at 14:18 EDT XR chest dated 02/07/25 at 16:[address] chest dated 08/23/24 at 08:58 EST FINDINGS: Pulmonary embolism present within the subsegmental right lower lobe pulmonary arteries. No evidence of right heart strain. RV to LV ratio of 0.8. Heterogeneous thyroid gland. Right thyroid lobe nodule measuring 1.5 cm. No supraclavicular or axillary lymphadenopathy. Right-sided chest port tip terminates i present within the SVC. Subcutaneous gas present along the right chest wall extending into the right axilla and right arm. No pleural effusion. Suture material present at the right lung apex. No pneumothorax. Trachea and central airways are clear. No significant bronchial wall thickening. No bronchiectasis. Hyperinflation. Several small bilateral 2 mm pulmonary nodules, not definitively seen on prior imaging. For example left upper lobe 2 mm pulmonary nodule (series 7, image 69). Right lower lobe 2 mm pulmonary nodule (series 7, image 100). Mild diffuse adrenal gland thickening bilaterally. Mild mid thoracic spondylosis. No acute fracture or suspicious bone lesion IMPRESSION: 1. Pulmonary embolism present within the subsegmental right lower lobe pulmonary arteries. No evidence of right heart strain. 2. Subcutaneous gas along the right chest wall extending into the right axilla and upper arm decreased from prior imaging dated 02/06/2025 when accounting for differences in technique. 3. Right thyroid lobe nodule measuring 1.5 cm. Recommend comparison with nonemergent thyroid ultrasound if not already performed. 4. Small scattered 2 mm pulmonary nodules. Recommend comparison with more recent imaging if available. If none available, consider follow-up imaging 12 months. This document has been electronically signed by: Dave Epsarza MD on 02/23/2025 15:47:02 Dictated By: Dave Esparza MD Signed By: <Electronically signed by Dave Esparza MD in OV> 02/23/25 1548 DD/ 46 TD/TT: 02/23/25 154 Orthopedic Designer: Assessment & Plan Assessment & Plan (1) Squamous cell lung cancer: Code(s): C34.90 - Malignant neoplasm of unspecified part of unspecified bronchus or lung Category: Medical (2) History of pulmonary embolus (PE): Code(s): Z86.711 - Personal history of pulmonary embolism Category: Medical (3) COPD (chronic obstructive pulmonary disease): Code(s): J44.9 - Chronic obstructive pulmonary disease, unspecified Category: Medical Plan At this time, Argenis reports good control of respiratory symptoms on Symbicort, currently denies any respiratory symptoms. She has decided against further chemotherapy, reporting improvements in weight gain since discontinuing. Patient recently had likely provoked PE secondary to underlying carcinoma/chemo, now maintained on Eliquis BID. She will be following with oncology to further discuss. Will send for repeat CTA to assess for resolution of PE. On exam today patient with decreased aeration of LLL compared to RLL, will send for CXR today. All questions were answered and patient is in agreement of plan. Will follow-up 3 months or sooner if needed. Orders: Orders XR chest 2V Today C34.90 - Malignant neoplasm of unspecified part of unspecified bronchus or lung CT angio chest PE protocol 8 Weeks Z86.711 - Personal history of pulmonary embolism Coding Level of Care Code Est Pt Level 4 (45446) Diagnoses Squamous cell lung cancer C34.90 History of pulmonary embolus (PE) Z86.711 COPD (chronic obstructive pulmonary disease) J44.9
[2025-03-24 09:34] VITALS: BP 140/78; PULSE 87; O2SAT 97; BMI 18.7
--- OUTSIDE RECORDS SUMMARY | 2025-03-24 10:06 | XMS_ITS | Clinical Summary ---
Author Organization [facility] Address [address] [place] [address] Phone Care Team Providers Care Skiing Instructor Name Role Phone Unavailable Primary Care [...]
== END 2025-03-24 10:01 | disposition home or self-care (01) ==
LOC: HO.HPS 09:31
PROVIDERS: PCP Internal Medicine; Visit Provider Nurse Practitioner Family
DX: C34.90 Malignant neoplasm of unspecified part of unspecified bronchus or lung (principal); Z86.711 Personal history of pulmonary embolism; J44.9 Chronic obstructive pulmonary disease, unspecified
CPT/HCPCS: 99214

== ENCOUNTER 2025-03-24 09:30 | Outpatient (REF) | payer MEDICARE, SELFPAY ==
--- NOTE | ~2025-03-24 | XR_ITS ---
EXAMINATION: XR CHEST 2 VIEWS HISTORY: C34.90 - Malignant neoplasm of unspecified part of unspecified bronchus ... COMPARISON: Comparison is made with the prior examination dated 02/23/2025. FINDINGS: PA and lateral views of the chest are submitted. The lungs are hyperinflated, consistent with COPD. The lungs are clear. There is no pleural effusion, pneumothorax, or pulmonary vascular congestion. The heart is normal in size. The aorta is tortuous. There is an old fracture deformity of the right humeral neck. Multiple old healed left rib fractures are seen. XR/XR chest 2V IMPRESSION: COPD. No acute cardiopulmonary abnormality. Electronically signed by: Cisco Gonzales MD 03/24/2025 10:33 AM EDT
== END 2025-03-24 09:31 | disposition home or self-care (01) ==
LOC: HO.XRAY 09:30
PROVIDERS: PCP Internal Medicine; Visit Provider Nurse Practitioner Family
DX: C34.90 Malignant neoplasm of unspecified part of unspecified bronchus or lung (principal); J44.9 Chronic obstructive pulmonary disease, unspecified; I26.93 Single subsegmental thrombotic pulmonary embolism without acute cor pulmonale; R91.8 Other nonspecific abnormal finding of lung field
CPT/HCPCS: 71046; 99212

== ENCOUNTER → 2025-03-24 10:11 | Outpatient (BNV) | payer MEDICARE, SELFPAY | PROVIDERS: PCP Internal Medicine; Visit Provider Radiology Diagnostic Radiology | DX: J44.9 Chronic obstructive pulmonary disease, unspecified (principal) | CPT/HCPCS: 71046 ==

== ENCOUNTER 2025-04-28 07:57 | Outpatient (AMB) | payer MEDICARE, SELFPAY ==
[2025-04-28 07:59] VITALS: BP 120/80; PULSE 83; RESP 17; TEMP 36.7; O2SAT 97; BMI 19.4
--- NOTE | 2025-04-28 07:59 | A.OFFPC_ITS ---
Vital Signs 04/28/25 07:59 Height 5 ft 4 in Weight 113 lb BMI 19.4 BP 120/80 Blood Pressure Location Lt brachial Position Sitting Respiration 17 Pulse 83 Pulse Source Pulse Oximeter Temp 98.0 F Temp Source Oral Pulse Oximetry (%) 97 Oxygen Delivery Method Room Air Intake Visit Reasons: 7 months f/up Intake Note: Pt is here today for her 7mo. f/u Allergies prednisone Adverse Reaction (Verified 04/28/25 08:46) Back Pain Medication List - Last Reconciled 04/28/25 by Juanita Lakhani MD apixaban (Eliquis) 5 mg PO BID atorvastatin (Lipitor) 10 mg PO QAM budesonide-formoterol 160-4.5 mcg/actuation (Symbicort) 2 puffs inhalation Q12H calcium carbonate 1,000 mg PO QAM cholecalciferol (vitamin D3) (Vitamin D3) 25 mcg PO QAM magnesium oxide 400 mg PO DAILY Tobacco use date assessed: 04/28/25 Fall risk assessment: No Falls in past year Last assessed Fall Risk: 04/28/25 Dental Screening Dental Screen Date: 04/28/25 Did you have a dental visit in the last 12 months?: No Did you have a dental problem in the last 6 months where you did not have access to dental care?: No Was dental information given to patient?: Patient declined HPI 7 months f/up HPI Details 80 year old female, former smoker, 60 pa ck year history, with h/o small cell lung carcinoma stage 2B s/p wedge resection of RUL 12/10/24 lymph node biopsies negative for malignancy, severe COPD and osteoporosis. Patient had several complications with her treatment, developed pneumothorax earlier this year , and pulmonary embolism now currently anticoagulated with Eliquis. She had started chemotherapy but developed complications in the Port-A-Cath, which was removed 03/14/2025. Patient now states that she feels almost back to normal, with resolution of upper extremity pain, and has decided to put her chemotherapy on hold for now. 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 History of pulmonary embolus (PE) Heartburn Squamous cell carcinoma of lung COPD (chronic obstructive pulmonary disease) Pneumothorax of right lung after biopsy Former heavy cigarette smoker (20-39 per day) Hoarseness or changing voice Shortness of breath on exertion White coat syndrome with hypertension Dyslipidemia Impaired fasting glucose Osteoporosis Surgical History (Updated 05/04/25 @ 22:22 by Juanita Lakhani MD) Status post lobectomy of lung Status post lung surgery Status post partial lobectomy of lung (12/10/24) History of lung biopsy H/O colonoscopy Family History Father No problems noted. Mother Diabetes mellitus Sister Brain cancer Son No problems noted. Social History Household Members: Spouse Household Members Other:: Housing: House Are you a primary respiratory care technician to a significant other at home: No Do you presently have visiting nurse or other home services: No Alcohol intake: current Alcohol intake frequency: does not drink Alcohol type: beer Patient Tobacco Use Status: Former Tobacco user Tobacco use type: Cigarette Cigarette Packs Per Day: 1 Years Smoked: 30 e-Cigarette/Vaping Use: Never Used Second Hand Smoke Exposure: Yes Advance Directives Date on File: 07/30/20 service: No Current occupational status: disabled Cognitive needs: No Hearing needs: No Vision needs: Yes Questionnaire Thrive Questionnaire Date Thrive assessed: 01/06/25 I am a: Patient What is your living situation today?: I have a steady place to live Within the past 12 months, did the food you bought not last and you didn't have the money to get more?: Never true Within the past 12 months, did you worry whether your food would run out before you got money to buy more?: Never true Do you have trouble paying for medicines?: No Do you have trouble getting transportation to medical appointments?: No Do you have trouble paying your heating and electricity bill?: No Do you have trouble taking care of your child, family member or friend?: No Do you have trouble with day-to-day activities such as bathing, preparing meals, shopping, managing finances, etc.?: No Are you currently unemployed and looking for a job?: No Are you interested in more education?: No Please select the resources that you would like help with: None Currently or been in a relationship where the following occur: No concerns reported THRIVE Score: 0 MYA-7 AMB Questionnaire MYA-7 Date MYA - 7 assessed: 01/06/25 Feeling nervous, anxious, or on edge: 0 = Not at all Not being able to stop or control worryin = Not at all Worrying too much about different things: 0 = Not at all Trouble relaxin = Not at all Being so restless that it is hard to sit still: 0 = Not at all Becoming easily annoyed or irritable: 0 = Not at all Feeling afraid as if something awful might happen: 0 = Not at all Total MYA-7 score (0-4 normal; 5-9 mild; 10-14 moderate; 15-21 severe): 0 Source: Developed by Drs. Cisco Tierney, Vivi Benites, Mir Daniels and colleagues, with an educational tay from [employer]. Review of Systems Const Denies anorexia, Denies chills, Denies fever(s), Denies headache(s) and Reports weight gain Eyes Reports no additional complaints ENT Reports Normal hearing present, Denies dizziness, Denies headache(s), Denies epistaxis, Denies nasal congestion, Denies nasal discharge, Denies post nasal drip and Denies sore throat Card Denies chest pain at rest, Denies chest pain with activity, Denies irregular heart rhythm, Denies claudication, Denies leg edema, Denies lightheadedness, Denies dyspnea and Denies dyspnea on exertion Resp Denies chest congestion, Denies cough, Denies excessive phlegm production, Denies pain on inspiration, Denies pain with cough, Denies dyspnea, Denies dyspnea on exertion, Denies stridor and Denies wheezing GI Reports no additional complaints Reports no additional complaints Musc Denies myalgias and Reports stiffness Neuro Reports Normal hearing present, Denies dizziness, Denies headache(s) and Denies Sensory deficit (Neuro) Psych Reports no additional complaints Benjamín/Lymph Reports no additional complaints Aller/Immun Denies seasonal rhinorrhea and Denies wheezing Physical exam (Primary Care) Vital Signs: Last Vital Signs Temp 98.0 F 04/28/25 07:59 Pulse 83 04/28/25 07:59 Resp 17 04/28/25 07:59 BP 120/80 04/28/25 07:59 Pulse Ox 97 04/28/25 07:59 Oxygen Delivery Method Room Air 04/28/25 07:59 BMI result Body Mass Index 19.4 Tobacco/Smoking Status: Tobacco use Status Tobacco use date assessed 04/28/25 04/28/25 08:01 Patient Tobacco Use Status Former Tobacco user 04/28/25 08:01 Tobacco use type Cigarette 04/28/25 08:01 e-Cigarette/Vaping Use Never Used 04/28/25 08:01 Thrive Assessment: Date of Thrive Assessment Date Thrive assessed 01/06/25 04/28/25 08:01 Currently or been in a relationship where the following occur: No concerns reported Const General: no acute distress and alert Orientation/consciousness: patient oriented x3 HENMT Head: Yes normocephalic Ears: external ears normal General nose exam: Normal external nose present and No nasal discharge present Face and sinus: Yes face symmetric Mouth: oropharynx normal and moist mucous membranes Neck Neck: Yes full ROM and Yes no lymphadenopathy Thyroid: Thyroid normal Resp Effort & Inspection: normal respiratory effort and able to speak in complete sentences Auscultation: no wheezes and diminished lung sounds Cardio Jugular venous distension: no JVD Rate: regular rate Rhythm: regular rhythm Heart sounds: S1 normal heart sound present and S2 normal heart sound present GI Inspection: Yes normal to inspection Palpation (GI): Soft to palpation, nontender, no guarding and no masses Auscultation: normal bowel sounds General: Yes no CVA tenderness Back/Spine/Pelvis Back: no CVA tenderness Skin General skin exam: no rashes or lesions noted Neuro General: patient oriented x3, gait normal, moves all extremities, no focal motor deficits and CN's II-XI intact bilaterally Cranial nerves: Yes Normal hearing present Cognition (Neuro): normal cognition Gait exam (Neuro): Normal gait present Motor exam (neuro): 5/5 motor strength present throughout Sensory Exam: No Sensory deficit (Neuro) Extrem General: Yes normal to inspection, Yes full ROM, Yes no pedal edema and Yes normal gait Psych Appearance: grossly normal and well kempt Mental Status: mental status grossly normal Speech and movement: Normal speech and movement present Affect: normal affect Thought process: Normal thought process present Coding Level of Care Code Est Pt Level 4 (83119) Diagnoses History of pulmonary embolus (PE) Z86.711 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 Z79.01 COPD (chronic obstructive pulmonary disease) J44.9 Dyslipidemia E78.5 White coat syndrome with hypertension I10 Squamous cell lung cancer C34.90 Assessment & Plan Assessment & Plan (1) History of pulmonary embolus (PE): Code(s): Z86.711 - Personal history of pulmonary embolism Category: Medical Plan: Continued on Eliquis 5 mg 1 tablet twice a day (2) 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: Code(s): Z79.01 - care home (current) use of anticoagulants Category: Medical Plan: Currently on Eliquis 5 mg 1 tablet twice a day (3) COPD (chronic obstructive pulmonary disease): Code(s): J44.9 - Chronic obstructive pulmonary disease, unspecified Category: Medical Plan: Currently on Symbicort 2 puffs every 12 hours (4) Dyslipidemia: Code(s): E78.5 - Hyperlipidemia, unspecified Category: Medical Plan: Fasting lipids ordered, currently on atorvastatin 1 tablet daily (5) White coat syndrome with hypertension: Code(s): I10 - Essential (primary) hypertension Category: Medical Plan: Blood pressure is within normal limits., currently not on any medication (6) Squamous cell lung cancer: Code(s): C34.90 - Malignant neoplasm of unspecified part of unspecified bronchus or lung Category: Medical Plan: Chemotherapy currently on hold, an order for a repeat chest CT in May 2025
--- OUTSIDE RECORDS SUMMARY | 2025-04-28 08:00 | XMS_ITS | Patient Health Record ---
Author Organization [facility] Address [address] [place] [address] Care Team Providers Care Probation Supervisor Name Role Phone Lesvia SANDERS, Juanita Primary Care Provider Cisco Mcdonnell [phone] Reason For Referral No Information Medications Medication [...] Problem Status W/U Status Risk Notes Problem [id number] Encounter for screening for malignant neoplasm of colon (Z12.11) Active confirmed Problem 243619249 History of adenomatous polyp of colon (Z86.010) Active confirmed Problem [id number] Preprocedural examination (Z01.818) Active confirmed Plan Of Treatment Future Test Test Name Order Date COLONOSCOPY 01/28/2014 COLONOSCOPY 11/20/2018 Insurance Providers Payer Name Payer Address Payer Phone Subscriber Number Group Number Insured Name Patient Relationship to Insured Coverage Start Date Coverage End Date [facility] [address] [place] [address] [id number] MARIBELL GARVEY Self - patient is the insured Medical (General) History Medical History History ICD Code Screening colonoscopy 2008--1 small tubular adenoma removed--also noted were diverticulosis and internal hemorrhoids; neg. colonoscopy in 03/2014 Hyperlipidemia Denies [place],DM,CVA,Lung disease,renal dise ase Osteoporosis Surgical History Surgery Date(Month/Year) Tonsillectomy and adenoidectomy
--- OUTSIDE RECORDS SUMMARY | 2025-04-28 08:00 | XMS_ITS | Clinical Summary ---
Author Organization [facility] Address [address] [place] [address] Phone Care Team Providers Care Knot Borer Name Role Phone Unavailable Primary Care Provider [...] 10/08/2024 Social Influencers of Health Screening 10/08/2024 Influenza Vaccine (#1) 2025 , 06/30/2023, 06/27/2022, Additional history exists Zoster Vaccines Completed 08/16/2022, 04/21/2022 Pneumococcal Vaccine: 50+ Years Completed 09/23/2022, 07/24/2015 HIB Vaccines Aged Out No longer eligi [...]
== END 2025-04-28 09:03 | disposition home or self-care (01) ==
LOC: HO.HMCC 07:58
PROVIDERS: PCP Internal Medicine; Visit Provider Internal Medicine
DX: J44.9 Chronic obstructive pulmonary disease, unspecified (principal); C34.90 Malignant neoplasm of unspecified part of unspecified bronchus or lung; Z86.711 Personal history of pulmonary embolism; Z79.01 Long term (current) use of anticoagulants; E78.5 Hyperlipidemia, unspecified; I10 Essential (primary) hypertension

== ENCOUNTER → 2025-04-28 07:57 | Outpatient (BNVA) | payer MEDICARE, SELFPAY | PROVIDERS: PCP Internal Medicine; Visit Provider Internal Medicine | DX: J44.9 Chronic obstructive pulmonary disease, unspecified (principal); E78.5 Hyperlipidemia, unspecified; I10 Essential (primary) hypertension; C34.11 Malignant neoplasm of upper lobe, right bronchus or lung; Z86.711 Personal history of pulmonary embolism; Z79.01 Long term (current) use of anticoagulants; Z79.899 Other long term (current) drug therapy | CPT/HCPCS: 99212 ==

== ENCOUNTER 2025-04-29 07:28 | Outpatient (REF) | payer MEDICARE, SELFPAY ==
--- OUTSIDE RECORDS SUMMARY | 2025-04-29 07:30 | XMS_ITS | Patient Health Record ---
Author Organization [facility] Address [address] [place] [address] Care Team Providers Care Chart Changer Name Role Phone Lesvia SANDERS, Juanita Primary Care Provider Cisco Mcdonnell [phone] Reason For Referral No Information Medications Medication [...] Problem Status W/U Status Risk Notes Problem [id number] Encounter for screening for malignant neoplasm of colon (Z12.11) Active confirmed Problem 668131503 History of adenomatous polyp of colon (Z86.010) Active confirmed Problem [id number] Preprocedural examination (Z01.818) Active confirmed Plan Of Treatment Future Test Test Name Order Date COLONOSCOPY 01/28/2014 COLONOSCOPY 11/20/2018 Insurance Providers Payer Name Payer Address Payer Phone Subscriber Number Group Number Insured Name Patient Relationship to Insured Coverage Start Date Coverage End Date [facility] [address] [place] [phone] [id number] MARIBELL GARVEY Self - patient is the insured Medical (General) History Medical History History ICD Code Screening colonoscopy 2008--1 small tubular adenoma removed--also noted were diverticulosis and internal hemorrhoids; neg. colonoscopy in 03/2014 Hyperlipidemia Denies [place],DM,CVA,Lung disease,renal dise ase Osteoporosis Surgical History Surgery Date(Month/Year) Tonsillectomy and adenoidectomy
--- OUTSIDE RECORDS SUMMARY | 2025-04-29 07:30 | XMS_ITS | Clinical Summary ---
Author Organization [facility] Address [address] [place] [address] Phone Care Team Providers Care Videotape Editor Name Role Phone Unavailable Primary Care Provider [...]
[2025-04-29 11:08] LABS: Cholesterol 173 mg/dL (<200); HDL Cholesterol 69 mg/dL (>40); Triglycerides 56 mg/dL (<150)
== END 2025-04-29 07:29 | disposition home or self-care (01) ==
LOC: HO.10HDL 07:28
PROVIDERS: Visit Provider Internal Medicine
DX: E78.5 Hyperlipidemia, unspecified (principal); Z78.0 Asymptomatic menopausal state
CPT/HCPCS: 36415; 80061; 82306

== ENCOUNTER 2025-05-06 08:22 | Outpatient (REF) | payer MEDICARE, SELFPAY ==
--- OUTSIDE RECORDS SUMMARY | 2025-05-06 08:31 | XMS_ITS | Clinical Summary ---
Author Organization [facility] Address [address] [place] [address] Phone Care Team Providers Care Boat Dispatcher Name Role Phone Unavailable Primary Care Provider [...] 2024 01/26/2023, 03/31/2022, 09/21/2021, Additional history exists Falls Risk Assessment 10/08/2024 Osteoporosis Screening (Bone Density Screening) 10/08/2024 Social Influencers of Health Screening 10/08/2024 Depression Screening 10/16/2024 Influenza Vaccine (#1) 2025 , 06/30/2023, 06/27/2022, [...]
--- OUTSIDE RECORDS SUMMARY | 2025-05-06 08:31 | XMS_ITS | Clinical Summary ---
Author Organization [facility] Address [address] [address] Phone Care Team Providers Care Turkish Line Attendant Name Role Phone Juanita Lakhani MD Primary Care Provider Allergies No known active allergies Medications apixaban (ELIQUIS) 5 mg tablet Take 5 mg by mouth 2 (two) times a day. take 2 tablets 2 times daily for 7 days then starting 03/02/25 take 1 tablet 2 times daily every day. 02/23/2025 Active atorvastatin (LIPITOR) 10 MG tablet Take 10 mg by mouth daily. 02/26/2025 Active cholecalciferol , vitamin D3, 25 mcg (1,000 unit) capsule Take 1,000 Units by mouth daily. 02/26/2025 Active oxyCODONE-aceta minophen (PERCOCET) 5-325 mg per tablet Take 1 tablet by mouth every 8 (eight) hours as needed for pain (specific location in comments). 02/25/2025 Active ondansetron (ZOFRAN) 8 MG tablet Take 8 mg by mouth every 8 (eight) hours as needed for nausea. 02/26/2025 Active budesonide-form oterol 160-4.5 mcg/actuation inhaler Inhale 2 puffs into the lungs 2 (two) times a day. 02/26/2025 Active al mag oxide-diphenhyd ramine-nystatin (MAGIC MOUTHWASH) suspension Take 10 mL by mouth 4 (four) times a day. 02/26/2025 Active Encounters Date Type Department Care Team Description 04/23/2025 8:30 AM EDT [facility] [address] [place] [phone] Ginna Chiang RN SN OASIS DISCHARGE VISIT 04/17/2025 12:00 PM EDT Home Care Visit [facility] [address] [place] [address] Elena Lew LPN PHYSICIAN ANESTHESIOLOGIST HOME VISIT 04/09/2025 11:00 AM EDT Home Care Visit [facility] [address] [place] [address] Elena Lew LPN PHYSICIAN ANESTHESIOLOGIST HOME VISIT 04/02/2025 1:15 PM EDT Home Care Visit [facility] [address] [place] [address] Elena Lew LPN PHYSICIAN ANESTHESIOLOGIST HOME VISIT 03/26/2025 10:45 AM EDT Home Care Visit [facility] [address] [place] [phone] Elena Lew LPN PHYSICIAN ANESTHESIOLOGIST HOME VISIT 03/18/2025 4:00 AM EDT Home Care Visit [facility] [address] [place] [phone] Elena Lew LPN PHYSICIAN ANESTHESIOLOGIST HOME VISIT 03/12/2025 9:00 AM EDT Home Care Visit [facility] [address] [place] [phone] Ginna Chiang RN SN HOME VISIT 03/07/2025 9:00 AM EDT Home [facility] Visit [facility] [address] [place] [phone] Ginna Chiang, AUBREE SN HOME VISIT 03/04/2025 10:30 AM EDT Home Care Visit [facility] [address] [place] [address] Ginna Chiang, AUBREE SN HOME VISIT 02/27/2025 Plan of Care Documentation [facility] [address] [place] [address] 02/26/2025 12:30 PM EDT Home Care Visit [facility] [address] [place], [place] [phone] Ginna Chiang RN SN OASIS START OF CARE (SOC) 02/24/2025 Orders Only [facility] [address] [place], [place] [phone] Homehealth, Interface MD Viki from Last 3 Months Social History Tobacco Use Types Packs/Day Years Used Date Smoking Tobacco: Never Assessed Home Health Assessment: Transportation Answer Date Recorded Lack of Transportation (Medical) No 04/23/2025 Lack of Transportation (Non-Medical) No 04/23/2025 Patient Unable or Declines to Respond No 04/23/2025 Education Answer Date Recorded Are you interested in more education? Not on laury e 12/02/2024 Are you concerned about learning? Not on file 12/02/2024 No 12/02/2024 No 12/02/2024 Digital Access Answer Date Recorded No 12/02/2024 No 12/02/2024 Reliable internet access at home? Not on file 12/02/2024 Device with a working camera? Not on file Comments Unknown Sex and Gender Information Value Date Recorded Sex Assigned at Not on file Legal Sex Female 11:04 AM EST Gender Identity Not on file Sexual Orientation Not on file Last Filed Vital Signs Vital Sign Reading Time Taken Comments Blood Pressure 116/70 04/23/2025 10:25 AM EDT Pulse 71 04/23/2025 10:25 AM EDT Temperature 36.7 C (98.1 F) 04/23/2025 10:25 AM EDT Respiratory Rate 18 04/23/2025 10:25 AM EDT Oxygen Saturation 95% 04/23/2025 10:25 AM EDT Inhaled Oxygen Concentration - - Weight - - Height - - Body Mass Index - - Plan of Treatment Not on file Medical Devices Not on file Insurance [employer] [place] [employer] H[employer] REPLACEMENT [employer] [place] [employer] HMO REPLACEMENT [employer] [place] [employer] HMO REPLACEMENT Care Teams Turkish Line Attendant Relationship Specialty Start Date End Date Juanita Lakhani MD [address] [facility] [address] PCP - General Internal Medicine 12/16/24 Additional Source Comments The information contained in this document represents components of the legal health record. It is not the complete legal health record.[facility]
--- OUTSIDE RECORDS SUMMARY | 2025-05-06 08:31 | XMS_ITS | Patient Health Record ---
Author Organization [facility] Address [address] [place] [address] Care Team Providers Care Metallurgical Laboratory Assistant Name Role Phone Lesvia SANDERS, Juanita Primary Care Provider Cisco Mcdonnell [phone] Reason For Referral No Information Medications Medication [...] Problem Status W/U Status Risk Notes Problem [id number] Encounter for screening for malignant neoplasm of colon (Z12.11) Active confirmed Problem 788744421 History of adenomatous polyp of colon (Z86.010) Active confirmed Problem 102125542399954 Preprocedural examination (Z01.818) Active confirmed Plan Of Treatment Future Test Test Name Order Date COLONOSCOPY 01/28/2014 COLONOSCOPY 11/20/2018 Insurance Providers Payer Name Payer Address Payer Phone Subscriber Number Group Number Insured Name Patient Relationship to Insured Coverage Start Date Coverage End Date [facility] [address] [facility] [place] [address] [phone] [id number] MARIBELL GARVEY Self - patient is the insured Medical (General) History Medical History History ICD Code Screening colonoscopy 2008--1 small tubular adenoma removed--also noted were diverticulosis and internal hemorrhoids; neg. colonoscopy in 03/2014 Hyperlipidemia Denies [place],DM,CVA,Lung disease,renal dise ase Osteoporosis Surgical History Surgery Date(Month/Year) Tonsillectomy and adenoidectomy
== END 2025-05-06 08:23 | disposition home or self-care (01) ==
LOC: HO.MAMMO 08:22
PROVIDERS: PCP Internal Medicine; Visit Provider Internal Medicine
DX: Z12.31 Encounter for screening mammogram for malignant neoplasm of breast (principal)
CPT/HCPCS: 77063; 77067

== ENCOUNTER → 2025-05-06 08:45 | Outpatient (BNV) | payer MEDICARE, SELFPAY | PROVIDERS: PCP Internal Medicine; Visit Provider Internal Medicine | DX: Z12.31 Encounter for screening mammogram for malignant neoplasm of breast (principal) | CPT/HCPCS: 77063; 77067 ==

== ENCOUNTER 2025-05-19 08:31 | Outpatient (REF) | payer MEDICARE, SELFPAY ==
--- NOTE | ~2025-05-19 | CT_ITS ---
EXAMINATION: CT ANGIOGRAM CHEST CLINICAL INFORMATION: Z86.711 - Personal history of pulmonary embolism, follow-up COMPARISON: February 23, 2025 TECHNIQUE: Multiple axial images were obtained through the chest after the administration of 50 mL of Omnipaque 350 intravenous contrast. Extensive vascular post-processing including two-dimensional and three-dimensional reformatted images were created and reviewed on an independent workstation. This CT examination was performed using dose optimization techniques as appropriate, variously including the following: *Automated exposure control *Adjustment of mA and/or kV according to patient size (this includes techniques or standardized protocols for targeted exams where dose is matched to indication/reason for exam; i.e. extremities or head) *Use of iterative reconstruction technique DLP: 187 mGY*cm FINDINGS: QUALITY OF STUDY/CONTRAST BOLUS: Adequate PULMONARY ARTERIES: Nonocclusive filling defect within a right lower lobe pulmonary artery is no longer demonstrated. No new pulmonary emboli are identified. THORACIC AORTA: Moderate vascular calcification is present in the thoracic aortic arch and minimal calcification is seen in the descending thoracic aorta near the hiatus. LUNGS AND PLEURA: Lungs are clear. Again seen are a few scattered 2 mm pulmonary nodules that were described on the prior CT. Again seen is linear scarring in the right apex Lungs are clear otherwise. MEDIASTINUM: Heterogeneous asymmetrical thyroid gland is again seen, with right lobe larger than left. This was worked up by ultrasound on March 18, 2025. CORONARY ARTERY CALCIFICATION: None CHEST WALL/AXILLA: Port in the right upper chest has been removed. Subcutaneous gas in this region has resolved. UPPER ABDOMEN: Mild somewhat lobular thickening of left greater than right adrenal gland again noted. BONES: Mild degenerative changes are again noted with mild disc space narrowing and anterior osteophytes midthoracic spine. CT/CT angio chest PE protocol IMPRESSION: Interval resolution of nonocclusive right lower lobe pulmonary embolus. Small 2 mm solid pulmonary nodules as previously described on the prior CT. No further follow-up is indicated per Fleischner Society recommendations, unless the patient falls into a high risk category, in which case a 12 month follow-up CT chest without contrast is optional. High risk patients includes those with a history of smoking, first-degree relative with lung cancer, or exposure to uranium, radon, or asbestos. Thyroid nodules with ultrasound on March 18, 2025. Fleischner guidelines were followed. Electronically signed by: Ozzie Miranda MD 05/19/2025 12:48 PM EDT RP
--- OUTSIDE RECORDS SUMMARY | 2025-05-19 08:53 | XMS_ITS | Patient Health Record ---
Author Organization [facility] Address [address] [place] [address] Care Team Providers Care Race Car Driver Name Role Phone Lesvia SANDERS, Juanita Primary Care Provider Cisco Mcdonnell [phone] Reason For Referral No Information Medications Medication [...] Problem Status W/U Status Risk Notes Problem [id number] Encounter for screening for malignant neoplasm of colon (Z12.11) Active confirmed Problem 018839279 History of adenomatous polyp of colon (Z86.010) Active confirmed Problem [id number] Preprocedural examination (Z01.818) Active confirmed Plan Of Treatment Future Test Test Name Order Date COLONOSCOPY 01/28/2014 COLONOSCOPY 11/20/2018 Insurance Providers Payer Name Payer Address Payer Phone Subscriber Number Group Number Insured Name Patient Relationship to Insured Coverage Start Date Coverage End Date [facility] [address] [facility] [place] [place] [phone] [id number] MARIBELL GARVEY Self - patient is the insured Medical (General) History Medical History History ICD Code Screening colonoscopy 2008--1 small tubular adenoma removed--also noted were diverticulosis and internal hemorrhoids; neg. colonoscopy in 03/2014 Hyperlipidemia Denies [place],DM,CVA,Lung disease,renal dise ase Osteoporosis Surgical History Surgery Date(Month/Year) Tonsillectomy and adenoidectomy
--- OUTSIDE RECORDS SUMMARY | 2025-05-19 08:54 | XMS_ITS | Clinical Summary ---
Author Organization [facility] Address [address] [place] [address] Phone Care Team Providers Care Human Resources Benefits Specialist Name Role Phone Unavailable Primary Care Provider [...]
--- OUTSIDE RECORDS SUMMARY | 2025-05-19 08:54 | XMS_ITS | Clinical Summary ---
Author Organization [facility] Address [address] [address] Phone Care Team Providers Care Publication Distributor Name Role Phone Juanita Lakhani MD Primary [...] 04/23/2025 8:30 AM EDT [facility] [address] [place] [phone] Ginna Chiang RN SN OASIS DISCHARGE VISIT 04/17/2025 12:00 PM EDT Home Care Visit [facility] [address] [place] [phone] Elena Lew LPN REGULATORY SPECIALIST HOME VISIT 04/09/2025 11:00 AM EDT Home Care Visit [facility] [address] [place] [address] Elena Lew LPN REGULATORY SPECIALIST HOME VISIT 04/02/2025 1:15 PM EDT Home Care Visit [facility] [address] [place] [address] Elena Lew LPN REGULATORY SPECIALIST HOME VISIT 03/26/2025 10:45 AM EDT Home Care Visit [facility] [address] [place] [phone] Elena Lew LPN REGULATORY SPECIALIST HOME VISIT 03/18/2025 4:00 AM EDT Home Care Visit [facility] [address] [place] [phone] Elena Lew LPN REGULATORY SPECIALIST HOME VISIT 03/12/2025 9:00 AM EDT Home Care Visit [facility] [address] [place] [phone] Ginna Chiang RN SN HOME VISIT 03/07/2025 9:00 AM EDT Home Care Visit [facility] [address] [place] [phone] Ginna Chiang, AUBREE SN HOME VISIT 03/04/2025 10:30 AM EDT Home Care Visit [facility] [address] [place] [address] Ginna Chiang, AUBREE SN HOME VISIT 02/27/2025 Plan of Care Documentation [facility] [address] [place] [address] 02/26/2025 12:30 PM EDT Home Care Visit [facility] [address] [place], [place] [phone] Ginna Chiang RN SN OASIS START OF CARE (SOC) 02/24/2025 Orders Only [facility] [address] [place], [place] [phone] Homehealth, Interface MD Viki from Last 3 [...] [place] [employer] H[place] REPLACEMENT Care Teams Publication Distributor Relationship Specialty Start Date End Date Juanita Lakhani MD [address] [facility] [place] [address] PCP - General Internal Medicine 12/16/24 Additional Source Comments The information contained in this document represents components of the legal health record. It is not the complete legal health record.[facility]
[2025-05-19 16:09] LABS: Creatinine POC 0.7 mg/dL (0.5-1.4); GFR POC > 60
== END 2025-05-19 08:32 | disposition home or self-care (01) ==
LOC: HO.CT 08:31
PROVIDERS: PCP Internal Medicine; Visit Provider Nurse Practitioner Family
DX: Z86.711 Personal history of pulmonary embolism (principal)
CPT/HCPCS: 71275; 82565

== ENCOUNTER → 2025-05-19 08:33 | Outpatient (BNV) | payer MEDICARE, SELFPAY | PROVIDERS: PCP Internal Medicine; Visit Provider Radiology Diagnostic Radiology | DX: R91.8 Other nonspecific abnormal finding of lung field (principal); Z86.711 Personal history of pulmonary embolism | CPT/HCPCS: 71275 ==

== ENCOUNTER 2025-05-27 07:29 | Outpatient (REF) | payer MEDICARE, SELFPAY ==
--- OUTSIDE RECORDS SUMMARY | 2025-05-27 07:31 | XMS_ITS | Patient Health Record ---
Author Organization [facility] Address [address] [place] [address] Care Team Providers Care Water Filter Cleaner Name Role Phone Lesvia SANDERS, Juanita Primary Care Provider Cisco Mcdonnell [phone] Reason For Referral No Information Medications Medication [...] Problem Status W/U Status Risk Notes Problem [id number] Encounter for screening for malignant neoplasm of colon (Z12.11) Active confirmed Problem 837958419 History of adenomatous polyp of colon (Z86.010) Active confirmed Problem [id number] Preprocedural examination (Z01.818) Active confirmed Plan Of Treatment Future Test Test Name Order Date COLONOSCOPY 01/28/2014 COLONOSCOPY 11/20/2018 Insurance Providers Payer Name Payer Address Payer Phone Subscriber Number Group Number Insured Name Patient Relationship to Insured Coverage Start Date Coverage End Date [facility] [address] [place] [address] [phone] [id number] MARIBELL GARVEY Self - patient is the insured Medical (General) History Medical History History ICD Code Screening colonoscopy 2008--1 small tubular adenoma removed--also noted were diverticulosis and internal hemorrhoids; neg. colonoscopy in 03/2014 Hyperlipidemia Denies [place],DM,CVA,Lung disease,renal dise ase Osteoporosis Surgical History Surgery Date(Month/Year) Tonsillectomy and adenoidectomy
--- OUTSIDE RECORDS SUMMARY | 2025-05-27 07:31 | XMS_ITS | Clinical Summary ---
Author Organization [facility] Address [address] [place] [address] Phone Care Team Providers Care Boat Dispatcher [...]
--- OUTSIDE RECORDS SUMMARY | 2025-05-27 07:31 | XMS_ITS | Clinical Summary ---
Author Organization [facility] Address [address] [address] Phone Care Team Providers Care Watershed Coordinator Name Role Phone Juanita Lakhani MD Primary [...] 04/23/2025 8:30 AM EDT [facility] [address] [place] [phone] Ginna Chiang RN SN OASIS DISCHARGE VISIT 04/17/2025 12:00 PM EDT Home Care Visit [facility] [address] [place] [phone] Elena Lew LPN PLASMA PROCESSOR HOME VISIT 04/09/2025 11:00 AM EDT Home Care Visit [facility] [address] [place] [address] Elena Lew LPN PLASMA PROCESSOR HOME VISIT 04/02/2025 1:15 PM EDT Home Care Visit [facility] [address] [place] [address] Elena Lew LPN PLASMA PROCESSOR HOME VISIT 03/26/2025 10:45 AM EDT Home Care Visit [facility] [address] [place] [phone] Elena Lew LPN PLASMA PROCESSOR HOME VISIT 03/18/2025 4:00 AM EDT Home Care Visit [facility] [address] [place] [phone] Elena Lew LPN PLASMA PROCESSOR HOME VISIT 03/12/2025 9:00 AM EDT Home Care Visit [facility] [address] [place] [phone] Ginna Chiang RN SN HOME VISIT 03/07/2025 9:00 AM EDT Home Care Visit [facility] [address] [place] [phone] Ginna Chiang, AUBREE SN HOME VISIT 03/04/2025 10:30 AM EDT Home Care Visit [facility] [address] [place] [address] Ginna Chiang, AUBREE SN HOME VISIT 02/27/2025 Plan of Care Documentation [facility] [address] [place] [address] 02/26/2025 12:30 PM EDT Home Care Visit [facility] [address] [place], [place] [phone] Ginna Chiang RN SN OASIS START OF CARE (SOC) 02/24/2025 Orders Only [facility] [address] [place], [place] [phone] Homehealth, Interface MD Viki from Last 3 [...] [place] [employer] H[place] REPLACEMENT Care Teams Watershed Coordinator Relationship Specialty Start Date End Date Juanita Lakhani MD [address] [facility] [place] [address] PCP - General Internal Medicine 12/16/24 Additional Source Comments The information contained in this document represents components of the legal health record. It is not the complete legal health record.[facility]
[2025-05-30 21:38] LABS: NTXCreaRU 45 mg/dL (20-275)
== END 2025-05-27 07:30 | disposition home or self-care (01) ==
LOC: HO.10HDLNP 07:29
PROVIDERS: Visit Provider Internal Medicine Endocrinology, Diabetes & Metabolism
DX: M81.0 Age-related osteoporosis without current pathological fracture (principal)
CPT/HCPCS: 82523

== ENCOUNTER 2025-06-04 07:47 | Outpatient (AMB) | payer MEDICARE, SELFPAY ==
--- OUTSIDE RECORDS SUMMARY | 2025-06-04 07:51 | XMS_ITS | Patient Health Record ---
Author Organization [facility] Address [address] [place] [address] Care Team Providers Care Assembler Chassis Name Role Phone Lesvia SANDERS, Juanita Primary Care Provider Cisco Mcdonnell [phone] Reason For Referral No Information Medications Medication [...] Problem Status W/U Status Risk Notes Problem [id number] Encounter for screening for malignant neoplasm of colon (Z12.11) Active confirmed Problem 466478658 History of adenomatous polyp of colon (Z86.010) Active confirmed Problem [id number] Preprocedural examination (Z01.818) Active confirmed Plan Of Treatment Future Test Test Name Order Date COLONOSCOPY 01/28/2014 COLONOSCOPY 11/20/2018 Insurance Providers Payer Name Payer Address Payer Phone Subscriber Number Group Number Insured Name Patient Relationship to Insured Coverage Start Date Coverage End Date [facility] [address] [place] [address] [phone] [id number] MARIBELL GARVEY Self - patient is the insured Medical (General) History Medical History History ICD Code Screening colonoscopy 2008--1 small tubular adenoma removed--also noted were diverticulosis and internal hemorrhoids; neg. colonoscopy in 03/2014 Hyperlipidemia Denies [place],DM,CVA,Lung disease,renal dise ase Osteoporosis Surgical History Surgery Date(Month/Year) Tonsillectomy and adenoidectomy
--- OUTSIDE RECORDS SUMMARY | 2025-06-04 07:51 | XMS_ITS | Clinical Summary ---
Author Organization [facility] Address [address] [place] [address] Phone Care Team Providers Care Wire Machine Operator Name Role Phone Unavailable Primary [...]
--- OUTSIDE RECORDS SUMMARY | 2025-06-04 07:51 | XMS_ITS | Clinical Summary ---
Author Organization [facility] Address [address] [address] Phone Care Team Providers Care Forestry Engineer Name Role Phone Juanita Lakhani MD Primary [...] 04/23/2025 8:30 AM EDT [facility] [address] [place] [phone] Ginna Chiang RN SN OASIS DISCHARGE VISIT 04/17/2025 12:00 PM EDT Home Care Visit [facility] [address] [place] [phone] Elena Lew LPN LICENSED NUCLEAR OPERATOR HOME VISIT 04/09/2025 11:00 AM EDT Home Care Visit [facility] [address] [place] [phone] Elena Lew LPN LICENSED NUCLEAR OPERATOR HOME VISIT 04/02/2025 1:15 PM EDT Home Care Visit [facility] [address] [place] [phone] Elena Lew LPN LICENSED NUCLEAR OPERATOR HOME VISIT 03/26/2025 10:45 AM EDT Home Care Visit [facility] [address] [place] [phone] Elena Lew LPN LICENSED NUCLEAR OPERATOR HOME VISIT 03/18/2025 4:00 AM EDT Home Care Visit [facility] [address] [place] [phone] Elena Lew LPN LICENSED NUCLEAR OPERATOR HOME VISIT 03/12/2025 9:00 AM EDT Home Care Visit [facility] [address] [place] [phone] Ginna Chiang RN SN HOME VISIT 03/07/2025 9:00 AM EDT Home Care Visit [facility] [address] [place] [phone] Ginna Chiang RN SN HOME VISIT 03/04/2025 10:30 AM EDT Home Care Visit [facility] [address] [place] [phone] Ginna Chiang RN SN HOME VISIT from Last 3 Months Social History Tobacco [...] [place] H[place] REPLACEMENT Care Teams Forestry Engineer Relationship Specialty Start Date End Date Juanita Lakhani MD [address] [facility] [place] [address] PCP - General Internal Medicine 12/16/24 Additional Source Comments The information contained in this document represents components of the legal health record. It is not the complete legal health record.[facility]
--- NOTE | 2025-06-04 07:56 | MHC.OFFVIS ---
Vital Signs 06/04/25 07:59 Height 5 ft 3.82 in Weight 116 lb 13.52 oz BMI 20.2 BP 142/82 H Blood Pressure Location Lt brachial Position Sitting Pulse 74 Pulse Source Pulse Oximeter Pulse Oximetry (%) 98 Oxygen Delivery Method Room Air Intake Visit Reasons: f/u osteoporosis Intake Note: Patient present today for Osteoporosis follow up. Customer Acquisition Specialist Required: No Accompanied by: Self / Same As Patient Allergies prednisone Adverse Reaction (Verified 06/04/25 07:59) Back Pain HPI Comments Details: 80 yo female today for fup visit, for osteoporosis She feels well, no complaints today. She is off Fosamax 70 mg weekly, she has a good method of administration. She is 100 % adherent. She has osteoporosis diagnosed on 2003, she was on Evista from 2003 to 10/2013 when was stopped by DR Ko because she had worsening BMD, she was started on Fosamax on 10/2013. She has PMH of hyperlipidemia, vitamin D deficiency. She had a fragility fracture Right shoulder on 02/2017 while she was on Fosamax . She denies GERD, negative FH of fractures or osteoporosis, no nephrolithiasis, no steroids used, ex smoker quit 7 years ago, no anti seizures medications, no SSRI, no PPI. He has negative History of head or neck irradiation. Calcium Citrate 500 mg BID Vitamin D: 1000 IU daily Herbal medications. none. 09/22/2020 DEXA FINDINGS: AP SPINE L1-L4: Current: BMD 0.883 g/cm2, Z-score -0.4, T-score -2.5, osteopenia, 4.8% decrease from previous, 4.6% decrease from baseline (<5% change is not significant). Prior: BMD 0.928 g/cm2. Baseline: BMD 0.926 g/cm2. LEFT FEMUR, NECK: Current: BMD 0.608 g/cm2, Z-score -0.9, T-score -3.1, osteoporosis. Prior: BMD 0.617 g/cm2. Baseline: BMD 0.655 g/cm2. LEFT FEMUR, TOTAL: Current: BMD 0.764 g/cm2, Z-score 0.1, T-score -1.9, osteopenia, 0.4% decrease from previous, 3.4% decrease from baseline (<5% change is not significant). Prior: BMD 0.767 g/cm2. Baseline: BMD 0.791 g/cm2. Complete secondary workup was negative Laboratory Tests FINDINGS: AP SPINE L1-L4: Current: BMD 0.929 g/cm2, Z-score 0.1, T-score -2.1, osteopenia, 5.2% increase from previous, 0.3% increase from baseline (<5% change is not significant). Prior: BMD 0.883 g/cm2. Baseline: BMD 0.926 g/cm2. LEFT FEMUR, NECK: Current: BMD 0.623 g/cm2, Z-score -0.7, T-score -3.0, osteoporosis. Prior: BMD 0.608 g/cm2. Baseline: BMD 0.655 g/cm2. LEFT FEMUR, TOTAL: Current: BMD 0.735 g/cm2, Z-score 0.0, T-score -2.2, osteopenia, 3.8% decrease from previous, 7.1% decrease from baseline (<5% change is not significant). Prior: BMD 0.764 g/cm2. Baseline: BMD 0.791 g/cm2. IDENTIFIED RISK FACTORS: Osteoporosis, history of fracture (adult), menopause. 03/18/21 03/18/21 08:59 08:59 Creatinine 0.75 Estimated GFR > 60 Calcium 9.5 Alkaline Phosphatase 66 Albumin 4.1 N-Telopeptide X-linked 22 25-OH Vitamin D Total 39.9 Urine Creatinine 106 Laboratory Tests 06/03/19 07/30/20 07/30/20 06:14 08:01 08:05 Creatinine 0.76 Estimated GFR > 60 Calcium 9.3 Albumin 4.3 N-Telopeptide X-linked 32 25-OH Vitamin D Total 40.2 Urine NTX is suppressed but repeat bone density showed FINDINGS: The bone mineral density of the lumbar spine is 0.909 with a T-score of -2.3, and a Z-score of 0.0. This represents a BMD change of -2.2% compared to the prior exam. This is not statistically significant. The bone mineral density of the left total hip is 0.734 with a T-score of -2.2, and a Z-score of 0.1. This represents BMD change of -0.1% compared to the prior exam. This is not statistically significant. The bone mineral density of the left femoral neck is 0.572 with a T-score of -3.4, and a Z-score of 1.0. This represents BMD change of -8.2% compared to the prior exam. Which represents a statistically significant decrease in the femoral neck in the osteoporotic range . Receving chemo for lung Ca The patient is an 80-year-old female presenting with osteoporosis management. She has been off alendronate and is currently taking calcium and vitamin D supplements. Despite the presence of alendronate in her system, her bone density has decreased, particularly in the hip. The patient has a history of lung cancer, for which she underwent partial lung resection and chemotherapy. She did not receive radiation therapy but had a CT scan that revealed a blood clot in her lung, leading to the initiation of anticoagulation therapy. The patient reports being on a blood thinner due to a pulmonary embolism and is concerned about the cost of medications. She has previously tolerated alendronate well and is considering resuming it to prevent fractures. [facility] Medical History (Updated 05/04/25 @ 22:22 by Juanita Lakhani MD) Current use of alf anticoagulation History of pulmonary embolus (PE) Heartburn Squamous cell carcinoma of lung COPD (chronic obstructive pulmonary disease) Pneumothorax of right lung after biopsy Former heavy cigarette smoker (20-39 per day) Hoarseness or changing voice Shortness of breath on exertion White coat syndrome with hypertension Dyslipidemia Impaired fasting glucose Osteoporosis Surgical History (Updated 05/04/25 @ 22:22 by Juanita Lakhani MD) Status post lobectomy of lung Status post lung surgery Status post partial lobectomy of lung (12/10/24) History of lung biopsy H/O colonoscopy Family History Father No problems noted. Mother Diabetes mellitus Sister Brain cancer Son No problems noted. Social History Household Members: Spouse Household Members Other:: Housing: House Are you a primary child caregiver private home to a significant other at home: No Do you presently have visiting nurse or other home services: No Alcohol intake: current Alcohol intake frequency: does not drink Alcohol type: beer Patient Tobacco Use Status: Former Tobacco user Tobacco use type: Cigarette Cigarette Packs Per Day: 1 Years Smoked: 30 e-Cigarette/Vaping Use: Never Used Second Hand Smoke Exposure: Yes Advance Directives Date on File: 07/30/20 service: No Current occupational status: disabled Cognitive needs: No Hearing needs: No Vision needs: Yes Assessment & Plan Assessment & Plan (1) Osteoporosis: Code(s): M81.0 - Age-related osteoporosis without current pathological fracture Category: Medical Qualifiers: Osteoporosis type: age-related Presence of current pathological fracture: without current pathological fracture Qualified Code(s): M81.0 - Age-related osteoporosis without current pathological fracture Plan: This 80-year-old white female with a history of osteoporosis and fragility fracture of the right shoulder in 2017. Secondary workup was negative. She was on alendronate for 8 years and Evista prior. Urine NTX is suppressed but there was worsening bone density in the femoral neck patient the patient at moderate to high risk of fracture. Plan is to continue calcium and vitamin-D. . Considering recent diagnosis of lung cancer followed by chemotherapy and current issues, felt it would not be prudent to use anabolic agent at this point. The patient is also reluctant to do any injectables . Since patient tolerated the alendronate in the past, best option is to reinitiate the alendronate 70 mg Q weekly. Patient returned to the care of her primary care provider. A repeat DEXA should be performed in 09/2026. If the patient has sustains a fracture or bone density significantly declines, patient returned back to endocrinology to revisit the issue of using anabolic and/or Prolia. 1. Osteoporosis The patient has a history of osteoporosis with decreased bone density in the hip despite previous alendronate use. The plan is to resume alendronate to prevent fractures, considering her previous tolerance to the medication. The patient had an opportunity to ask questions regarding treatment plan. The patient expressed understanding and agreement with the above treatment plan. . Patient was informed and verbally consented to the use of an ambient scribe for clinic note documentation during this visit. Medications: New alendronate 70 mg PO QWEEK 5 tabs 2RF Coding Level of Care Code Est Pt Level 3 (47768) Diagnoses Age-related osteoporosis without current pathological fracture M81.0 Osteoporosis type: age-related Presence of current pathological fracture: without current pathological fracture
[2025-06-04 07:59] VITALS: BP 142/82; PULSE 74; O2SAT 98; BMI 20.2
== END 2025-06-04 08:15 | disposition home or self-care (01) ==
LOC: HO.ENCR 07:48
PROVIDERS: PCP Internal Medicine; Visit Provider Internal Medicine Endocrinology, Diabetes & Metabolism
DX: M81.0 Age-related osteoporosis without current pathological fracture (principal)
CPT/HCPCS: 99213

== ENCOUNTER → 2025-06-04 07:47 | Outpatient (BNVA) | payer MEDICARE, SELFPAY | PROVIDERS: PCP Internal Medicine; Visit Provider Internal Medicine Endocrinology, Diabetes & Metabolism | DX: M81.0 Age-related osteoporosis without current pathological fracture (principal); E78.5 Hyperlipidemia, unspecified; E55.9 Vitamin D deficiency, unspecified; Z78.0 Asymptomatic menopausal state | CPT/HCPCS: 99212 ==

== ENCOUNTER 2025-06-23 10:33 | Outpatient (AMB) | payer MEDICARE, SELFPAY ==
--- NOTE | 2025-06-23 10:35 | MHC.OFFVIS ---
Vital Signs 06/23/25 10:36 Height 5 ft 4 in Weight 115 lb 11.883 oz BMI 19.9 BP 132/80 Blood Pressure Location Rt brachial Position Sitting Pulse 94 Pulse Source Pulse Oximeter Pulse Oximetry (%) 97 Oxygen Delivery Method Room Air Intake Visit Reasons: Shortness of breath Allergies prednisone Adverse Reaction (Verified 06/23/25 10:38) Back Pain HPI HPI Shortness of breath: Details: Argenis is a pleasant 80 year old female, former smoker, 60 pack year history, with recent h/o small cell lung carcinoma stage 2B s/p wedge resection of RUL 12/10/24 lymph node biopsies negative for malignancy, severe COPD and osteoporosis. She is currently being followed by oncology initially underwent chemotherapy however developed complications secondary to port placement of right upper chest including small pneumothorax not requiring chest tube and subcutaneous emphysema. She also was admitted to [facility] 02/23-02/24 due to worsening site discomfort, found to have subsegmental PE of RLL without heart strain, initially started on lovenox, then Eliquis 5 mg BID, now on 2.5 mg BID, likely related to underlying carcinoma and chemo. Today she presents to review repeat CTA. Since the last visit she continues to report improvements in respiratory symptoms, energy levels and appetite. She currently denies any respiratory symptoms using Symbicort consistently and albuterol infrequently. She denies any visits to urgent care or hospitalizations related to respiratory distress since the last visit. [facility] Medical History Current use of care home anticoagulation History of pulmonary embolus (PE) Heartburn Squamous cell carcinoma of lung COPD (chronic obstructive pulmonary disease) Pneumothorax of right lung after biopsy Former heavy cigarette smoker (20-39 per day) Hoarseness or changing voice Shortness of breath on exertion White coat syndrome with hypertension Dyslipidemia Impaired fasting glucose Osteoporosis Surgical History Status post lobectomy of lung Status post lung surgery Status post partial lobectomy of lung (12/10/24) History of lung biopsy H/O colonoscopy Family History Father No problems noted. Mother Diabetes mellitus Sister Brain cancer Son No problems noted. Social History Household Members: Spouse Household Members Other:: Housing: House Are you a primary physician assistant primary care to a significant other at home: No Do you presently have visiting nurse or other home services: No Alcohol intake: current Alcohol intake frequency: does not drink Alcohol type: beer Patient Tobacco Use Status: Former Tobacco user Tobacco use type: Cigarette Cigarette Packs Per Day: 1 Years Smoked: 30 e-Cigarette/Vaping Use: Never Used Second Hand Smoke Exposure: Yes Advance Directives Date on File: 07/30/20 service: No Current occupational status: disabled Cognitive needs: No Hearing needs: No Vision needs: Yes Review of Systems Const Denies chills, Denies excessive sweating, Denies fever(s), Denies headache(s) and Denies night sweats Eyes Denies dry eyes, Denies irritation and Denies itchy eyes ENT Reports Normal hearing present, Denies headache(s), Denies nasal congestion, Denies nasal discharge, Denies post nasal drip and Denies sore throat Card Denies chest pain, Denies chest pain at rest, Denies chest pain with activity, Denies claudication, Denies leg edema, Denies dyspnea, Denies dyspnea on exertion, Denies orthopnea and Denies paroxysmal nocturnal dyspnea Resp Denies chest congestion, Denies cough, Denies excessive phlegm production, Denies pain on inspiration, Denies pain with cough, Denies dyspnea, Denies dyspnea on exertion, Denies stridor and Denies wheezing Musc Denies myalgias Neuro Reports Normal hearing present and Denies headache(s) Endo Denies excessive sweating Benjamín/Lymph Denies lymphadenopathy Aller/Immun Denies itchy eyes, Denies seasonal rhinorrhea and Denies wheezing Physical Exam Vital Signs: Last Vital Signs Pulse 94 06/23/25 10:36 BP 132/80 06/23/25 10:36 Pulse Ox 97 06/23/25 10:36 Oxygen Delivery Method Room Air 06/23/25 10:36 BMI result Body Mass Index 19.9 Const General: cooperative, healthy appearing, comfortable, no acute distress and alert Nutritional Appearance: thin Orientation/consciousness: patient oriented x3 Limitations: no limitations HEENT Head: Yes normal to inspection, Yes normocephalic and Yes atraumatic Ears: hearing grossly normal bilaterally and external ears normal Eyes General: appearance normal, both eyes and all related structures Eyelids: Yes eyelids normal Sclerae: sclerae normal EOM: EOMs intact bilaterally Neck Neck: Yes normal visual inspection and Yes no lymphadenopathy Lymphatic: no lymphadenopathy noted Chest Chest palpation & inspection: normal inspection of the chest Resp Effort & Inspection: normal respiratory effort, able to speak in complete sentences, no audible wheezes, no stridor, not tachypneic, no tripod positioning and no use of accessory muscles Auscultation: diminished lung sounds Cardio Jugular venous distension: no JVD Rate: regular rate Rhythm: regular rhythm Skin Other: warm, dry General skin exam: no rashes or lesions noted Neuro General: patient oriented x3 Cranial nerves: Yes Normal hearing present Cognition (Neuro): normal cognition Gait exam (Neuro): Normal gait present Extrem General: Yes normal to inspection, Yes capillary refill normal, Yes no clubbing, cyanosis or edema and Yes no pedal edema Psych Appearance: grossly normal and well kempt Speech and movement: Normal speech and movement present and Clear speech present Affect: normal affect Attitude: cooperative Thought process: Normal thought process present Thought content: Normal thought content present Insight: Good insight present (Psych) Judgement: Good judgement present (Psych) Results Reviewed Results Reviewed: [address] [address] [address] Scan Report Signed Patient: Argenis Fong MR#: [id number] : 1945 Acct:[id number] Age/Sex: 80 / F ADM Date: 05/19/25 Loc: HO.CT Attending Dr: Kanika Gu NP Ordering Physician: Kanika Gu NP Date of Service: 05/19/25 Procedure(s): CT angio chest PE protocol Accession Number(s): [id number] cc: Juanita Lakhani MD; Kanika Gu NP~ Report Number: [id number]: Total DLP = 74.00 mGy-cm EXAMINATION: CT ANGIOGRAM CHEST CLINICAL INFORMATION: Z86.711 - Personal history of pulmonary embolism, follow-up COMPARISON: February 23, 2025 TECHNIQUE: Multiple axial images were obtained through the chest after the administration of 50 mL of Omnipaque 350 intravenous contrast. Extensive vascular post-processing including two-dimensional and three-dimensional reformatted images were created and reviewed on an independent workstation. This CT examination was performed using dose optimization techniques as appropriate, variously including the following: *Automated exposure control *Adjustment of mA and/or kV according to patient size (this includes techniques or standardized protocols for targeted exams where dose is matched to indication/reason for exam; i.e. extremities or head) *Use of iterative reconstruction technique DLP: 187 mGY*cm FINDINGS: QUALITY OF STUDY/CONTRAST BOLUS: Adequate PULMONARY ARTERIES: Nonocclusive filling defect within a right lower lobe pulmonary artery is no longer demonstrated. No new pulmonary emboli are identified. THORACIC AORTA: Moderate vascular calcification is present in the thoracic aortic arch and minimal calcification is seen in the descending thoracic aorta near the hiatus. LUNGS AND PLEURA: Lungs are clear. Again seen are a few scattered 2 mm pulmonary nodules that were described on the prior CT. Again seen is linear scarring in the right apex Lungs are clear otherwise. MEDIASTINUM: Heterogeneous asymmetrical thyroid gland is again seen, with right lobe larger than left. This was worked up by ultrasound on March 18, 2025. CORONARY ARTERY CALCIFICATION: None CHEST WALL/AXILLA: Port in the right upper chest has been removed. Subcutaneous gas in this region has resolved. UPPER ABDOMEN: Mild somewhat lobular thickening of left greater than right adrenal gland again noted. BONES: Mild degenerative changes are again noted with mild disc space narrowing and anterior osteophytes midthoracic spine. CT/CT angio chest PE protocol IMPRESSION: Interval resolution of nonocclusive right lower lobe pulmonary embolus. Small 2 mm solid pulmonary nodules as previously described on the prior CT. No further follow-up is indicated per Fleischner Society recommendations, unless the patient falls into a high risk category, in which case a 12 month follow-up CT chest without contrast is optional. High risk patients includes those with a history of smoking, first-degree relative with lung cancer, or exposure to uranium, radon, or asbestos. Thyroid nodules with ultrasound on March 18, 2025. Fleischner guidelines were followed. 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 She is aware to call if symptoms change. Reviewed CTA which revealed resolution of PE, continues with a few scattered 2 mm pulmonary nodules that were described on the prior CT. Repeat CT ordered by oncology for 6 months. All questions were answered and patient is in agreement of plan. Will follow-up 3 months or sooner if needed. Coding Level of Care Code Est Pt Level 4 (95803) Diagnoses Squamous cell lung cancer C34.90 History of pulmonary embolus (PE) Z86.711 COPD (chronic obstructive pulmonary disease) J44.9
[2025-06-23 10:36] VITALS: BP 132/80; PULSE 94; O2SAT 97; BMI 19.9
--- OUTSIDE RECORDS SUMMARY | 2025-06-23 12:44 | XMS_ITS | Clinical Summary ---
Author Organization [facility] Address [address] [address] Phone Care Team Providers Care Control Systems Developer Name Role Phone Juanita Lakhani MD Primary [...] 04/23/2025 8:30 AM EDT [facility] [address] [place] [phone] Ginna Chiang RN SN OASIS DISCHARGE VISIT 04/17/2025 12:00 PM EDT [facility] Visit [facility] [address] [place] [phone] Elena Lew LPN LPN HOME VISIT 04/09/2025 11:00 AM EDT Home Care Visit [facility] [address] [place] [phone] Elena Lew LPN LPN HOME VISIT 04/02/2025 1:15 PM EDT Home Care Visit [facility] [address] [place] [phone] Elena Lew LPN LPN HOME VISIT 03/26/2025 10:45 AM EDT [facility] [address] [place] [phone] Elena Lew LPN CITY DESIGNER HOME VISIT from Last 3 Months Social [...] [place] H[place] REPLACEMENT Care Teams Control Systems Developer Relationship Specialty Start Date End Date Juanita Lakhani MD [facility] [place] [address] PCP - General Internal Medicine 12/16/24 Additional Source Comments The information contained in this document represents components of the legal health record. It is not the complete legal health record.[facility]
--- OUTSIDE RECORDS SUMMARY | 2025-06-23 12:44 | XMS_ITS | Patient Health Record ---
Author Organization [facility] Address [address] [place] [phone] Care Team Providers Care Cane Furniture Maker Name Role Phone Lesvia SANDERS, Juanita Primary Care Provider Cisco Mcdonnell [phone] Reason For Referral No Information Medications Medication [...] Problem Status W/U Status Risk Notes Problem [id number] Encounter for screening for malignant neoplasm of colon (Z12.11) Active confirmed Problem [id number] History of adenomatous polyp of colon (Z86.010) Active confirmed Problem [id number] Preprocedural examination (Z01.818) Active confirmed Plan Of Treatment Future Test Test Name Order Date COLONOSCOPY 01/28/2014 COLONOSCOPY 11/20/2018 Insurance Providers Payer Name Payer Address Payer Phone Subscriber Number Group Number Insured Name Patient Relationship to Insured Coverage Start Date Coverage End Date [facility] [address] [place] [phone] [id number] MARIBELL GARVEY Self - patient is the insured Medical (General) History Medical History History ICD Code Screening colonoscopy 2008--1 small tubular adenoma removed--also noted were diverticulosis and internal hemorrhoids; neg. colonoscopy in 03/2014 Hyperlipidemia Denies PR,DM,CVA,Lung disease,renal dise ase Osteoporosis Surgical History Surgery Date(Month/Year) Tonsillectomy and adenoidectomy
--- OUTSIDE RECORDS SUMMARY | 2025-06-23 12:45 | XMS_ITS | Clinical Summary ---
Author Organization [facility] Address [address] [place] [address] Phone Care Team Providers Care Starch Mangle Tender Name Role Phone Unavailable Primary Care Provider [...] Patients (1 - 1-dose 75+ series) 2020 Falls Risk Assessment 10/08/2024 Osteoporosis Screening (Bone Density Screening) 10/08/2024 Social Influencers of Health Screening 10/08/2024 Depression Screening 10/16/2024 COVID-19 Vaccine ( season) 2025 01/26/2023, 03/31/2022, 09/21/2021, Additional history exists Influenza Vaccine (#1) 2025 , 06/30/2023, 06/27/2022, [...]
== END 2025-06-23 11:11 | disposition home or self-care (01) ==
LOC: HO.HPS 10:34
PROVIDERS: PCP Internal Medicine; Visit Provider Nurse Practitioner Family
DX: C34.90 Malignant neoplasm of unspecified part of unspecified bronchus or lung (principal); Z86.711 Personal history of pulmonary embolism; J44.9 Chronic obstructive pulmonary disease, unspecified
CPT/HCPCS: 99214

== ENCOUNTER → 2025-06-23 10:33 | Outpatient (BNVA) | payer MEDICARE, SELFPAY | PROVIDERS: PCP Internal Medicine; Visit Provider Nurse Practitioner Family | DX: R06.02 Shortness of breath (principal); J44.9 Chronic obstructive pulmonary disease, unspecified; Z86.711 Personal history of pulmonary embolism; C34.90 Malignant neoplasm of unspecified part of unspecified bronchus or lung; Z87.891 Personal history of nicotine dependence | CPT/HCPCS: 99212 ==